=== PATIENT | female | born 1940 | race Caucasian/White ===

== ENCOUNTER 2017-07-25 11:37 | Observation (INO) | payer OTHER ==
[~2017-07-25] VITALS: Ht 162.6 cm; Wt 140.0 kg
[~2017-07-25 11:37] MED LIST: CARTIA; CLTP; DTR5; MULT-506; SYN200
[2017-07-25] MEDS ORDERED: ONDANSETRON INJ 2 MG/ML 2 ML VIAL IV STA (11:43)
[2017-07-25] MEDS ORDERED: MoRPHine SULFATE 4 MG/ML 1 ML CARP\\VIAL IV PRN (11:45)
--- NOTE | 2017-07-25 11:49 | EMERGENCY ROOM VISIT NOTE ---
History Report prepared by Kathy: Angelina Rosas Under the Supervision of: Dr. Erwin Escobar D.O. First contact with patient: 11:39 Stated Complaint: HIP PAIN History of Present Illness The patient is a 77 year old female who presents to the Emergency Room with complaints of left hip pain. The patient presented to the emergency department by amulet's because of severe left-sided hip pain. The patient states that she noticed approximately a week or 2 ago that when she was walking up a step she felt a pulling sensation in her left hip. She denies having any definite trauma or fall. The patient states that the pain has slowly progressed and gotten much worse. She tried to get an appointment with her primary care physician but was unable to. Last evening the pain became very severe and became a 10 out of 10. It is worsened with any movement or sitting forward. She states it trying to sit on the toilet made the pain very severe. She did not take any specific pain medication for this. The patient states the pain starts at the left groin and goes down into her left thigh. She also noted that she had muscle cramps in the left leg last evening. The patient has not had similar symptoms in the past. She denies having any chest pain or short of breath. She denies having any headache or weakness in the legs. Source of History: patient Onset: 1-2 weeks ago Position: other (left hip) Symptom Intensity: severe Modifying Factors (Worsening): movement Associated Symptoms: No headache, No chest pain, No SOB, No weakness Review of Systems See HPI for pertinent positives & negatives. A total of 10 systems reviewed and were otherwise negative. Past Medical & Surgical Medical Problems: (1) Arthritis (2) Atrial fibrillation (3) DM type 2 (diabetes mellitus, type 2) (4) GERD (gastroesophageal reflux disease) (5) HTN (hypertension) (6) Hypothyroidism Surgical Problems: (1) History of hysterectomy (2) History of total left knee replacement (3) History of total right knee replacement (4) Hx of tonsillectomy Family History Patient reports no known family medical history. Social History Marital Status: Housing Status: lives with significant other Current/Historical Medications Scheduled Apixaban (Eliquis), 5 MG PO BID Calcium Carbonate-Cholecalcife (Caltrate 600+D), 1 TAB PO QAM Clonidine Hcl (Catapres), 0.1 MG PO TID Coenzyme Q10 (Ubidecarenone) (Co Q-10), 1 TAB PO QAM Cyanocobalamin (Vitamin B-12), 1,000 MCG PO QAM Diltiazem Hcl Coated Beads (Cartia Xt), 180 MG PO BID Empagliflozin (Jardiance), 10 MG PO QAM Garlic (Garlic), 1 CAP PO QAM Glimepiride (Glimepiride), 1 TAB PO BID Eougerububt-Lcqfocoumhz-Dgsspd (Move Free Joint Health Ad), 2 TAB PO QAM Krill Oil (Krill Oil), 1 CAP PO DAILY Levothyroxine Sodium (Levothyroxine Sodium), 1 TAB PO QAM Magnesium Oxide (Mag-Ox), 200 MG PO DAILY Multiple Vitamins W/ Minerals (Centrum Silver), 1 TAB PO 1200 Potassium Ext Rel (Klor-Con), 20 MEQ PO QAM Ranitidine Hcl (Zantac), 150 MG PO HS Scheduled PRN Hydrochlorothiazide (Hctz), 25 MG PO DAILY PRN for SWELLING Allergies Coded Allergies: No Known Allergies (Verified , 07/25/17) Physical Exam Vital Signs Date Time Temp Pulse Resp B/P (MAP) Pulse Ox O2 Delivery O2 Flow Rate FiO2 07/25/17 15:00 78 118/72 94 Room Air 07/25/17 14:00 71 121/71 95 Room Air 07/25/17 12:23 82 07/25/17 11:52 36.7 85 21 119/69 97 Room Air 07/25/17 11:46 88 119/69 94 Room Air Physical Exam GENERAL: Patient is awake alert. She appears very anxious and uncomfortable. She appears to be in moderate to severe pain. EYES: The conjunctivae are clear. The pupils are round and reactive. EARS, NOSE, MOUTH AND THROAT: The nose is without any evidence of any deformity. Mucous membranes are moist tongue is midline NECK: The neck is nontender and supple. RESPIRATORY: Normal respiratory effort is noted there is no evidence of wheezing rhonchi or rales CARDIOVASCULAR: Regular rate and rhythm noted there no murmurs rubs or gallops normal S1 normal S2 GASTROINTESTINAL: The abdomen is soft. Bowel sounds are present in all quadrants. Abdomen is nontender BACK: No midline tenderness or or step-off noted range of motion in flexion extension as well as rotation no signs of muscle spasm noted MUSCULOSKELETAL/EXTREMITIES: There is no gross deformity or shortening. There is tenderness with palpation in the left groin as well as pain with external and internal rotation of the left hip. There is also tenderness over the left knee. There is no tenderness below the knee. No calf tenderness was elicited. SKIN: There is no obvious evidence of any rash. Trace pedal edema was noted bilaterally. NEUROLOGIC: Patient is awake alert and oriented x3. Medical Decision & Procedures ER Provider Diagnostic Interpretation: Radiology results as stated below per my review and radiologist interpretation: L FEMUR 2 VIEWS ROUTINE FINDINGS: Alignment of the total left knee arthroplasty is anatomic. There is no acute fracture of the left femur. Left hip joint space is preserved. There is mild osteophytosis. Irregularity of the greater trochanter is due to muscular insertion. IMPRESSION: No acute fracture of the left femur. Electronically signed by: Nirmala Francis KNEE 1 OR 2 VIEWS ROUTINE, PELVIS 1 OR 2 VIEW ROUTINE FINDINGS: PELVIS: Degenerative changes of the lower lumbar spine. Bones appear mildly demineralized. Mild to moderate degenerative changes of the bilateral hips. Sacrum and pelvic ring appear intact. Moderate degenerative changes of the pubic symphysis. KNEE: Left knee arthroplasty and prior patellar resurfacing. No evidence of hardware complication or malalignment. No acute fracture or subluxation. Probable small joint effusion. IMPRESSION: 1. No acute fracture or subluxation. 2. Osteoporotic appearance of the bones. 3. Left knee arthroplasty and prior patellar resurfacing without complication. 4. Small knee joint effusion. The above report was generated using voice recognition software. It may contain grammatical, syntax or spelling errors. Electronically signed by: Roverto Yanes M.D. LEFT LOWER EXTREMITY VENOUS DOPPLER FINDINGS: The left common femoral vein is patent. There is incomplete compressibility of the mid aspect of the left superficial femoral vein which suggests minimal nonocclusive thrombus which is likely old. No additional sites of deep venous thrombus were identified within the left lower extremity. IMPRESSION: 1. No evidence for acute deep venous thrombus within the left lower extremity. 2. Findings suggestive of minimal chronic deep venous thrombus within the left superficial femoral vein. Electronically signed by: Vivek Diaz M.D. L KNEE 1 OR 2 VIEWS ROUTINE, PELVIS 1 OR 2 VIEW ROUTINE FINDINGS: PELVIS: Degenerative changes of the lower lumbar spine. Bones appear mildly demineralized. Mild to moderate degenerative changes of the bilateral hips. Sacrum and pelvic ring appear intact. Moderate degenerative changes of the pubic symphysis. KNEE: Left knee arthroplasty and prior patellar resurfacing. No evidence of hardware complication or malalignment. No acute fracture or subluxation. Probable small joint effusion. IMPRESSION: 1. No acute fracture or subluxation. 2. Osteoporotic appearance of the bones. 3. Left knee arthroplasty and prior patellar resurfacing without complication. 4. Small knee joint effusion. The above report was generated using voice recognition software. It may contain grammatical, syntax or spelling errors. Electronically signed by: Roverto Yanes M.D. Laboratory Results 07/25/17 12:20 Red Blood Count 4.92, Mean Corpuscular Volume 90.9, Mean Corpuscular Hemoglobin 30.3, Mean Corpuscular Hemoglobin Concent 33.3, Mean Platelet Volume 10.6, Neutrophils (%) (Auto) 78.6, Lymphocytes (%) (Auto) 12.9, Monocytes (%) (Auto) 8.0, Eosinophils (%) (Auto) 0.2, Basophils (%) (Auto) 0.1, Neutrophils # (Auto) 6.56, Lymphocytes # (Auto) 1.08, Monocytes # (Auto) 0.67, Eosinophils # (Auto) 0.02, Basophils # (Auto) 0.01 07/25/17 12:20 Test 07/25/17 12:20 07/25/17 16:00 White Blood Count 8.36 K/uL (4.8-10.8) Red Blood Count 4.92 M/uL (4.2-5.4) Hemoglobin 14.9 g/dL (12.0-16.0) Hematocrit 44.7 % (37-47) Mean Corpuscular Volume 90.9 fL (80-100) Mean Corpuscular Hemoglobin 30.3 pg (25-34) Mean Corpuscular Hemoglobin Concent 33.3 g/dl (32-36) Platelet Count 207 K/uL (130-400) Mean Platelet Volume 10.6 fL (7.4-10.4) Neutrophils (%) (Auto) 78.6 % Lymphocytes (%) (Auto) 12.9 % Monocytes (%) (Auto) 8.0 % Eosinophils (%) (Auto) 0.2 % Basophils (%) (Auto) 0.1 % Neutrophils # (Auto) 6.56 K/uL (1.4-6.5) Lymphocytes # (Auto) 1.08 K/uL (1.2-3.4) Monocytes # (Auto) 0.67 K/uL (0.11-0.59) Eosinophils # (Auto) 0.02 K/uL (0-0.5) Basophils # (Auto) 0.01 K/uL (0-0.2) RDW Standard Deviation 48.1 fL (36.4-46.3) RDW Coefficient of Variation 14.5 % (11.5-14.5) Immature Granulocyte % (Auto) 0.2 % Immature Granulocyte # (Auto) 0.02 K/uL (0.00-0.02) Prothrombin Time 10.3 SECONDS (9.0-12.0) Prothromb Time International Ratio 1.0 (0.9-1.1) Activated Partial Thromboplast Time 28.7 SECONDS (21.0-31.0) Partial Thromboplastin Ratio 1.1 Anion Gap 6.0 mmol/L (3-11) Est Creatinine Clear Calc Drug Dose 98.5 ml/min Estimated GFR () 98.1 Estimated GFR (Non- 84.6 BUN/Creatinine Ratio 27.8 (10-20) Calcium Level 9.1 mg/dl (8.5-10.1) Magnesium Level 2.3 mg/dl (1.8-2.4) Total Bilirubin 0.9 mg/dl (0.2-1) Direct Bilirubin 0.2 mg/dl (0-0.2) Aspartate Amino Transf (AST/SGOT) 12 U/L (15-37) Alanine Aminotransferase (ALT/SGPT) 17 U/L (12-78) Alkaline Phosphatase 53 U/L (45-117) Total Protein 7.2 gm/dl (6.4-8.2) Albumin 3.5 gm/dl (3.4-5.0) Lipase 123 U/L (73-393) Urine Color YELLOW Urine Appearance CLEAR (CLEAR) Urine pH 5.0 (4.5-7.5) Urine Specific [place] > 1.045 (1.000-1.030) Urine Protein NEG (NEG) Urine Glucose (UA) 3+ (NEG) Urine Ketones TRACE (NEG) Urine Occult Blood NEG (NEG) Urine Nitrite NEG (NEG) Urine Bilirubin NEG (NEG) Urine Urobilinogen NEG (NEG) Urine Leukocyte Esterase NEG (NEG) Laboratory results per my review. Medications Administered Medications (Trade) Dose Ordered Sig/Chandrakant Route Start Time Stop Time Status Last Admin Dose Admin Morphine Sulfate (MoRPHine SULFATE INJ) 4 mg Q15M PRN IV 07/25/17 11:45 07/25/17 19:13 DC 07/25/17 12:29 4 MG Ondansetron HCl (Zofran Inj) 4 mg NOW STAT IV 07/25/17 11:43 07/25/17 11:46 DC 07/25/17 12:29 4 MG ED Course 1140: The patient was evaluated in room B10. A complete history and physical examination were performed. 1143: Ordered Zofran Inj 4 mg IV. 1145: Ordered Morphine Sulfate 4 mg IV. 1421: The patient reports more pain to her groin area. 1546: I discussed the patient's case with Angeline Maurer. The patient will be evaluated for further management. Medical Decision Prior records reviewed and summarized above. Triage Nursing notes reviewed. The patient's history was concerning for pain in the leg. Differential diagnosis: Etiologies such as DVT, musculoskeletal, infection, joint effusion, trauma, lymphedema, idiopathic, CHF, as well as others were entertained.. The patient is a 77-year-old female who presented to the emergency department for an evaluation of left leg pain. The patient states it she had a misstep on her left leg a few weeks ago and ever since that time he's had very severe left lower extremity pain. She's had very significant pain with ambulation. The patient denies any recent injury or swelling. She denies having any numbness but states that any movement of the leg gets or severe pain. The patient's x- rays did not reveal any acute fracture. Ultrasound revealed an age- indeterminate DVT but not an acute DVT that I feel would be causing her symptoms. The patient was treated with IV pain medication in the emergency department. She had some significant improvement in symptoms however upon attempting to ambulate she had very severe pain. For this reason I discussed her case with the on-call [facility] hospitalist group. They've agreed to evaluate the patient in the emergency department for further management and disposition. Medication Reconcilliation Current Medication List: was personally reviewed by me Blood Pressure Screening Patient's blood pressure: Normal blood pressure Blood pressure disposition: Referred to PCP (evaluated by hospitalist) Consults Time Called: 154 Consulting Physician: Angeline Maurer Returned Call: [phone] I discussed the patient's case with Angeline Maurer. The patient will be evaluated for further management. Impression Primary Impression: Leg pain, left Additional Impression: Ambulatory dysfunction Scribe Attestation The scribe's documentation has been prepared under my direction and personally reviewed by me in its entirety. I confirm that the note above accurately reflects all work, treatment, procedures, and medical decision making performed by me. Departure Information Dispostion Being Evaluated By Hospitalist Problem Qualifiers
[2017-07-25 12:37] LABS: BASO % 0.1 %; BASO ABS # 0.01 K/uL (0-0.2); EOS % 0.2 %; EOS ABS # 0.02 K/uL (0-0.5); HEMATOCRIT 44.7 % (37-47); HEMOGLOBIN 14.9 g/dL (12.0-16.0); IG# 0.02 K/uL (0.00-0.02); LYMPH % 12.9 %; LYMPH ABS # 1.08 K/uL (1.2-3.4); MEAN CELL VOLUME 90.9 fL (80-100); MEAN CORPUSCULAR HEMOGLOBIN 30.3 pg (25-34); MEAN CORPUSCULAR HGB CONC 33.3 g/dl (32-36); MEAN PLATELET VOLUME 10.6 fL (7.4-10.4); MONO ABS # 0.67 K/uL (0.11-0.59); NEUT % 78.6 %; NEUT ABS # 6.56 K/uL (1.4-6.5); PLATELET COUNT 207 K/uL (130-400); RED CELL DISTRIBUTION WIDTH CV 14.5 % (11.5-14.5); RED CELL DISTRIBUTION WIDTH SD 48.1 fL (36.4-46.3); WHITE BLOOD COUNT 8.36 K/uL (4.8-10.8)
--- NOTE | 2017-07-25 12:46 | DIAGNOSTIC IMAGING REPORT ---
L FEMUR 2 VIEWS ROUTINE CLINICAL HISTORY: Worsening left hip and thigh pain. COMPARISON: Pelvis radiograph May 27, 2016. FINDINGS: Alignment of the total left knee arthroplasty is anatomic. There is no acute fracture of the left femur. Left hip joint space is preserved. There is mild osteophytosis. Irregularity of the greater trochanter is due to muscular insertion. IMPRESSION: No acute fracture of the left femur. Electronically signed by: Vivek Diaz M.D. 07/25/2017 12:45 PM Dictated Date/Time: 07/25/2017 12:44 PM
[2017-07-25 12:47] LABS: PTT PATIENT 28.7 SECONDS (21.0-31.0)
--- NOTE | 2017-07-25 12:52 | DIAGNOSTIC IMAGING REPORT ---
L KNEE 1 OR 2 VIEWS ROUTINE, PELVIS 1 OR 2 VIEW ROUTINE HISTORY: 77 years-old Female pain acute left hip and thigh pain COMPARISON: Pelvis radiograph 05/27/2006 TECHNIQUE: AP view the pelvis with 2 views of the left femur and 2 views of the left knee FINDINGS: PELVIS: Degenerative changes of the lower lumbar spine. Bones appear mildly demineralized. Mild to moderate degenerative changes of the bilateral hips. Sacrum and pelvic ring appear intact. Moderate degenerative changes of the pubic symphysis. KNEE: Left knee arthroplasty and prior patellar resurfacing. No evidence of hardware complication or malalignment. No acute fracture or subluxation. Probable small joint effusion. IMPRESSION: 1. No acute fracture or subluxation. 2. Osteoporotic appearance of the bones. 3. Left knee arthroplasty and prior patellar resurfacing without complication. 4. Small knee joint effusion. The above report was generated using voice recognition software. It may contain grammatical, syntax or spelling errors. Electronically signed by: Roverto Yanes M.D. 07/25/2017 12:50 PM Dictated Date/Time: 07/25/2017 12:45 PM
[2017-07-25 12:54] LABS: ALBUMIN 3.5 gm/dl (3.4-5.0); CALCIUM 9.1 mg/dl (8.5-10.1); CREATININE 0.66 mg/dl (0.60-1.20); POTASSIUM 3.9 mmol/L (3.5-5.1)
[2017-07-25 12:57] LABS: TOTAL PROTEIN 7.2 gm/dl (6.4-8.2)
--- NOTE | 2017-07-25 13:14 | DIAGNOSTIC IMAGING REPORT ---
LEFT LOWER EXTREMITY VENOUS DOPPLER CLINICAL HISTORY: Left lower extremity pain. COMPARISON STUDY: No previous studies for comparison. TECHNIQUE: Sonography of the deep venous system of the left lower extremity was performed. Compression and augmentation were evaluated. FINDINGS: The left common femoral vein is patent. There is incomplete compressibility of the mid aspect of the left superficial femoral vein which suggests minimal nonocclusive thrombus which is likely old. No additional sites of deep venous thrombus were identified within the left lower extremity. IMPRESSION: 1. No evidence for acute deep venous thrombus within the left lower extremity. 2. Findings suggestive of minimal chronic deep venous thrombus within the left superficial femoral vein. Electronically signed by: Vivek Diaz M.D. 07/25/2017 1:13 PM Dictated Date/Time: 07/25/2017 1:10 PM
[2017-07-25] MEDS ORDERED: MAGNESIUM 200 MG PO (14:24)
[2017-07-25] MEDS ORDERED: CYAN10005 PO (14:24)
[2017-07-25] MEDS ORDERED: LEVO200T6 PO (14:24)
[2017-07-25] MEDS ORDERED: EMPA1TAB PO (14:24)
[2017-07-25] MEDS ORDERED: COEN1CAP37 PO (14:24)
[2017-07-25] MEDS ORDERED: CTP/1 PO (14:24)
[2017-07-25] MEDS ORDERED: CO Q (14:24)
[2017-07-25] MEDS ORDERED: CALC-354 PO (14:24)
[2017-07-25] MEDS ORDERED: GLUC1TAB94 PO (14:24)
[2017-07-25] MEDS ORDERED: APIX1TAB3 PO (14:24)
[2017-07-25] MEDS ORDERED: HYDR25TA4 PO (14:24)
[2017-07-25] MEDS ORDERED: POTA-639 PO (14:24)
[2017-07-25] MEDS ORDERED: MULTCHW PO (14:24)
[2017-07-25] MEDS ORDERED: RED KRILL OIL PO (14:24)
[2017-07-25] MEDS ORDERED: GLIM2TAB2 PO (14:24)
[2017-07-25] MEDS ORDERED: CARTIA XT PO (14:24)
[2017-07-25] MEDS ORDERED: RANI150T3 PO (14:24)
[2017-07-25] MEDS ORDERED: GARL10007 PO (14:24)
[2017-07-25] MEDS ORDERED: IV FLUIDS COMPLETED PRN (16:15)
[2017-07-25] MEDS ORDERED: DILT240C48 PO (16:59)
[2017-07-25] MEDS ORDERED: MAGN400T6 PO (16:59)
[2017-07-25] MEDS ORDERED: KRIL1000 PO (16:59)
[2017-07-25] MEDS ORDERED: ONDANSETRON INJ 2 MG/ML 2 ML VIAL IV PRN (17:00)
[2017-07-25] MEDS ORDERED: ACETAMINOPHEN 325 MG TAB PO PRN (17:00)
[2017-07-25] MEDS ORDERED: GLUCAGON FOR INJ 1 MG VIAL SQ PRN (17:15)
[2017-07-25] MEDS ORDERED: GLUCOSE 40% GEL 15 GM TUBE PO PRN (17:15)
[2017-07-25] MEDS ORDERED: DEXTROSE 50% 50 ML SYR IV PRN (17:15)
[2017-07-25] MEDS ORDERED: GLUCOSE 10 TABS/TUBE PO PRN (17:15)
[2017-07-25 18:46] VITALS: BP 107/75; PULSE 96; TEMP 36.8; O2SAT 96; Ht 162.6 cm; Wt 140.0 kg
--- NOTE | 2017-07-25 20:00 | NUR ---
OBS: Pt alert X4. Denies numbness or tingling. Trace edema to bilateral lower extremities. Radial and pedal pulses strong and equal. Brisk cap refill. Lungs are clear. 84% on room air, 2L O2 NC applied. 96% on 2L. Bowel sounds present in all quadrants, patient is passing gas, states LBM was 12/20. Pt states she has stress incontinence and wears a pad. Left medial thigh has and ecchymotic area, right abdominal fold has some moisture associated skin damage, all other skin is intact. Allevyn dressings applied to sacrum and bilateral heels for a tg of 18. Saline lock to right AC. Patient transfers with assist of 1 and a walker. Complains of a pain of 4/10 that was relieved with repositioning. Patient will be NPO after midnight incase she will need surgical intervention. 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
--- NOTE | 2017-07-25 20:08 | DIAGNOSTIC IMAGING REPORT ---
LEFT HIP CT CT DOSE: 1038.53 mGy.cm HISTORY: left hip pain TECHNIQUE: Multiaxial CT images of the left hip were performed and reformatted in the sagittal and coronal plane without the use of contrast. A dose lowering technique was utilized adhering to the principles of ALARA. COMPARISON: Pelvis 07/25/2017. FINDINGS: Mild osteoarthritis within the left hip. No fracture or dislocation. The visualized pelvic bones are intact. There is a large intramuscular hematoma within the left thigh adductor muscles. This measures approximately 11 x 9 cm. The inferior border of the hematoma is not included on this study. As also increased thickening within the piriformis muscle which may represent an additional small intramuscular hematoma. No significant hip effusion. IMPRESSION: 1. No fracture or dislocation within the left hip. 2. Large intramuscular hematoma measuring 11 x 9 cm within the left thigh adductor muscles. 3. There may be a second smaller intramuscular hematoma within the left piriformis muscle. Electronically signed by: Janes Schwab M.D. 07/25/2017 8:07 PM Dictated Date/Time: 07/25/2017 7:58 PM
--- NOTE | 2017-07-25 20:22 | History and Physical ---
History & Physical Date & Time of Service: Jul 25, 2017 ~ 16:30 Chief Complaint: Left Hip Pain Primary Care Physician: Peter May D.O. History of Present Illness 77 year old female who presents to the ED with left hip pain. Patient reports that about two weeks ago she was stepping up into her house when she felt something pull in her left hip. She reports it was initially painful however was progressively getting better over the following two weeks. Last night, again while stepping up into her house, patient developed an acute worsening of the pain. She describes the pain as being located in the left groin. She denies any back pain, lateral hip pain, or radiation of the pain into the leg. The pain was initially constant however is now only exacerbated by sitting or standing. She reports pain is bearable when she is ambulating. Patient reports she otherwise has been feeling well. She denies chest pain, shortness of breath , or palpitations. No lightheadedness, dizziness, diaphoresis, or syncopal events. She has occasional diarrhea. She denies abdominal pain, nausea, or vomiting. No fevers or chills. She denies urinary symptoms. In the ED, xrays are negative for acute findings. Labs are unremarkable. Vitals are stable. Patient however is currently unable to ambulate safely so is therefore being admitted for PT/OT and pain control. Past Medical/Surgical History Medical Problems: (1) Arthritis Status: Chronic (2) Atrial fibrillation Status: Chronic (3) DM type 2 (diabetes mellitus, type 2) Status: Chronic (4) GERD (gastroesophageal reflux disease) Status: Chronic (5) HTN (hypertension) Status: Chronic (6) Hypothyroidism Status: Chronic Surgical Problems: (1) History of hysterectomy Status: Chronic (2) History of total left knee replacement Status: Chronic (3) History of total right knee replacement Status: Chronic (4) Hx of tonsillectomy Status: Chronic Family History non contributory due to patient's advanced age Social History Smoking Status: Never Smoker Alcohol Use: none Multi-Drug Resistant Organisms History of MDRO: No Allergies Coded Allergies: No Known Allergies (Verified , 07/25/17) Home Medications Scheduled Apixaban (Eliquis), 5 MG PO BID Calcium Carbonate-Cholecalcife (Caltrate 600+D), 1 TAB PO QAM Clonidine Hcl (Catapres), 0.1 MG PO TID Coenzyme Q10 (Ubidecarenone) (Co Q-10), 1 TAB PO QAM Cyanocobalamin (Vitamin B-12), 1,000 MCG PO QAM Diltiazem Hcl Coated Beads (Cartia Xt), 180 MG PO BID Empagliflozin (Jardiance), 10 MG PO QAM Garlic (Garlic), 1 CAP PO QAM Glimepiride (Glimepiride), 1 TAB PO BID Ynqmqbvhner-Wvfsttyhdnj-[place] (Move Free Joint Health Ad), 2 TAB PO QAM Krill Oil (Krill Oil), 1 CAP PO DAILY Levothyroxine Sodium (Levothyroxine Sodium), 1 TAB PO QAM Magnesium Oxide (Mag-Ox), 200 MG PO DAILY Multiple Vitamins W/ Minerals (Centrum Silver), 1 TAB PO 1200 Potassium Ext Rel (Klor-Con), 20 MEQ PO QAM Ranitidine Hcl (Zantac), 150 MG PO HS Scheduled PRN Hydrochlorothiazide (Hctz), 25 MG PO DAILY PRN for SWELLING Review of Systems ROS per HPI, all other systems reviewed and negative Physical Exam Vital Signs Date Time Temp Pulse Resp B/P (MAP) Pulse Ox O2 Delivery O2 Flow Rate FiO2 07/25/17 18:46 Nasal Cannula 2.0 07/25/17 18:46 36.8 96 16 107/75 96 2.0 07/25/17 17:24 36.7 75 21 122/89 95 07/25/17 17:21 75 122/89 95 Room Air 07/25/17 15:00 78 118/72 94 Room Air 07/25/17 14:00 71 121/71 95 Room Air 07/25/17 12:23 82 07/25/17 11:52 36.7 85 21 119/69 97 Room Air 07/25/17 11:46 88 119/69 94 Room Air General Appearance: WD/WN, no apparent distress, + obese Head: normocephalic, atraumatic Eyes: normal inspection, EOMI, sclerae normal ENT: hearing grossly normal, + pertinent finding (mucous membranes moist) Neck: supple, no JVD, trachea midline Respiratory/Chest: lungs clear, normal breath sounds, no respiratory distress Cardiovascular: normal peripheral pulses, + irregularly irregular (rate controlled), + pertinent finding (trace edema BLLE) Abdomen/GI: normal bowel sounds, non tender, soft, no organomegaly Extremities/Musculoskelatal: no calf tenderness, normal capillary refill, + pertinent finding (left groin pain stimulated by lifting the left leg) Neurologic/Psych: no motor/sensory deficits, alert, normal mood/affect, oriented x 3 Skin: normal color, warm/dry Diagnostics Laboratory Results Results Past 24 Hours Test 07/25/17 12:20 07/25/17 16:00 07/25/17 18:43 Range/Units White Blood Count 8.36 4.8-10.8 K/uL Red Blood Count 4.92 4.2-5.4 M/uL Hemoglobin 14.9 12.0-16.0 g/dL Hematocrit 44.7 37-47 % Mean Corpuscular Volume 90.9 80-100 fL Mean Corpuscular Hemoglobin 30.3 25-34 pg Mean Corpuscular Hemoglobin Concent 33.3 32-36 g/dl Platelet Count 207 130-400 K/uL Mean Platelet Volume 10.6 7.4-10.4 fL Neutrophils (%) (Auto) 78.6 % Lymphocytes (%) (Auto) 12.9 % Monocytes (%) (Auto) 8.0 % Eosinophils (%) (Auto) 0.2 % Basophils (%) (Auto) 0.1 % Neutrophils # (Auto) 6.56 1.4-6.5 K/uL Lymphocytes # (Auto) 1.08 1.2-3.4 K/uL Monocytes # (Auto) 0.67 0.11-0.59 K/uL Eosinophils # (Auto) 0.02 0-0.5 K/uL Basophils # (Auto) 0.01 0-0.2 K/uL RDW Standard Deviation 48.1 36.4-46.3 fL RDW Coefficient of Variation 14.5 11.5-14.5 % Immature Granulocyte % (Auto) 0.2 % Immature Granulocyte # (Auto) 0.02 0.00-0.02 K/uL Prothrombin Time 10.3 9.0-12.0 SECONDS Prothromb Time International Ratio 1.0 0.9-1.1 Activated Partial Thromboplast Time 28.7 21.0-31.0 SECONDS Partial Thromboplastin Ratio 1.1 Sodium Level 138 136-145 mmol/L Potassium Level 3.9 3.5-5.1 mmol/L Chloride Level 104 98-107 mmol/L Carbon Dioxide Level 28 21-32 mmol/L Anion Gap 6.0 3-11 mmol/L Blood Urea Nitrogen 18 7-18 mg/dl Creatinine 0.66 0.60-1.20 mg/dl Est Creatinine Clear Calc Drug Dose 98.5 ml/min Estimated GFR () 98.1 Estimated GFR (Non- 84.6 BUN/Creatinine Ratio 27.8 10-20 Random Glucose 139 70-99 mg/dl Calcium Level 9.1 8.5-10.1 mg/dl Magnesium Level 2.3 1.8-2.4 mg/dl Total Bilirubin 0.9 0.2-1 mg/dl Direct Bilirubin 0.2 0-0.2 mg/dl Aspartate Amino Transf (AST/SGOT) 12 15-37 U/L Alanine Aminotransferase (ALT/SGPT) 17 12-78 U/L Alkaline Phosphatase 53 45-117 U/L Total Protein 7.2 6.4-8.2 gm/dl Albumin 3.5 3.4-5.0 gm/dl Lipase 123 73-393 U/L Urine Color YELLOW Urine Appearance CLEAR CLEAR Urine pH 5.0 4.5-7.5 Urine Specific [place] > 1.045 1.000-1.030 Urine Protein NEG NEG Urine Glucose (UA) 3+ NEG Urine Ketones TRACE NEG Urine Occult Blood NEG NEG Urine Nitrite NEG NEG Urine Bilirubin NEG NEG Urine Urobilinogen NEG NEG Urine Leukocyte Esterase NEG NEG Bedside Glucose 125 70-90 mg/dl Diagnostic Radiology PELVIS XR IMPRESSION: 1. No acute fracture or subluxation. 2. Osteoporotic appearance of the bones. 3. Left knee arthroplasty and prior patellar resurfacing without complication. 4. Small knee joint effusion. LLE DOPPLER IMPRESSION: 1. No evidence for acute deep venous thrombus within the left lower extremity. 2. Findings suggestive of minimal chronic deep venous thrombus within the left superficial femoral vein. LEFT FEMUR XR IMPRESSION: No acute fracture of the left femur. Impression Assessment and Plan AMBULATORY DYSFUNCTION LEFT HIP PAIN - admit to med/surg - patient presenting with left hip pain x 2 weeks that acutely worsened last night - xrays negative for acute fracture; will obtain CT left hip - ortho consult, case discussed with Rolando Guzman PA-C - PT/OT SUPERFICIAL THROMBUS - LLE doppler - minimal chronic deep venous thrombus within the left superficial femoral vein - on Eliquis for afib - no further treatment needed ATRIAL FIBRILLATION - rate controlled on Cartia - anticoagulated on Eliquis DM - hgb a1c unavailable, will check in AM - hold oral agents and utilize SSI while hospitalized HTN - BP controlled, continue clonidine and Cartia HYPOTHYROIDISM - continue levothyroxine DVT PROPHYLAXIS - on Eliquis CODE STATUS - Patient is a full code as per my discussion with her. DISPO - The patient will be placed as observation status for now until further work up is complete. - PT/OT, case management consults; may need short term placement vs. home with home health Attending Addendum: The patient was seen and examined Complains of Left Hip Pain -for the last 2 weeks No H/O trauma Pain has been gradually increasing and is worse today More pain in groin and worse with sitting O/E Obese Hemodynamically stable In Moderate distress at rest Chest-clear to ausucltate bilaterally Heart-Irregular,no murmur Abdomen-benign Extremities-Trace edema bilaterally Left hip movement is painful in all direction Labs and Imaging Studies were reviewed Has Intramuscular Hemorrhage secondary to Eliqiuis Hold Eliquis,Monitor Hb Evaluate the need for Anticoagulation Dr Jaleesa Hargrove Advanced Directives Existing Living Will: No Existing Power of Scaler Packer: Yes VTE Prophylaxis VTE Risk Assessment Done? Y/N: Yes Risk Level: Moderate Given or contraindicated: Other Anticoagulation
[2017-07-25 20:41] VITALS: BP 120/70; PULSE 102; O2SAT 96
[2017-07-25] MEDS: RANITIDINE HCL 150 MG TAB PO SCH (20:44)
[2017-07-25] MEDS: CLONIDINE HCL 0.1 MG TAB PO SCH (20:44)
[2017-07-25] MEDS: DILTIAZEM HCL 180 MG CAPCR PO SCH (20:44)
[2017-07-25 20:59] LABS: HEMATOCRIT 37.7 % (37-47); HEMOGLOBIN 12.5 g/dL (12.0-16.0)
[2017-07-25] MEDS ORDERED: APIXABAN 2.5 MG TAB PO SCH (21:00)
[2017-07-25] MEDS ORDERED: INSULIN ASPART 100 UNITS/ML 3 ML PEN SC SCH (21:00)
[2017-07-25] MEDS ORDERED: PNEUMOCOCCAL ADMINISTRATION CHARGE ONE (21:15)
[2017-07-25] MEDS ORDERED: PNEUMOCOCCAL POLYSACCHARIDES 25 MCG/0.5 ML VIAL/SYR IM. ONE (21:15)
--- NOTE | 2017-07-25 21:52 | NUR ---
The patient has demonstrated progress toward goals and readiness for discharge as demonstrated by: OBS: Pt alert X4. Denies numbness or tingling. Trace edema to bilateral lower extremities. Radial and pedal pulses strong and equal. Brisk cap refill. Lungs are clear. 96% on 2L. Bowel sounds present in all quadrants, patient is passing gas, states LBM was 12/20. Pt states she has stress incontinence and wears a pad. Left medial thigh has and ecchymotic area, right abdominal fold has some moisture associated skin damage, all other skin is intact. Allevyn dressings applied to sacrum and bilateral heels for a tg of 18. Saline lock to right AC. Patient transfers with assist of 1 and a walker. Complains of a pain of 4/10 that was relieved with repositioning. Patient will be NPO after midnight incase she will need surgical intervention. 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
[2017-07-25 23:27] VITALS: BP 122/82; PULSE 108; TEMP 36.7; O2SAT 96
--- NOTE | 2017-07-26 | NUR ---
OBS Note: A/Ox4. Pain controlled with medication. Saline locked. OOB with one assist and a walker. Pt currently resting in bed. Call martin within reach.
[2017-07-26] MEDS ORDERED: HYDROCODONE/ACETAMINOPHEN 7.5/325MG TAB PO ONE (00:35)
[2017-07-26] MEDS ORDERED: NURSING VERBAL MED ORDER ONE ×2 (03:15→21:30)
--- NOTE | 2017-07-26 04:00 | NUR ---
OBS Note: No change in assessment. Saline locked. Pt resting in bed. Call martin within reach.
[2017-07-26] MEDS: LEVOTHYROXINE 200 MCG TAB PO SCH ×2 (05:57→09:34)
[2017-07-26] MEDS: INSULIN ASPART 100 UNITS/ML 3 ML PEN SC SCH ×4 (05:57→21:30)
[2017-07-26 07:04] LABS: HEMOGLOBIN A1C 7.2 % (4.5-5.6)
[2017-07-26 07:59] VITALS: BP 126/75; PULSE 122; TEMP 36.5; O2SAT 94
[2017-07-26 08:00] VITALS: O2SAT 90
--- NOTE | 2017-07-26 08:00 | NUR ---
OBS: Pt resting in the chair. C/O left leg pain - awaiting call from MD since pt is NPO. OOB to bathroom with assistance x 1. Awaiting to be seen by ortho.
[2017-07-26] MEDS ORDERED: NON-FORMULARY MEDICATION (Coenzyme Q10 (Ubidecarenone) (Co Q-10) 1 TAB) PO SCH (09:00)
[2017-07-26] MEDS ORDERED: NON-FORMULARY MEDICATION (Krill Oil 1 CAP) PO SCH (09:00)
[2017-07-26] MEDS: HYDROCODONE/ACETAMINOPHEN 7.5/325MG TAB PO PRN (09:32)
[2017-07-26] MEDS: CALCIUM 600MG + VIT D 400 IU TAB PO SCH (09:33)
[2017-07-26] MEDS: MAGNESIUM OXIDE 400 MG TAB PO SCH (09:33)
[2017-07-26] MEDS: POTASSIUM CHLORIDE 20 MEQ TABCR PO SCH (09:33)
[2017-07-26] MEDS: CYANOCOBALAMIN 500 MCG TAB (VIT B-12) PO SCH (09:34)
[2017-07-26] MEDS: DILTIAZEM HCL 180 MG CAPCR PO SCH ×2 (09:34→21:37)
[2017-07-26] MEDS: CLONIDINE HCL 0.1 MG TAB PO SCH ×3 (09:34→21:37)
[2017-07-26] MEDS: CEROVITE ADV FORMULA TAB PO SCH (12:00)
--- NOTE | 2017-07-26 12:00 | NUR ---
OBS: Still awaiting ortho input. Continues NPO. Otherwise no complaints.
--- NOTE | 2017-07-26 13:38 | NUR ---
Case Management- Consult for discharge planning, met with pt to determine needs. Pt was admitted with ambulatory dysfunction, she has reported increased pain and difficulty with ambulation over the past 2 weeks. Pt lives with her in a 2 story home, they have first floor living and home is handicapped accessible, ramp to enter. Pts spouse is on dialysis but he is independent, she assists him with cooking and cleaning and he assists her with tasks prn. Pt reports she is independent with ADLs including ambulating without a device at baseline. She does have a walker and cane, as well as raised/handicapped toilet. Pt is aware there may be a possibility she will require rehab, reviewed options pt is only agreeable to [facility]. Referral information provided to [facility]. Reviewed possibility of denial of acute rehab but approval for SNF, at this time pt refusing snf and reports she would return home if rehab was denied. Pt feels family is supportive and would be able to provide assistance. Sons live about 15 minutes away and are supportive she reports they assist as needed. Ortho consulted. Will appreciate PT/OT evaluations. Will continue to follow.
[2017-07-26 15:28] VITALS: BP 118/62; PULSE 97; TEMP 36.7; O2SAT 92
--- NOTE | 2017-07-26 16:00 | NUR ---
Obd/ID: Pt A&Ox4. No c/o pain. Saline lock intact, site clear. Lungs clear on RA. OOB ambulating with one assist and walker, gait steady, tolerated. Voiding in toilet. Bruising to upper left extremity. Tolerating a DM type II AHA diet. D/C uncertain at this time. Call martin in reach.
--- NOTE | 2017-07-26 18:23 | Progress Note ---
Subjective Date of Service: Jul 26, 2017. Subjective Pt evaluation today including: conversation w/ patient, physical exam, lab review, review of studies, review of inpatient medication list Saw/examined the patient in room 387 Doing well, pain controlled +bruising, +tenderness No other issues to note Review of Systems Respiratory: No cough, No sputum, No shortness of breath Cardiac: No chest pain, No palpitations Abdomen: No pain, No nausea, No vomiting, No diarrhea Medications Current Inpatient Medications Medications (Trade) Dose Ordered Sig/Chandrakant Route Start Time Stop Time Status Last Admin Dose Admin Miscellaneous (Iv Fluids Completed) 1 ea PRN PRN N/A 07/25/17 16:15 07/25/18 16:14 Acetaminophen (Tylenol Tab) 650 mg Q4H PRN PO 07/25/17 17:00 08/24/17 16:59 Ondansetron HCl (Zofran Inj) 4 mg Q6H PRN IV 07/25/17 17:00 08/24/17 16:59 Acetaminophen/ Hydrocodone Bitart ([place] 7.5/325 Tab) 1 tab Q6H PRN PO 07/25/17 17:00 08/08/17 16:59 07/26/17 09:32 1 TAB Clonidine HCl (Catapres Tab) 0.1 mg TID PO 07/25/17 21:00 08/24/17 20:59 07/26/17 14:40 0.1 MG Cyanocobalamin (Vitamin B-12 Tab) 1,000 mcg QAM PO 07/26/17 09:00 08/25/17 08:59 07/26/17 09:34 1,000 MCG Diltiazem HCl (Cardizem Cd Cap) 180 mg BID PO 07/25/17 21:00 08/24/17 20:59 07/26/17 09:34 180 MG Levothyroxine Sodium (Synthroid Tab) 200 mcg DAILYBB PO 07/26/17 06:00 08/25/17 06:59 07/26/17 09:34 200 MCG Magnesium Oxide (Mag-Ox Tab) 200 mg DAILY PO 07/26/17 09:00 08/25/17 08:59 07/26/17 09:33 200 MG Potassium Chloride (Klor-Con Tab) 20 meq QAM PO 07/26/17 09:00 08/25/17 08:59 12/22/17 09:33 20 MEQ Ranitidine HCl (zANTac TAB) 150 mg HS PO 07/25/17 21:00 08/24/17 20:59 07/25/17 20:44 150 MG Calcium/Vitamin D (Caltrate Plus Tab) 1 tab QAM PO 07/26/17 09:00 08/25/17 08:59 07/26/17 09:33 1 TAB Multivitamins/ Minerals (Multivitamin W/ Minerals Tab) 1 tab DAILY@1200 PO 07/26/17 12:00 08/25/17 11:59 Glucose (Glucose 40% Gel) 15-30 GRAMS 15 GRAMS... UD PRN PO 07/25/17 17:15 08/24/17 17:14 Glucose (Glucose Chew Tab) 4-8 Tablets 4 Tabl... UD PRN PO 07/25/17 17:15 08/24/17 17:14 Dextrose (Dextrose 50% 50ML Syringe) 25-50ML OF 50% DW IV FOR... UD PRN IV 07/25/17 17:15 08/24/17 17:14 Glucagon (Glucagon Inj) 1 mg UD PRN SQ 07/25/17 17:15 08/24/17 17:14 Insulin Aspart (novoLOG ASPART) SLIDING SCALE If C... Q6 SC 07/26/17 06:00 08/25/17 05:59 Objective Vital Signs Date Time Temp Pulse Resp B/P (MAP) Pulse Ox O2 Delivery O2 Flow Rate FiO2 07/26/17 15:28 36.7 97 18 118/62 (80) 92 Room Air 07/26/17 08:00 90 Room Air 07/26/17 07:59 36.5 122 18 126/75 (92) 94 Room Air 07/25/17 23:52 Nasal Cannula 2.0 07/25/17 23:27 36.7 108 18 122/82 (95) 96 Nasal Cannula 2.0 07/25/17 20:41 102 18 120/70 (87) 96 Nasal Cannula 2.0 07/25/17 18:46 Nasal Cannula 2.0 07/25/17 18:46 36.8 96 16 107/75 96 2.0 Physical Exam General Appearance: no apparent distress, + obese Respiratory/Chest: lungs clear, normal breath sounds, no respiratory distress, no accessory muscle use Cardiovascular: no edema, no murmur, + irregularly irregular Extremities: + pertinent finding (+bruising, ecchymosis, swelling of the medial thigh on the L) Neurologic/Psychiatric: no motor/sensory deficits, alert, normal mood/affect Laboratory Results Last 24 Hours Test 07/25/17 18:43 07/25/17 20:44 07/25/17 20:54 07/26/17 02:58 Bedside Glucose 125 mg/dl 166 mg/dl 126 mg/dl Hemoglobin 12.5 g/dL Hematocrit 37.7 % Test 07/26/17 05:55 07/26/17 06:19 Bedside Glucose 129 mg/dl Estimated Average Glucose 160 mg/dl Hemoglobin A1c 7.2 % Assessment and Plan This is a 77 year old female with a PMH of obesity, DM2, A. Fib on Eliquis, HTN , HLD, hypothyroidism presents with L hip pain L Medial Thigh Hematoma CT suggest a L hematoma on the adductor muscles stopped Eliquis H/H stable - but we will monitor this PT/OT [place] PRN for pain ortho input would be appreciated A. Fib HRs are fluctuating monitor HRs control pain; continue Cardizem stopped Eliquis due to hematoma restart as outpatient if bleeding improves DM2 insulin sliding scale monitor BSGs HTN continue clonidine continue Cardizem Hypothyroidism continue Synthroid DVT ppx SCDs FULL CODE
--- NOTE | 2017-07-26 19:14 | CONSULTATION REPORT ---
DATE OF CONSULTATION: 07/26/2017 PERTINENT HISTORY: This is a 77-year-old female seen at the request of Dr. Stone for left thigh pain and hip pain. Apparently, 2 weeks ago, the patient was stepping up into her house on the step, she had her left leg slightly stuck. She went to leave against it and felt something pull a chair on her leg. She noted that was painful; however, ignored it and had no other immediate complaints. She then had progressive left hip and groin pain which worsened to the point of difficulty with ambulation yesterday. The patient then presented to [facility] ER, at which point she continued to be evaluated by the Emergency Department physician with radiographs and CT scan. She had no other associated injuries. No loss of consciousness. No dizziness, lightheadedness, fevers, chills, nausea or vomiting or diarrhea. No urinary symptoms. PAST MEDICAL HISTORY: Degenerative joint disease, AFib, chronic type 2 diabetes mellitus, gastroesophageal reflux, hypertension, and hypothyroidism. PAST SURGICAL HISTORY: Hysterectomy, history of total left knee replacement, history of total right knee replacement by Dr. Velásquez, and history of tonsillectomy. ALLERGIES: No known drug allergies. MEDICATIONS: Eliquis, Caltrate 600+D, Catapres, Coenzyme Q10, vitamin B12, Cartia XT, Jardiance, garlic, glimepiride, glucosamine chondroitin sulfate, Krill oil, levothyroxine sodium, magnesium oxide, Centrum Silver, Klor-Con, Zantac and hydrochlorothiazide. SOCIAL HISTORY: The patient denies tobacco, alcohol or drug use. She is . She lives at home with her . She is retired. PHYSICAL EXAMINATION: GENERAL: This is a 77-year-old female, sitting supine in her hospital room, on bedside chair. She is alert and oriented x3. Speech clear and fluent. Affect is appropriate. Cranial nerves II-XII are grossly intact. HEENT: Trachea is midline. No JVD. Oral mucosa is slightly dry. LOWER EXTREMITIES: Demonstrates significant for obesity. She has intact skin, bilateral lower extremities with significant ecchymosis and bruising along the proximal left thigh and the medial aspect of the thigh and groin. No skin breakdown. Sensation is intact. Some local discomfort tenderness to palpation and also the deep tenderness along the left thigh with palpable hematoma and fullness to the proximal left thigh. Dorsalis pedis and posterior pulses are 2/4. 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 She has normal range of motion, symmetric with age-appropriate strength to bilateral lower extremities. IMAGING DATA: Radiographs and CT scans of the left hip and pelvis demonstrate a large hematoma within the adductor muscles at the medial proximal thigh. A small hematoma in the piriformis on the left. IMPRESSION: 1. Left proximal thigh hematoma. 2. Adductor strain. 3. Ambulatory dysfunction secondary to above. RECOMMENDATIONS: This is a nonoperative candidate for this particular issue. Recommend conservative management, weightbearing as tolerated with a walker and assist. Continue with physical therapy, occupational therapy and follow up with orthopedics as needed. This will likely resolve over the next 2-3 weeks; however, if she continues to have significant symptoms after 4 weeks, would recommend followup with orthopedics. Thank you for the opportunity to consult in the care of this patient.
--- NOTE | 2017-07-26 20:00 | NUR ---
obs: ALERT AND ORIENTED. VSS. LUNGS CLEAR AND DIMINISHED ON ROOM AIR, MILD DYSPNEA NOTED AFTER AMBULATION, 2L REQUIRED TO BRING PATIENT SATS INTO 90S. TOLERATING PO. SALINE LOCKED. OOB WITH ONE ASSIST AND WALKER TO BATHROOM. VOIDING IN TOILET. D/C UNCERTAIN.
[2017-07-26 21:00] VITALS: O2SAT 94
[2017-07-26 21:34] VITALS: BP 112/65; PULSE 92; TEMP 36.7; O2SAT 94
[2017-07-26] MEDS: RANITIDINE HCL 150 MG TAB PO SCH (21:37)
[2017-07-26 23:08] VITALS: BP 102/68; PULSE 95; TEMP 36.9; O2SAT 95
--- NOTE | 2017-07-27 | NUR ---
obs: ALERT AND ORIENTED. 2L NC, SATS IN 90S. DENIES NAUSEA. OOB WITH ONE ASSIST AND WALKER VOIDING IN TOILET. SALINE LOCKED. DENIES PAIN MEDICATION NEEDS AT THIS TIME. RINGS FOR ASSIST. D/C UNCERTAIN.
--- NOTE | 2017-07-27 04:00 | NUR ---
ID/OBS: alert and oriented. vss. lungs diminished on 2L nc. oob with one assist and walker, voiding adequately in toilet, stress incontinence reported. denies need for pain medication at this time. saline lock intact R ac. tolerating po. d/c uncertain
[2017-07-27] MEDS: LEVOTHYROXINE 200 MCG TAB PO SCH (06:23)
[2017-07-27 06:41] LABS: HEMOGLOBIN 11.3 g/dL (12.0-16.0); MEAN CELL VOLUME 92.3 fL (80-100); MEAN CORPUSCULAR HGB CONC 31.4 g/dl (32-36); MEAN PLATELET VOLUME 10.5 fL (7.4-10.4); PLATELET COUNT 189 K/uL (130-400); RED CELL DISTRIBUTION WIDTH CV 14.1 % (11.5-14.5); WHITE BLOOD COUNT 5.83 K/uL (4.8-10.8)
[2017-07-27 07:06] LABS: CALCIUM 8.3 mg/dl (8.5-10.1); CREATININE 0.47 mg/dl (0.60-1.20); POTASSIUM 4.2 mmol/L (3.5-5.1)
[2017-07-27 07:16] VITALS: BP 101/63; PULSE 79; TEMP 36.7; O2SAT 97
--- NOTE | 2017-07-27 08:06 | NUR ---
Patient stable with no voiced complaints. OOB with assist of 1-2 - able to ambulate with walker when OOB. VIT/small BM x1 today. Tolerating diet well. BSG coverage as ordered. Stress incontinence on occasion. Large ecchymotic area to LLE is tender. Continue to monitor. - DLS
[2017-07-27] MEDS: DILTIAZEM HCL 180 MG CAPCR PO SCH (09:15)
[2017-07-27] MEDS: CEROVITE ADV FORMULA TAB PO SCH (09:15)
[2017-07-27] MEDS: POTASSIUM CHLORIDE 20 MEQ TABCR PO SCH (09:17)
[2017-07-27] MEDS: MAGNESIUM OXIDE 400 MG TAB PO SCH (09:17)
[2017-07-27] MEDS: CALCIUM 600MG + VIT D 400 IU TAB PO SCH (09:17)
[2017-07-27] MEDS: CLONIDINE HCL 0.1 MG TAB PO SCH (09:17)
[2017-07-27] MEDS: HYDROCODONE/ACETAMINOPHEN 7.5/325MG TAB PO PRN (09:18)
[2017-07-27] MEDS: CYANOCOBALAMIN 500 MCG TAB (VIT B-12) PO SCH (09:18)
[2017-07-27] MEDS: INSULIN ASPART 100 UNITS/ML 3 ML PEN SC SCH (09:22)
--- NOTE | 2017-07-27 09:33 | Progress Note ---
Subjective Date of Service: Jul 27, 2017. Subjective Pt evaluation today including: conversation w/ patient, physical exam, lab review, review of studies, review of inpatient medication list Saw/examined the patient in room 387 doing well, no problems/issues to note She is ambulating with a walker Eager to go home Review of Systems Constitutional: + weakness, No fever, No chills Respiratory: No cough, No sputum, No shortness of breath Cardiac: No chest pain, No palpitations Musculoskeletal: + joint pain (L hip) Medications Current Inpatient Medications Medications (Trade) Dose Ordered Sig/Chandrakant Route Start Time Stop Time Status Last Admin Dose Admin Miscellaneous (Iv Fluids Completed) 1 ea PRN PRN N/A 07/25/17 16:15 07/25/18 16:14 Acetaminophen (Tylenol Tab) 650 mg Q4H PRN PO 07/25/17 17:00 08/24/17 16:59 Ondansetron HCl (Zofran Inj) 4 mg Q6H PRN IV 07/25/17 17:00 08/24/17 16:59 Acetaminophen/ Hydrocodone Bitart ([place] 7.5/325 Tab) 1 tab Q6H PRN PO 07/25/17 17:00 08/08/17 16:59 07/27/17 09:18 1 TAB Clonidine HCl (Catapres Tab) 0.1 mg TID PO 07/25/17 21:00 08/24/17 20:59 07/27/17 09:17 0.1 MG Cyanocobalamin (Vitamin B-12 Tab) 1,000 mcg QAM PO 07/26/17 09:00 08/25/17 08:59 07/27/17 09:18 1,000 MCG Diltiazem HCl (Cardizem Cd Cap) 180 mg BID PO 07/25/17 21:00 08/24/17 20:59 07/27/17 09:15 180 MG Levothyroxine Sodium (Synthroid Tab) 200 mcg DAILYBB PO 07/26/17 06:00 08/25/17 06:59 07/27/17 06:23 200 MCG Magnesium Oxide (Mag-Ox Tab) 200 mg DAILY PO 07/26/17 09:00 08/25/17 08:59 07/27/17 09:17 200 MG Potassium Chloride (Klor-Con Tab) 20 meq QAM PO 07/26/17 09:00 08/25/17 08:59 07/27/17 09:17 20 MEQ Ranitidine HCl (zANTac TAB) 150 mg HS PO 07/25/17 21:00 08/24/17 20:59 07/26/17 21:37 150 MG Calcium/Vitamin D (Caltrate Plus Tab) 1 tab QAM PO 07/26/17 09:00 08/25/17 08:59 07/27/17 09:17 1 TAB Multivitamins/ Minerals (Multivitamin W/ Minerals Tab) 1 tab DAILY@1200 PO 07/26/17 12:00 08/25/17 11:59 07/27/17 09:15 1 TAB Glucose (Glucose 40% Gel) 15-30 GRAMS 15 GRAMS... UD PRN PO 07/25/17 17:15 08/24/17 17:14 Glucose (Glucose Chew Tab) 4-8 Tablets 4 Tabl... UD PRN PO 07/25/17 17:15 08/24/17 17:14 Dextrose (Dextrose 50% 50ML Syringe) 25-50ML OF 50% DW IV FOR... UD PRN IV 07/25/17 17:15 08/24/17 17:14 Glucagon (Glucagon Inj) 1 mg UD PRN SQ 07/25/17 17:15 08/24/17 17:14 Insulin Aspart (novoLOG ASPART) SLIDING SCALE If C... ACHS SC 07/26/17 21:30 08/25/17 21:29 07/27/17 09:22 12 UNITS Objective Vital Signs Date Time Temp Pulse Resp B/P (MAP) Pulse Ox O2 Delivery O2 Flow Rate FiO2 07/27/17 08:03 Nasal Cannula 2.0 07/27/17 07:16 36.7 79 16 101/63 (76) 97 2.0 07/26/17 23:08 36.9 95 18 102/68 (79) 95 Nasal Cannula 2.0 07/26/17 21:34 36.7 92 20 112/65 (81) 94 Nasal Cannula 2.0 07/26/17 21:00 94 Room Air 2.0 07/26/17 16:35 Room Air 07/26/17 15:28 36.7 97 18 118/62 (80) 92 Room Air Physical Exam General Appearance: no apparent distress Respiratory/Chest: chest non-tender, lungs clear, normal breath sounds, no respiratory distress, no accessory muscle use Cardiovascular: no murmur, + irregularly irregular, + pertinent finding (+1 pitting edema) Extremities: + pertinent finding (L inner thigh is firm and ecchymotic) Neurologic/Psychiatric: no motor/sensory deficits, alert, normal mood/affect Laboratory Results Last 24 Hours Test 07/26/17 12:35 07/26/17 17:02 07/26/17 20:39 07/27/17 06:02 Bedside Glucose 116 mg/dl 105 mg/dl 127 mg/dl White Blood Count 5.83 K/uL Red Blood Count 3.90 M/uL Hemoglobin 11.3 g/dL Hematocrit 36.0 % Mean Corpuscular Volume 92.3 fL Mean Corpuscular Hemoglobin 29.0 pg Mean Corpuscular Hemoglobin Concent 31.4 g/dl RDW Standard Deviation 47.0 fL RDW Coefficient of Variation 14.1 % Platelet Count 189 K/uL Mean Platelet Volume 10.5 fL Sodium Level 137 mmol/L Potassium Level 4.2 mmol/L Chloride Level 103 mmol/L Carbon Dioxide Level 29 mmol/L Anion Gap 5.0 mmol/L Blood Urea Nitrogen 22 mg/dl Creatinine 0.47 mg/dl Est Creatinine Clear Calc Drug Dose 138.4 ml/min Estimated GFR () 109.7 Estimated GFR (Non- 94.6 BUN/Creatinine Ratio 46.6 Random Glucose 104 mg/dl Calcium Level 8.3 mg/dl Assessment and Plan This is a 77 year old female with a PMH of obesity, DM2, A. Fib on Eliquis, HTN , HLD, hypothyroidism presents with L hip pain L Medial Thigh Hematoma 07/27 appreciate ortho input plan to monitor this hematoma she has a wheelchair ramp and accessible bathroom on one floor CBC on Saturday, 07/30 f/u with PCP in one week if no improvement in hematoma, f/u with ortho (Dr. Fontaine) in 4 weeks no Eliquis at this time due to hematoma 07/28 CT suggest a L hematoma on the adductor muscles stopped Eliquis H/H stable - but we will monitor this PT/OT Picacho PRN for pain ortho input would be appreciated A. Fib HRs are fluctuating monitor HRs control pain; continue Cardizem stopped Eliquis due to hematoma restart as outpatient if bleeding improves DM2 insulin sliding scale monitor BSGs HTN continue clonidine continue Cardizem Hypothyroidism continue Synthroid DVT ppx SCDs FULL CODE
[2017-07-27] MEDS ORDERED: HYDR-3983 PO (09:34)
--- NOTE | 2017-07-27 09:36 | Discharge Instructions ---
Discharge Instructions Date of Service Jul 27, 2017. Admission Reason for Admission: Ambulatory Dysfunction Discharge Discharge Diagnosis / Problem: Left Hip/Groin Hematoma Discharge Goals Goal(s): Decrease discomfort, Improve function, Diagnostic testing, Therapeutic intervention Activity Recommendations Activity Limitations: resume your previous activity . Instructions / Follow-Up Instructions / Follow-Up Please follow-up with your primary care physician in one week Please get your blood drawn on Saturday, July 30 - primary care should follow -up on your hemoglobin level Stop taking Eliquis for now - your primary care should monitor your hematoma on your left inner thigh - if improved, possibly may restart Eliquis If no improvement in the hematoma on your thigh in 4 weeks, you may need a follow-up with orthopedic surgery (Dr. Yuval Fontaine) Current Hospital Diet Patient's current hospital diet: AHA Diet (Heart Healthy), Diabetes Type 2 Diet Discharge Diet Recommended Diet: AHA Diet (Heart Healthy), Diabetes Type 2 Diet Pending Studies Studies pending at discharge: no Laboratory Results Hemoglobin A1c Test 07/26/17 06:19 Range/Units Estimated Average Glucose 160 mg/dl Hemoglobin A1c 7.2 H 4.5-5.6 % Medical Emergencies . Who to Call and When: Medical Emergencies: If at any time you feel your situation is an emergency, please call 911 immediately. . Non-Emergent Contact Non-Emergency issues call your: Primary Care Provider . . "Provider Documentation" section prepared by Minor Stone. . VTE Core Measure Inpt VTE Proph given/why not?: Other Anticoagulation
--- NOTE | 2017-07-27 09:38 | Discharge Summary ---
Discharge Summary Date of Service Jul 27, 2017. Discharge Summary Admission Date: Jul 25, 2017 at 16:01 Discharge Date: Jul 27, 2017 Discharge Disposition: Home Principal Diagnosis: L Adductor Muscle Hematoma Atrial Fibrillation DM2 Obesity Medication Reconciliation New Medications: Hydrocodone/Acetaminophen 7.5MG/325MG ([place]iddie 7.5MG/325MG) Tab 1 TAB PO Q6H PRN for Pain for 5 Days, #20 TAB PRN PAIN Continued Medications: Calcium Carbonate-Cholecalcife (Caltrate 600+D) 1 Tab Tab 1 TAB PO QAM Clonidine Hcl (Catapres) 0.1 Mg Tab 0.1 MG PO TID Coenzyme Q10 (Ubidecarenone) (Co Q-10) 200 Mg Cap 1 TAB PO QAM Cyanocobalamin (Vitamin B-12) 1,000 Mcg Tab 1000 MCG PO QAM Diltiazem Hcl Coated Beads (Cartia Xt) 240 Mg Cap 180 MG PO BID for 30 Days, #42 CAP 5 Refills Empagliflozin (Jardiance) 10 Mg Tab 10 MG PO QAM Garlic (Garlic) 1,000 Mg Cap 1 CAP PO QAM Glimepiride (Glimepiride) 2 Mg Tab 1 TAB PO BID Ucpvllhpaiu-Ddegrqounqr-Qlvlze (Move Free Joint Health Ad) 1 Tab Tab 2 TAB PO QAM Hydrochlorothiazide (Hctz) 25 Mg Tab 25 MG PO DAILY PRN for SWELLING Krill Oil (Krill Oil) 1 Cap Cap 1 CAP PO DAILY Levothyroxine Sodium (Levothyroxine Sodium) 200 Mcg Tab 1 TAB PO QAM Magnesium Oxide (Mag-Ox) 400 Mg Tab 200 MG PO DAILY, TAB Multiple Vitamins W/ Minerals (Centrum Silver) 1 Chw Chw 1 TAB PO 1200 Potassium Ext Rel (Klor-Con) 20 Meq Tabcr 20 MEQ PO QAM Ranitidine Hcl (Zantac) 150 Mg Tab 150 MG PO HS Discontinued Medications: Apixaban (Eliquis) 5 Mg Tab 5 MG PO BID Admission Information HPI (per Admitting provider): 77 year old female who presents to the ED with left hip pain. Patient reports that about two weeks ago she was stepping up into her house when she felt something pull in her left hip. She reports it was initially painful however was progressively getting better over the following two weeks. Last night, again while stepping up into her house, patient developed an acute worsening of the pain. She describes the pain as being located in the left groin. She denies any back pain, lateral hip pain, or radiation of the pain into the leg. The pain was initially constant however is now only exacerbated by sitting or standing. She reports pain is bearable when she is ambulating. Patient reports she otherwise has been feeling well. She denies chest pain, shortness of breath , or palpitations. No lightheadedness, dizziness, diaphoresis, or syncopal events. She has occasional diarrhea. She denies abdominal pain, nausea, or vomiting. No fevers or chills. She denies urinary symptoms. In the ED, xrays are negative for acute findings. Labs are unremarkable. Vitals are stable. Patient however is currently unable to ambulate safely so is therefore being admitted for PT/OT and pain control. Physical Exam (per Admitting): General Appearance: WD/WN, no apparent distress, + obese Head: normocephalic, atraumatic Eyes: normal inspection, EOMI, sclerae normal ENT: hearing grossly normal, + pertinent finding (mucous membranes moist) Neck: supple, no JVD, trachea midline Respiratory/Chest: lungs clear, normal breath sounds, no respiratory distress Cardiovascular: normal peripheral pulses, + irregularly irregular (rate controlled), + pertinent finding (trace edema BLLE) Abdomen/GI: normal bowel sounds, non tender, soft, no organomegaly Extremities/Musculoskelatal: no calf tenderness, normal capillary refill, + pertinent finding (left groin pain stimulated by lifting the left leg) Neurologic/Psych: no motor/sensory deficits, alert, normal mood/affect, oriented x 3 Skin: normal color, warm/dry Hospital Course This is a 77 year old female with a PMH of obesity, DM2, A. Fib on Eliquis, HTN , HLD, hypothyroidism presents with L hip pain L Medial Thigh Hematoma 07/27 appreciate ortho input plan to monitor this hematoma she has a wheelchair ramp and accessible bathroom on one floor CBC on Saturday, 07/30 f/u with PCP in one week if no improvement in hematoma, f/u with ortho (Dr. Fontaine) in 4 weeks no Eliquis at this time due to hematoma 07/28 CT suggest a L hematoma on the adductor muscles stopped Eliquis H/H stable - but we will monitor this PT/OT [place] PRN for pain ortho input would be appreciated A. Fib HRs are fluctuating monitor HRs control pain; continue Cardizem stopped Eliquis due to hematoma restart as outpatient if bleeding improves DM2 insulin sliding scale monitor BSGs HTN continue clonidine continue Cardizem Hypothyroidism continue Synthroid DVT ppx SCDs FULL CODE Total time spent on discharge = 45 minutes This includes examination of the patient, discharge planning, medication reconciliation, and communication with other providers. Discharge Instructions Please follow-up with your primary care physician in one week Please get your blood drawn on July 30 - primary care should follow -up on your hemoglobin level Stop taking Eliquis for now - your primary care should monitor your hematoma on your left inner thigh - if improved, possibly may restart Eliquis If no improvement in the hematoma on your thigh in 4 weeks, you may need a follow-up with orthopedic surgery (Dr. Yuval Fontaine)
[2017-07-27 10:02] VITALS: BP 101/63; PULSE 79; TEMP 36.7; O2SAT 97
--- NOTE | 2017-07-27 10:34 | NUR ---
case management note. received a call from nursing stating pt had some questions for CM. Met with pt at bedside. She states she does not feel she needs rehab and is for D/C home today. She would like to have services. list of options provided. pt would like a referral to [facility]. with permission referral completed and cook's assistant to fax information. nursing updated. case management to follow. Addendum: 07/27/17 at 1405 by Augusta Mena SERV received a call from stating they do no thave PT available in pts area. spoke with pt via telephone and she would like a referral to [facility]. with permission referral completed and cook's assistant to fax info and D/C instructions
[2017-09-12] MEDS ORDERED: APIX1TAB3 PO (13:41)
[2017-09-12] MEDS ORDERED: EMPA1TAB3 PO (13:41)
[2017-09-12] MEDS ORDERED: FURO-85 PO ×2 (13:41)
[2017-09-12] MEDS ORDERED: DILT0.05 PO (13:41)
== END 2017-07-27 10:58 | disposition home or self-care (01) ==
LOC: EDBD 11:37 → C.EDB 11:38 → C.MSN 16:01 → ENRESERV 16:44
PROVIDERS: ADMIT Internal Medicine; ATTEND Family Medicine
DX: S76.212A Strain of adductor muscle, fascia and tendon of left thigh, initial encounter (principal); M79.81 Nontraumatic hematoma of soft tissue; I48.91 Unspecified atrial fibrillation; R26.2 Difficulty in walking, not elsewhere classified; E11.9 Type 2 diabetes mellitus without complications; E66.9 Obesity, unspecified; M19.90 Unspecified osteoarthritis, unspecified site; K21.9 Gastro-esophageal reflux disease without esophagitis; I10 Essential (primary) hypertension; E03.9 Hypothyroidism, unspecified; Z96.653 Presence of artificial knee joint, bilateral; M06.9 Rheumatoid arthritis, unspecified; Z79.01 Long term (current) use of anticoagulants; Z79.84 Long term (current) use of oral hypoglycemic drugs; Z90.89 Acquired absence of other organs; Z90.710 Acquired absence of both cervix and uterus; Z87.442 Personal history of urinary calculi; X58.XXXA Exposure to other specified factors, initial encounter

== ENCOUNTER → 2017-09-19 | Day surgery (SDC) | payer OTHER ==
[2017-09-12 13:43] VITALS: Ht 162.6 cm; Wt 125.0 kg
--- NOTE | 2017-09-18 10:39 | History and Physical: Surg Cnt ---
History & Physical Date Sep 18, 2017. Chief Complaint hoarse History of Present Illness The patient is a 77 year old female with complaints of hoarse voice x 1 year, left vocal cord paralysis, evaluated by Dr. 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 (3) History of total right knee replacement (4) Hx of tonsillectomy Additional History Hepatic Disease: No Endocrine Disorder: No Kidney Disease: No Hypertension: Yes Heart Disease: Yes Bleeding Tendencies: Yes Infectious Diseases: No Allergies Coded Allergies: Latex1 -Allergic Contact Dermititis (Verified Allergy, Intermediate, ., 09/12/17) NO KNOWN DRUG ALLERGIES (Verified Allergy, Unknown, ., 09/12/17) Home Medications Scheduled Apixaban (Eliquis), 5 MG PO BID Calcium Carbonate-Cholecalcife (Caltrate 600+D), 1 TAB PO QAM Clonidine Hcl (Catapres), 0.1 MG PO TID Coenzyme Q10 (Ubidecarenone) (Co Q-10), 1 TAB PO QAM Cyanocobalamin (Vitamin B-12), 1,000 MCG PO QAM Diltiazem HCl Coated Beads (Diltiazem HCl ER), 180 MG PO BID Empagliflozin (Jardiance), 25 MG PO QAM Furosemide (Lasix), 20 MG PO QAM Glimepiride (Glimepiride), 2 MG PO BID Mgypkmovtal-Jfweexvcxlb-Znzgqx (Move Free Joint Health Ad), 2 TAB PO QAM Krill Oil (Krill Oil), 1 CAP PO DAILY Levothyroxine Sodium (Levothyroxine Sodium), 200 MCG PO QAM Magnesium Oxide (Mag-Ox), 400 MG PO DAILY Multiple Vitamins W/ Minerals (Centrum Silver), 1 TAB PO 1200 Potassium Ext Rel (Klor-Con), 20 MEQ PO QAM Scheduled PRN Furosemide (Lasix), 20 MG PO DAILY PRN for SWELLING Ranitidine Hcl (Zantac), 150 MG PO HS PRN for HEARTBURN Physical Examination Skin: warm/dry, no rash Eyes: normal inspection, EOMI, sclerae normal ENT: normal ENT inspection, pharynx normal, + pertinent finding (left vocal cord paralzed) Head: normocephalic, atraumatic Neck: supple, no adenopathy, trachea midline Respiratory/Chest: lungs clear, normal breath sounds, no respiratory distress Cardiovascular: regular rate, rhythm, no edema, no murmur Abdomen / GI: normal bowel sounds, non tender Back: normal inspection Extremities: normal inspection, normal range of motion Neurologic/Psych: no motor/sensory deficits, alert, normal reflexes, oriented x 3 Diagnosis left vocal cord paralysis Plan of Treatment direct laryngoscopy, vocal cord injection with Radiesse
[~2017-09-19] VITALS: Ht 162.6 cm; Wt 125.0 kg
[~2017-09-19] MED LIST changes: +APIX1TAB3 PO; +ATROPINE SULFATE 0.1 MG/ML 5ML SYR IV PRN; +BENZOCAIN/TETRACA/BUTAM SPRAY 200 APPLN/20 GM SPRY ONE; +CALC-354 PO; -CARTIA; -CLTP; +COEN1CAP37 PO; +CTP/1 PO; +CYAN10005 PO; +DILT0.05 PO; -DTR5; +EMPA1TAB3 PO; +EpHEDrine SULFATE INJ 50 MG/ML AMP IV PRN; +EpINEphrine HCL INJ 1 MG/ML 1ML SYRINGE ONE; +FENTANYL CITRATE INJ 50 MCG/1 ML 2 ML VIAL IV PRN; +FENTANYL CITRATE INJ 50 MCG/1 ML 2 ML VIAL ONE; +FURO-85 PO; +GLIM2TAB2 PO; +GLUC1TAB94 PO; +HYDROmorphone INJ 1 MG/ML SYR IV PRN; +KETAMINE HCL INJ 50 MG/ML 10 ML VIAL ONE; +KRIL1000 PO; +LABETALOL HCL IV 5 MG/ML 20ML IV PRN; +LACTATED RINGER'S 1000ML 1,000 ML IV SCH; +LEVO200T6 PO; +LIDOCAINE HCL 2% 2 ML VIAL (20MG/ML) ONE; +MAGN400T6 PO; +MIDAZOLAM HCL 1 MG/ML 2ML VIAL ONE; -MULT-506; +MULTCHW PO; +ONDANSETRON INJ 2 MG/ML 2 ML VIAL IV PRN; +PHENYLEPHRINE 100MCG/ML 5ML SYR IV PRN; +POTA20TA16 PO; +PROPOFOL IV EMULSION 10 MG/ML 20 ML VIAL IV ONE; +RANI150T3 PO; -SYN200; +TETRACAINE 4% SOLN TOP ONE; +TETRACAINE 4% TOPICAL SOLUTION TOP ONE
--- NOTE | 2017-09-19 11:11 | History & Physical Bridge Note ---
H&P Re-Evaluation Bridge Note: I have examined the patient, reviewed the History & Physical and in the interval since the performance of the History & Physical I have noted the following changes of clinical significance: No changes noted
--- NOTE | 2017-09-19 11:52 | [facility] Post Operative Brief Note ---
Immediate Operative Summary Operative Date Sep 19, 2017. Pre-Operative Diagnosis Left Vocal Cord Paralysis Post-Operative Diagnosis Same Procedure(s) Performed Direct Laryngoscopy, Left Vocal Cord Injection Surgeon Dr. Escobar Pawn Shop Keeper Surgeon(s) None Estimated Blood Loss 1 ML Findings Consistent with Post-Op Diagnosis Specimens None Drains None Anesthesia Type General Complication(s) none Disposition Accompanied Pt To Recovery: yes Disposition:
--- NOTE | 2017-09-19 11:57 | [facility] Operative Report ---
Operative Report Operative Date Sep 19, 2017. Pre-Operative Diagnosis Left Vocal Cord Paralysis Post-Operative Diagnosis Same Procedure(s) Performed Direct Laryngoscopy, Left Vocal Cord Injection Surgeon Dr. Escobar Community Service Coordinator Surgeon(s) None Estimated Blood Loss 1 ML Specimens None Drains None Anesthesia Type General Complication(s) none Disposition yes Indications 77-year-old lady with 1 year history of left vocal cord paralysis who was evaluated by the speech therapist Dr. Marcus confirming persistent left vocal cord paralysis Description of Procedure The patient was brought to the operating room and placed in the semisitting position, draped in the usual manner, sedated, and then prepped for topical anesthesia. I used Cetacaine spray and topical tetracaine solution, 4%, on cottonoid pledgets which were placed in the piriform sinus and then on top of the left true vocal cord by direct laryngoscopy using the microcup forceps to anesthetize the left true vocal cord. Then using the Dedo laryngoscope the left vocal cord was visualized and then injected with a total of 0.7 cc of hydroxy appetite pro larynx gel at the mid and posterior positions lateral to the left true vocal cord. Her voice was evaluated and noted to be very good and the procedure was terminated and the patient was taken to the recovery area in satisfactory condition. I attest to the content of the Intraoperative Record and any orders documented therein. Any exceptions are noted below.
--- NOTE | 2017-09-19 11:58 | Discharge Instructions-SurgCtr ---
Discharge Instructions Date of Service Sep 19, 2017. Visit Reason for Visit: Left Vocal Cord Paralysis Discharge Discharge Diagnosis / Problem: Same Discharge Goals Goal(s): Improve function Medications Stopped Medications Name(s): Pt. was told to stop blood thinner 09/15/17. Activity Recommendations Activity Limitations: resume your previous activity Anesthesia . Post Anesthesia Instructions: If you have had General Anesthesia or IV Sedation: * Do not drive today. * Resume driving when surgeon permits. * Do not make important decisions or sign legal documents today. * Call surgeon for: 1. Temperature elevations greater than 101 degrees F. 2. Uncontrollable pain. 3. Excessive bleeding. 4. Persistent nausea and vomiting. 5. Medication intolerance (nausea, vomiting or rash). * For nausea and vomiting use only clear liquids such as: tea, soda, bouillon until nausea subsides, then gradually increase diet as tolerated. * If you have any concerns or questions, call your surgeon's office. If physician is unavailable and it is an emergency, call 911 or go to the nearest emergency room. . Instructions / Follow-Up Instructions / Follow-Up No restrictions Diet Recommendations Home Diet: no limitations Procedures Procedures Performed: Direct Laryngoscopy, Left Vocal Cord Injection Pending Studies Studies pending at discharge: no Medical Emergencies . Who to Call and When: Medical Emergencies: If at any time you feel your situation is an emergency, please call 911 immediately. . Non-Emergent Contact Non-Emergency issues call your: Primary Care Provider . . "Provider Documentation" section prepared by Rae Ecsobar. . [place] Drug Monitoring Program Search Results: no issues identified
--- NOTE | 2017-09-19 12:31 | Anesthesia Progress Nt - [facility] ---
Anesthesia Post Op Note Date & Time Sep 19, 2017 at 12:31 Vital Signs Pain Intensity: 0 Vital Signs Past 12 Hours Date Time Temp Pulse Resp B/P (MAP) Pulse Ox O2 Delivery O2 Flow Rate FiO2 09/19/17 12:19 37.1 100 18 113/77 (89) 94 Room Air 09/19/17 09:21 37 82 20 127/77 (94) 93 Room Air Notes Mental Status: alert / awake / arousable, participated in evaluation Pt Amnestic to Procedure: Yes Nausea / Vomiting: adequately controlled Pain: adequately controlled Airway Patency, RR, SpO2: stable & adequate BP & HR: stable & adequate Hydration State: stable & adequate Anesthetic Complications: no major complications apparent
[2017-09-19 12:59] VITALS: BP 116/65; PULSE 85; TEMP 37; O2SAT 94
== END | disposition home or self-care (01) ==
LOC: X.SURG 09:00
PROVIDERS: ATTEND Otolaryngology
DX: J38.01 Paralysis of vocal cords and larynx, unilateral (principal); I10 Essential (primary) hypertension; E11.9 Type 2 diabetes mellitus without complications; E66.9 Obesity, unspecified; E03.9 Hypothyroidism, unspecified; I48.91 Unspecified atrial fibrillation; Z68.42 Body mass index [BMI] 45.0-49.9, adult; Z90.710 Acquired absence of both cervix and uterus; Z96.653 Presence of artificial knee joint, bilateral; Z91.040 Latex allergy status

== ENCOUNTER 2025-03-29 14:20 | Inpatient (IN) ==
--- NOTE | 2025-03-29 14:54 | Emergency Department Note ---
Impression & Plan Acute hypoxemic respiratory failure, Atrial fibrillation, Acute exacerbation of CHF (congestive heart failure) ED Provider Note NAME: VINNIE YAÑEZ AGE: 85 SEX: F : 1940 ARRIVES VIA: Walk-In INFORMANT: Patient, ED PROVIDER(S): Jace Soriano MD CHIEF COMPLAINT: Shortness of breath MEDICAL DECISION MAKING: Patient presents with the above. IV was established and blood work was obtained. Patient was placed on BiPAP. Labs were obtained along with a chest x-ray. Patient did not tolerate the BiPAP and the patient was satting well on 2 L nasal cannula. Patient's blood work shows a normal white count hemoglobin and platelet count. The patient's kidney function with a creatinine 1.65. BNP 357. Troponin is not elevated. Chest x-ray consistent with CHF. Patient was ordered IV Lasix 80 mg. I did speak the on-call hospitalist service and the patient was admitted by Dr. Ji. Critical Care: I have personally spent 35 minutes of critical care time in direct management of this patient. This includes bedside care, interpretation of diagnostic studies, and testing, discussion with consultants, patient, and family members, and other require inpatient management activities. This 35 minutes is in excess of all separately billable procedures. Discussion w/ other healthcare providers: Dr. Ji Prior /Outside records reviewed: None Differential diagnosis: Reactive airway disease, pneumonia, pneumothorax, COPD, CHF, ACS, pulmonary embolism, musculoskeletal, GERD as well as other pathologies were considered. Diagnostics, as interpreted by me: ECG: [A-fib, rate of 69, normal QRS duration, right axis, no obvious STEMI motion artifact noted in V6 Cardiac monitoring: An order was placed for continuous cardiac monitoring. The monitor shows a rate of 69 with irregular irregular rhythm. Patient was placed on pulse oximetry Medical decision rules: None Imaging studies: I informally interpreted the patient's chest x-ray shows pulmonary edema and bilateral pleural effusions with formal report to follow. HPI: Patient presents due to concern for worsening dyspnea and shortness of breath with exertion. Patient was reportedly hypoxemic on room air for nursing at 85%. Patient placed on 2 L nasal cannula. Patient does not wear oxygen at home. She denies any chest pains but does have shortness of breath. Known history of A-fib and does follow with Dr. Marie. She is on chronic anticoagulation. She reports that she did not take her home diuretics today as she was coming in here today. The patient states that she does have chronic kidney disease as well. Patient states that she has not been able to lie flat in some time. Patient states that she does suffer from chronic shortness of breath but it has been acutely worse in the last several days. She has noticed about a 5 pound weight gain just since last night. She denies any increase in salt or processed foods in the diet. Patient denies any cough or fever. She reports compliance with her medications with the exception of the Lasix today as she was going to come to the hospital. Patient reports that she did have an additive medication to her and diuretics including the Lasix that she believes starts with an M. Asked if this was metolazone she believes yes. Patient also reports that she has valvular problems. PAST MEDICAL HISTORY: See Below PAST SURGICAL HISTORY: See Below SOCIAL HISTORY: See Below HOME MEDICATIONS: See Below ALLERGIES: See Below VITALS: See Below PHYSICAL EXAMINATION: GENERAL: Conversational dyspnea. EYE EXAM: Normal conjunctiva. PERRL, no anisocoria and EOM's grossly intact w/o pain. OROPHARYNX: Moist mucus membranes, grossly normal dentition. NECK: Trachea midline, no stridor. LUNGS: Dyspnea noted. Diminished breath sounds throughout with bibasilar crackles. HEART: Regular irregular, systolic ejection murmur noted. ABDOMEN: Abdomen soft, non-tender, no masses, no rebound or guarding. BACK: No CVA TTP. SKIN: No rashes and no bruising. UPPER EXTREMITIES: Upper extremities are grossly normal. LOWER EXTREMITIES: Grossly normal, bilateral lower extremity edema, bandage noted to the left distal leg with small amount of surrounding erythema. NEURO EXAM: Awake and alert, follows commands, no obvious facial asymmetry, normal speech, moves all 4 extremities. Past Med/Surg History Problem List Acute diastolic CHF (congestive heart failure) Callus of heel (Acute) Shortness of breath (Acute) Wound infection Acute kidney injury Lower extremity edema (Chronic) Venous ulcer of left leg (Acute) Abnormal ankle brachial index (NOAM) (Acute) Atrial fibrillation (Chronic) DM type 2 (diabetes mellitus, type 2) (Chronic) HTN (hypertension) (Chronic) Arthritis (Chronic) Hypothyroidism (Chronic) GERD (gastroesophageal reflux disease) (Chronic) History of total right knee replacement (Chronic) History of total left knee replacement (Chronic) History of hysterectomy (Chronic) Hx of tonsillectomy (Chronic) Medical History Kidney stone 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 Cellulitis of left lower extremity Atherosclerosis of aorta Hilar lymphadenopathy DDD (degenerative disc disease), cervical Pulmonary hypertension Mild tricuspid regurgitation Moderate aortic regurgitation 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 Irritable bowel syndrome with diarrhea Hyperuricemia Rheumatic mitral stenosis Orthostatic hypotension Morbid obesity due to excess calories Positive CARRIE (antinuclear antibody) Ischemic bowel disease Hypothyroidism (acquired) Nocturnal enuresis Insomnia Hoarse voice quality Left atrial enlargement Mitral valve stenosis, moderate Surgical History H/O lithotripsy History of resection of small bowel History of total abdominal hysterectomy H/O exploratory laparotomy Social History Smoking Status: Never smoker Hx Alcohol Use: No Hx Substance Use: No Preferred Language: Nicaraguan Visual Impairment: Limited Hearing Ability: Normal Beliefs That Will Affect Care: None marital status: / Current Living Situation: Alone How many Children do You have: 2 Feels Safe at Home: Yes Diet: diabetic Diet Comment: Meals on wheels caffeine: No Assistive Devices: Denture - Upper, Denture - Lower and Walker Allergies Allergies Allergy/AdvReac Type Severity Reaction Status Date / Time empagliflozin Allergy Intermediate Pain in Verified 03/29/25 14:15 [From Jardiance] Vaginal/Rectal area latex Allergy Intermediate . Verified 03/29/25 14:15 Metformin AdvReac Intermediate Diarrhea Uncoded 03/29/25 14:15 Home Meds Home Medications Medication Instructions Recorded Confirmed acetaminophen 325 mg capsule 650 mg PO QID PRN 03/11/25 03/29/25 allopurinol 100 mg tablet 200 mg PO DAILY 03/11/25 03/29/25 (Zyloprim) apixaban 2.5 mg tablet (Eliquis) 2.5 mg PO BID 03/11/25 03/29/25 calcium 600 mg (as 1 tab PO DAILY 03/11/25 03/29/25 carbonate)-vitamin D3 10 mcg (400 unit) tablet coenzyme Q10 400 mg capsule 400 mg PO DAILY 03/11/25 03/29/25 cyanocobalamin (vitamin B-12) 1,000 mcg PO DAILY 03/11/25 03/29/25 1,000 mcg capsule furosemide 80 mg tablet (Lasix) 80 mg PO BID 03/11/25 03/29/25 glucosam 750 mg-chondroi 100 3 tab PO 03/11/25 03/29/25 mg-hyalur 1.65 mg-CF borate 108 mg tablet ([facility]) levothyroxine 175 mcg tablet 175 mcg PO DAILY 03/11/25 03/29/25 (Synthroid) linagliptin 5 mg tablet (Tradjenta) 5 mg PO DAILY 03/11/25 03/29/25 loperamide 2 mg capsule 2 mg PO BID PRN 03/11/25 03/29/25 (Anti-Diarrheal (loperamide)) magnesium 200 mg tablet 200 mg PO DAILY 03/11/25 03/29/25 metoprolol tartrate 25 mg tablet 25 mg PO BID 03/11/25 03/29/25 potassium chloride 20 mEq 20 meq PO DAILY 03/11/25 03/29/25 tablet,extended release(part/cryst) sulfamethoxazole 800 1 tab PO BID 03/22/25 03/29/25 mg-trimethoprim 160 mg tablet (Bactrim DS) Results & Data (ED) Vital Signs Vital Signs - 24 hr 03/29/25 14:21 03/29/25 14:55 03/29/25 15:16 Temperature 36 C L Temperature Source Temporal Artery Scan Pulse Rate 124 H 84 Respiratory Rate 23 24 Respiratory Effort / Characteristics Non-Labored Labored Short of Breath SOB on Exertion Respiratory Depth Normal Respiratory Pattern Tachypnea Blood Pressure 159/81 H Blood Pressure Mean 107 Pulse Oximetry 96 97 Oxygen Delivery Method Room Air Nasal Cannula Nasal Cannula Oxygen Flow Rate 2 2 Sepsis Recent Fever Within 48 Hours No Sepsis New/Unexplained Change in Mental Status Yes Sepsis Action Taken by Nursing No Action Required 03/29/25 15:35 Temperature Temperature Source Pulse Rate 76 Respiratory Rate Respiratory Effort / Characteristics Respiratory Depth Respiratory Pattern Blood Pressure Blood Pressure Mean Pulse Oximetry Oxygen Delivery Method Oxygen Flow Rate Sepsis Recent Fever Within 48 Hours Sepsis New/Unexplained Change in Mental Status Sepsis Action Taken by Retirement Medications Current Medication List: was personally reviewed by me Laboratory Data Attestation: I reviewed the patient's lab results. 03/29/25 14:49 03/29/25 14:49 Lab Results 03/29/25 Range/Units 14:49 WBC 6.82 (4.8-10.8) K/ul RBC 4.13 L (4.20-5.40) M/uL Hgb 12.3 (12.0-16.0) g/dl Hct 39.1 (37.0-47.0) % MCV 94.7 (80.0-100.0) fL MCH 29.8 (25.0-34.0) pg MCHC 31.5 L (32.0-36.0) g/dL RDW Std Deviation 56.8 H (36.4-46.3) fL RDW Coeff of Issa 16.3 H (11.5-14.5) % Plt Count 255 (130-400) K/uL MPV 10.1 (9.4-12.4) fL Immature Gran % (Auto) 0.3 % Neut % (Auto) 70.1 % Lymph % (Auto) 17.3 % [place] % (Auto) 7.0 % Eos % (Auto) 4.4 % Baso % (Auto) 0.9 % Neut # (Auto) 4.78 (1.40-6.50) K/uL Lymph # (Auto) 1.18 L (1.20-3.40) K/uL [place] # (Auto) 0.48 (0.11-0.59) K/uL Eos # (Auto) 0.30 (0.00-0.50) K/uL Baso # (Auto) 0.06 (0.00-0.20) K/uL Immature Gran # (Auto) 0.02 (0.01-0.20) K/uL PT 10.8 (9.0-12.0) Seconds INR 1.0 (0.9-1.1) APTT 28 (21-31) Seconds PTT Ratio 1.0 Sodium 140 (136-145) mmol/L Potassium 4.4 (3.5-5.1) mmol/L Chloride 100 (98-107) mmol/L Carbon Dioxide 35 H (21-32) mmol/L Anion Gap 5 (3-11) BUN 38 H (6-23) mg/dl Creatinine 1.65 H (0.6-1.2) mg/dl Est Cr Clr Drug Dosing 30.5 ml/min eGFR 30.08 BUN/Creatinine Ratio 23.0 H (10-20) Glucose 127 H (70-99(Fasting)) mg/dl Calcium 8.9 (8.6-10.3) mg/dl Magnesium 2.1 (1.7-2.4) mg/dl Total Bilirubin 0.4 (0.2-1.0) mg/dl AST 11 L (13-39) U/L ALT 8 (7-52) U/L Alkaline Phosphatase 52 (34-104) U/L Troponin I High Sens 13.7 (0-14) pg/ml B-Natriuretic Peptide 357 H (0-100) pg/ml Total Protein 6.8 (6.0-8.3) gm/dl Albumin 3.5 (3.4-5.0) gm/dl Globulin 3.3 (2.5-4.0) gm/dl Albumin/Globulin Ratio 1.1 (0.9-2) Administered Medications Discontinued Medications Furosemide (Furosemide 40 Mg/4 Ml Vial) 80 mg IV ONE ONE Stop: 03/29/25 16:00 Last Admin: 03/29/25 16:15 Dose: 80 mg Documented By: MARIANNE Imaging Data Radiologist's Impression: Chest X-Ray 03/29/25 14:52 XR chest 1V portable CLINICAL HISTORY: Dyspnea. COMPARISON STUDY: Chest CT June 13, 2007. Chest radiograph May 24, 2022. FINDINGS: Elevation of the right hemidiaphragm is unchanged. There is no pneumothorax. There are suspected small bilateral pleural effusions. Interstitial thickening is present. Hazy right upper lung opacity is noted. Cardiomegaly is unchanged. Mediastinal contours are stable. IMPRESSION: Cardiomegaly with pulmonary edema and suspected small bilateral pleural effusions. Radiographic follow-up to ensure resolution is recommended. ACT 112: Negative or not required by law. Electronically signed by: Vivek Diaz M.D. 03/29/2025 3:40 PM Discharge Plan Visit Data Chief Complaint: Shortness of Breath/Dyspnea Stated Complaint: SHORT OF BREATH ED Provider: Jace Soriano Discharge Problem: Acute hypoxemic respiratory failure, Atrial fibrillation, Acute exacerbation of CHF (congestive heart failure) Patient Disposition: Admitted As Inpatient Condition: Good Forms Stand Alone Forms: My [employer] Prescriptions Prescriptions: No Action calcium carbonate-vitamin D3 600 mg-10 mcg (400 unit) tablet 1 tab PO DAILY cyanocobalamin (vitamin B-12) 1,000 mcg capsule 1,000 mcg PO DAILY acetaminophen 325 mg capsule 650 mg PO QID PRN coenzyme Q10 400 mg capsule 400 mg PO DAILY [facility] 750 mg-100 mg- 1.65 mg-108 mg tablet 3 tab PO magnesium 200 mg tablet 200 mg PO DAILY loperamide [Anti-Diarrheal (loperamide)] 2 mg capsule 2 mg PO BID PRN levothyroxine [Synthroid] 175 mcg tablet 175 mcg PO DAILY metoprolol tartrate 25 mg tablet 25 mg PO BID Tradjenta 5 mg tablet 5 mg PO DAILY furosemide [Lasix] 80 mg tablet 80 mg PO BID Eliquis 2.5 mg tablet 2.5 mg PO BID allopurinol [Zyloprim] 100 mg tablet 200 mg PO DAILY potassium chloride 20 mEq tablet,ER particles/crystals 20 meq PO DAILY sulfamethoxazole-trimethoprim [Bactrim DS] 800-160 mg tablet 1 tab PO BID Referrals Referrals: Christiane Brock MD [Primary Care Provider] - Discharge Problem: Atrial fibrillation Qualifiers: Atrial fibrillation type: longstanding persistent Qualified Code(s): I48.11 - Longstanding persistent atrial fibrillation Acute exacerbation of CHF (congestive heart failure) Qualifiers: Heart failure type: unspecified Qualified Code(s): I50.9 - Heart failure, unspecified
[2025-03-29 15:02] LABS: Hematocrit (blood only) 39.1 % (37.0-47.0); Hemoglobin 12.3 g/dl (12.0-16.0); Immature Granulocytes # (auto) 0.02 K/uL (0.01-0.20); Immature Granulocytes % (auto) 0.3 %; Mean Corpuscular Hemoglobin 29.8 pg (25.0-34.0); Mean Corpuscular Volume 94.7 fL (80.0-100.0); Platelet Count 255 K/uL (130-400); RDW Standard Deviation 56.8 fL (36.4-46.3); Red Blood Count 4.13 M/uL (4.20-5.40); White Blood Count 6.82 K/ul (4.8-10.8)
[2025-03-29 15:22] LABS: Alanine Aminotransferase 8.0 U/L (7-52); Albumin Globulin Ratio 1.1 (0.9-2); Alkaline Phosphatase 52.0 U/L (34-104); Anion Gap 5.0 (3-11); Bilirubin,Total 0.4 mg/dl (0.2-1.0); Blood Urea Nitrogen 38.0 mg/dl (6-23); Calcium 8.9 mg/dl (8.6-10.3); Carbon Dioxide 35.0 mmol/L (21-32); Chloride 100.0 mmol/L (98-107); Creatinine Clr Calc Pharmacy 30.5 ml/min; Globulin 3.3 gm/dl (2.5-4.0); Glucose 127.0 mg/dl (70-99(Fasting)); Magnesium 2.1 mg/dl (1.7-2.4); Potassium 4.4 mmol/L (3.5-5.1); Sodium 140.0 mmol/L (136-145); Total Protein 6.8 gm/dl (6.0-8.3)
[2025-03-29 15:34] LABS: INR 1.0 (0.9-1.1); Partial Thromboplastin Time 28 Seconds (21-31); Prothrombin Time 10.8 Seconds (9.0-12.0)
--- NOTE | 2025-03-29 15:41 | XRay Report ---
XR chest 1V portable CLINICAL HISTORY: Dyspnea. COMPARISON STUDY: Chest CT June 13, 2007. Chest radiograph May 24, 2022. FINDINGS: Elevation of the right hemidiaphragm is unchanged. There is no pneumothorax. There are susp ected small bilateral pleural effusions. Interstitial thickening is present. Hazy right upper lung op acity is noted. Cardiomegaly is unchanged. Mediastinal contours are stable. IMPRESSION: Cardiomegaly with pulmonary edema and suspected small bilateral pleural effusions. Radiog raphic follow-up to ensure resolution is recommended. ACT 112: Negative or not required by law. Electronically signed by: Vivek Diaz M.D. 03/29/2025 3:40 PM
[2025-03-29] MEDS: FUROSEMIDE 40 MG/4 ML VIAL IV ONE ×2 (16:15→20:15)
--- NOTE | 2025-03-29 16:30 | History & Physical Report ---
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: (5) DM type 2 (diabetes mellitus, type 2): (6) Atrial fibrillation: (7) Hypothyroidism: (8) GERD (gastroesophageal reflux disease): (9) Morbid obesity due to excess calories: (10) Hoarse voice quality: (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 James): The left ventricular cavity size is normal. The LV wall thickness is moderately increased (concentric). The left ventricular wall motion is normal. The qualitative LV ejection fraction is 55-59% (normal). The left atrium is severely enlarged (>48 ml/m^2,). The aortic valve is moderately calcified. Moderate aortic valve stenosis is present. Moderate aortic valve regurgitation is present. There is severe mitral annular calcification. The mitral valve leaflets thickness is severely increased. Severe mitral stenosis is present. Severe mitral regurgitation is present. Severe tricuspid regurgitation is pre sent. Moderate pulmonary hypertension is present. The estimated pulmonary artery systolic pressure is 45-50mm Hg. - CXR chest reviewed showing bilateral small pleural effusions - Troponin negative - EKG reviewed personally - Consider cardiology consultation for discussion of valvular replacement vs repair? Pt reports being told she would be a poor candidate years ago, but with worsening quality of life she would not want to live like this and would prefer surgical repair if it could help. CKD stage IIIb - Consult nephro for assistance with diuresis in the setting of kidney disease - Cr. 1.65/BUN 38, was worse on 03/23 with Cr 2.29, her baseline in February 2025 was around 1.4 - Renally reduce medications Atrial Fibrillation - Anticoagulated on Eliquis, 2.5 mg BID for dose reduction with CKD - rate controlled on metoprolol tartrate 25 mg BID - ramipril 5 mg daily DM II - last a1c 7.4 on 12/29/24 - Home meds - ISS with accuchecks achs Hypothyroidism - Cont home levothyroxine 175 mcg daily DVT ppx: teds, scds, Eliquis twice daily Lines: PIV x 1 FEN/GI: heart healthy/DM, fluid restriction 1500ml CODE: Dispo: From home, likely to remain in the hospital x 1-2 days I spent a total of {} minutes with greater than 50% of that time face to face with the patient, personally reviewing all current laboratories, imaging studies, past medication reconciliation, outpatient chart review, and discussion with specialists to collaborate care for the patient excluding time spent in the performance of separately billed services or time spent by another provider/QHP. Please see attending documentation for corrections and/or additions. History of Present Illness Chief Complaint: Shortness of breath, hypoxia Primary Care Provider: Christiane Brock MD coronary this is a 85-year-old female with PMHx of chronic diastolic CHF, pulmonary hypertension, moderate aortic regurg, moderate mitral valve stenosis, mild tricuspid regurg, chronic A-fib on Eliquis,orthostatic hypotension, CKD stage IIIb, DM type II, hypothyroidism, history of ischemic bowel disease, degenerative disc disease, hoarse voice secondary to vocal cord paralysis, and morbid obesity with a BMI of 38.5 who presents to the hospital with acute worsening shortness of breath. She notes that she has gained 5 pounds within the last 24 hours. At home her medications include Lasix 80 mg p.o. 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 Pt reports being on spironolactone previously for about 2 weeks, and was transitioned off this after development of skin blistering on her lower extremities several weeks ago. At baseline dry weight was around 223 about 1 month ago, and today weight is 240lbs. Patient reports cardiology told her years ago, that she would be a poor surgical candidate to have valve repair/replacement. She lives at home, does all her routine ADLs independently. She notes that her oxygen seems to significantly drop whenever she sits down to take a break after doing some form of exertional activity such as walking. She is asking if she can go home with a portable oxygen tank so that she may be able to better participate in ADLs. When discussing this she becomes tearful and reports that if she has to live like she has been in the past few months, she wants to proceed with some form of surgical procedure to improve her quality of life. Patient denies any increase in sodium consumption, changes in fluid intake to affect diet. She is compliant with her home medications per her report. She also admits to having some dysuria today, no hematuria. Is requesting her urine be checked for UTI. Here in the ER pt has CXR showing Cardiomegaly with pulmonary edema and suspected small bilateral pleural effusions. She is maintained on 2 L via NC currently with sats in the mid 90s. Allergies Allergy/AdvReac Type Severity Reaction Status Date / Time empagliflozin Allergy Intermediate Pain in Verified 03/29/25 14:15 [From Jardiance] Vaginal/Rectal area latex Allergy Intermediate . Verified 03/29/25 14:15 Metformin AdvReac Intermediate Diarrhea Uncoded 03/29/25 14:15 Home Medications Medication Instructions Recorded Confirmed Type acetaminophen 325 mg capsule 650 mg PO QID PRN 03/11/25 03/29/25 History allopurinol 100 mg tablet 200 mg PO DAILY 03/11/25 03/29/25 History (Zyloprim) apixaban 2.5 mg tablet (Eliquis) 2.5 mg PO BID 03/11/25 03/29/25 History calcium 600 mg (as 1 tab PO DAILY 03/11/25 03/29/25 History carbonate)-vitamin D3 10 mcg (400 unit) tablet coenzyme Q10 400 mg capsule 400 mg PO DAILY 03/11/25 03/29/25 History cyanocobalamin (vitamin B-12) 1,000 mcg PO DAILY 03/11/25 03/29/25 History 1,000 mcg capsule furosemide 80 mg tablet (Lasix) 80 mg PO BID 03/11/25 03/29/25 History glucosam 750 mg-chondroi 100 3 tab PO 03/11/25 03/29/25 History mg-hyalur 1.65 mg-CF borate 108 mg tablet ([employer]) levothyroxine 175 mcg tablet 175 mcg PO DAILY 03/11/25 03/29/25 History (Synthroid) linagliptin 5 mg tablet (Tradjenta) 5 mg PO DAILY 03/11/25 03/29/25 History loperamide 2 mg capsule 2 mg PO BID PRN 03/11/25 03/29/25 History (Anti-Diarrheal (loperamide)) magnesium 200 mg tablet 200 mg PO DAILY 03/11/25 03/29/25 History metoprolol tartrate 25 mg tablet 25 mg PO BID 03/11/25 03/29/25 History potassium chloride 20 mEq 20 meq PO DAILY 03/11/25 03/29/25 History tablet,extended release(part/cryst) sulfamethoxazole 800 1 tab PO BID 03/22/25 03/29/25 History mg-trimethoprim 160 mg tablet (Bactrim DS) Past Med/Surg History Problem List Acute diastolic CHF (congestive heart failure) Callus of heel (Acute) Shortness of breath (Acute) Wound infection Acute kidney injury Lower extremity edema (Chronic) Venous ulcer of left leg (Acute) Abnormal ankle brachial index (NOAM) (Acute) Atrial fibrillation (Chronic) DM type 2 (diabetes mellitus, type 2) (Chronic) HTN (hypertension) (Chronic) Arthritis (Chronic) Hypothyroidism (Chronic) GERD (gastroesophageal reflux disease) (Chronic) History of total right knee replacement (Chronic) History of total left knee replacement (Chronic) History of hysterectomy (Chronic) Hx of tonsillectomy (Chronic) Medical History Kidney stone 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 Cellulitis of left lower extremity Atherosclerosis of aorta Hilar lymphadenopathy DDD (degenerative disc disease), cervical Pulmonary hypertension Mild tricuspid regurgitation Moderate aortic regurgitation 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 Irritable bowel syndrome with diarrhea Hyperuricemia Rheumatic mitral stenosis Orthostatic hypotension Morbid obesity due to excess calories Positive CARRIE (antinuclear antibody) Ischemic bowel disease Hypothyroidism (acquired) Nocturnal enuresis Insomnia Hoarse voice quality Left atrial enlargement Mitral valve stenosis, moderate Surgical History H/O lithotripsy History of resection of small bowel History of total abdominal hysterectomy H/O exploratory laparotomy Social History Smoking Status: Never smoker Hx Alcohol Use: No Hx Substance Use: No Preferred Language: Azeri Visual Impairment: Limited Hearing Ability: Normal Beliefs That Will Affect Care: None marital status: / Current Living Situation: Alone How many Children do You have: 2 Feels Safe at Home: Yes Diet: diabetic Diet Comment: Meals on wheels caffeine: No Assistive Devices: Denture - Upper, Denture - Lower and Walker Review of Systems Review of Systems: Constitutional: No fever, sweats or chills Eyes: No diplopia, no worsening or blurred vision ENT: normal hearing, no trouble swallowing Respiratory: No cough, sputum, + dyspnea at rest and on exertion Cardiovascular: No chest pain, tightness or palpitations Abdomen: No pain, nausea, vomiting, diarrhea or constipation Musculoskeletal: No joint pain, calf pain, + BLE swelling Neurologic: No weakness, numbness/tingling, or balance problems Psychiatric: No anxiety or depression Skin: No rash or itch, + small healing skin blister on the LLE medial calf Physical Exam Physical Exam: General: awake, alert, no apparent distress, morbidly obese, BMI of 38.5, white female Head: Normocephalic, atraumatic ENT: PERRL, EOMI, no pharyngeal exudate, mucous membranes moist, + Speaks with hoarse voice/ delayed due to vocal cord paralysis Chest: On 2 L via NC, o2 sats 97%, tight breath sounds, + faint bibasilar crackles Cardiac: Regular rate and rhythm, + systolic murmur, no JVD, normal peripheral pulses, good capillary refill Abdominal: NABS x 4 quadrants, soft, nondistended, nontender to palpation, no rebound or guarding Extremities: + lymphedema like, +1 peripheral edema nonpitting, no erythema, + LLE medial calf skin blister healing well, calfs nontender to palpation Psych: Normal mood and affect, tearful at times Neuro: AAO x 3, strength intact bilaterally and rated 5/5, no motor deficits, speech is clear, no peripheral sensory deficits Results & Data Results & Data Vital Signs (Past 12 Hours) Vital Signs Temp Pulse Resp BP Pulse Ox O2 Del Method O2 Flow Rate 03/29/25 15:35 76 03/29/25 15:16 Nasal Cannula 2 03/29/25 14:55 84 24 97 Nasal Cannula 2 03/29/25 14:21 36 C L 124 H 23 159/81 H 96 Room Air Laboratory Results 03/29/25 14:49 WBC 6.82 RBC 4.13 L Hgb 12.3 Hct 39.1 MCV 94.7 MCH 29.8 MCHC 31.5 L RDW Std Deviation 56.8 H RDW Coeff of Issa 16.3 H Plt Count 255 MPV 10.1 Immature Gran % (Auto) 0.3 Neut % (Auto) 70.1 Lymph % (Auto) 17.3 Bath % (Auto) 7.0 Eos % (Auto) 4.4 Baso % (Auto) 0.9 Neut # (Auto) 4.78 Lymph # (Auto) 1.18 L Bath # (Auto) 0.48 Eos # (Auto) 0.30 Baso # (Auto) 0.06 Immature Gran # (Auto) 0.02 PT 10.8 INR 1.0 APTT 28 PTT Ratio 1.0 Sodium 140 Potassium 4.4 Chloride 100 Carbon Dioxide 35 H Anion Gap 5 BUN 38 H Creatinine 1.65 H Est Cr Clr Drug Dosing 30.5 eGFR 30.08 BUN/Creatinine Ratio 23.0 H Glucose 127 H Calcium 8.9 Magnesium 2.1 Total Bilirubin 0.4 AST 11 L ALT 8 Alkaline Phosphatase 52 Troponin I High Sens 13.7 B-Natriuretic Peptide 357 H Total Protein 6.8 Albumin 3.5 Globulin 3.3 Albumin/Globulin Ratio 1.1 Diagnostic Findings Chest X-Ray 03/29/25 14:52 XR chest 1V portable CLINICAL HISTORY: Dyspnea. COMPARISON STUDY: Chest CT June 13, 2007. Chest radiograph May 24, 2022. FINDINGS: Elevation of the right hemidiaphragm is unchanged. There is no pneumothorax. There are suspected small bilateral pleural effusions. Interstitial thickening is present. Hazy right upper lung opacity is noted. Cardiomegaly is unchanged. Mediastinal contours are stable. IMPRESSION: Cardiomegaly with pulmonary edema and suspected small bilateral pleural effusions. Radiographic follow-up to ensure resolution is recommended. ACT 112: Negative or not required by law. Electronically signed by: Vivek Diaz M.D. 03/29/2025 3:40 PM Code Status & VTE Plan Code Status DNR/DNI - discussed at bedside (6) Atrial fibrillation Atrial fibrillation type: longstanding persistent Qualified Code(s): I48.11 - Longstanding persistent atrial fibrillation
[2025-03-29 17:21] LABS: Appearance Urine Clear (Clear); Bacteria Urine Automated None Seen (None Seen); Cast Urine Automated 0-2 /lpf (0-2); Epithelial Cell Urine Auto 0-2 /hpf (0-2); Glucose Urine UA Negative (Negative); WBC Urine Automated >50 /hpf (0-5)
[2025-03-29] MEDS ORDERED: LOPERAMIDE HCL 2 MG CAP PO PRN (21:09)
[2025-03-29] MEDS ORDERED: GLUCOSE 10 TAB/TUBE PO PRN (21:09)
[2025-03-29] MEDS ORDERED: ONDANSETRON INJ 2 MG/ML 2 ML VIAL IV PRN (21:09)
[2025-03-29] MEDS ORDERED: GLUCAGON FOR INJ 1 MG VIAL SQ PRN (21:09)
[2025-03-29] MEDS ORDERED: GLUCOSE 40% GEL 15 GM TUBE PO PRN (21:09)
[2025-03-29] MEDS ORDERED: DEXTROSE 50% 50 ML SYRINGE IV PRN (21:09)
[2025-03-29] MEDS ORDERED: CARBOHYDRATES FOR HYPOGLYCEMIA PO PRN (21:09)
[2025-03-29] MEDS ORDERED: ACETAMINOPHEN 325 MG TAB PO PRN (21:24)
[2025-03-29] MEDS: INSULIN ASPART PER UNIT CHARGE SC SCH (22:22)
[2025-03-29] MEDS: APIXABAN 2.5 MG TAB PO SCH (22:22)
[2025-03-29] MEDS: METOPROLOL TARTRATE 25 MG TAB PO SCH (22:22)
[2025-03-30] MEDS: LEVOTHYROXINE SODIUM 175 MCG TABLET PO SCH (05:49)
[2025-03-30 06:09] LABS: Hematocrit (blood only) 37.8 % (37.0-47.0); Hemoglobin 11.8 g/dl (12.0-16.0); Mean Corpuscular Hemoglobin 29.9 pg (25.0-34.0); Mean Corpuscular Volume 95.7 fL (80.0-100.0); Platelet Count 232 K/uL (130-400); RDW Standard Deviation 57.0 fL (36.4-46.3); Red Blood Count 3.95 M/uL (4.20-5.40); White Blood Count 5.79 K/ul (4.8-10.8)
[2025-03-30 06:32] LABS: Anion Gap 5.0 (3-11); Blood Urea Nitrogen 36.0 mg/dl (6-23); Calcium 8.5 mg/dl (8.6-10.3); Carbon Dioxide 35.0 mmol/L (21-32); Chloride 102.0 mmol/L (98-107); Creatinine Clr Calc Pharmacy 35.7 ml/min; Glucose 124.0 mg/dl (70-99(Fasting)); Potassium 3.8 mmol/L (3.5-5.1); Sodium 142.0 mmol/L (136-145)
[2025-03-30 07:54] LABS: Hemoglobin A1C 7.4 % (4.5-5.6)
[2025-03-30] MEDS ORDERED: NON-FORMULARY MEDICATION (Glucosam-Chond-Hyalu-Cf Borate [Move Free Joint Health] 750 mg-1 PO SCH (09:00)
[2025-03-30] MEDS: CALCIUM 600MG + VIT D 400 IU TAB PO SCH (09:01)
[2025-03-30] MEDS: CYANOCOBALAMIN (B-12) 500 MCG TABLET PO SCH (09:01)
[2025-03-30] MEDS: ENALAPRIL MALEATE 10 MG TAB PO SCH (09:01)
[2025-03-30] MEDS: FUROSEMIDE 40 MG/4 ML VIAL IV SCH (09:14)
[2025-03-30] MEDS: POTASSIUM CHLORIDE CRTAB 20 MEQ TABCR PO SCH (10:12)
--- NOTE | 2025-03-30 10:59 | Nephrology Consultation ---
Date of Consultation March 30, 2025 Assessment & Plan (1) Acute diastolic CHF (congestive heart failure): chronicity of this HF unclear but she is certainly volume overloaded, primarily in lungs. -continue lasix current dose >metolazone as below >daily STANDING weights recommended <2 gm Na diet and 1.5 L FR Care coordinated w/ Dr Livingston re lasix dosing, other meds, labs, weights; we are in agreement. (2) CKD (chronic kidney disease) stage 3, GFR 30-59 ml/min: baseline creatinien 1.4-1.5 past several months; at baseline currently but w/ complex vol OL/ needs diuresis -favor holding ramipril while we work on diuresis which she surely needs - so ordered >> had it today >continue lasix 80 mg IV bid17 >> 1.1 L negative so far >if labs stable tomorrow add metolazone and/or consider TID dose History of Present Illness Reason for Consultation: CKD, acute diuresis w/ HFpEF exacerbation Requesting Physician: Dr Ji Attending Physician: Luca Livingston MD History of Present Illness 85 y/o F whom I'm asked to see for diuresis needs in the setting of CKD and acute on chronic HFpEF was admitted yesterday afternoon for acute HF exacerbation after she was sent from wound clinic d/t chest pressure and exertional hypoxia (02 sat to 87% w/ ambulating to chair) and weight gain. Per report she had presenting w/ acute 5 lb wt gain in a day based on her daily home weights; weighs herself bid. She tells me that her breathing has been stable/ no worse or better x several months.. Reported target weight one month back was 223 lb adn came in at 240 lb. I will note that some of clinic records of her weight show wt generally around high 230s in clinic since December at [facility] [place]. Last last year [facility] [place] clinic weights were about 230 lb. PMH includes chronic HFpEF, pulmonary hypertension, valvular dz with moderate aortic regg/moderate mitral valve stenosis/mild tricuspid rgg, paroxysmal A-fib on Eliquis, orthostatic hypotension, CKD stage IIIb, DM type II, hypothyroidism, IBS/frequent diarrhea w/ h/o partial colectomy for bowel necrosis, degenerative disc disease, hoarse voice secondary to vocal cord paralysis, asymptomatic L nephrolithiasis, and morbid obesity with a BMI of 41. Lives independently at baseline w/ chronic ambulatory dysfunction/walker dependent. Follows w/ wound clinic for LLE venous ulcer since late February. 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 Stopped spironolactone earlier this month / late February d/t concern that it made blisters worse or/and edema worse. contacted cardiology mid month w/ concern for worse dyspnea and asked to resuem metolazone > was advised to resuem once weekly. Admission CXR w/ plm edema and small pleural effusions. Presenting creatinien 1.7 (note that on 03/23 was 2.3 on bactrim therapy for leg wounds at the time). This AM creat 1.4 and K 3.8. She had 2 doses lasix 80 mg IV lasix yesterday and today started on lasix 80 mg IV bid adn K 40 mg daily; vasotec 10 mg daily continued. Allergies Allergy/AdvReac Type Severity Reaction Status Date / Time empagliflozin Allergy Intermediate Pain in Verified 03/29/25 14:15 [From Jardiance] Vaginal/Rectal area latex Allergy Intermediate . Verified 03/29/25 14:15 Metformin AdvReac Intermediate Diarrhea Uncoded 03/29/25 14:15 Home Medications Medication Instructions Recorded Confirmed Type acetaminophen 325 mg capsule 650 mg PO QID PRN Pain (Scale 03/11/25 03/29/25 History Score 4-6) allopurinol 100 mg tablet 200 mg PO DAILY 03/11/25 03/29/25 History (Zyloprim) apixaban 2.5 mg tablet (Eliquis) 2.5 mg PO BID 03/11/25 03/29/25 History calcium 600 mg (as 1 tab PO DAILY 03/11/25 03/29/25 History carbonate)-vitamin D3 10 mcg (400 unit) tablet coenzyme Q10 400 mg capsule 400 mg PO DAILY 03/11/25 03/29/25 History cyanocobalamin (vitamin B-12) 1,000 mcg PO DAILY 03/11/25 03/29/25 History 1,000 mcg capsule furosemide 80 mg tablet (Lasix) 80 mg PO BID 03/11/25 03/29/25 History glucosam 750 mg-chondroi 100 3 tab PO DAILY 03/11/25 03/29/25 History mg-hyalur 1.65 mg-CF borate 108 mg tablet ([employer]) levothyroxine 175 mcg tablet 175 mcg PO DAILY 03/11/25 03/29/25 History (Synthroid) linagliptin 5 mg tablet (Tradjenta) 5 mg PO DAILY 03/11/25 03/29/25 History loperamide 2 mg capsule 2 mg PO BID PRN Diarrhea 03/11/25 03/29/25 History (Anti-Diarrheal (loperamide)) magnesium 200 mg tablet 200 mg PO WK 03/11/25 03/29/25 History metoprolol tartrate 25 mg tablet 25 mg PO BID 03/11/25 03/29/25 History potassium chloride 20 mEq 40 meq PO DAILY 03/11/25 03/29/25 History tablet,extended release(part/cryst) metolazone 2.5 mg tablet 2.5 mg PO WK 03/29/25 03/29/25 History ramipril 5 mg capsule 5 mg PO QAM 03/29/25 03/29/25 History Patient History Medical History Kidney stone 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 Cellulitis of left lower extremity Atherosclerosis of aorta Hilar lymphadenopathy DDD (degenerative disc disease), cervical Pulmonary hypertension Mild tricuspid regurgitation Moderate aortic regurgitation 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 Irritable bowel syndrome with diarrhea Hyperuricemia Rheumatic mitral stenosis Orthostatic hypotension Morbid obesity due to excess calories Positive CARRIE (antinuclear antibody) Ischemic bowel disease Hypothyroidism (acquired) Nocturnal enuresis Insomnia Hoarse voice quality Left atrial enlargement Mitral valve stenosis, moderate Surgical History H/O lithotripsy History of resection of small bowel History of total abdominal hysterectomy H/O exploratory laparotomy Social History Smoking Status: Never smoker Hx Alcohol Use: No Hx Substance Use: No Preferred Language: Luxembourgish Communication Ability: Effective Visual Impairment: Limited Hearing Ability: Normal Central Communications Specialist Required: No Beliefs That Will Affect Care: None marital status: / Current Living Situation: Alone How many Children do You have: 2 Feels Safe at Home: Yes Diet: diabetic Diet Comment: Meals on wheels caffeine: No Assistive Devices: Cane, Lift Chair and Walker Review of Systems 2 Review of Systems: All systems reviewed & are unremarkable except as noted in HPI & below Physical Exam 2 Constitutional: well developed, well nourished, + morbidly obese, + frail appearing and cooperative; no acute distress Eyes: EOM intact bilaterally ENMT: Mouth: + dry oral mucous membranes hoarse voice, near stridor; can't finish sentence w/o gasping for air Respiratory: normal respiratory effort Auscultation: + diminished lung sounds Gastrointestinal (Abdomen): Inspection/Auscultation: normal bowel sounds P ercussion/Palpation: abdomen soft; abdomen nontender Musculoskeletal: Extremities: strength 5/5 throughout Skin: no rashes, warm and dry Neurologic: benitez, fluent speech, no tremor Results & Data Vital Signs (Past 12 Hours) Vital Signs Temp Pulse Pulse Resp BP Pulse Ox O2 Del Method 03/30/25 07:29 88 03/30/25 07:19 36.4 C L 85 18 116/66 96 Nasal Cannula 03/30/25 03:33 36.4 C L 88 18 116/71 94 Nasal Cannula O2 Flow Rate 03/30/25 07:29 03/30/25 07:19 2.5 03/30/25 03:33 2 Laboratory Results 03/30/25 05:34 03/30/25 05:34 UA 1010, trace protein, 2+ blood, 3+ LE, > 50 WBC no bacteria Diagnostic Findings cxr as above
[2025-03-30] MEDS: DAPTOmycin 500 MG in SYRINGE 0 ML IV SCH (11:29)
--- NOTE | 2025-03-30 14:00 | Hospitalist Progress Note ---
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 --BNP 357 --Last echo reviewed: February 09, 2025 TTE:The left ventricular cavity size is normal. The LV wall thickness is moderately increased (concentric). The left ventricular wall motion is normal. The qualitative LV ejection fraction is 55- 59% (normal). The left atrium is severely enlarged (>48 ml/m^2,). The aortic valve is moderately calcified. Moderate aortic valve stenosis is present. Moderate aortic valve regurgitation is present. There is severe mitral annular calcification. The mitral valve leaflets thickness is severely increased. Severe mitral stenosis is present. Severe mitral regurgitation is present. Severe tricuspid regurgitation is present. Moderate pulmonary hypertension is present. The estimated pulmonary artery systolic pressure is 45-50mm Hg. --Likely poor candidate for any surgical intervention of valvular disease --Continue IV Lasix 80 mg twice a day --Continue fluid restriction --Monitor I's and O's, daily weight, volume status, electrolytes, renal function -- Appreciate nephrology input to help with diuresis --Will consider cardiology evaluation -- Continue enalapril, metoprolol Urinary tract infection--POA -- Urine culture growing Enterococcus faecalis Empirically started on daptomycin CKD stage IIIb Creatinine 1.4 today Monitor urine output Nephrology on board Avoid nephrotoxic agents as able Atrial Fibrillation Continue metoprolol tartrate 25 mg twice a day On Eliquis for anticoagulation DM II - last a1c 7.4 on 12/29/24 - Hold p.o. medications --Continue insulin per protocol Monitor blood glucose levels Hypothyroidism - Continue levothyroxine 175 mcg daily Morbid obesity BMI 40 DVT Px: Eliquis CODE STATUS DNI DNR Disposition PT OT prior to discharge Admission and Anticipated Discharge Date Admission Date: March 29, 2025 Subjective Patient is seen and examined at bedside Admits to have dyspnea on exertion Also reports having dysuria but denies any hematuria Denies any chest pain, nausea, vomiting, abdominal pain Requiring 2 L supplemental oxygen to maintain saturation Review of Systems Review of Systems: All systems reviewed & are unremarkable except as noted in Subjective Physical Exam Physical Exam: Physical Exam: Vitals signs as noted above General Appearance:Obese, no apparent distress Head: normocephalic, Atraumatic Eyes: normal inspection, EOMI Neck: supple, Trachea midline Respiratory/Chest: Normal breath sounds, + basal crackles, No accessory muscle use Cardiovascular: Irregularly irregular, +murmur Abdomen/GI:Soft, Non tender, Bowel sounds present Extremities/Musculoskeletal:normal inspection, B/L LE edema, +erythema Neurologic/Psych:AAOX3, grossly no focal neurological deficits,+hoarse voice Skin: normal color, warm Results & Data Results & Data Vital Signs (Past 12 Hours) Vital Signs Temp Pulse Pulse Resp BP Pulse Ox O2 Del Method 03/30/25 11:09 36.5 C 81 20 118/78 97 Nasal Cannula 03/30/25 08:00 Nasal Cannula 03/30/25 07:29 88 03/30/25 07:19 36.4 C L 85 18 116/66 96 Nasal Cannula 03/30/25 03:33 36.4 C L 88 18 116/71 94 Nasal Cannula O2 Flow Rate 03/30/25 11:09 2.5 03/30/25 08:00 2 03/30/25 07:29 03/30/25 07:19 2.5 03/30/25 03:33 2 Laboratory Results Short CBC 03/29/25 03/30/25 Range/Units 14:49 05:34 WBC 6.82 5.79 (4.8-10.8) K/ul Hgb 12.3 11.8 L (12.0-16.0) g/dl Hct 39.1 37.8 (37.0-47.0) % Plt Count 255 232 (130-400) K/uL BMP 03/29/25 03/30/25 14:49 05:34 Sodium 140 142 Potassium 4.4 3.8 Chloride 100 102 Carbon Dioxide 35 H 35 H BUN 38 H 36 H Creatinine 1.65 H 1.44 H Glucose 127 H 124 H Calcium 8.9 8.5 L Liver Function 03/29/25 Range/Units 14:49 Total Bilirubin 0.4 (0.2-1.0) mg/dl AST 11 L (13-39) U/L ALT 8 (7-52) U/L Alkaline Phosphatase 52 (34-104) U/L Albumin 3.5 (3.4-5.0) gm/dl Urine 03/29/25 Range/Units 17:05 Urine Color Yellow Urine Appearance Clear (Clear) Urine pH 6.0 (4.5-7.5) Ur Specific [place] 1.010 (1.000-1.030) Urine Protein Trace H (Negative) Urine Glucose (UA) Negative (Negative) (6) Atrial fibrillation Atrial fibrillation type: longstanding persistent Qualified Code(s): I48.11 - Longstanding persistent atrial fibrillation
[2025-03-30] MEDS: MENTHOL-ZINC OXIDE 360 APPLN/120 GM TUBE EXT SCH (20:23)
--- NOTE | 2025-03-31 06:11 | Communication Note ---
Date of Service: March 31, 2025 Patient noted to have bloody Dey catheter drainage as per RN. No abdominal or flank pain complaints. AP Hematuria Eliquis Rx CBC now Hold Eliquis until CBC resulted
[2025-03-31 06:47] LABS: Hematocrit (blood only) 38.2 % (37.0-47.0); Hemoglobin 11.5 g/dl (12.0-16.0); Immature Granulocytes # (auto) 0.03 K/uL (0.01-0.20); Immature Granulocytes % (auto) 0.4 %; Mean Corpuscular Hemoglobin 29.0 pg (25.0-34.0); Mean Corpuscular Volume 96.5 fL (80.0-100.0); Platelet Count 213 K/uL (130-400); RDW Standard Deviation 58.7 fL (36.4-46.3); Red Blood Count 3.96 M/uL (4.20-5.40); White Blood Count 6.79 K/ul (4.8-10.8)
[2025-03-31 07:17] LABS: Partial Thromboplastin Time 29 Seconds (21-31)
[2025-03-31 07:24] LABS: Anion Gap 6.0 (3-11); Blood Urea Nitrogen 47.0 mg/dl (6-23); Calcium 8.5 mg/dl (8.6-10.3); Carbon Dioxide 33.0 mmol/L (21-32); Chloride 99.0 mmol/L (98-107); Creatinine Clr Calc Pharmacy 23.0 ml/min; Glucose 111.0 mg/dl (70-99(Fasting)); Magnesium 1.9 mg/dl (1.7-2.4); Potassium 4.3 mmol/L (3.5-5.1); Sodium 138.0 mmol/L (136-145)
--- NOTE | 2025-03-31 09:41 | Hospitalist Progress Note ---
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: Plan 85-year-old female with PMHx of chronic diastolic CHF, pulmonary hypertension, moderate aortic regurg, moderate mitral valve stenosis, mild tricuspid regurg, chronic A-fib on Eliquis,orthostatic hypotension, CKD stage IIIb, DM type II, hypothyroidism, history of ischemic bowel disease, degenerative disc disease, hoarse voice secondary to vocal cord paralysis, and morbid obesity with a BMI of 38.5 who presents to the hospital with acute worsening shortness of breath and increased weight gain Acute on chronic diastolic CHF exacerbation Valvular heart disease CXR:Cardiomegaly with pulmonary edema and suspected small bilateral pleural effusions. BNP 357 Echo from February 09, 2025 TTE:The left ventricular cavity size is normal. The LV wall thickness is moderately increased (concentric). The left ventricular wall motion is normal. The qualitative LV ejection fraction is 55-59% (normal). The left atrium is severely enlarged (>48 ml/m^2,). The aortic valve is moderately calcified. Moderate aortic valve stenosis is present. Moderate aortic valve regurgitation is present. There is severe mitral annular calcification. The mitral valve leaflets thickness is severely increased. Severe mitral stenosis is present. Severe mitral regurgitation is present. Severe tricuspid regurgitation is present. Moderate pulmonary hypertension is present. The estimated pulmonary artery systolic pressure is 45-50mm Hg. Currently on IV lasix being managed by Nephrology Considering patient's HF, valvular heart disease, Afib; I consulted Cardiology for management and med optimization Urinary tract infection--POA Urine culture growing Enterococcus faecalis Currently on daptomycin, renally dosed CKD stage IIIb Nephrology on board Monitor renal function and Urine output while on diuretics Atrial Fibrillation Continue metoprolol tartrate 25 mg twice a day Eliquis on hold for now due to Hematuria. Monitor Hb and resume as soon as possible DM II Last a1c 7.4 on 12/29/24 Continue to hold p.o. medications Continue insulin per protocol Monitor blood glucose levels Hypothyroidism Continue levothyroxine 175 mcg daily Morbid obesity BMI 40 DVT Px: Eliquis on hold as above CODE STATUS: DNI DNR I spent a total of 50 minutes coordinating, documenting and providing care for this patient excluding time spent in performance of separately billed services Admission and Anticipated Discharge Date Admission Date: March 29, 2025 Subjective Patient seen and examined Reports chronic dyspnea on exertion Has pedal edema. She is frustrated with fluid restriction Started having hematuria last night and Eliquis was placed on hold Denied chest pain, palpitation No other new complaints Physical Exam Constitutional: + obese; no acute distress Eyes: PERRL, conjunctivae normal, anicteric sclerae ENMT: external ear and nose normal, oropharynx normal Respiratory: On nasal cannula, Diminished breath sounds Cardiovascular: Rate/Rhythm: + irregularly irregular Gastrointestinal (Abdomen): normal bowel sounds, soft, nontender, no hepatosplenomegaly Musculoskeletal: +pedal edema Neurologic: PERRL, EOMI, accommodation nl, no face palsy, no dysarthria Psychiatric: A+Ox3, euthymic affect Results & Data Results & Data Vital Signs (Past 12 Hours) Vital Signs Temp Pulse Pulse Resp BP BP Pulse Ox 03/31/25 09:19 78/51 L 03/31/25 08:17 90 14 94/45 L 98 03/31/25 08:10 36.5 C 85 20 83/45 L 76/45 L 85 L 03/31/25 04:00 36.5 C 81 18 105/64 95 03/31/25 00:00 36.5 C 72 18 96/51 L 92 03/30/25 22:02 58 L O2 Del Method O2 Flow Rate 03/31/25 09:19 03/31/25 08:17 Nasal Cannula 2 03/31/25 08:10 Nasal Cannula 3 03/31/25 04:00 Nasal Cannula 2 03/31/25 00:00 Nasal Cannula 2 03/30/25 22:02 Laboratory Results Abnormal lab results 03/30/25 03/31/25 03/31/25 Range/Units 20:20 05:36 06:21 RBC 3.96 L (4.20-5.40) M/uL Hgb 11.5 L (12.0-16.0) g/dl MCHC 30.1 L (32.0-36.0) g/dL RDW Std Deviation 58.7 H (36.4-46.3) fL RDW Coeff of [place] 16.5 H (11.5-14.5) % Lymph # (Auto) 1.06 L (1.20-3.40) K/uL Carbon Dioxide 33 H (21-32) mmol/L BUN 47 H (6-23) mg/dl Creatinine 2.23 H D (0.6-1.2) mg/dl BUN/Creatinine Ratio 21.1 H (10-20) Glucose 111 H (70-99(Fasting)) mg/dl POC Glucose 152 H (70-99) mg/dl Calcium 8.5 L (8.6-10.3) mg/dl 03/31/25 Range/Units 08:04 RBC (4.20-5.40) M/uL Hgb (12.0-16.0) g/dl MCHC (32.0-36.0) g/dL RDW Std Deviation (36.4-46.3) fL RDW Coeff of [place] (11.5-14.5) % Lymph # (Auto) (1.20-3.40) K/uL Carbon Dioxide (21-32) mmol/L BUN (6-23) mg/dl Creatinine (0.6-1.2) mg/dl BUN/Creatinine Ratio (10-20) Glucose (70-99(Fasting)) mg/dl POC Glucose 117 H (70-99) mg/dl Calcium (8.6-10.3) mg/dl (6) Atrial fibrillation Atrial fibrillation type: longstanding persistent Qualified Code(s): I48.11 - Longstanding persistent atrial fibrillation
--- NOTE | 2025-03-31 10:19 | Cardiology Consultation ---
Date of Consultation March 31, 2025 Assessment & Plan (1) Acute diastolic congestive heart failure due to valvular disease: (2) Acute kidney injury: (3) Rheumatic valvular disease: (4) Aortic stenosis: (5) Mitral stenosis: Plan Complex 85-year-old female admitted with acute decompensated diastolic congestive heart failure secondary to rheumatic valvular heart disease. Resting echocardiography in February 2025 revealed severe mitral valve stenosis, severe mitral regurgitation, moderate aortic stenosis, moderate aortic regurgitation, severe tricuspid regurgitation. LVEF 55 to 59%. Moderate pulmonary hypertension observed with estimated pulmonary artery systolic pressu re 45 to 50 mmHg. Patient with permanent atrial fibrillation chronically prescribed anticoagulation (reduced dose apixaban). Telemetry with permanent atrial fibrillation with a controlled ventricular response. Laboratory work notable for acute kidney injury following addition of LANG inhibitor (ramipril), marked hypotension with readings as low as 76/45 likely contributing factor. Examination with ongoing considerable hypervolemia. Recommendations: * Patient requires continued IV diuresis; discuss continuous IV Lasix infusion with Nephrology * Discontinue enalapril (last dose received on 03/30/2025 at 09:01) * Hold metolazone, and spironolactone reconsideration * Reduce beta-fanny dosing, switching metoprolol tartrate 25 mg BID to metoprolol succinate 25 mg once per day before considering low dose digoxin for rate control of the chronic atrial fibrillation * If ongoing hypotension observed despite the above would add midodrine next * Discontinue reduced dose apixaban, switching to Coumadin anticoagulation noting the severe mitral valve stenosis * Referral to cardiothoracic surgery discussed; she is considering her options, patient reports family is against surgical intervention Supervising Physician Co-Signing Physician Notes Patient seen and examined. Past medical history, surgical history, social history and family history have been reviewed. The medical record and all the above studies have been reviewed. Case DW KD including management. CARROL on CKD Hypotension with H/O HTN Acute HFpEF Severe Mitral Stenosis Severe Mitral regurgitation Severe Tricuspid regurgitation Moderate PHTN Moderate AI Moderate Atrial Fib with CVR correct and f/u electrolytes f/u renal function DC diuretics for now Avoid nephrotoxic agents would avoid using Spironolactone with significant renal insufficiency Patient is at risk for recurrent CHF and some level of azotemia may have to be accepted to avoid volume overload in the absence of definitive surgical treatment for severe valvulopathy continue anticoagulation with renal dose adjustment GDMT for HFpEF limited due to renal insufficiency and low BP adjust rate control meds keeping HR between 60 to 100 BPM and systolic BP between 100-140 mmHg adjust anti-HTN meds keeping systolic BP between 100-140 mmHg avoid hypovolemia keep patient euvolemic keep LE elevated when sitting daily weights strict I&Os salt restriction counseling History of Present Illness Reason for Consultation: HF exacerbation, valvular heart dxs. Med optimization Requesting Physician: [facility] Hospital[facility] Service, Dr. Manjula Reynaga MD Attending Physician: [facility] Hospitalist Service, Dr. Manjula Reynaga MD History of Present Illness Yessy Peña is a very pleasant 85-year-old female who describes an injury, cut, to the left lower extremity on her rollator on Mother's Day. She notes doctoring at the wound clinic since that time, presenting last to the wound clinic on March 29, 2025 with reported worsening dyspnea, chest discomfort/pressure, weight gain, and observed hypoxemia. Supplemental oxygen was placed at 2 L/min. Patient referred to the [facility] ER for further evaluation and treatment. Recent medication changes included trial of low-dose spironolactone without reported benefit, reported weight gain and lower extremity peripheral edema. Spironolactone was subsequently discontinued and metolazone was resumed. Metolazone is taken weekly on Mondays. Patient did not take metolazone this past Saturday due to traveling to the wound clinic. Chart review also reveals that the patient was prescribed ramipril 5 mg/day on March 11, 2025. Subsequent follow-up metabolic panel notable for acute on chronic renal dysfunction. Chest x-ray on admission revealed cardiomegaly with pulmonary edema and suspected small bilateral pleural effusions. Patient prescribed IV furosemide 80 mg twice per day. Nephrology on board. Input and output fluid balance recorded is -878 mL overall. Weight on admission was documented as 108.2 kg. Subsequent weights documented at 112 kg. Last outpatient weight documented in our office was 106.2 kg on February 11, 2025 Patient notes some improvement in dyspnea, ongoing. No chest pain or discomfort. No palpitations. + Orthopnea without PND. Ongoing peripheral edema. No dizziness when up to the bathroom. No fevers or chills. Occasional hemorrhoidal bleeding. Problem list: Diastolic congestive heart failure, HFpEF secondary to valvular heart disease Severe valvular heart disease, rheumatic Permanent atrial fibrillation Hypertension Dyslipidemia Type 2 diabetes mellitus Stage III chronic kidney disease Obesity Chronic hypokalemia Chronic hyponatremia Dysphagia Paralyzed vocal cord Hypothyroidism Degenerative disc disease Kidney stones Allergies Allergy/AdvReac Type Severity Reaction Status Date / Time empagliflozin Allergy Intermediate Pain in Verified 03/29/25 14:15 [From Jardiance] Vaginal/Rectal area latex Allergy Intermediate . Verified 03/29/25 14:15 Metformin AdvReac Intermediate Diarrhea Uncoded 03/29/25 14:15 Home Medications Medication Instructions Recorded Confirmed Type acetaminophen 325 mg capsule 650 mg PO QID PRN Pain (Scale 03/11/25 03/29/25 History Score 4-6) allopurinol 100 mg tablet 200 mg PO DAILY 03/11/25 03/29/25 History (Zyloprim) apixaban 2.5 mg tablet (Eliquis) 2.5 mg PO BID 03/11/25 03/29/25 History calcium 600 mg (as 1 tab PO DAILY 03/11/25 03/29/25 History carbonate)-vitamin D3 10 mcg (400 unit) tablet coenzyme Q10 400 mg capsule 400 mg PO DAILY 03/11/25 03/29/25 History cyanocobalamin (vitamin B-12) 1,000 mcg PO DAILY 03/11/25 03/29/25 History 1,000 mcg capsule furosemide 80 mg tablet (Lasix) 80 mg PO BID 03/11/25 03/29/25 History glucosam 750 mg-chondroi 100 3 tab PO DAILY 03/11/25 03/29/25 History mg-hyalur 1.65 mg-CF borate 108 mg tablet ([facility] [employer]) levothyroxine 175 mcg tablet 175 mcg PO DAILY 03/11/25 03/29/25 History (Synthroid) linagliptin 5 mg tablet (Tradjenta) 5 mg PO DAILY 03/11/25 03/29/25 History loperamide 2 mg capsule 2 mg PO BID PRN Diarrhea 03/11/25 03/29/25 History (Anti-Diarrheal (loperamide)) magnesium 200 mg tablet 200 mg PO WK 03/11/25 03/29/25 History metoprolol tartrate 25 mg tablet 25 mg PO BID 03/11/25 03/29/25 History potassium chloride 20 mEq 40 meq PO DAILY 03/11/25 03/29/25 History tablet,extended release(part/cryst) metolazone 2.5 mg tablet 2.5 mg PO WK 03/29/25 03/29/25 History ramipril 5 mg capsule 5 mg PO QAM 03/29/25 03/29/25 History Patient History Medical History Kidney stone 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 Cellulitis of left lower extremity Atherosclerosis of aorta Hilar lymphadenopathy DDD (degenerative disc disease), cervical Pulmonary hypertension Mild tricuspid regurgitation Moderate aortic regurgitation 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 Irritable bowel syndrome with diarrhea Hyperuricemia Rheumatic mitral stenosis Orthostatic hypotension Morbid obesity due to excess calories Positive CARRIE (antinuclear antibody) Ischemic bowel disease Hypothyroidism (acquired) Nocturnal enuresis Insomnia Hoarse voice quality Left atrial enlargement Mitral valve stenosis, moderate Surgical History H/O lithotripsy History of resection of small bowel History of total abdominal hysterectomy H/O exploratory laparotomy Social History Smoking Status: Never smoker Hx Alcohol Use: No Hx Substance Use: No Preferred Language: Syrian Communication Ability: Effective Visual Impairment: Limited Hearing Ability: Normal Loan Interviewer Required: No Beliefs That Will Affect Care: None marital status: / Current Living Situation: Alone How many Children do You have: 2 Feels Safe at Home: Yes Diet: diabetic Diet Comment: Meals on wheels caffeine: No Assistive Devices: Cane, Lift Chair and Walker Review of Systems Review of Systems: Complete Review of Systems is as stated above, negative, or noncontributory. Physical Exam Physical Exam: Examined in a chair General: Conversational dyspnea. Pleasant. Cooperative. Eyes: PER. Conjunctiva pink, sclera clear. HENT: Normocephalic. Atraumatic. Neck: JVD. HJR. Heart: Irregularly irregular at 90 bpm. + Systolic murmur. + Diastolic murmur. Lungs: Bibasilar rales. No wheeze. Abdomen: +BS. Soft. Nontender. No masses. No organomegaly. Extremities: 2-3+ edema. Stasis changes. Left lower extremity erythema, question mild cellulitis. No cyanosis. Pulses: posterior tibial=1/4. Limited neurological examination: No focal deficit. Results & Data Vital Signs (Past 12 Hours) Vital Signs Temp Pulse Resp BP BP Pulse Ox O2 Del Method 03/31/25 09:19 78/51 L 03/31/25 08:17 90 14 94/45 L 98 Nasal Cannula 03/31/25 08:10 36.5 C 85 20 83/45 L 76/45 L 85 L Nasal Cannula 03/31/25 04:00 36.5 C 81 18 105/64 95 Nasal Cannula 03/31/25 00:00 36.5 C 72 18 96/51 L 92 Nasal Cannula O2 Flow Rate 03/31/25 09:19 03/31/25 08:17 2 03/31/25 08:10 3 03/31/25 04:00 2 03/31/25 00:00 2 Laboratory Results Coagulation 03/31/25 Range/Units 06:21 APTT 29 (21-31) Seconds CBC 03/31/25 Range/Units 06:21 WBC 6.79 (4.8-10.8) K/ul RBC 3.96 L (4.20-5.40) M/uL Hgb 11.5 L (12.0-16.0) g/dl Hct 38.2 (37.0-47.0) % Plt Count 213 (130-400) K/uL Neut # (Auto) 4.79 (1.40-6.50) K/uL Lymph # (Auto) 1.06 L (1.20-3.40) K/uL [place] # (Auto) 0.52 (0.11-0.59) K/uL Eos # (Auto) 0.33 (0.00-0.50) K/uL Baso # (Auto) 0.06 (0.00-0.20) K/uL Comprehensive Metabolic Panel 03/31/25 Range/Units 05:36 Sodium 138 (136-145) mmol/L Potassium 4.3 (3.5-5.1) mmol/L Chloride 99 (98-107) mmol/L Carbon Dioxide 33 H (21-32) mmol/L BUN 47 H (6-23) mg/dl Creatinine 2.23 H D (0.6-1.2) mg/dl Glucose 111 H (70-99(Fasting)) mg/dl Calcium 8.5 L (8.6-10.3) mg/dl Intake and Output 03/30/25 03/31/25 03/31/25 22:59 06:59 14:59 Intake Total 375 / 375 Output Total 100 / 602 Balance 375 / -227 -100 / -227 -1 -1 Intake: Oral 375 / 375 Output: Urine Amount (Catheter) 100 / 600 External 100 / 600 # Bowel Movements Other: # Unmeasured Voids 1 Weight 112.5 kg Weight Measurement Method Built in [facility] Diagnostic Findings February 09, 2025 TTE Interpretation Summary (as per Dr. James): The left ventricular cavity size is normal. The LV wall thickness is moderately increased (concentric). The left ventricular wall motion is normal. The qualitative LV ejection fraction is 55-59% (normal). The left atrium is severely enlarged (>48 ml/m^2,). The aortic valve is moderately calcified. Moderate aortic valve stenosis is present. Moderate aortic valve regurgitation is present. There is severe mitral annular calcification. The mitral valve leaflets thickness is severely increased. Severe mitral stenosis is present. Severe mitral regurgitation is present. Severe tricuspid regurgitation is present. Moderate pulmonary hypertension is present. The estimated pulmonary artery systolic pressure is 45-50mm Hg. Telemetry: Atrial fibrillation throughout, with a controlled ventricular response. PG Care Time/CCT Total # of Minutes Spent Total Time Spent with Patient: Total time spent is greater than 50% in coordination of care (as documented) at patient's floor/unit and/or counseling patient. I spent a total of 95 mintues on the date of service in preparation, delivery, and documentation of the care provided to this patient excluding any time spent in the performance of separately billed services. This visit was a split-shared visit with the substantive portion of the medical decision making performed by the supervising service desk specialist/billing provider, Dr. Moore. Coding Level of Care Code 16340 IN/OBS CONSULT LVL 5,80M Diagnoses Acute diastolic congestive heart failure due to valvular disease I50.31; I38 Acute kidney injury N17.9 Rheumatic valvular disease I09.1 Aortic stenosis I35.0 Mitral stenosis I05.0
--- NOTE | 2025-03-31 10:26 | Nephrology Progress Note ---
Date of Service March 31, 2025 Assessment & Plan (1) Acute kidney injury: Plan: stage 1 nonoliguric CARROL on CKD 3 in the setting of complex heart failure in pt challenging to diurese expect creatinine to worsen before it improves given hours of hypotension today CARROL likely ischemic in setting of valvular HF (very volume sensitive despite TB overload), having had ACEI yesterday and now hypotension. also w/ 3 BM past 24 hr > monitor for diarrhea on abtx >hold lasix >liberalized/removed FR for now -continue to monitor BP >> check BP L arm only since consistently higher in L; so ordered >would nto give IV fluids unless symptomatic or cardiology recommends Care coordinated w/ Dr Reynaga re lasix dosing, other meds, labs, weights; we are in agreement. (2) Acute diastolic CHF (congestive heart failure): Plan: chronicity of this HF unclear (may be more chronic) but she is certainly volume overloaded, primarily in lungs, and complicated by valvular heart disease and medication intolerances which make for challenges w/ diuresis -held lasix; for now no metolazone; had 80 mg IV lasix x 2 on day of admission and another dose yesterday AM, else none; I&O incomplete -f/u cardiology recs >daily STANDING weights recommended when feasible/ BP better <2 gm Na diet for now no FR (3) CKD (chronic kidney disease) stage 3, GFR 30-59 ml/min: Plan: baseline creatinine 1.4-1.5 past several months; at baseline currently but w/ complex vol OL/ needs diuresis but tolerates little -rampiril held as of yesterday PM >lasix 80 mg IV bid17 on hold as well Admission and Anticipated Discharge Date Admission Date: March 29, 2025 Subjective BP 70-80s this AM. 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 diuretic this am d/t BP and for unclear reasons last evening as well. pt asx w/ lower BP. wants more water; wants portable 02. feels speaking a bit more smoothly w/ 02 on Review of Systems 2 Review of Systems: All systems reviewed & are unremarkable except as noted in Subjective Physical Exam 2 Constitutional: well developed, well nourished, + morbidly obese, + frail appearing and cooperative; no acute distress Eyes: EOM intact bilaterally ENMT: Mouth: + dry oral mucous membranes Respiratory: normal respiratory effort and + tachypneic; no respiratory distress, no cough and + not able to speak in complete sentence (still stops to breathe but less than yesterday) Auscultation: + diminished lung sounds and + crackles (BL bases) Cardiovascular: Rate/Rhythm: regular rate and regular rhythm Heart Sounds: + murmur Extremities: + edema (trace-1+) Gastrointestinal (Abdomen): Inspection/Auscultation: normal bowel sounds P ercussion/Palpation: abdomen soft; abdomen nontender Musculoskeletal: Extremities: strength 5/5 throughout Skin: no rashes, warm and dry Results & Data Vital Signs (Past 12 Hours) Vital Signs Temp Pulse Resp BP BP Pulse Ox O2 Del Method 03/31/25 09:19 78/51 L 03/31/25 08:17 90 14 94/45 L 98 Nasal Cannula 03/31/25 08:10 36.5 C 85 20 83/45 L 76/45 L 85 L Nasal Cannula 03/31/25 04:00 36.5 C 81 18 105/64 95 Nasal Cannula 03/31/25 00:00 36.5 C 72 18 96/51 L 92 Nasal Cannula O2 Flow Rate 03/31/25 09:19 03/31/25 08:17 2 03/31/25 08:10 3 03/31/25 04:00 2 03/31/25 00:00 2 Laboratory Results 03/31/25 06:21 03/31/25 05:36
[2025-04-01] MEDS: ACETAMINOPHEN 325 MG TAB PO PRN (00:22)
--- NOTE | 2025-04-01 05:33 | Electrocardiogram Report ---
Test Reason : Blood Pressure : */* mmHG Vent. Rate : 69 BPM Atrial Rate : * BPM P-R Int : * ms QRS Dur : 82 ms QT Int : 414 ms P-R-T Axes : * 85 75 degrees QTcB Int : 443 ms Atrial fibrillation Nonspecific ST abnormality Abnormal ECG When compared with ECG of 24-May-2022 12:59, No significant change was found Confirmed by Joe Brewster ([id number]) on 04/01/2025 5:32:51 AM Referred By: REFERRED SELF Confirmed By: Joe Brewster
[2025-04-01] MEDS: METOPROLOL SUCC 25MG EXT REL TAB PO SCH (08:19)
[2025-04-01] MEDS: DAPTOmycin 500 MG in SYRINGE 0 ML IV SCH (08:20)
--- NOTE | 2025-04-01 09:12 | Nephrology Progress Note ---
Date of Service April 01, 2025 Assessment & Plan (1) Acute kidney injury: Plan: stage 1 nonoliguric CARROL on CKD 3 in the setting of complex heart failure in pt challenging to diurese. baseline creatinine 1.4-1.5. expect creatinine to worsen given HF, diuretic obligations, hypotension CARROL likely ischemic in setting of valvular HF (very volume sensitive despite TB overload) cardiology consult reviewed, risks benefits and indications for diuresis reviewed with patient and her son. I explained that her valvular heart disease is approaching end-stage and that attempting diuresis may or may not help for the time, while with no diuresis, her volume overload will progress >ordered lasix gtt 160 mg bolus and 15 mg /hr to start w/ midodrine 5 mg po tid >resume FR 1.5L >> she will need reeducation on this -continue to monitor BP >> check BP L arm only since consistently higher in L; so ordered >>if drip has to be held d/t hypotension, could increase midodrine dose or call cardiology for recommendations Care coordinated w/ Dr Reynaga and DANIEL Thorne re lasix gtt/midodrine, labs, weights; we are in agreement. (2) Acute diastolic CHF (congestive heart failure): Plan: chronicity of this HF unclear (may be more chronic) but she is certainly volume overloaded, primarily in lungs, and complicated by valvular heart disease and medication intolerances which make for challenges w/ diuresis had 80 mg IV lasix x 2 on day of admission and another dose 8/27 AM, else none; I&O incomplete -f/u cardiology recs >daily STANDING weights recommended when feasible/ BP better <2 gm Na diet for now no FR (3) CKD (chronic kidney disease) stage 3, GFR 30-59 ml/min: Plan: baseline creatinine 1.4-1.5 past several months; at baseline currently but w/ complex vol OL/ needs diuresis but tolerates little -rampiril held since day after admission >lasix diuresis as above Admission and Anticipated Discharge Date Admission Date: March 29, 2025 Subjective No interval events clinically. No worsening edema. Dyspnea stable. Remains on oxygen. Very thirsty. Excited to be off of fluid restriction. I had an extended discussion with the patient and her son Med about ongoing recommendations for diuresis Review of Systems 2 Review of Systems: All systems reviewed & are unremarkable except as noted in Subjective Physical Exam 2 Constitutional: well developed, well nourished, + morbidly obese, + frail appearing and cooperative; no acute distress Eyes: EOM intact bilaterally ENMT: Mouth: + muffled voice (hoarse) and + dry oral mucous membranes Respiratory: normal respiratory effort; no respiratory distress, no cough and + not able to speak in complete sentence Auscultation: + diminished lung sounds and + crackles (BL bases) Cardiovascular: Rate/Rhythm: + irregularly irregular Heart Sounds: + murmur Extremities: + edema (trace-1+) Gastrointestinal (Abdomen): Inspection/Auscultation: normal bowel sounds P ercussion/Palpation: abdomen soft; abdomen nontender Musculoskeletal: Extremities: strength 5/5 throughout Skin: no rashes, warm and dry (wound L posterior leg) Results & Data Vital Signs (Past 12 Hours) Vital Signs Temp Pulse Pulse Resp BP Pulse Ox O2 Del Method 04/01/25 07:59 36.7 C 98 H 16 101/46 L 96 Room Air 04/01/25 07:00 104 H 04/01/25 04:16 36.2 C L 79 20 106/67 95 Nasal Cannula 03/31/25 23:31 36.1 C L 96 H 16 96/48 L 95 Nasal Cannula 03/31/25 22:03 80 O2 Flow Rate 04/01/25 07:59 04/01/25 07:00 04/01/25 04:16 2 03/31/25 23:31 2 03/31/25 22:03 Laboratory Results 04/01/25 08:44 04/01/25 08:44
[2025-04-01 09:14] LABS: Hematocrit (blood only) 36.8 % (37.0-47.0); Hemoglobin 11.8 g/dl (12.0-16.0); Mean Corpuscular Hemoglobin 29.9 pg (25.0-34.0); Mean Corpuscular Volume 93.2 fL (80.0-100.0); Platelet Count 223 K/uL (130-400); RDW Standard Deviation 55.2 fL (36.4-46.3); Red Blood Count 3.95 M/uL (4.20-5.40); White Blood Count 5.61 K/ul (4.8-10.8)
[2025-04-01 09:31] LABS: Anion Gap 6.0 (3-11); Blood Urea Nitrogen 60.0 mg/dl (6-23); Calcium 9.0 mg/dl (8.6-10.3); Carbon Dioxide 31.0 mmol/L (21-32); Chloride 96.0 mmol/L (98-107); Creatinine Clr Calc Pharmacy 19.5 ml/min; Glucose 129.0 mg/dl (70-99(Fasting)); Magnesium 2.0 mg/dl (1.7-2.4); Potassium 4.8 mmol/L (3.5-5.1); Sodium 133.0 mmol/L (136-145)
--- NOTE | 2025-04-01 12:22 | CT Scan Report ---
CT OF THE ABDOMEN AND PELVIS WITHOUT CONTRAST CLINICAL HISTORY: Persistent hematuria. Assess urinary system. COMPARISON STUDY: No previous studies for comparison. TECHNIQUE: Axial images of the abdomen and pelvis were obtained without IV contrast. Images were revi ewed in the axial, sagittal, and coronal planes. Automated exposure control was utilized for the samia dy. A dose lowering technique was utilized adhering to the principles of ALARA. FINDINGS: Mild groundglass opacities with mosaic attenuation within the lungs are noted. Moderate car diomegaly and extensive mitral annular calcification are noted. There is mild dilatation of the centr al pulmonary arteries. Prominent subcarinal lymph nodes are likely benign. There is a trace right ple ural effusion. No pneumatosis, free air or portal venous gas is present. Multiple left renal calculi measure up to 9 mm. There is no hydronephrosis. There is mild asymmetric dilatation of the left urete r. Bladder wall thickening is noted. This is eccentric to the left. There may be minimal calcificatio n within the left posterolateral bladder wall. There is mild stranding adjacent to the bladder. No ur eteral calculi are present. Evaluation the remainder of the abdomen and pelvis is suboptimal on this unenhanced exam. Liver, spleen, adrenal glands and pancreas are unremarkable. Peripheral calcificatio n within the gallbladder wall is noted. This suggests a porcelain gallbladder. The gallbladder is not distended. There is extensive colonic diverticulosis without evidence for acute diverticulitis. Ther e is no evidence for a bowel obstruction. The appendix is normal. IMPRESSION: 1. Left nephrolithiasis. No ureteral calculi. 2. Mild left hydroureter without hydronephrosis. Asymmetric left-sided bladder wall thickening with a djacent stranding. This may represent cystitis. However, an underlying urothelial lesion cannot be ex cluded by CT and correlation with cystoscopy is recommended. 3. Extensive colonic diverticulosis. No evidence for acute diverticulitis. 4. Cardiomegaly. Trace right pleural effusion. 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 ACT 112: Negative or not required by law. Electronically signed by: Vivek Diaz M.D. 04/01/2025 12:20 PM
[2025-04-01] MEDS: MIDODRINE HCL 2.5 MG TAB PO SCH (12:26)
[2025-04-01] MEDS: FUROSEMIDE 160 MG in SODIUM CHLORIDE 0.9% 50 ML IV ONE (12:27)
--- NOTE | 2025-04-01 13:15 | Hospitalist Progress Note ---
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: Plan 85-year-old female with PMHx of chronic diastolic CHF, pulmonary hypertension, moderate aortic regurg, moderate mitral valve stenosis, mild tricuspid regurg, chronic A-fib on Eliquis,orthostatic hypotension, CKD stage IIIb, DM type II, hypothyroidism, history of ischemic bowel disease, degenerative disc disease, hoarse voice secondary to vocal cord paralysis, and morbid obesity with a BMI of 38.5 who presents to the hospital with acute worsening shortness of breath and increased weight gain Acute on chronic diastolic CHF exacerbation Valvular heart disease CXR:Cardiomegaly with pulmonary edema and suspected small bilateral pleural effusions. BNP 357 Echo from February 09, 2025 TTE:The left ventricular cavity size is normal. The LV wall thickness is moderately increased (concentric). The left ventricular wall motion is normal. The qualitative LV ejection fraction is 55-59% (normal). The left atrium is severely enlarged (>48 ml/m^2,). The aortic valve is moderately calcified. Moderate aortic valve stenosis is present. Moderate aortic valve regurgitation is present. There is severe mitral annular calcification. The mitral valve leaflets thickness is severely increased. Severe mitral stenosis is present. Severe mitral regurgitation is present. Severe tricuspid regurgitation is present. Moderate pulmonary hypertension is present. The estimated pulmonary artery systolic pressure is 45-50mm Hg. Has been on IV lasix Nephro switched to IV lasix drip today Monitor electrolytes, renal function and urine output Cardiology on board CARROL on CKD stage IIIb Patient is still volume overloaded Nephro managing diuretics/volume status Continue to monitor renal function Urinary tract infection--POA Urine culture growing Enterococcus faecalis Currently on daptomycin, renally dosed Hematuria May be related to UTI in patient on eliquis However, CT abd today noted left nephrolithiasis, mild left hydroureter without hydronephrosis, asymmetric left sided bladder wall thickening which may be cystitis but cannot rule out urothelial lesion and correlation with cystoscopy recommended Will get Urology's input on that Atrial Fibrillation Continue metoprolol tartrate 25 mg twice a day Eliquis on hold for now due to Hematuria. Monitor Hb and resume anticoagulation as soon as possible Once hematuria is evaluated/treated and ready to resume anticoagulation, will discuss with patient about possibly doing warfarin instead of eliquis for her valvular Afib DM II Last a1c 7.4 on 12/29/24 Continue to hold p.o. medications Continue insulin per protocol Monitor blood glucose levels Hypothyroidism Continue levothyroxine 175 mcg daily Morbid obesity BMI 40 DVT Px: Eliquis on hold as above CODE STATUS: DNI DNR I spent a total of 55 minutes coordinating, documenting and providing care for this patient excluding time spent in performance of separately billed services Admission and Anticipated Discharge Date Admission Date: March 29, 2025 Subjective Patient seen and examined Still having hematuria Denied dysuria, fever, chills Physical Exam Constitutional: + obese; no acute distress Eyes: PERRL, conjunctivae normal, anicteric sclerae ENMT: external ear and nose normal, oropharynx normal Respiratory: On nasal cannula, diminished breath sounds Cardiovascular: Rate/Rhythm: + irregularly irregular Gastrointestinal (Abdomen): normal bowel sounds, soft, nontender, no hepatosplenomegaly Musculoskeletal: +pedal edema bilaterally Neurologic: PERRL, EOMI, accommodation nl, no face palsy, no dysarthria Psychiatric: A+Ox3, euthymic affect Results & Data Results & Data Vital Signs (Past 12 Hours) Vital Signs Temp Pulse Pulse Resp BP BP Pulse Ox 04/01/25 11:28 36.2 C L 77 16 97/46 L 90 04/01/25 09:00 04/01/25 07:59 36.7 C 98 H 16 101/46 L 96 04/01/25 07:00 104 H 04/01/25 04:16 36.2 C L 79 20 106/67 95 O2 Del Method O2 Flow Rate 04/01/25 11:28 Nasal Cannula 2 04/01/25 09:00 Nasal Cannula 2 04/01/25 07:59 Room Air 04/01/25 07:00 04/01/25 04:16 Nasal Cannula 2 Laboratory Results Abnormal lab results 03/31/25 03/31/25 04/01/25 Range/Units 17:05 20:15 08:12 RBC (4.20-5.40) M/uL Hgb (12.0-16.0) g/dl Hct (37.0-47.0) % RDW Std Deviation (36.4-46.3) fL RDW Coeff of Issa (11.5-14.5) % Sodium (136-145) mmol/L Chloride (98-107) mmol/L BUN (6-23) mg/dl Creatinine (0.6-1.2) mg/dl BUN/Creatinine Ratio (10-20) Glucose (70-99(Fasting)) mg/dl POC Glucose 112 H 123 H 115 H (70-99) mg/dl 04/01/25 04/01/25 Range/Units 08:44 12:15 RBC 3.95 L (4.20-5.40) M/uL Hgb 11.8 L (12.0-16.0) g/dl Hct 36.8 L (37.0-47.0) % RDW Std Deviation 55.2 H (36.4-46.3) fL RDW Coeff of Issa 16.2 H (11.5-14.5) % Sodium 133 L (136-145) mmol/L Chloride 96 L (98-107) mmol/L BUN 60 H (6-23) mg/dl Creatinine 2.66 H D (0.6-1.2) mg/dl BUN/Creatinine Ratio 22.6 H (10-20) Glucose 129 H (70-99(Fasting)) mg/dl POC Glucose 117 H (70-99) mg/dl (6) Atrial fibrillation Atrial fibrillation type: longstanding persistent Qualified Code(s): I48.11 - Longstanding persistent atrial fibrillation
--- NOTE | 2025-04-01 13:20 | Cardiology Progress Note ---
Date of Service April 01, 2025 Assessment & Plan (1) Acute diastolic congestive heart failure due to valvular disease: (2) Acute kidney injury: (3) Rheumatic valvular disease: (4) Aortic stenosis: (5) Mitral stenosis: Plan 85 Y W admitted with acute decompensated diastolic congestive heart failure secondary to rheumatic valvular heart disease. Resting echocardiography in February 2025 revealed severe mitral valve stenosis, severe mitral regurgitation, moderate aortic stenosis, moderate aortic regurgitation, severe tricuspid regurgitation. LVEF 55 to 59%. Moderate pulmonary hypertension observed with estimated pulmonary artery systolic pressure 45 to 50 mmHg. Patient with permanent atrial fibrillation chronically prescribed anticoagulation (reduced dose apixaban). Telemetry with permanent atrial fibrillation with a controlled ventricular response. Laboratory work notable for acute kidney injury following addition of LANG inhibitor (ramipril), marked hypotension with readings as low as 76/45 likely contributing factor. CARROL on CKD Hypotension with H/O HTN Acute HFpEF Severe Mitral Stenosis Severe Mitral regurgitation Severe Tricuspid regurgitation Moderate PHTN Moderate AI Moderate Atrial Fib with CVR Hematuria correct and f/u electrolytes f/u renal function Restart IV diuretics as per Renal Avoid nephrotoxic agents would avoid using Spironolactone with significant renal insufficiency Patient is at risk for recurrent CHF and some level of azotemia may have to be accepted to avoid volume overload in the absence of definitive surgical treatment for severe valvular heart disease. Patient is thinking about going for valve surgery -> if so, then would need to be transferred for CTS evaluation once medically optimized continue anticoagulation once cleared from urology standpoint - preference would be Coumadin unless patient refuses or is noncompliant with INR checks, diet - would then start Eliquis GDMT for HFpEF limited due to renal insufficiency and low BP adjust rate control meds keeping HR between 60 to 100 BPM and systolic BP betw een 100-140 mmHg adjust anti-HTN meds keeping systolic BP between 100-140 mmHg avoid hypovolemia keep patient euvolemic keep LE elevated when sitting repeat CXR daily weights strict I&Os salt restriction counseling Admission and Anticipated Discharge Date Admission Date: March 29, 2025 Subjective Patient on exam is sitting in recliner in NAD; no c/o cp, SOB at rest palpitations, dizziness, LOC; has dyspnea on minimal exertion Review of Systems Review of Systems: Complete Review of Systems is as stated above, negative, or noncontributory. Physical Exam Physical Exam: Examined in a chair General: Conversational dyspnea. Pleasant. Cooperative. Eyes: PER. Conjunctiva pink, sclera clear. HENT: Normocephalic. Atraumatic. Heart: Irregularly irregular at 90 bpm. + Systolic murmur. + Diastolic murmur. Lungs: decreased BS at bases. No wheezing Abdomen: +BS. Soft. Nontender. No masses. No organomegaly. Extremities: 2+ edema. Stasis changes. Left lower extremity erythema, question mild cellulitis. No cyanosis. Pulses: posterior tibial=1/4. Limited neurological examination: No focal deficit. Results & Data Vital Signs (Past 12 Hours) Vital Signs Temp Pulse Pulse Resp BP BP Pulse Ox 04/01/25 11:28 36.2 C L 77 16 97/46 L 90 04/01/25 09:00 04/01/25 07:59 36.7 C 98 H 16 101/46 L 96 04/01/25 07:00 104 H 04/01/25 04:16 36.2 C L 79 20 106/67 95 O2 Del Method O2 Flow Rate 04/01/25 11:28 Nasal Cannula 2 04/01/25 09:00 Nasal Cannula 2 04/01/25 07:59 Room Air 04/01/25 07:00 04/01/25 04:16 Nasal Cannula 2 Laboratory Results CBC 04/01/25 Range/Units 08:44 WBC 5.61 (4.8-10.8) K/ul RBC 3.95 L (4.20-5.40) M/uL Hgb 11.8 L (12.0-16.0) g/dl Hct 36.8 L (37.0-47.0) % Plt Count 223 (130-400) K/uL Comprehensive Metabolic Panel 04/01/25 Range/Units 08:44 Sodium 133 L (136-145) mmol/L Potassium 4.8 (3.5-5.1) mmol/L Chloride 96 L (98-107) mmol/L Carbon Dioxide 31 (21-32) mmol/L BUN 60 H (6-23) mg/dl Creatinine 2.66 H D (0.6-1.2) mg/dl Glucose 129 H (70-99(Fasting)) mg/dl Calcium 9.0 (8.6-10.3) mg/dl Intake and Output 03/31/25 04/01/25 04/01/25 22:59 06:59 14:59 Intake Total 1070 / 1270 200 / 1270 3.3 / 3.3 Output Total 200 / 201 Balance 1070 / 1069 0 / 1069 3.3 / 3.3 Intake: IV 3.3 / 3.3 Furosemide 160 mg In Sodium 3.3 / 3.3 Chloride 0.9% 50 ml @ 99 mls/hr IV ONE ONE Rx#:[id number] Oral 1070 / 1270 200 / 1270 Output: Urine Amount (Catheter) 200 / 200 External 200 / 200 Other: # Unmeasured Voids 1 Weight 114.804 kg Weight Measurement Method Built in [facility] Diagnostic Findings Echocardiography in February 2025 revealed severe mitral valve stenosis, severe mitral regurgitation, moderate aortic stenosis, moderate aortic regurgitation, severe tricuspid regurgitation. LVEF 55 to 59%. Moderate pulmonary hypertension observed with estimated pulmonary artery systolic pressure 45 to 50 mmHg. Medications Administered Home Medications Medication Instructions Recorded Confirmed Last Taken acetaminophen 325 mg capsule 650 mg PO QID PRN Pain (Scale 03/11/25 03/29/25 Unknown Score 4-6) allopurinol 100 mg tablet 200 mg PO DAILY 03/11/25 03/29/25 03/29/25 (Zyloprim) apixaban 2.5 mg tablet (Eliquis) 2.5 mg PO BID 03/11/25 03/29/25 03/29/25 calcium 600 mg (as 1 tab PO DAILY 03/11/25 03/29/25 03/29/25 carbonate)-vitamin D3 10 mcg (400 unit) tablet coenzyme Q10 400 mg capsule 400 mg PO DAILY 03/11/25 03/29/25 03/29/25 cyanocobalamin (vitamin B-12) 1,000 mcg PO DAILY 03/11/25 03/29/25 03/29/25 1,000 mcg capsule furosemide 80 mg tablet (Lasix) 80 mg PO BID 03/11/25 03/29/25 03/29/25 glucosam 750 mg-chondroi 100 3 tab PO DAILY 03/11/25 03/29/25 03/29/25 mg-hyalur 1.65 mg-CF borate 108 mg tablet ([facility]) levothyroxine 175 mcg tablet 175 mcg PO DAILY 03/11/25 03/29/25 03/29/25 (Synthroid) linagliptin 5 mg tablet (Tradjenta) 5 mg PO DAILY 03/11/25 03/29/25 03/29/25 loperamide 2 mg capsule 2 mg PO BID PRN Diarrhea 03/11/25 03/29/25 Unknown (Anti-Diarrheal (loperamide)) magnesium 200 mg tablet 200 mg PO WK 03/11/25 03/29/25 Unknown metoprolol tartrate 25 mg tablet 25 mg PO BID 03/11/25 03/29/25 03/29/25 potassium chloride 20 mEq 40 meq PO DAILY 03/11/25 03/29/25 03/29/25 tablet,extended release(part/cryst) metolazone 2.5 mg tablet 2.5 mg PO WK 03/29/25 03/29/25 03/22/25 ramipril 5 mg capsule 5 mg PO QAM 03/29/25 03/29/25 03/29/25 Active Medications Generic Name Dose Route Start Last Admin Trade Name Freq PRN Reason Stop Dose Admin Acetaminophen 650 mg 03/29/25 21:09 04/01/25 00:22 Acetaminophen 325 Mg Tab PO 04/28/25 21:08 650 mg Q4H PRN Administration Moderate Pain (Scale 4, 5, 6) Allopurinol 200 mg 03/30/25 09:00 04/01/25 08:18 Allopurinol 100 Mg Tab PO 04/29/25 08:59 200 mg DAILY KENJI Administration Apixaban 2.5 mg 03/29/25 21:09 03/30/25 20:23 Apixaban 2.5 Mg Tab PO 04/28/25 21:08 2.5 mg BID KENJI Administration Calamine/Phenol 1 appln 03/30/25 21:00 04/01/25 08:19 Menthol-Zinc Oxide 360 Appln/120 Gm Tube EXT 04/29/25 20:59 1 appln BID KENJI Administration Calcium/Vitamin D 1 tab 03/30/25 09:00 04/01/25 08:18 Calcium 600mg + Vit D 400 Iu Tab PO 04/29/25 08:59 1 tab DAILY KENJI Administration Cyanocobalamin 1,000 mcg 03/30/25 09:00 04/01/25 08:17 Cyanocobalamin (B-12) 500 Mcg Tablet PO 04/29/25 08:59 1,000 mcg DAILY KENJI Administration Daptomycin 500 mg/ Syringe 10 mls @ 5 mls/min 04/01/25 09:00 04/01/25 08:20 IV 04/04/25 09:00 5 mls/min Q48H KENJI Administration Protocol Insulin Aspart 0 units 03/29/25 21:09 04/01/25 13:04 Insulin Aspart Per Unit Charge SC 04/28/25 21:08 1 units ACHS KENJI Administration Levothyroxine Sodium 175 mcg 03/30/25 06:30 04/01/25 05:40 Levothyroxine Sodium 175 Mcg Tablet PO 04/29/25 06:29 175 mcg DAILYBB KENJI Administration Metoprolol Succinate 25 mg 04/01/25 09:00 04/01/25 08:19 Metoprolol Succ 25mg Ext Rel Tab PO 05/01/25 08:59 25 mg QAM KENJI Administration Midodrine 5 mg 04/01/25 12:00 04/01/25 12:26 Midodrine Hcl 2.5 Mg Tab PO 05/01/25 11:59 5 mg TID@0800,1200,1700 KENJI Administration PG Care Time/CCT Total # of Minutes Spent Total Time Spent with Patient: Total time spent is greater than 50% in coordination of care (as documented) at patient's floor/unit and/or counseling patient: Coding Level of Care Code 64091 SUB INP/OBS CARE 3/50MIN Diagnoses Acute diastolic congestive heart failure due to valvular disease I50.31; I38 Acute kidney injury N17.9 Rheumatic valvular disease I09.1 Aortic stenosis I35.0 Mitral stenosis I05.0
[2025-04-01] MEDS: FUROSEMIDE 100 MG in SODIUM CHLORIDE 0.9% 90 ML IV SCH (14:01)
--- NOTE | 2025-04-01 14:09 | Urology Consultation ---
<Statement entered by Macho Naranjo MD - 04/02/25 11:35> 85-year-old female with hydronephrosis and hematuria, possible bladder wall thickening. She will require cystoscopy as an outpatient to evaluate her bladder. Urine concerning for possible infection. Agree with broad-spectrum antibiotics, narrowing coverage as culture data becomes available. There are also left-sided renal stones which can be discussed as an outpatient. Would manage supportively for now, however if infection does not seem to be clearing or if she has worsening renal function, could consider cystoscopy and attempt of stent placement. Date of Consultation April 01, 2025 Assessment & Plan (1) Gross hematuria: (2) Acute UTI: (3) Acute kidney injury: (4) Hydroureter on left: Plan 85-year-old female with complicated medical history admitted for acute chronic diastolic CHF exacerbation, CARROL on CKD, UTI, gross hematuria, A-fib. - CT imaging and plan of care reviewed with Dr. Naranjo - CTAP imaging reviewed - notable for left-sided hydroureter with asymmetric left-sided bladder wall thickening - Gross hematuria in the setting of UTI, chronic anticoagulation, and possible bladder abnormality - Currently afebrile, hemodynamically stable, on 2 L nasal cannula - Labs reviewed -WBC 5.6 from, hgb 11.8, cr 2.66. - Urine culture 03/29/2025 Enterococcus faecalis, currently on daptomycin - Gamble draining dark yellow - Maintain gamble catheter for bladder rest and max drainage. - Monitor urine output, bladder scan if needed. OK to gently irrigate as needed for clots, retention, and suprapubic discomfort. - No acute intervention indicated at this time. - Continue supportive care and antibiotic therapy, and other medical management per primary team and additional consults. - Anticoagulants on hold per primary team- okay with restarting anticoagulation from a urological standpoint - Can likely remove Gamble catheter prior to discharge when clinically stable - Due to findings on CT, patient will need outpatient cystoscopy, this was discussed with patient in detail, our office will call to schedule - Urology will sign off, please recontact our service for any questions or concerns. History of Present Illness Attending Physician: Manjula Reynaga MD History of Present Illness 85-year-old female with PMHx of chronic diastolic CHF, pulmonary hypertension, moderate aortic regurg, moderate mitral valve stenosis, mild tricuspid regurg, chronic A-fib on Eliquis,orthostatic hypotension, CKD stage IIIb, DM type II, hypothyroidism, history of ischemic bowel disease, degenerative disc disease, hoarse voice secondary to vocal cord paralysis, and morbid obesity with a BMI of 38.5 who presents to the hospital with acute worsening shortness of breath and increased weight gain. She is currently admitted for acute on chronic diastolic CHF exacerbation, CARROL imposed on CKD, acute UTI, gross hematuria, Afib. Due to gross hematuria her anticoagulation is currently being held. Gamble catheter was placed today, looks like previously she was voiding independently and incontinent. Labs reviewed 04/01/2025 Creatinine 2.66 WBC 7.61 Hemoglobin 11.8 Glucose 129 Urine culture 03/29/2025 Enterococcus faecalis, currently on daptomycin CT 04/01/25 shows no bilateral hydronephrosis, multiple left renal calculi up to 9 mm. Mild left hydroureter without hydronephrosis asymmetric left-sided bladder wall thickening with adjacent stranding which could represent cystitis however an underlying urothelial lesion cannot be excluded. Patient was seen and assessed at bedside. Resting comfortably in chair. Patient has known history of nephrolithiasis, history of ESWL approximately 10 years ago. She mentions about a month ago she had left-sided flank pain that occurred 3 times for approximately 20 minutes at a time. Previous to hospitalization she was having no urinary issues-denied urgency, frequency, incomplete bladder emptying, gross hematuria. Since hospitalization she has noted dysuria along with gross hematuria. She denied fevers, chills, nausea, vomiting. She does have a history of a bowel resection approximately 8 years ago. She denies any smoking history, does have a history of secondhand smoke. She denies any family history of CA. Her did have bladder cancer. Allergies Allergy/AdvReac Type Severity Reaction Status Date / Time empagliflozin Allergy Intermediate Pain in Verified 03/29/25 14:15 [From Jardiance] Vaginal/Rectal area latex Allergy Intermediate . Verified 03/29/25 14:15 Metformin AdvReac Intermediate Diarrhea Uncoded 03/29/25 14:15 Home Medications Medication Instructions Recorded Confirmed Type acetaminophen 325 mg capsule 650 mg PO QID PRN Pain (Scale 03/11/25 03/29/25 History Score 4-6) allopurinol 100 mg tablet 200 mg PO DAILY 03/11/25 03/29/25 History (Zyloprim) apixaban 2.5 mg tablet (Eliquis) 2.5 mg PO BID 03/11/25 03/29/25 History calcium 600 mg (as 1 tab PO DAILY 03/11/25 03/29/25 History carbonate)-vitamin D3 10 mcg (400 unit) tablet coenzyme Q10 400 mg capsule 400 mg PO DAILY 03/11/25 03/29/25 History cyanocobalamin (vitamin B-12) 1,000 mcg PO DAILY 03/11/25 03/29/25 History 1,000 mcg capsule furosemide 80 mg tablet (Lasix) 80 mg PO BID 03/11/25 03/29/25 History glucosam 750 mg-chondroi 100 3 tab PO DAILY 03/11/25 03/29/25 History mg-hyalur 1.65 mg-CF borate 108 mg tablet (Kuldat) levothyroxine 175 mcg tablet 175 mcg PO DAILY 03/11/25 03/29/25 History (Synthroid) linagliptin 5 mg tablet (Tradjenta) 5 mg PO DAILY 03/11/25 03/29/25 History loperamide 2 mg capsule 2 mg PO BID PRN Diarrhea 03/11/25 03/29/25 History (Anti-Diarrheal (loperamide)) magnesium 200 mg tablet 200 mg PO WK 03/11/25 03/29/25 History metoprolol tartrate 25 mg tablet 25 mg PO BID 03/11/25 03/29/25 History potassium chloride 20 mEq 40 meq PO DAILY 03/11/25 03/29/25 History tablet,extended release(part/cryst) metolazone 2.5 mg tablet 2.5 mg PO WK 03/29/25 03/29/25 History ramipril 5 mg capsule 5 mg PO QAM 03/29/25 03/29/25 History Patient History Medical History Kidney stone 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 Cellulitis of left lower extremity Atherosclerosis of aorta Hilar lymphadenopathy DDD (degenerative disc disease), cervical Pulmonary hypertension Mild tricuspid regurgitation Moderate aortic regurgitation 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 Irritable bowel syndrome with diarrhea Hyperuricemia Rheumatic mitral stenosis Orthostatic hypotension Morbid obesity due to excess calories Positive CARRIE (antinuclear antibody) Ischemic bowel disease Hypothyroidism (acquired) Nocturnal enuresis Insomnia Hoarse voice quality Left atrial enlargement Mitral valve stenosis, moderate Surgical History H/O lithotripsy History of resection of small bowel History of total abdominal hysterectomy H/O exploratory laparotomy Social History Smoking Status: Never smoker Hx Alcohol Use: No Hx Substance Use: No Preferred Language: Azeri Communication Ability: Effective Visual Impairment: Limited Hearing Ability: Normal [employer]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 Beliefs That Will Affect Care: None marital status: / Current Living Situation: Alone How many Children do You have: 2 Feels Safe at Home: Yes Diet: diabetic Diet Comment: Meals on wheels caffeine: No Assistive Devices: Cane, Lift Chair and Walker Review of Systems Constitutional: as per Subjective / HPI Genitourinary: as per Subjective / HPI Physical Exam Constitutional: + obese Chronically ill-appearing Respiratory: + labored breathing; + not able to speak in complete sentence On supplemental oxygen Musculoskeletal: Extremities: + limited ROM of extremities Psychiatric: Orientation: alert and oriented x 3 Genitourinary: Catheter draining dark yellow Results & Data Vital Signs (Past 12 Hours) Vital Signs Temp Pulse Pulse Resp BP BP Pulse Ox 04/01/25 11:28 36.2 C L 77 16 97/46 L 90 04/01/25 09:00 04/01/25 07:59 36.7 C 98 H 16 101/46 L 96 04/01/25 07:00 104 H 04/01/25 04:16 36.2 C L 79 20 106/67 95 O2 Del Method O2 Flow Rate 04/01/25 11:28 Nasal Cannula 2 04/01/25 09:00 Nasal Cannula 2 04/01/25 07:59 Room Air 04/01/25 07:00 04/01/25 04:16 Nasal Cannula 2 PG Care Time/CCT Total # of Minutes Spent Total Time Spent with Patient: Total time spent is greater than 50% in coordination of care (as documented) at patient's floor/unit and/or counseling patient: Coding Level of Care Code 56945 INT INP/OBS CARE 2/55MIN Diagnoses Gross hematuria R31.0 Acute UTI N39.0 Acute kidney injury N17.9 Hydroureter on left N13.4
[2025-04-02 09:20] LABS: Hematocrit (blood only) 37.3 % (37.0-47.0); Hemoglobin 11.8 g/dl (12.0-16.0); Mean Corpuscular Hemoglobin 29.6 pg (25.0-34.0); Mean Corpuscular Volume 93.7 fL (80.0-100.0); Platelet Count 223 K/uL (130-400); RDW Standard Deviation 54.7 fL (36.4-46.3); Red Blood Count 3.98 M/uL (4.20-5.40); White Blood Count 5.60 K/ul (4.8-10.8)
[2025-04-02 09:38] LABS: Anion Gap 7.0 (3-11); Blood Urea Nitrogen 68.0 mg/dl (6-23); Calcium 9.0 mg/dl (8.6-10.3); Carbon Dioxide 33.0 mmol/L (21-32); Chloride 96.0 mmol/L (98-107); Creatinine Clr Calc Pharmacy 22.4 ml/min; Glucose 114.0 mg/dl (70-99(Fasting)); Potassium 4.2 mmol/L (3.5-5.1); Sodium 136.0 mmol/L (136-145)
--- NOTE | 2025-04-02 10:48 | Hospitalist Progress Note ---
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: (5) DM type 2 (diabetes mellitus, type 2): (6) Atrial fibrillation: (7) Hypothyroidism: (8) GERD (gastroesophageal reflux disease): (9) Morbid obesity due to excess calories: (10) Hoarse voice quality: (11) Vocal cord paresis: Plan 85-year-old female with PMHx of chronic diastolic CHF, pulmonary hypertension, moderate aortic regurg, moderate mitral valve stenosis, mild tricuspid regurg, chronic A-fib on Eliquis,orthostatic hypotension, CKD stage IIIb, DM type II, hypothyroidism, history of ischemic bowel disease, degenerative disc disease, hoarse voice secondary to vocal cord paralysis, and morbid obesity with a BMI of 38.5 who presents to the hospital with acute worsening shortness of breath and increased weight gain Acute on chronic diastolic CHF exacerbation Valvular heart disease CXR:Cardiomegaly with pulmonary edema and suspected small bilateral pleural effusions. BNP 357 Echo from February 09, 2025 TTE:The left ventricular cavity size is normal. The LV wall thickness is moderately increased (concentric). The left ventricular wall motion is normal. The qualitative LV ejection fraction is 55-59% (normal). The left atrium is severely enlarged (>48 ml/m^2,). The aortic valve is moderately calcified. Moderate aortic valve stenosis is present. Moderate aortic valve regurgitation is present. There is severe mitral annular calcification. The mitral valve leaflets thickness is severely increased. Severe mitral stenosis is present. Severe mitral regurgitation is present. Severe tricuspid regurgitation is present. Moderate pulmonary hypertension is present. The estimated pulmonary artery systolic pressure is 45-50mm Hg. Currently on IV lasix drip Monitor electrolytes, renal function and urine output Daily weight. RN notified to get standing weight only Cardiology and Nephrology on board CARROL on CKD stage IIIb Nephro managing diuretics/volume status Cr is 2.33 today Continue to monitor renal function Urinary tract infection--POA Urine culture growing Enterococcus faecalis Currently on daptomycin, renally dosed Hematuria May be related to UTI in patient on eliquis However, CT abd today noted left nephrolithiasis, mild left hydroureter without hydronephrosis, asymmetric left sided bladder wall thickening which may be cystitis but cannot rule out urothelial lesion and correlation with cystoscopy recommended Urology eval noted Hematuria resolved Atrial Fibrillation Continue metoprolol, now metoprolol succinate 25mg daily I discussed with patient that warfarin is the ideal anticoagulant for Valvular AFib. Patient reported she had tried warfarin in the past but difficult to achieve goal INR despite increased dose and she does not want regular INR checks. She prefers to stay on her current eliquis Eliquis 2.5mg BID resumed DM II Last a1c 7.4 on 12/29/24 Continue to hold p.o. medications Continue insulin per protocol Monitor blood glucose levels Hypothyroidism Continue levothyroxine 175 mcg daily Morbid obesity BMI 40 DVT Px: Eliquis CODE STATUS: DNI DNR I spent a total of 50 minutes coordinating, documenting and providing care for this patient excluding time spent in performance of separately billed services Admission and Anticipated Discharge Date Admission Date: March 29, 2025 Subjective Patient seen and examined Reports cough and SOB improving No new complaints Physical Exam Constitutional: + obese; no acute distress Eyes: PERRL, conjunctivae normal, anicteric sclerae ENMT: external ear and nose normal, oropharynx normal Respiratory: On nasal cannula, diminished breath sounds Cardiovascular: Rate/Rhythm: + irregularly irregular Gastrointestinal (Abdomen): normal bowel sounds, soft, nontender, no hepatosplenomegaly Musculoskeletal: +pedal edema Neurologic: PERRL, EOMI, accommodation nl, no face palsy, no dysarthria Psychiatric: A+Ox3, euthymic affect Genitourinary: Foely Results & Data Results & Data Vital Signs (Past 12 Hours) Vital Signs Temp Pulse Pulse Resp BP BP Pulse Ox 04/02/25 10:29 106/70 04/02/25 09:33 04/02/25 07:38 36.4 C L 90 18 94/59 L 94 04/02/25 07:16 91 H 04/02/25 03:46 36.4 C L 83 20 99/51 L 94 O2 Del Method O2 Flow Rate 04/02/25 10:29 04/02/25 09:33 Nasal Cannula 2 04/02/25 07:38 Nasal Cannula 2 04/02/25 07:16 04/02/25 03:46 Nasal Cannula 2 Laboratory Results Abnormal lab results 04/01/25 04/01/25 04/02/25 Range/Units 16:44 20:24 07:59 RBC (4.20-5.40) M/uL Hgb (12.0-16.0) g/dl MCHC (32.0-36.0) g/dL RDW Std Deviation (36.4-46.3) fL RDW Coeff of Issa (11.5-14.5) % Chloride (98-107) mmol/L Carbon Dioxide (21-32) mmol/L BUN (6-23) mg/dl Creatinine (0.6-1.2) mg/dl BUN/Creatinine Ratio (10-20) Glucose (70-99(Fasting)) mg/dl POC Glucose 121 H 156 H 114 H (70-99) mg/dl 04/02/25 04/02/25 Range/Units 08:21 11:43 RBC 3.98 L (4.20-5.40) M/uL Hgb 11.8 L (12.0-16.0) g/dl MCHC 31.6 L (32.0-36.0) g/dL RDW Std Deviation 54.7 H (36.4-46.3) fL RDW Coeff of Issa 15.9 H (11.5-14.5) % Chloride 96 L (98-107) mmol/L Carbon Dioxide 33 H (21-32) mmol/L BUN 68 H (6-23) mg/dl Creatinine 2.33 H D (0.6-1.2) mg/dl BUN/Creatinine Ratio 29.2 H (10-20) Glucose 114 H (70-99(Fasting)) mg/dl POC Glucose 124 H (70-99) mg/dl (6) Atrial fibrillation Atrial fibrillation type: longstanding persistent Qualified Code(s): I48.11 - Longstanding persistent atrial fibrillation
--- NOTE | 2025-04-02 14:38 | Cardiology Progress Note ---
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 Resting echocardiography in February 2025 revealed severe mitral valve stenosis, severe mitral regurgitation, moderate aortic stenosis, moderate aortic regurgitation, severe tricuspid regurgitation. LVEF 55 to 59%. Moderate pulmonary hypertension observed with estimated pulmonary artery systolic pressure 45 to 50 mmHg. Patient with permanent atrial fibrillation chronically prescribed anticoagulation (reduced dose apixaban). Telemetry with permanent atrial fibrillation with a controlled ventricular response. Laboratory work notable for acute kidney injury following addition of LANG inhibitor (ramipril), marked hypotension with readings as low as 76/45 likely contributing factor. CARROL on CKD HTN Acute HFpEF Severe Mitral Stenosis Severe Mitral regurgitation Severe Tricuspid regurgitation Moderate PHTN Moderate AI Moderate Atrial Fib with CVR Hematuria Renal stones L hydroureter correct and f/u electrolytes f/u renal function IV diuretics (IV Lasix drip) as per Renal Avoid nephrotoxic agents would avoid using Spironolactone with significant renal insufficiency Patient is at risk for recurrent CHF and some level of azotemia may have to be accepted to avoid volume overload in the absence of definitive surgical treatment for severe valvular heart disease. Patient is thinking about going for valve surgery -> if so, then would need to be transferred for CTS evaluation once medically optimized start anticoagulation once cleared from urology standpoint - preference would be Coumadin unless patient refuses or is noncompliant with INR checks, diet - would then start Eliquis GDMT for HFpEF limited due to renal insufficiency and low BP adjust rate control meds keeping HR between 60 to 100 BPM and systolic BP between 100-140 mmHg adjust anti-HTN meds keeping systolic BP between 100-140 mmHg avoid hypovolemia keep patient euvolemic keep LE elevated when sitting repeat CXR daily weights strict I&Os salt restriction Admission and Anticipated Discharge Date Admission Date: March 29, 2025 Subjective Patient on exam is sitting in recliner in NAD; no c/o cp, sob, palpitations, dizziness, LOC, cough, fever, nausea, vomiting, abdominal pain; states breathing is better; decreased LE swelling; Patient is negative 2L in the past 24 hrs Review of Systems Review of Systems: Complete Review of Systems is as stated above, negative, or noncontributory. Physical Exam Physical Exam: Examined in a chair General: Conversational dyspnea. Pleasant. Cooperative. Eyes: PER. Conjunctiva pink, sclera clear. HENT: Normocephalic. Atraumatic. Heart: Irregularly irregular at 90 bpm. + Systolic murmur. + Diastolic murmur. Lungs: decreased BS at bases. No wheezing Abdomen: +BS. Soft. Nontender. No masses. No organomegaly. Extremities: 2+ B/L LE edema. Stasis changes. Left lower extremity erythema. No cyanosis. Limited neurological examination: No focal deficit. Results & Data Vital Signs (Past 12 Hours) Vital Signs Temp Pulse Pulse Resp BP BP Pulse Ox 04/02/25 14:00 79 04/02/25 12:42 94 04/02/25 11:30 36.5 C 90 18 105/57 L 92 04/02/25 10:29 106/70 04/02/25 09:33 04/02/25 07:38 36.4 C L 90 18 94/59 L 94 04/02/25 07:16 91 H 04/02/25 03:46 36.4 C L 83 20 99/51 L 94 O2 Del Method O2 Flow Rate 04/02/25 14:00 04/02/25 12:42 2 04/02/25 11:30 Nasal Cannula 2 04/02/25 10:29 04/02/25 09:33 Nasal Cannula 2 04/02/25 07:38 Nasal Cannula 2 04/02/25 07:16 04/02/25 03:46 Nasal Cannula 2 Laboratory Results CBC 04/02/25 Range/Units 08:21 WBC 5.60 (4.8-10.8) K/ul RBC 3.98 L (4.20-5.40) M/uL Hgb 11.8 L (12.0-16.0) g/dl Hct 37.3 (37.0-47.0) % Plt Count 223 (130-400) K/uL Comprehensive Metabolic Panel 04/02/25 Range/Units 08:21 Sodium 136 (136-145) mmol/L Potassium 4.2 (3.5-5.1) mmol/L Chloride 96 L (98-107) mmol/L Carbon Dioxide 33 H (21-32) mmol/L BUN 68 H (6-23) mg/dl Creatinine 2.33 H D (0.6-1.2) mg/dl Glucose 114 H (70-99(Fasting)) mg/dl Calcium 9.0 (8.6-10.3) mg/dl Intake and Output 04/01/25 04/02/25 04/02/25 22:59 06:59 14:59 Intake Total 100 / 746.0 100 / 746.0 840 / 840 Output Total 1149 Balance -1050 / -1204.0 -700 / -1204.0 -260 / -260 Intake: IV 100 / 266.0 100 / 266.0 100 / 100 Furosemide 100 mg In Sodium 100 / 200 100 / 200 100 / 100 Chloride 0.9% 90 ml @ 15 MG/HR 15 mls/hr IV .Q6H40M [facility] Rx#: [id number] Oral 740 / 740 Output: Urine Amount (Catheter) 1149 Dey/Indwelling 1149 Other: Weight 115.349 kg Weight Measurement Method Built in [facility] Diagnostic Findings Laboratory Results WBC 5.60 K/ul (4.8-10.8) 04/02/25 08: RBC 3.98 M/uL (4.20-5.40) L 04/02/25 08:21 Hgb 11.8 g/dl (12.0-16.0) L 04/02/25 08:21 Hct 37.3 % (37.0-47.0) 04/02/25 08:21 MCV 93.7 fL (80.0-100.0) 04/02/25 08:21 MCH 29.6 pg (25.0-34.0) 04/02/25 08:21 MCHC 31.6 g/dL (32.0-36.0) L 04/02/25 08:21 RDW Std Deviation 54.7 fL (36.4-46.3) H 04/02/25 08:21 RDW Coeff of Issa 15.9 % (11.5-14.5) H 04/02/25 08:21 Plt Count 223 K/uL (130-400) 04/02/25 08:21 MPV 10.3 fL (9.4-12.4) 04/02/25 08:21 Immature Gran % (Auto) 0.4 % 03/31/25 06:21 Neut % (Auto) 70.5 % 03/31/25 06:21 Lymph % (Auto) 15.6 % 03/31/25 06:21 Blount % (Auto) 7.7 % 03/31/25 06:21 Eos % (Auto) 4.9 % 03/31/25 06:21 Baso % (Auto) 0.9 % 03/31/25 06:21 Neut # (Auto) 4.79 K/uL (1.40-6.50) 03/31/25 06:21 Lymph # (Auto) 1.06 K/uL (1.20-3.40) L 03/31/25 06:21 Blount # (Auto) 0.52 K/uL (0.11-0.59) 03/31/25 06:21 Eos # (Auto) 0.33 K/uL (0.00-0.50) 03/31/25 06:21 Baso # (Auto) 0.06 K/uL (0.00-0.20) 03/31/25 06:21 Immature Gran # (Auto) 0.03 K/uL (0.01-0.20) 03/31/25 06:21 PT 10.8 Seconds (9.0-12.0) 03/29/25 14:49 INR 1.0 (0.9-1.1) 03/29/25 14:49 APTT 29 Seconds (21-31) 03/31/25 06:21 PTT Ratio 1.1 03/31/25 06:21 Sodium 136 mmol/L (136-145) 04/02/25 08:21 Potassium 4.2 mmol/L (3.5-5.1) 04/02/25 08:21 Chloride 96 mmol/L (98-107) L 04/02/25 08:21 Carbon Dioxide 33 mmol/L (21-32) H 04/02/25 08:21 Anion Gap 7 (3-11) 04/02/25 08:21 BUN 68 mg/dl (6-23) H 04/02/25 08:21 Creatinine 2.33 mg/dl (0.6-1.2) H D 04/02/25 08:21 Est Cr Clr Drug Dosing 22.4 ml/min 04/02/25 08:21 eGFR 19.88 04/02/25 08:21 BUN/Creatinine Ratio 29.2 (10-20) H 04/02/25 08:21 Glucose 114 mg/dl (70-99(Fasting)) H 04/02/25 08:21 POC Glucose 124 mg/dl (70-99) H 04/02/25 11:43 Estimat Average Glucose 166 mg/dl 03/30/25 05:34 Hemoglobin A1c 7.4 % (4.5-5.6) H 03/30/25 05:34 Calcium 9.0 mg/dl (8.6-10.3) 04/02/25 08:21 Magnesium 2.0 mg/dl (1.7-2.4) 04/01/25 08:44 Total Bilirubin 0.4 mg/dl (0.2-1.0) 03/29/25 14:49 AST 11 U/L (13-39) L 03/29/25 14:49 ALT 8 U/L (7-52) 03/29/25 14:49 Alkaline Phosphatase 52 U/L (34-104) 03/29/25 14:49 Troponin I High Sens 13.7 pg/ml (0-14) 03/29/25 14:49 B-Natriuretic Peptide 357 pg/ml (0-100) H 03/29/25 14:49 Total Protein 6.8 gm/dl (6.0-8.3) 03/29/25 14:49 Albumin 3.5 gm/dl (3.4-5.0) 03/29/25 14:49 Globulin 3.3 gm/dl (2.5-4.0) 03/29/25 14:49 Albumin/Globulin Ratio 1.1 (0.9-2) 03/29/25 14:49 Urine Color Yellow 03/29/25 17:05 Urine Appearance Clear (Clear) 03/29/25 17:05 Urine pH 6.0 (4.5-7.5) 03/29/25 17:05 Ur Specific [place] 1.010 (1.000-1.030) 03/29/25 17:05 Urine Protein Trace (Negative) H 03/29/25 17:05 Urine Glucose (UA) Negative (Negative) 03/29/25 17:05 Urine Ketones Negative (Negative) 03/29/25 17:05 Urine Blood 2+ (Negative) H 03/29/25 17:05 Urine Nitrite Negative (Negative) 03/29/25 17:05 Urine Bilirubin Negative (Negative) 03/29/25 17:05 Urine Urobilinogen Negative (Negative) 03/29/25 17:05 Ur Leukocyte Esterase 3+ (Negative) H 03/29/25 17:05 Urine WBC (Auto) >50 /hpf (0-5) H 03/29/25 17:05 Urine RBC (Auto) 11-20 /hpf (0-2) H 03/29/25 17:05 U Hyaline Cast (Auto) 0-2 /lpf (0-2) 03/29/25 17:05 U Epithel Cells (Auto) 0-2 /hpf (0-2) 03/29/25 17:05 Urine Bacteria (Auto) None Seen (None Seen) 03/29/25 17:05 Urine Comment 03/29/25 17:05 Blood Type A Positive 03/31/25 06:21 Antibody Screen NEGATIVE 03/31/25 06:21 Impressions Chest X-Ray 03/29/25 14:52 XR chest 1V portable CLINICAL HISTORY: Dyspnea. COMPARISON STUDY: Chest CT June 13, 2007. Chest radiograph May 24, 2022. FINDINGS: Elevation of the right hemidiaphragm is unchanged. There is no pneumothorax. There are suspected small bilateral pleural effusions. Interstitial thickening is present. Hazy right upper lung opacity is noted. Cardiomegaly is unchanged. Mediastinal contours are stable. IMPRESSION: Cardiomegaly with pulmonary edema and suspected small bilateral pleural effusions. Radiographic follow-up to ensure resolution is recommended. ACT 112: Negative or not required by law. Electronically signed by: Vivek Diaz M.D. 03/29/2025 3:40 PM Abdomen/Pelvis CT 04/01/25 09:36 CT OF THE ABDOMEN AND PELVIS WITHOUT CONTRAST CLINICAL HISTORY: Persistent hematuria. Assess urinary system. COMPARISON STUDY: No previous studies for comparison. TECHNIQUE: Axial images of the abdomen and pelvis were obtained without IV contrast. Images were reviewed in the axial, sagittal, and coronal planes. Automated exposure control was utilized for the study. A dose lowering technique was utilized adhering to the principles of ALARA. FINDINGS: Mild groundglass opacities with mosaic attenuation within the lungs are noted. Moderate cardiomegaly and extensive mitral annular calcification are noted. There is mild dilatation of the central pulmonary arteries. Prominent subcarinal lymph nodes are likely benign. There is a trace right pleural effusion. No pneumatosis, free air or portal venous gas is present. Multiple left renal calculi measure up to 9 mm. There is no hydronephrosis. There is mild asymmetric dilatation of the left ureter. Bladder wall thickening is noted. This is eccentric to the left. There may be minimal calcification within the left posterolateral bladder wall. There is mild stranding adjacent to the bladder. No ureteral calculi are present. Evaluation the remainder of the abdomen and pelvis is suboptimal on this unenhanced exam. Liver, spleen, adrenal glands and pancreas are unremarkable. Peripheral calcification within the gallbladder wall is noted. This suggests a porcelain gallbladder. The gallbladder is not distended. There is extensive colonic diverticulosis without evidence for acute diverticulitis. There is no evidence for a bowel obstruction. The appendix is normal. IMPRESSION: 1. Left nephrolithiasis. No ureteral calculi. 2. Mild left hydroureter without hydronephrosis. Asymmetric left-sided bladder wall thickening with adjacent stranding. This may represent cystitis. However, an underlying urothelial lesion cannot be excluded by CT and correlation with cystoscopy is recommended. 3. Extensive colonic diverticulosis. No evidence for acute diverticulitis. 4. Cardiomegaly. Trace right pleural effusion. 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 ACT 112: Negative or not required by law. Electronically signed by: Vivek Diaz M.D. 04/01/2025 12:20 PM Medications Administered Home Medications Medication Instructions Recorded Confirmed Last Taken acetaminophen 325 mg capsule 650 mg PO QID PRN Pain (Scale 03/11/25 03/29/25 Unknown Score 4-6) allopurinol 100 mg tablet 200 mg PO DAILY 03/11/25 03/29/25 03/29/25 (Zyloprim) apixaban 2.5 mg tablet (Eliquis) 2.5 mg PO BID 03/11/25 03/29/25 03/29/25 calcium 600 mg (as 1 tab PO DAILY 03/11/25 03/29/25 03/29/25 carbonate)-vitamin D3 10 mcg (400 unit) tablet coenzyme Q10 400 mg capsule 400 mg PO DAILY 03/11/25 03/29/25 03/29/25 cyanocobalamin (vitamin B-12) 1,000 mcg PO DAILY 03/11/25 03/29/25 03/29/25 1,000 mcg capsule furosemide 80 mg tablet (Lasix) 80 mg PO BID 03/11/25 03/29/25 03/29/25 glucosam 750 mg-chondroi 100 3 tab PO DAILY 03/11/25 03/29/25 03/29/25 mg-hyalur 1.65 mg-CF borate 108 mg tablet ([facility] [employer] [facility]) levothyroxine 175 mcg tablet 175 mcg PO DAILY 03/11/25 03/29/25 03/29/25 (Synthroid) linagliptin 5 mg tablet (Tradjenta) 5 mg PO DAILY 03/11/25 03/29/25 03/29/25 loperamide 2 mg capsule 2 mg PO BID PRN Diarrhea 03/11/25 03/29/25 Unknown (Anti-Diarrheal (loperamide)) magnesium 200 mg tablet 200 mg PO WK 03/11/25 03/29/25 Unknown metoprolol tartrate 25 mg tablet 25 mg PO BID 03/11/25 03/29/25 03/29/25 potassium chloride 20 mEq 40 meq PO DAILY 03/11/25 03/29/25 03/29/25 tablet,extended release(part/cryst) metolazone 2.5 mg tablet 2.5 mg PO WK 03/29/25 03/29/25 03/22/25 ramipril 5 mg capsule 5 mg PO QAM 03/29/25 03/29/25 03/29/25 Active Medications Generic Name Dose Route Start Last Admin Trade Name Freq PRN Reason Stop Dose Admin Acetaminophen 650 mg 03/29/25 21:09 04/02/25 02:14 Acetaminophen 325 Mg Tab PO 04/28/25 21:08 650 mg Q4H PRN Administration Moderate Pain (Scale 4, 5, 6) Allopurinol 200 mg 03/30/25 09:00 04/02/25 09:14 Allopurinol 100 Mg Tab PO 04/29/25 08:59 200 mg DAILY KENJI Administration Apixaban 2.5 mg 03/29/25 21:09 03/30/25 20:23 Apixaban 2.5 Mg Tab PO 04/28/25 21:08 2.5 mg BID KENJI Administration Calamine/Phenol 1 appln 03/30/25 21:00 04/02/25 09:16 Menthol-Zinc Oxide 360 Appln/120 Gm Tube EXT 04/29/25 20:59 1 appln BID KENJI Administration Calcium/Vitamin D 1 tab 03/30/25 09:00 04/02/25 09:14 Calcium 600mg + Vit D 400 Iu Tab PO 04/29/25 08:59 1 tab DAILY KENJI Administration Cyanocobalamin 1,000 mcg 03/30/25 09:00 04/02/25 09:14 Cyanocobalamin (B-12) 500 Mcg Tablet PO 04/29/25 08:59 1,000 mcg DAILY KENJI Administration Daptomycin 500 mg/ Syringe 10 mls @ 5 mls/min 04/01/25 09:00 04/01/25 08:20 IV 04/04/25 09:00 5 mls/min Q48H KENJI Administration Protocol Furosemide 100 mg/ Sodium 100 mls @ 15 mls/hr 04/01/25 12:25 04/02/25 09:13 Chloride IV 05/01/25 12:24 15 mg/hr .Q6H40M KENJI 15 mls/hr Administration 15 MG/HR Insulin Aspart 0 units 03/29/25 21:09 04/02/25 13:26 Insulin Aspart Per Unit Charge SC 04/28/25 21:08 2 units ACHS KENJI Administration Levothyroxine Sodium 175 mcg 03/30/25 06:30 04/02/25 04:44 Levothyroxine Sodium 175 Mcg Tablet PO 04/29/25 06:29 175 mcg DAILYBB KENJI Administration Metoprolol Succinate 25 mg 04/01/25 09:00 04/02/25 10:40 Metoprolol Succ 25mg Ext Rel Tab PO 05/01/25 08:59 25 mg QAM KENJI Administration Midodrine 5 mg 04/01/25 12:00 04/02/25 13:27 Midodrine Hcl 2.5 Mg Tab PO 05/01/25 11:59 5 mg TID@0800,1200,1700 KENJI Administration PG Care Time/CCT Total # of Minutes Spent Total Time Spent with Patient: Total time spent is greater than 50% in coordination of care (as documented) at patient's floor/unit and/or counseling patient: Coding Level of Care Code 36295 SUB INP/OBS CARE 50MIN Diagnoses Acute diastolic congestive heart failure due to valvular disease I50.31; I38 Acute kidney injury N17.9 Rheumatic valvular disease I09.1 Aortic stenosis I35.0 Mitral stenosis I05.0
--- NOTE | 2025-04-02 15:26 | XRay Report ---
XR chest 1V portable CLINICAL HISTORY: CHF - UPRIGHT COMPARISON STUDY: Chest radiograph March 29, 2025. FINDINGS: There is no pneumothorax. A small right pleural effusion has increased in size. Cardiomegal y is again noted. Pulmonary edema has slightly improved. IMPRESSION: 1. Cardiomegaly. Pulmonary edema, mildly improved since prior exam. 2. Increased size of a small right pleural effusion. Associated right basilar opacity likely represen ts atelectasis. ACT 112: Negative or not required by law. Electronically signed by: Vivek Diaz M.D. 04/02/2025 3:25 PM
--- NOTE | 2025-04-02 16:23 | Nephrology Progress Note ---
Date of Service April 02, 2025 Assessment & Plan (1) Acute kidney injury: Plan: slightly improved stage 1 nonoliguric CARROL on CKD 3 in the setting of valvular rheumatic heart failure in pt challenging to diurese. baseline creatinine 1.4- 1.5. expect creatinine to worsen given HF, diuretic obligations, hypotension CARROL likely ischemic in setting of valvular HF (very volume sensitive despite TB overload) cardiology following; patient is 1.9 L negative past 24 hours > Continue lasix gtt 15 mg /hr and midodrine 5 mg po tid > Continue FR 1.5L >> she will need reeducation/reinforcement on this -continue to monitor BP >> check BP L arm only since consistently higher in L; so ordered >>if drip has to be held d/t hypotension, could increase midodrine dose or call cardiology for recommendations Care coordinated w/ Dr Reynaga re continuing lasix gtt/midodrine, labs, weights; we are in agreement. (2) Acute diastolic CHF (congestive heart failure): Plan: chronicity of this HF unclear (may be more chronic) but she is certainly volume overloaded, primarily in lungs, and complicated by valvular heart disease and medication intolerances which make for challenges w/ diuresis had 80 mg IV lasix x 2 on day of admission and another dose 8/ AM, else none; I&O incomplete; started Lasix drip April 01 -f/u cardiology recs >daily STANDING weights recommended when feasible/ BP better <2 gm Na diet for now no FR (3) CKD (chronic kidney disease) stage 3, GFR 30-59 ml/min: Plan: baseline creatinine 1.4-1.5 past several months; at baseline currently but w/ complex vol OL/ needs diuresis but tolerates little -rampiril held since day after admission >lasix diuresis as above Admission and Anticipated Discharge Date Admission Date: March 29, 2025 Subjective breathing unchanged right now. Keeping her legs down for meals. Not noticing any difference with breathing or edema. Certainly breathing no worse. Review of Systems 2 Review of Systems: All systems reviewed & are unremarkable except as noted in Subjective Physical Exam 2 Constitutional: well developed, well nourished, + morbidly obese, + frail appearing and cooperative; no acute distress Eyes: EOM intact bilaterally ENMT: Mouth: + muffled voice (hoarse) and + dry oral mucous membranes Respiratory: normal respiratory effort and + tachypneic; no respiratory distress, no cough and + not able to speak in complete sentence Auscultation: + diminished lung sounds and + crackles (BL bases) Cardiovascular: Rate/Rhythm: regular rate, regular rhythm and + irregularly irregular Heart Sounds: + murmur Extremities: + edema (trace-1+) Gastrointestinal (Abdomen): Inspection/Auscultation: normal bowel sounds P ercussion/Palpation: abdomen soft; abdomen nontender Musculoskeletal: Extremities: strength 5/5 throughout Skin: no rashes, warm and dry (wound L posterior leg) Results & Data Vital Signs (Past 12 Hours) Vital Signs Temp Pulse Pulse Resp BP BP Pulse Ox 04/02/25 15:03 36.8 C 62 18 108/65 93 04/02/25 14:00 79 04/02/25 12:42 94 04/02/25 11:30 36.5 C 90 18 105/57 L 92 04/02/25 10:29 106/70 04/02/25 09:33 04/02/25 07:38 36.4 C L 90 18 94/59 L 94 04/02/25 07:16 91 H O2 Del Method O2 Flow Rate 04/02/25 15:03 Nasal Cannula 2 04/02/25 14:00 04/02/25 12:42 2 04/02/25 11:30 Nasal Cannula 2 04/02/25 10:29 04/02/25 09:33 Nasal Cannula 2 04/02/25 07:38 Nasal Cannula 2 04/02/25 07:16 Laboratory Results 04/02/25 08:21 04/02/25 08:21
[2025-04-03 06:24] LABS: Hematocrit (blood only) 36.8 % (37.0-47.0); Hemoglobin 11.7 g/dl (12.0-16.0); Mean Corpuscular Hemoglobin 29.8 pg (25.0-34.0); Mean Corpuscular Volume 93.6 fL (80.0-100.0); Platelet Count 178 K/uL (130-400); RDW Standard Deviation 55.2 fL (36.4-46.3); Red Blood Count 3.93 M/uL (4.20-5.40); White Blood Count 5.23 K/ul (4.8-10.8)
[2025-04-03 06:39] LABS: Anion Gap 8.0 (3-11); Calcium 9.1 mg/dl (8.6-10.3); Carbon Dioxide 31.0 mmol/L (21-32); Chloride 96.0 mmol/L (98-107); Potassium 3.8 mmol/L (3.5-5.1); Sodium 135.0 mmol/L (136-145)
[2025-04-03 06:45] LABS: Blood Urea Nitrogen 66.0 mg/dl (6-23); Creatinine Clr Calc Pharmacy 26.3 ml/min; Glucose 106.0 mg/dl (70-99(Fasting))
--- NOTE | 2025-04-03 11:54 | Hospitalist Progress Note ---
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: (5) DM type 2 (diabetes mellitus, type 2): (6) Atrial fibrillation: (7) Hypothyroidism: (8) GERD (gastroesophageal reflux disease): (9) Morbid obesity due to excess calories: (10) Hoarse voice quality: (11) Vocal cord paresis: Plan 85-year-old female with PMHx of chronic diastolic CHF, pulmonary hypertension, moderate aortic regurg, moderate mitral valve stenosis, mild tricuspid regurg, chronic A-fib on Eliquis,orthostatic hypotension, CKD stage IIIb, DM type II, hypothyroidism, history of ischemic bowel disease, degenerative disc disease, hoarse voice secondary to vocal cord paralysis, and morbid obesity with a BMI of 38.5 who presents to the hospital with acute worsening shortness of breath and increased weight gain Acute on chronic diastolic CHF exacerbation Valvular heart disease CXR:Cardiomegaly with pulmonary edema and suspected small bilateral pleural effusions. BNP 357 Echo from February 09, 2025 TTE:The left ventricular cavity size is normal. The LV wall thickness is moderately increased (concentric). The left ventricular wall motion is normal. The qualitative LV ejection fraction is 55-59% (normal). The left atrium is severely enlarged (>48 ml/m^2,). The aortic valve is moderately calcified. Moderate aortic valve stenosis is present. Moderate aortic valve regurgitation is present. There is severe mitral annular calcification. The mitral valve leaflets thickness is severely increased. Severe mitral stenosis is present. Severe mitral regurgitation is present. Severe tricuspid regurgitation is present. Moderate pulmonary hypertension is present. The estimated pulmonary artery systolic pressure is 45-50mm Hg. Currently on IV lasix drip Monitor electrolytes, renal function and urine output Daily weight. Cardiology and Nephrology on board Wean oxygen as tolerated CARROL on CKD stage IIIb Nephro managing diuretics/volume status Cr is 1.94 today Continue to monitor renal function Urinary tract infection--POA Urine culture growing Enterococcus faecalis Currently on daptomycin, renally dosed Hematuria May be related to UTI in patient on eliquis However, CT abd today noted left nephrolithiasis, mild left hydroureter without hydronephrosis, asymmetric left sided bladder wall thickening which may be cystitis but cannot rule out urothelial lesion and correlation with cystoscopy recommended Urology eval noted Hematuria resolved Atrial Fibrillation Continue metoprolol, now metoprolol succinate 25mg daily On 04/02/25, I discussed with patient that warfarin is the ideal anticoagulant for Valvular AFib. Patient reported she had tried warfarin in the past but difficult to achieve goal INR despite increased dose and she does not want regular INR checks. She prefers to stay on her current eliquis Continue eliquis DM II Last a1c 7.4 on 12/29/24 Continue to hold p.o. medications Continue insulin per protocol Monitor blood glucose levels Hypothyroidism Continue levothyroxine 175 mcg daily Morbid obesity BMI 40 DVT Px: Eliquis CODE STATUS: DNI DNR I spent a total of 45 minutes coordinating, documenting and providing care for this patient excluding time spent in performance of separately billed services Admission and Anticipated Discharge Date Admission Date: March 29, 2025 Subjective Patient seen and examined Reports feeling better Physical Exam Constitutional: + obese; no acute distress Eyes: PERRL, conjunctivae normal, anicteric sclerae ENMT: external ear and nose normal, oropharynx normal Respiratory: On nasal cannula, diminished breath sounds Cardiovascular: Rate/Rhythm: + irregularly irregular Gastrointestinal (Abdomen): normal bowel sounds, soft, nontender, no hepatosplenomegaly Musculoskeletal: +pedal edema Neurologic: PERRL, EOMI, accommodation nl, no face palsy, no dysarthria Psychiatric: A+Ox3, euthymic affect Results & Data Results & Data Vital Signs (Past 12 Hours) Vital Signs Temp Pulse Pulse Resp BP BP Pulse Ox 04/03/25 11:08 04/03/25 08:18 36.7 C 111 H 20 121/78 91 04/03/25 05:34 103 H 04/03/25 04:30 36.5 C 89 18 122/75 94 O2 Del Method O2 Flow Rate 04/03/25 11:08 Nasal Cannula 2 04/03/25 08:18 Nasal Cannula 04/03/25 05:34 04/03/25 04:30 Nasal Cannula 2 Laboratory Results Abnormal lab results 04/02/25 04/02/25 04/03/25 Range/Units 17:03 19:57 05:34 RBC 3.93 L (4.20-5.40) M/uL Hgb 11.7 L (12.0-16.0) g/dl Hct 36.8 L (37.0-47.0) % MCHC 31.8 L (32.0-36.0) g/dL RDW Std Deviation 55.2 H (36.4-46.3) fL RDW Coeff of Issa 15.9 H (11.5-14.5) % Sodium 135 L (136-145) mmol/L Chloride 96 L (98-107) mmol/L BUN 66 H (6-23) mg/dl Creatinine 1.94 H D (0.6-1.2) mg/dl BUN/Creatinine Ratio 34.0 H (10-20) Glucose 106 H (70-99(Fasting)) mg/dl POC Glucose 134 H 138 H (70-99) mg/dl 04/03/25 04/03/25 Range/Units 08:05 12:15 RBC (4.20-5.40) M/uL Hgb (12.0-16.0) g/dl Hct (37.0-47.0) % MCHC (32.0-36.0) g/dL RDW Std Deviation (36.4-46.3) fL RDW Coeff of Issa (11.5-14.5) % Sodium (136-145) mmol/L Chloride (98-107) mmol/L BUN (6-23) mg/dl Creatinine (0.6-1.2) mg/dl BUN/Creatinine Ratio (10-20) Glucose (70-99(Fasting)) mg/dl POC Glucose 113 H 129 H (70-99) mg/dl (6) Atrial fibrillation Atrial fibrillation type: longstanding persistent Qualified Code(s): I48.11 - Longstanding persistent atrial fibrillation
--- NOTE | 2025-04-03 17:47 | Cardiology Progress Note ---
Date of Service April 03, 2025 Assessment & Plan (1) Acute diastolic congestive heart failure due to valvular disease: (2) Acute kidney injury: (3) Rheumatic valvular disease: (4) Aortic stenosis: (5) Mitral stenosis: Plan 85 Y W admitted with acute decompensated diastolic congestive heart failure secondary to rheumatic valvular heart disease. Resting echocardiography in February 2025 revealed severe mitral valve stenosis, severe mitral regurgitation, moderate aortic stenosis, moderate aortic regurgitation, severe tricuspid regurgitation. LVEF 55 to 59%. Moderate pulmonary hypertension observed with estimated pulmonary artery systolic pressure 45 to 50 mmHg. Patient with permanent atrial fibrillation chronically prescribed anticoagulation (reduced dose apixaban). Telemetry with permanent atrial fibrillation with a controlled ventricular response. Laboratory work notable for acute kidney injury following addition of LANG inhibitor (ramipril), marked hypotension with readings as low as 76/45 likely contributing factor. CARROL on CKD HTN Acute HFpEF Severe Mitral Stenosis Severe Mitral regurgitation Severe Tricuspid regurgitation Moderate PHTN Moderate AI Moderate Atrial Fib with CVR Hematuria Renal stones L hydroureter correct and f/u electrolytes f/u renal function IV diuretics (IV Lasix drip) as per Renal Avoid nephrotoxic agents F/U with renal would avoid using Spironolactone with significant renal insufficiency Patient is at risk for recurrent CHF and some level of azotemia may have to be accepted to avoid volume overload in the absence of definitive surgical treatment for severe valvular heart disease. Patient is thinking about going for valve surgery -> if so, then would need to be transferred for CTS evaluation once medically optimized start anticoagulation once cleared from urology standpoint - preference would be Coumadin unless patient refuses or is noncompliant with INR checks, diet - would then start Eliquis GDMT for HFpEF is limited due to renal insufficiency and low BP adjust rate control meds keeping HR between 60 to 100 BPM and systolic BP between 100-140 mmHg adjust anti-HTN meds keeping systolic BP between 100-140 mmHg avoid hypovolemia keep patient euvolemic keep LE elevated when sitting repeat CXR daily weights strict I&Os salt restriction PT/OT Admission and Anticipated Discharge Date Admission Date: March 29, 2025 Subjective Patient on exam is sitting in recliner in NAD; no c/o cp, sob, palpitations, dizziness, LOC; states she is feeling better; continues on IV Lasix infusion as per Renal; Negative about 3 L fluid balance Review of Systems Review of Systems: Complete Review of Systems is as stated above, negative, or noncontributory. Physical Exam Physical Exam: Examined in a chair General: Conversational dyspnea. Pleasant. Cooperative. Eyes: PER. Conjunctiva pink, sclera clear. HENT: Normocephalic. Atraumatic. Heart: Irregularly irregular at 90 bpm. + Systolic murmur. + Diastolic murmur. Lungs: decreased BS at bases. No wheezing Abdomen: +BS. Soft. Nontender. No masses. No organomegaly. Extremities: 2+ B/L LE edema. Stasis changes. Left lower extremity erythema. No cyanosis. Limited neurological examination: No focal deficit. Results & Data Vital Signs (Past 12 Hours) Vital Signs Temp Pulse Pulse Resp BP BP Pulse Ox 04/03/25 15:58 36.4 C L 80 18 101/62 90 04/03/25 14:02 76 04/03/25 11:53 36.6 C 82 20 109/65 91 04/03/25 11:08 04/03/25 08:18 36.7 C 111 H 20 121/78 91 O2 Del Method O2 Flow Rate 04/03/25 15:58 Nasal Cannula 2 04/03/25 14:02 04/03/25 11:53 Nasal Cannula 1 04/03/25 11:08 Nasal Cannula 2 04/03/25 08:18 Nasal Cannula Laboratory Results CBC 04/03/25 Range/Units 05:34 WBC 5.23 (4.8-10.8) K/ul RBC 3.93 L (4.20-5.40) M/uL Hgb 11.7 L (12.0-16.0) g/dl Hct 36.8 L (37.0-47.0) % Plt Count 178 (130-400) K/uL Comprehensive Metabolic Panel 04/03/25 Range/Units 05:34 Sodium 135 L (136-145) mmol/L Potassium 3.8 (3.5-5.1) mmol/L Chloride 96 L (98-107) mmol/L Carbon Dioxide 31 (21-32) mmol/L BUN 66 H (6-23) mg/dl Creatinine 1.94 H D (0.6-1.2) mg/dl Glucose 106 H (70-99(Fasting)) mg/dl Calcium 9.1 (8.6-10.3) mg/dl Intake and Output 04/03/25 04/03/25 04/03/25 06:59 14:59 22:59 Intake Total 200 / 1233 640 / 640 Output Total 1400 / 4000 1051 / 1051 Balance -1200 / -2767 -411 / -411 Intake: IV 100 / 393 100 / 100 Furosemide 100 mg In Sodium 100 / 393 100 / 100 Chloride 0.9% 90 ml @ 15 MG/HR 15 mls/hr IV .Q6H40M [facility] Rx#: [id number] Oral 100 / 840 540 / 540 Output: Urine Amount (Catheter) 1399 1050 / 1050 Dey/Indwelling 1400 / 3999 1050 / 1050 # Bowel Movements Other: Weight 111.2 kg Weight Measurement Method Built in [facility] Diagnostic Findings Laboratory Results WBC 5.23 K/ul (4.8-10.8) 04/03/25 05:34 RBC 3.93 M/uL (4.20-5.40) L 04/03/25 05:34 Hgb 11.7 g/dl (12.0-16.0) L 04/03/25 05:34 Hct 36.8 % (37.0-47.0) L 04/03/25 05:34 MCV 93.6 fL (80.0-100.0) 04/03/25 05:34 MCH 29.8 pg (25.0-34.0) 04/03/25 05:34 MCHC 31.8 g/dL (32.0-36.0) L 04/03/25 05:34 RDW Std Deviation 55.2 fL (36.4-46.3) H 04/03/25 05:34 RDW Coeff of Issa 15.9 % (11.5-14.5) H 04/03/25 05:34 Plt Count 178 K/uL (130-400) 04/03/25 05:34 MPV 10.5 fL (9.4-12.4) 04/03/25 05:34 Immature Gran % (Auto) 0.4 % 03/31/25 06:21 Neut % (Auto) 70.5 % 03/31/25 06:21 Lymph % (Auto) 15.6 % 03/31/25 06:21 [place] % (Auto) 7.7 % 03/31/25 06:21 Eos % (Auto) 4.9 % 03/31/25 06:21 Baso % (Auto) 0.9 % 03/31/25 06:21 Neut # (Auto) 4.79 K/uL (1.40-6.50) 03/31/25 06:21 Lymph # (Auto) 1.06 K/uL (1.20-3.40) L 03/31/25 06:21 [place] # (Auto) 0.52 K/uL (0.11-0.59) 03/31/25 06:21 Eos # (Auto) 0.33 K/uL (0.00-0.50) 03/31/25 06:21 Baso # (Auto) 0.06 K/uL (0.00-0.20) 03/31/25 06:21 Immature Gran # (Auto) 0.03 K/uL (0.01-0.20) 03/31/25 06:21 PT 10.8 Seconds (9.0-12.0) 03/29/25 14:49 INR 1.0 (0.9-1.1) 03/29/25 14:49 APTT 29 Seconds (21-31) 03/31/25 06:21 PTT Ratio 1.1 03/31/25 06:21 Sodium 135 mmol/L (136-145) L 04/03/25 05:34 Potassium 3.8 mmol/L (3.5-5.1) 04/03/25 05:34 Chloride 96 mmol/L (98-107) L 04/03/25 05:34 Carbon Dioxide 31 mmol/L (21-32) 04/03/25 05:34 Anion Gap 8 (3-11) 04/03/25 05:34 BUN 66 mg/dl (6-23) H 04/03/25 05:34 Creatinine 1.94 mg/dl (0.6-1.2) H D 04/03/25 05:34 Est Cr Clr Drug Dosing 26.3 ml/min 04/03/25 05:34 eGFR 24.77 04/03/25 05:34 BUN/Creatinine Ratio 34.0 (10-20) H 04/03/25 05:34 Glucose 106 mg/dl (70-99(Fasting)) H 04/03/25 05:34 POC Glucose 118 mg/dl (70-99) H 04/03/25 16:30 Estimat Average Glucose 166 mg/dl 03/30/25 05:34 Hemoglobin A1c 7.4 % (4.5-5.6) H 03/30/25 05:34 Calcium 9.1 mg/dl (8.6-10.3) 04/03/25 05:34 Magnesium 2.0 mg/dl (1.7-2.4) 04/01/25 08:44 Total Bilirubin 0.4 mg/dl (0.2-1.0) 03/29/25 14:49 AST 11 U/L (13-39) L 03/29/25 14:49 ALT 8 U/L (7-52) 03/29/25 14:49 Alkaline Phosphatase 52 U/L (34-104) 03/29/25 14:49 Troponin I High Sens 13.7 pg/ml (0-14) 03/29/25 14:49 B-Natriuretic Peptide 357 pg/ml (0-100) H 03/29/25 14:49 Total Protein 6.8 gm/dl (6.0-8.3) 03/29/25 14:49 Albumin 3.5 gm/dl (3.4-5.0) 03/29/25 14:49 Globulin 3.3 gm/dl (2.5-4.0) 03/29/25 14:49 Albumin/Globulin Ratio 1.1 (0.9-2) 03/29/25 14:49 Urine Color Yellow 03/29/25 17:05 Urine Appearance Clear (Clear) 03/29/25 17:05 Urine pH 6.0 (4.5-7.5) 03/29/25 17:05 Ur Specific Otho 1.010 (1.000-1.030) 03/29/25 17:05 Urine Protein Trace (Negative) H 03/29/25 17:05 Urine Glucose (UA) Negative (Negative) 03/29/25 17:05 Urine Ketones Negative (Negative) 03/29/25 17:05 Urine Blood 2+ (Negative) H 03/29/25 17:05 Urine Nitrite Negative (Negative) 03/29/25 17:05 Urine Bilirubin Negative (Negative) 03/29/25 17:05 Urine Urobilinogen Negative (Negative) 03/29/25 17:05 Ur Leukocyte Esterase 3+ (Negative) H 03/29/25 17:05 Urine WBC (Auto) >50 /hpf (0-5) H 03/29/25 17:05 Urine RBC (Auto) 11-20 /hpf (0-2) H 03/29/25 17:05 U Hyaline Cast (Auto) 0-2 /lpf (0-2) 03/29/25 17:05 U Epithel Cells (Auto) 0-2 /hpf (0-2) 03/29/25 17:05 Urine Bacteria (Auto) None Seen (None Seen) 03/29/25 17:05 Urine Comment 03/29/25 17:05 Blood Type A Positive 03/31/25 06:21 Antibody Screen NEGATIVE 03/31/25 06:21 Impressions Abdomen/Pelvis CT 04/01/25 09:36 CT OF THE ABDOMEN AND PELVIS WITHOUT CONTRAST CLINICAL HISTORY: Persistent hematuria. Assess urinary system. COMPARISON STUDY: No previous studies for comparison. TECHNIQUE: Axial images of the abdomen and pelvis were obtained without IV contrast. Images were reviewed in the axial, sagittal, and coronal planes. Automated exposure control was utilized for the study. A dose lowering te [place] was utilized adhering to the principles of ALARA. FINDINGS: Mild groundglass opacities with mosaic attenuation within the lungs are noted. Moderate cardiomegaly and extensive mitral annular calcification are noted. There is mild dilatation of the central pulmonary arteries. Prominent subcarinal lymph nodes are likely benign. There is a trace right pleural effusion. No pneumatosis, free air or portal venous gas is present. Multiple left renal calculi measure up to 9 mm. There is no hydronephrosis. There is mild asymmetric dilatation of the left ureter. Bladder wall thickening is noted. This is eccentric to the left. There may be minimal calcification within the left posterolateral bladder wall. There is mild stranding adjacent to the bladder. No ureteral calculi are present. Evaluation the remainder of the abdomen and pelvis is suboptimal on this unenhanced exam. Liver, spleen, adrenal glands and pancreas are unremarkable. Peripheral calcification within the gallbladder wall is noted. This suggests a porcelain gallbladder. The gallbladder is not distended. There is extensive colonic diverticulosis without evidence for acute diverticulitis. There is no evidence for a bowel obstruction. The appendix is normal. IMPRESSION: 1. Left nephrolithiasis. No ureteral calculi. 2. Mild left hydroureter without hydronephrosis. Asymmetric left-sided bladder wall thickening with adjacent stranding. This may represent cystitis. However, an underlying urothelial lesion cannot be excluded by CT and correlation with cystoscopy is recommended. 3. Extensive colonic diverticulosis. No evidence for acute diverticulitis. 4. Cardiomegaly. Trace right pleural effusion. 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 ACT 112: Negative or not required by law. Electronically signed by: Vivek Diaz M.D. 04/01/2025 12:20 PM Chest X-Ray 04/02/25 14:52 XR chest 1V portable CLINICAL HISTORY: CHF - UPRIGHT COMPARISON STUDY: Chest radiograph March 29, 2025. FINDINGS: There is no pneumothorax. A small right pleural effusion has increased in size. Cardiomegaly is again noted. Pulmonary edema has slightly improved. IMPRESSION: 1. Cardiomegaly. Pulmonary edema, mildly improved since prior exam. 2. Increased size of a small right pleural effusion. Associated right basilar opacity likely represents atelectasis. ACT 112: Negative or not required by law. Electronically signed by: Vivek Diaz M.D. 04/02/2025 3:25 PM Medications Administered Home Medications Medication Instructions Recorded Confirmed Last Taken acetaminophen 325 mg capsule 650 mg PO QID PRN Pain (Scale 03/11/25 03/29/25 Unknown Score 4-6) allopurinol 100 mg tablet 200 mg PO DAILY 03/11/25 03/29/25 03/29/25 (Zyloprim) apixaban 2.5 mg tablet (Eliquis) 2.5 mg PO BID 03/11/25 03/29/25 03/29/25 calcium 600 mg (as 1 tab PO DAILY 03/11/25 03/29/25 03/29/25 carbonate)-vitamin D3 10 mcg (400 unit) tablet coenzyme Q10 400 mg capsule 400 mg PO DAILY 03/11/25 03/29/25 03/29/25 cyanocobalamin (vitamin B-12) 1,000 mcg PO DAILY 03/11/25 03/29/25 03/29/25 1,000 mcg capsule furosemide 80 mg tablet (Lasix) 80 mg PO BID 03/11/25 03/29/25 03/29/25 glucosam 750 mg-chondroi 100 3 tab PO DAILY 03/11/25 03/29/25 03/29/25 mg-hyalur 1.65 mg-CF borate 108 mg tablet ([facility] rumr: turn off the lights) levothyroxine 175 mcg tablet 175 mcg PO DAILY 03/11/25 03/29/25 03/29/25 (Synthroid) linagliptin 5 mg tablet (Tradjenta) 5 mg PO DAILY 03/11/25 03/29/25 03/29/25 loperamide 2 mg capsule 2 mg PO BID PRN Diarrhea 03/11/25 03/29/25 Unknown (Anti-Diarrheal (loperamide)) magnesium 200 mg tablet 200 mg PO WK 03/11/25 03/29/25 Unknown metoprolol tartrate 25 mg tablet 25 mg PO BID 03/11/25 03/29/25 03/29/25 potassium chloride 20 mEq 40 meq PO DAILY 03/11/25 03/29/25 03/29/25 tablet,extended release(part/cryst) metolazone 2.5 mg tablet 2.5 mg PO WK 03/29/25 03/29/25 03/22/25 ramipril 5 mg capsule 5 mg PO QAM 03/29/25 03/29/25 03/29/25 Active Medications Generic Name Dose Route Start Last Admin Trade Name Freq PRN Reason Stop Dose Admin Acetaminophen 650 mg 03/29/25 21:09 04/02/25 02:14 Acetaminophen 325 Mg Tab PO 04/28/25 21:08 650 mg Q4H PRN Administration Moderate Pain (Scale 4, 5, 6) Allopurinol 200 mg 03/30/25 09:00 04/03/25 09:24 Allopurinol 100 Mg Tab PO 04/29/25 08:59 200 mg DAILY KENJI Administration Apixaban 2.5 mg 03/29/25 21:09 04/03/25 09:25 Apixaban 2.5 Mg Tab PO 04/28/25 21:08 2.5 mg BID KENJI Administration Calamine/Phenol 1 appln 03/30/25 21:00 04/03/25 09:24 Menthol-Zinc Oxide 360 Appln/120 Gm Tube EXT 04/29/25 20:59 1 appln BID KENJI Administration Calcium/Vitamin D 1 tab 03/30/25 09:00 04/03/25 09:24 Calcium 600mg + Vit D 400 Iu Tab PO 04/29/25 08:59 1 tab DAILY KENJI Administration Cyanocobalamin 1,000 mcg 03/30/25 09:00 04/03/25 09:24 Cyanocobalamin (B-12) 500 Mcg Tablet PO 04/29/25 08:59 1,000 mcg DAILY KENJI Administration Daptomycin 500 mg/ Syringe 10 mls @ 5 mls/min 04/01/25 09:00 04/03/25 09:30 IV 04/04/25 09:00 5 mls/min Q48H KENJI Administration Protocol Furosemide 100 mg/ Sodium 100 mls @ 15 mls/hr 04/01/25 12:25 04/03/25 12:21 Chloride IV 05/01/25 12:24 15 mg/hr .Q6H40M KENJI 15 mls/hr Administration 15 MG/HR Insulin Aspart 0 units 03/29/25 21:09 04/03/25 13:14 Insulin Aspart Per Unit Charge SC 04/28/25 21:08 2 units ACHS KENJI Administration Levothyroxine Sodium 175 mcg 03/30/25 06:30 04/03/25 06:43 Levothyroxine Sodium 175 Mcg Tablet PO 04/29/25 06:29 175 mcg DAILYBB KENJI Administration Metoprolol Succinate 25 mg 04/01/25 09:00 04/03/25 09:24 Metoprolol Succ 25mg Ext Rel Tab PO 05/01/25 08:59 25 mg QAM KENJI Administration Midodrine 5 mg 04/01/25 12:00 04/03/25 13:13 Midodrine Hcl 2.5 Mg Tab PO 05/01/25 11:59 5 mg TID@0800,1200,1700 KENJI Administration PG Care Time/CCT Total # of Minutes Spent Total Time Spent with Patient: Total time spent is greater than 50% in coordination of care (as documented) at patient's floor/unit and/or counseling patient: Coding Level of Care Code 68173 SUB INP/OBS CARE 3/50MIN Diagnoses Acute diastolic congestive heart failure due to valvular disease I50.31; I38 Acute kidney injury N17.9 Rheumatic valvular disease I09.1 Aortic stenosis I35.0 Mitral stenosis I05.0
[2025-04-04 06:22] LABS: Hematocrit (blood only) 35.5 % (37.0-47.0); Hemoglobin 10.9 g/dl (12.0-16.0); Mean Corpuscular Hemoglobin 28.9 pg (25.0-34.0); Mean Corpuscular Volume 94.2 fL (80.0-100.0); Platelet Count 197 K/uL (130-400); RDW Standard Deviation 54.3 fL (36.4-46.3); Red Blood Count 3.77 M/uL (4.20-5.40); White Blood Count 5.61 K/ul (4.8-10.8)
[2025-04-04 06:37] LABS: Anion Gap 7.0 (3-11); Blood Urea Nitrogen 58.0 mg/dl (6-23); Calcium 9.0 mg/dl (8.6-10.3); Carbon Dioxide 39.0 mmol/L (21-32); Chloride 95.0 mmol/L (98-107); Creatinine Clr Calc Pharmacy 33.9 ml/min; Glucose 125.0 mg/dl (70-99(Fasting)); Potassium 3.0 mmol/L (3.5-5.1); Sodium 141.0 mmol/L (136-145)
[2025-04-04] MEDS: POTASSIUM CHLORIDE CRTAB 20 MEQ TABCR PO STA (08:42)
[2025-04-04] MEDS: POTASSIUM CHLORIDE / WTR 10 MEQ/100 ML PLCT IV SCH (08:46)
--- NOTE | 2025-04-04 09:16 | Hospitalist Progress Note ---
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: (5) DM type 2 (diabetes mellitus, type 2): (6) Atrial fibrillation: (7) Hypothyroidism: (8) GERD (gastroesophageal reflux disease): (9) Morbid obesity due to excess calories: (10) Hoarse voice quality: (11) Vocal cord paresis: Plan 85-year-old female with PMHx of chronic diastolic CHF, pulmonary hypertension, moderate aortic regurg, moderate mitral valve stenosis, mild tricuspid regurg, chronic A-fib on Eliquis,orthostatic hypotension, CKD stage IIIb, DM type II, hypothyroidism, history of ischemic bowel disease, degenerative disc disease, hoarse voice secondary to vocal cord paralysis, and morbid obesity with a BMI of 38.5 who presents to the hospital with acute worsening shortness of breath and increased weight gain Acute on chronic diastolic CHF exacerbation Valvular heart disease CXR:Cardiomegaly with pulmonary edema and suspected small bilateral pleural effusions. BNP 357 Echo from February 09, 2025 TTE:The left ventricular cavity size is normal. The LV wall thickness is moderately increased (concentric). The left ventricular wall motion is normal. The qualitative LV ejection fraction is 55-59% (normal). The left atrium is severely enlarged (>48 ml/m^2,). The aortic valve is moderately calcified. Moderate aortic valve stenosis is present. Moderate aortic valve regurgitation is present. There is severe mitral annular calcification. The mitral valve leaflets thickness is severely increased. Severe mitral stenosis is present. Severe mitral regurgitation is present. Severe tricuspid regurgitation is present. Moderate pulmonary hypertension is present. The estimated pulmonary artery systolic pressure is 45-50mm Hg. Currently on IV lasix drip Monitor electrolytes, renal function and urine output Daily weight. Cardiology and Nephrology on board Wean oxygen as tolerated CARROL on CKD stage IIIb Nephro managing diuretics/volume status Cr is 1.51 today Replete hypokalemia Continue to monitor renal function Urinary tract infection--POA Urine culture growing Enterococcus faecalis Completed daptomycin Hematuria May be related to UTI in patient on eliquis However, CT abd today noted left nephrolithiasis, mild left hydroureter without hydronephrosis, asymmetric left sided bladder wall thickening which may be cystitis but cannot rule out urothelial lesion and correlation with cystoscopy recommended Urology eval noted Hematuria resolved Atrial Fibrillation Continue metoprolol, now metoprolol succinate 25mg daily On 04/02/25, I discussed with patient that warfarin is the ideal anticoagulant f or Valvular AFib. Patient reported she had tried warfarin in the past but difficult to achieve goal INR despite increased dose and she does not want regular INR checks. She prefers to stay on her current eliquis Continue eliquis DM II Last a1c 7.4 on 12/29/24 Continue to hold p.o. medications Continue insulin per protocol Monitor blood glucose levels Hypothyroidism Continue levothyroxine 175 mcg daily Morbid obesity BMI 40 DVT Px: Eliquis CODE STATUS: DNI DNR I spent a total of 40 minutes coordinating, documenting and providing care for this patient excluding time spent in performance of separately billed services Admission and Anticipated Discharge Date Admission Date: March 29, 2025 Subjective Patient seen and examined Reports constipation today No new complaints Physical Exam Constitutional: + obese; no acute distress Eyes: PERRL, conjunctivae normal, anicteric sclerae ENMT: external ear and nose normal, oropharynx normal Respiratory: On nasal cannula, diminished breath sounds Cardiovascular: Rate/Rhythm: + irregularly irregular Gastrointestinal (Abdomen): normal bowel sounds, soft, nontender, no hepatosplenomegaly Musculoskeletal: +pedal edema Neurologic: PERRL, EOMI, accommodation nl, no face palsy, no dysarthria Psychiatric: A+Ox3, euthymic affect Results & Data Results & Data Vital Signs (Past 12 Hours) Vital Signs Temp Pulse Pulse Resp BP Pulse Ox O2 Del Method 04/04/25 08:28 36.7 C 100 H 16 155/68 H 95 Nasal Cannula 04/04/25 07:25 96 H 04/04/25 03:47 36.5 C 89 18 118/68 93 Nasal Cannula 04/03/25 23:49 36.4 C L 90 18 95 Nasal Cannula 04/03/25 22:57 36.6 C 70 18 109/66 92 Nasal Cannula 04/03/25 22:18 73 O2 Flow Rate 04/04/25 08:28 2.5 04/04/25 07:25 04/04/25 03:47 2 04/03/25 23:49 2 04/03/25 22:57 2 04/03/25 22:18 Laboratory Results Abnormal lab results 04/03/25 04/03/25 04/04/25 Range/Units 16:30 20:09 05:49 RBC (4.20-5.40) M/uL Hgb (12.0-16.0) g/dl Hct (37.0-47.0) % MCHC (32.0-36.0) g/dL RDW Std Deviation (36.4-46.3) fL RDW Coeff of Issa (11.5-14.5) % Potassium 3.0 L D (3.5-5.1) mmol/L Chloride 95 L (98-107) mmol/L Carbon Dioxide 39 H (21-32) mmol/L BUN 58 H (6-23) mg/dl Creatinine 1.51 H D (0.6-1.2) mg/dl BUN/Creatinine Ratio 38.4 H (10-20) Glucose 125 H (70-99(Fasting)) mg/dl POC Glucose 118 H 137 H (70-99) mg/dl 04/04/25 04/04/25 04/04/25 Range/Units 05:50 08:07 11:58 RBC 3.77 L (4.20-5.40) M/uL Hgb 10.9 L (12.0-16.0) g/dl Hct 35.5 L (37.0-47.0) % MCHC 30.7 L (32.0-36.0) g/dL RDW Std Deviation 54.3 H (36.4-46.3) fL RDW Coeff of Issa 15.9 H (11.5-14.5) % Potassium (3.5-5.1) mmol/L Chloride (98-107) mmol/L Carbon Dioxide (21-32) mmol/L BUN (6-23) mg/dl Creatinine (0.6-1.2) mg/dl BUN/Creatinine Ratio (10-20) Glucose (70-99(Fasting)) mg/dl POC Glucose 125 H 148 H (70-99) mg/dl (6) Atrial fibrillation Atrial fibrillation type: longstanding persistent Qualified Code(s): I48.11 - Longstanding persistent atrial fibrillation
[2025-04-04] MEDS ORDERED: POLYETHYLENE (MIRALAX) 17 GM PACK PO SCH (12:00)
[2025-04-04] MEDS: SENNA 8.6 MG TAB PO SCH (13:44)
[2025-04-04] MEDS: PHENYLEPHRINE 0.25% SUPP 1 EA PR ONE (13:55)
--- NOTE | 2025-04-04 16:12 | Cardiology Progress Note ---
Date of Service April 04, 2025 Assessment & Plan (1) Acute diastolic congestive heart failure due to valvular disease: (2) Acute kidney injury: (3) Rheumatic valvular disease: (4) Aortic stenosis: (5) Mitral stenosis: Plan 85 Y W admitted with acute decompensated diastolic congestive heart failure secondary to rheumatic valvular heart disease. Resting echocardiography in February 2025 revealed severe mitral valve stenosis, severe mitral regurgitation, moderate aortic stenosis, moderate aortic regurgitation, severe tricuspid regurgitation. LVEF 55 to 59%. Moderate pulmonary hypertension observed with estimated pulmonary artery systolic pressure 45 to 50 mmHg. Patient with permanent atrial fibrillation chronically prescribed anticoagulation (reduced dose apixaban). Telemetry with permanent atrial fibrillation with a controlled ventricular response. Laboratory work notable for acute kidney injury following addition of LANG inhibitor (ramipril), marked hypotension with readings as low as 76/45 likely contributing factor. CARROL on CKD HTN Acute HFpEF Severe Mitral Stenosis Severe Mitral regurgitation Severe Tricuspid regurgitation Moderate PHTN Moderate AI Moderate Atrial Fib with CVR Hematuria Renal stones L hydroureter correct and f/u electrolytes f/u renal function IV diuretics (IV Lasix drip) as per Renal -> change to PO when euvolemic status has been achieved repeat CXR Avoid nephrotoxic agents F/U with renal would avoid using Spironolactone with significant renal insufficiency Patient is at risk for recurrent CHF and some level of azotemia may have to be accepted to avoid volume overload in the absence of definitive surgical treatment for severe valvular heart disease. Patient is thinking about going for valve surgery -> if so, then would need to be transferred for CTS evaluation once medically optimized anticoagulation restarted -> cleared from urology standpoint - preference would be Coumadin unless patient refuses or is noncompliant with INR checks, diet - would then continue Eliquis GDMT for HFpEF as tolerated avoid hypovolemia keep patient euvolemic keep LE elevated when sitting daily weights strict I&Os salt restriction PT/OT Admission and Anticipated Discharge Date Admission Date: March 29, 2025 Subjective Patient on exam is sitting in recliner in NAD; no c/o cp, sob, palpitations, dizziness, LOC; no gross hematuria; as per urology patient was cleared to restart Eliquis Review of Systems Review of Systems: Complete Review of Systems is as stated above, negative, or noncontributory. Physical Exam Physical Exam: Examined in a chair General: Conversational dyspnea. Pleasant. Cooperative. Eyes: PER. Conjunctiva pink, sclera clear. HENT: Normocephalic. Atraumatic. Heart: Irregularly irregular at 90 bpm. + Systolic murmur. + Diastolic murmur. Lungs: decreased BS at bases. No wheezing Abdomen: +BS. Soft. Nontender. No masses. No organomegaly. Extremities: 2+ B/L LE edema. Stasis changes. Left lower extremity erythema. No cyanosis. Limited neurological examination: No focal deficit. Results & Data Vital Signs (Past 12 Hours) Vital Signs Temp Pulse Pulse Resp BP Pulse Ox O2 Del Method 04/04/25 15:33 36.4 C L 88 18 138/63 94 Nasal Cannula 04/04/25 14:52 Nasal Cannula 04/04/25 11:22 36.4 C L 82 16 110/70 95 Nasal Cannula 04/04/25 08:28 36.7 C 100 H 16 155/68 H 95 Nasal Cannula 04/04/25 07:25 96 H O2 Flow Rate 04/04/25 15:33 2 04/04/25 14:52 2 04/04/25 11:22 2.5 04/04/25 08:28 2.5 04/04/25 07:25 Laboratory Results CBC 04/04/25 Range/Units 05:50 WBC 5.61 (4.8-10.8) K/ul RBC 3.77 L (4.20-5.40) M/uL Hgb 10.9 L (12.0-16.0) g/dl Hct 35.5 L (37.0-47.0) % Plt Count 197 (130-400) K/uL Comprehensive Metabolic Panel 04/04/25 Range/Units 05:49 Sodium 141 (136-145) mmol/L Potassium 3.0 L D (3.5-5.1) mmol/L Chloride 95 L (98-107) mmol/L Carbon Dioxide 39 H (21-32) mmol/L BUN 58 H (6-23) mg/dl Creatinine 1.51 H D (0.6-1.2) mg/dl Glucose 125 H (70-99(Fasting)) mg/dl Calcium 9.0 (8.6-10.3) mg/dl Intake and Output 04/04/25 04/04/25 04/04/25 06:59 14:59 22:59 Intake Total 200 / 940 654.5 / 654.5 Output Total 1300 / 3251 Balance -1100 / -2311 654.5 / 654.5 Intake: IV 100 / 300 414.5 / 414.5 Furosemide 100 mg In Sodium 100 / 300 124.5 / 124.5 Chloride 0.9% 90 ml @ 15 MG/HR 15 mls/hr IV .Q6H40M KENJI Rx#: [id number] Potassium Chloride / Wtr 10 meq 290 / 290 In 100 ml @ 100 mls/hr IV Q1H KENJI Rx#:[id number] Oral 100 / 640 240 / 240 Output: Urine Amount (Catheter) 1300 / 3250 Dey/Indwelling 1300 / 3250 Other: Weight 112 kg Weight Measurement Method Built in [facility] Diagnostic Findings Laboratory Results WBC 5.61 K/ul (4.8-10.8) 04/04/25 05:50 RBC 3.77 M/uL (4.20-5.40) L 04/04/25 05:50 Hgb 10.9 g/dl (12.0-16.0) L 04/04/25 05:50 Hct 35.5 % (37.0-47.0) L 04/04/25 05:50 MCV 94.2 fL (80.0-100.0) 04/04/25 05:50 MCH 28.9 pg (25.0-34.0) 04/04/25 05:50 MCHC 30.7 g/dL (32.0-36.0) L 04/04/25 05:50 RDW Std Deviation 54.3 fL (36.4-46.3) H 04/04/25 05:50 RDW Coeff of Issa 15.9 % (11.5-14.5) H 04/04/25 05:50 Plt Count 197 K/uL (130-400) 04/04/25 05:50 MPV 10.2 fL (9.4-12.4) 04/04/25 05:50 Immature Gran % (Auto) 0.4 % 03/31/25 06:21 Neut % (Auto) 70.5 % 03/31/25 06:21 Lymph % (Auto) 15.6 % 03/31/25 06:21 [place] % (Auto) 7.7 % 03/31/25 06:21 Eos % (Auto) 4.9 % 03/31/25 06:21 Baso % (Auto) 0.9 % 03/31/25 06:21 Neut # (Auto) 4.79 K/uL (1.40-6.50) 03/31/25 06:21 Lymph # (Auto) 1.06 K/uL (1.20-3.40) L 03/31/25 06:21 [place] # (Auto) 0.52 K/uL (0.11-0.59) 03/31/25 06:21 Eos # (Auto) 0.33 K/uL (0.00-0.50) 03/31/25 06:21 Baso # (Auto) 0.06 K/uL (0.00-0.20) 03/31/25 06:21 Immature Gran # (Auto) 0.03 K/uL (0.01-0.20) 03/31/25 06:21 PT 10.8 Seconds (9.0-12.0) 03/29/25 14:49 INR 1.0 (0.9-1.1) 03/29/25 14:49 APTT 29 Seconds (21-31) 03/31/25 06:21 PTT Ratio 1.1 03/31/25 06:21 Sodium 141 mmol/L (136-145) 04/04/25 05:49 Potassium 3.0 mmol/L (3.5-5.1) L D 04/04/25 05:49 Chloride 95 mmol/L (98-107) L 04/04/25 05:49 Carbon Dioxide 39 mmol/L (21-32) H 04/04/25 05:49 Anion Gap 7 (3-11) 04/04/25 05:49 BUN 58 mg/dl (6-23) H 04/04/25 05:49 Creatinine 1.51 mg/dl (0.6-1.2) H D 04/04/25 05:49 Est Cr Clr Drug Dosing 33.9 ml/min 04/04/25 05:49 eGFR 33.46 04/04/25 05:49 BUN/Creatinine Ratio 38.4 (10-20) H 04/04/25 05:49 Glucose 125 mg/dl (70-99(Fasting)) H 04/04/25 05:49 POC Glucose 148 mg/dl (70-99) H 04/04/25 11:58 Estimat Average Glucose 166 mg/dl 03/30/25 05:34 Hemoglobin A1c 7.4 % (4.5-5.6) H 03/30/25 05:34 Calcium 9.0 mg/dl (8.6-10.3) 04/04/25 05:49 Magnesium 2.0 mg/dl (1.7-2.4) 04/01/25 08:44 Total Bilirubin 0.4 mg/dl (0.2-1.0) 03/29/25 14:49 AST 11 U/L (13-39) L 03/29/25 14:49 ALT 8 U/L (7-52) 03/29/25 14:49 Alkaline Phosphatase 52 U/L (34-104) 03/29/25 14:49 Troponin I High Sens 13.7 pg/ml (0-14) 03/29/25 14:49 B-Natriuretic Peptide 357 pg/ml (0-100) H 03/29/25 14:49 Total Protein 6.8 gm/dl (6.0-8.3) 03/29/25 14:49 Albumin 3.5 gm/dl (3.4-5.0) 03/29/25 14:49 Globulin 3.3 gm/dl (2.5-4.0) 03/29/25 14:49 Albumin/Globulin Ratio 1.1 (0.9-2) 03/29/25 14:49 Urine Color Yellow 03/29/25 17:05 Urine Appearance Clear (Clear) 03/29/25 17:05 Urine pH 6.0 (4.5-7.5) 03/29/25 17:05 Ur Specific [place] 1.010 (1.000-1.030) 03/29/25 17:05 Urine Protein Trace (Negative) H 03/29/25 17:05 Urine Glucose (UA) Negative (Negative) 03/29/25 17:05 Urine Ketones Negative (Negative) 03/29/25 17:05 Urine Blood 2+ (Negative) H 03/29/25 17:05 Urine Nitrite Negative (Negative) 03/29/25 17:05 Urine Bilirubin Negative (Negative) 03/29/25 17:05 Urine Urobilinogen Negative (Negative) 03/29/25 17:05 Ur Leukocyte Esterase 3+ (Negative) H 03/29/25 17:05 Urine WBC (Auto) >50 /hpf (0-5) H 03/29/25 17:05 Urine RBC (Auto) 11-20 /hpf (0-2) H 03/29/25 17:05 U Hyaline Cast (Auto) 0-2 /lpf (0-2) 03/29/25 17:05 U Epithel Cells (Auto) 0-2 /hpf (0-2) 03/29/25 17:05 Urine Bacteria (Auto) None Seen (None Seen) 03/29/25 17:05 Urine Comment 03/29/25 17:05 Blood Type A Positive 03/31/25 06:21 Antibody Screen NEGATIVE 03/31/25 06:21 Impressions Abdomen/Pelvis CT 04/01/25 09:36 CT OF THE ABDOMEN AND PELVIS WITHOUT CONTRAST CLINICAL HISTORY: Persistent hematuria. Assess urinary system. COMPARISON STUDY: No previous studies for comparison. TECHNIQUE: Axial images of the abdomen and pelvis were obtained without IV contrast. Images were reviewed in the axial, sagittal, and coronal planes. Automated exposure control was utilized for the study. A dose lowering technique was utilized adhering to the principles of ALARA. FINDINGS: Mild groundglass opacities with mosaic attenuation within the lungs are noted. Moderate cardiomegaly and extensive mitral annular calcification are noted. There is mild dilatation of the central pulmonary arteries. Prominent subcarinal lymph nodes are likely benign. There is a trace right pleural effusion. No pneumatosis, free air or portal venous gas is present. Multiple left renal calculi measure up to 9 mm. There is no hydronephrosis. There is mild asymmetric dilatation of the left ureter. Bladder wall thickening is noted. This is eccentric to the left. There may be minimal calcification within the left posterolateral bladder wall. There is mild stranding adjacent to the bladder. No ureteral calculi are present. Evaluation the remainder of the abdomen and pelvis is suboptimal on this unenhanced exam. Liver, spleen, adrenal glands and pancreas are unremarkable. Peripheral calcification within the gallbladder wall is noted. This suggests a porcelain gallbladder. The gallbladder is not distended. There is extensive colonic diverticulosis without evidence for acute diverticulitis. There is no evidence for a bowel obstruction. The appendix is normal. IMPRESSION: 1. Left nephrolithiasis. No ureteral calculi. 2. Mild left hydroureter without hydronephrosis. Asymmetric left-sided bladder wall thickening with adjacent stranding. This may represent cystitis. However, an underlying urothelial lesion cannot be excluded by CT and correlation with cystoscopy is recommended. 3. Extensive colonic diverticulosis. No evidence for acute diverticulitis. 4. Cardiomegaly. Trace right pleural effusion. 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 ACT 112: Negative or not required by law. Electronically signed by: Vivek Diaz M.D. 04/01/2025 12:20 PM Chest X-Ray 04/02/25 14:52 XR chest 1V portable CLINICAL HISTORY: CHF - UPRIGHT COMPARISON STUDY: Chest radiograph March 29, 2025. FINDINGS: There is no pneumothorax. A small right pleural effusion has increased in size. Cardiomegaly is again noted. Pulmonary edema has slightly improved. IMPRESSION: 1. Cardiomegaly. Pulmonary edema, mildly improved since prior exam. 2. Increased size of a small right pleural effusion. Associated right basilar opacity likely represents atelectasis. ACT 112: Negative or not required by law. Electronically signed by: Vivek Diaz M.D. 04/02/2025 3:25 PM Medications Administered Home Medications Medication Instructions Recorded Confirmed Last Taken acetaminophen 325 mg capsule 650 mg PO QID PRN Pain (Scale 03/11/25 03/29/25 Unknown Score 4-6) allopurinol 100 mg tablet 200 mg PO DAILY 03/11/25 03/29/25 03/29/25 (Zyloprim) apixaban 2.5 mg tablet (Eliquis) 2.5 mg PO BID 03/11/25 03/29/25 03/29/25 calcium 600 mg (as 1 tab PO DAILY 03/11/25 03/29/25 03/29/25 carbonate)-vitamin D3 10 mcg (400 unit) tablet coenzyme Q10 400 mg capsule 400 mg PO DAILY 03/11/25 03/29/25 03/29/25 cyanocobalamin (vitamin B-12) 1,000 mcg PO DAILY 03/11/25 03/29/25 03/29/25 1,000 mcg capsule furosemide 80 mg tablet (Lasix) 80 mg PO BID 03/11/25 03/29/25 03/29/25 glucosam 750 mg-chondroi 100 3 tab PO DAILY 03/11/25 03/29/25 03/29/25 mg-hyalur 1.65 mg-CF borate 108 mg tablet (Move Free AngelPrime) levothyroxine 175 mcg tablet 175 mcg PO DAILY 03/11/25 03/29/25 03/29/25 (Synthroid) linagliptin 5 mg tablet (Tradjenta) 5 mg PO DAILY 03/11/25 03/29/25 03/29/25 loperamide 2 mg capsule 2 mg PO BID PRN Diarrhea 03/11/25 03/29/25 Unknown (Anti-Diarrheal (loperamide)) magnesium 200 mg tablet 200 mg PO WK 03/11/25 03/29/25 Unknown metoprolol tartrate 25 mg tablet 25 mg PO BID 03/11/25 03/29/25 03/29/25 potassium chloride 20 mEq 40 meq PO DAILY 03/11/25 03/29/25 03/29/25 tablet,extended release(part/cryst) metolazone 2.5 mg tablet 2.5 mg PO WK 03/29/25 03/29/25 03/22/25 ramipril 5 mg capsule 5 mg PO QAM 03/29/25 03/29/25 03/29/25 Active Medications Generic Name Dose Route Start Last Admin Trade Name [place] PRN Reason Stop Dose Admin Acetaminophen 650 mg 03/29/25 21:09 04/02/25 02:14 Acetaminophen 325 Mg Tab PO 04/28/25 21:08 650 mg Q4H PRN Administration Moderate Pain (Scale 4, 5, 6) Allopurinol 200 mg 03/30/25 09:00 04/04/25 08:40 Allopurinol 100 Mg Tab PO 04/29/25 08:59 200 mg DAILY KENJI Administration Apixaban 2.5 mg 03/29/25 21:09 04/04/25 08:40 Apixaban 2.5 Mg Tab PO 04/28/25 21:08 2.5 mg BID KENJI Administration Calamine/Phenol 1 appln 03/30/25 21:00 04/04/25 08:41 Menthol-Zinc Oxide 360 Appln/120 Gm Tube EXT 04/29/25 20:59 1 appln BID KENJI Administration Calcium/Vitamin D 1 tab 03/30/25 09:00 04/04/25 08:41 Calcium 600mg + Vit D 400 Iu Tab PO 04/29/25 08:59 1 tab DAILY KENJI Administration Cyanocobalamin 1,000 mcg 03/30/25 09:00 04/04/25 08:41 Cyanocobalamin (B-12) 500 Mcg Tablet PO 04/29/25 08:59 1,000 mcg DAILY KENJI Administration Furosemide 100 mg/ Sodium 100 mls @ 15 mls/hr 04/01/25 12:25 04/04/25 12:28 Chloride IV 05/01/25 12:24 15 mg/hr .Q6H40M KENJI 15 mls/hr Infusion 15 MG/HR Insulin Aspart 0 units 03/29/25 21:09 04/04/25 13:44 Insulin Aspart Per Unit Charge SC 04/28/25 21:08 2 units ACHS KENJI Administration Levothyroxine Sodium 175 mcg 03/30/25 06:30 04/04/25 06:16 Levothyroxine Sodium 175 Mcg Tablet PO 04/29/25 06:29 175 mcg DAILYBB KENJI Administration Metoprolol Succinate 25 mg 04/01/25 09:00 04/04/25 08:41 Metoprolol Succ 25mg Ext Rel Tab PO 05/01/25 08:59 25 mg QAM KENJI Administration Midodrine 5 mg 04/01/25 12:00 04/04/25 13:45 Midodrine Hcl 2.5 Mg Tab PO 05/01/25 11:59 5 mg TID@0800,1200,1700 KENJI Administration Sennosides 17.2 mg 04/04/25 12:00 04/04/25 13:44 Senna 8.6 Mg Tab PO 05/04/25 11:59 17.2 mg QAM KENJI Administration PG Care Time/CCT Total # of Minutes Spent Total Time Spent with Patient: Total time spent is greater than 50% in coordination of care (as documented) at patient's floor/unit and/or counseling patient: Coding Level of Care Code 68693 SUB INP/OBS CARE 3/50MIN Diagnoses Acute diastolic congestive heart failure due to valvular disease I50.31; I38 Acute kidney injury N17.9 Rheumatic valvular disease I09.1 Aortic stenosis I35.0 Mitral stenosis I05.0
--- NOTE | 2025-04-04 18:19 | XRay Report ---
Chest radiograph, one view History: Pleural effusions. Comparison: April 02, 2025. Findings: Calcified atherosclerotic changes of the thoracic aorta. Cardiac silhouette remains enlarged. There is much improved visualization of the right hemidiaphragm. Diminished pulmonary vascular clarity again noted. Prominent bilateral perihilar interstitial markings. Likely mitral valve annular calcifications. Likely left lung calcified granuloma. Poorly defined bilateral costophrenic angles. Impression: Improved aeration right pulmonary base with persistent nonspecific mild diffuse increased interstitial markings worrisome for vascular congestion. Pneumonia not excluded. Suspect small effusions. Please see above for details. Electronically signed by Brandon Mendez 04-04-2025 6:18 PM
[2025-04-04] MEDS: SODIUM CHLORIDE 0.65% NA SOLN 45 ML (OCEAN) PRN (18:41)
[2025-04-04] MEDS ORDERED: Nursing to Pharmacy Communication SCH (18:45)
[2025-04-05 07:18] LABS: Hematocrit (blood only) 36.3 % (37.0-47.0); Hemoglobin 11.0 g/dl (12.0-16.0); Mean Corpuscular Hemoglobin 28.8 pg (25.0-34.0); Mean Corpuscular Volume 95.0 fL (80.0-100.0); Platelet Count 186 K/uL (130-400); RDW Standard Deviation 55.8 fL (36.4-46.3); Red Blood Count 3.82 M/uL (4.20-5.40); White Blood Count 6.19 K/ul (4.8-10.8)
[2025-04-05 07:42] LABS: Anion Gap 5.0 (3-11); Blood Urea Nitrogen 48.0 mg/dl (6-23); Calcium 9.3 mg/dl (8.6-10.3); Carbon Dioxide 41.0 mmol/L (21-32); Chloride 95.0 mmol/L (98-107); Creatinine Clr Calc Pharmacy 36.8 ml/min; Glucose 126.0 mg/dl (70-99(Fasting)); Magnesium 1.8 mg/dl (1.7-2.4); Potassium 3.4 mmol/L (3.5-5.1); Sodium 141.0 mmol/L (136-145)
[2025-04-05] MEDS: POTASSIUM CHLORIDE CRTAB 20 MEQ TABCR PO STA (08:49)
--- NOTE | 2025-04-05 08:53 | Hospitalist Progress Note ---
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: (5) DM type 2 (diabetes mellitus, type 2): (6) Atrial fibrillation: (7) Hypothyroidism: (8) GERD (gastroesophageal reflux disease): (9) Morbid obesity due to excess calories: (10) Hoarse voice quality: (11) Vocal cord paresis: Plan 85-year-old female with PMHx of chronic diastolic CHF, pulmonary hypertension, moderate aortic regurg, moderate mitral valve stenosis, mild tricuspid regurg, chronic A-fib on Eliquis,orthostatic hypotension, CKD stage IIIb, DM type II, hypothyroidism, history of ischemic bowel disease, degenerative disc disease, h oarse voice secondary to vocal cord paralysis, and morbid obesity with a BMI of 38.5 who presents to the hospital with acute worsening shortness of breath and increased weight gain Acute on chronic diastolic CHF exacerbation Valvular heart disease CXR:Cardiomegaly with pulmonary edema and suspected small bilateral pleural effusions. BNP 357 Echo from February 09, 2025 TTE:The left ventricular cavity size is normal. The LV wall thickness is moderately increased (concentric). The left ventricular wall motion is normal. The qualitative LV ejection fraction is 55-59% (normal). The left atrium is severely enlarged (>48 ml/m^2,). The aortic valve is moderately calcified. Moderate aortic valve stenosis is present. Moderate aortic valve regurgitation is present. There is severe mitral annular calcification. The mitral valve leaflets thickness is severely increased. Severe mitral stenosis is present. Severe mitral regurgitation is present. Severe tricuspid regurgitation is present. Moderate pulmonary hypertension is present. The estimated pulmonary artery systolic pressure is 45-50mm Hg. 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 Furosemide 80mg BID resumed Cardiology will reassess tomorrow regarding therapies for her Valvular heart disease Replete hypokalemia and monitor Monitor daily weight, I/O CARROL on CKD stage IIIb Nephro managing diuretics/volume status Cr is 1.39 today Continue to monitor renal function Urinary tract infection--POA Urine culture growing Enterococcus faecalis Completed daptomycin Hematuria May be related to UTI in patient on eliquis However, CT abd today noted left nephrolithiasis, mild left hydroureter without hydronephrosis, asymmetric left sided bladder wall thickening which may be cystitis but cannot rule out urothelial lesion and correlation with cystoscopy recommended Urology eval noted Hematuria resolved Atrial Fibrillation Continue metoprolol, now metoprolol succinate 25mg daily On 04/02/25, I discussed with patient that warfarin is the ideal anticoagulant for Valvular AFib. Patient reported she had tried warfarin in the past but difficult to achieve goal INR despite increased dose and she does not want regular INR checks. She prefers to stay on her current eliquis Continue eliquis DM II Last a1c 7.4 on 12/29/24 Continue to hold p.o. medications Continue insulin per protocol Monitor blood glucose levels Hypothyroidism Continue levothyroxine 175 mcg daily Morbid obesity BMI 40 DVT Px: Eliquis CODE STATUS: DNI DNR I spent a total of 50 minutes coordinating, documenting and providing care for this patient excluding time spent in performance of separately billed services Admission and Anticipated Discharge Date Admission Date: March 29, 2025 Subjective Patient seen and examined No new complaints today Still on nasal cannula at 2L Physical Exam Constitutional: + obese; no acute distress Eyes: PERRL, conjunctivae normal, anicteric sclerae ENMT: external ear and nose normal, oropharynx normal Respiratory: On nasal cannula, not in resp distress, diminished breath sounds Cardiovascular: Rate/Rhythm: + irregularly irregular Gastrointestinal (Abdomen): normal bowel sounds, soft, nontender, no hepatosplenomegaly Musculoskeletal: +pedal edema Neurologic: PERRL, EOMI, accommodation nl, no face palsy, no dysarthria Psychiatric: A+Ox3, euthymic affect Results & Data Results & Data Vital Signs (Past 12 Hours) Vital Signs Temp Pulse Pulse Resp BP Pulse Ox O2 Del Method 04/05/25 08:26 36.6 C 95 H 20 127/73 94 Nasal Cannula 04/05/25 07:12 101 H 04/05/25 04:00 36.5 C 105 H 18 129/79 92 Room Air 04/05/25 00:00 36.5 C 86 20 123/74 94 Nasal Cannula 04/04/25 21:40 70 O2 Flow Rate 04/05/25 08:26 04/05/25 07:12 04/05/25 04:00 04/05/25 00:00 2 04/04/25 21:40 Laboratory Results Abnormal lab results 04/04/25 04/04/25 04/04/25 Range/Units 11:58 17:02 20:43 RBC (4.20-5.40) M/uL Hgb (12.0-16.0) g/dl Hct (37.0-47.0) % MCHC (32.0-36.0) g/dL RDW Std Deviation (36.4-46.3) fL RDW Coeff of Issa (11.5-14.5) % Potassium (3.5-5.1) mmol/L Chloride (98-107) mmol/L Carbon Dioxide (21-32) mmol/L BUN (6-23) mg/dl Creatinine (0.6-1.2) mg/dl BUN/Creatinine Ratio (10-20) Glucose (70-99(Fasting)) mg/dl POC Glucose 148 H 124 H 117 H (70-99) mg/dl 04/05/25 04/05/25 Range/Units 06:32 08:03 RBC 3.82 L (4.20-5.40) M/uL Hgb 11.0 L (12.0-16.0) g/dl Hct 36.3 L (37.0-47.0) % MCHC 30.3 L (32.0-36.0) g/dL RDW Std Deviation 55.8 H (36.4-46.3) fL RDW Coeff of Issa 16.1 H (11.5-14.5) % Potassium 3.4 L (3.5-5.1) mmol/L Chloride 95 L (98-107) mmol/L Carbon Dioxide 41 H* (21-32) mmol/L BUN 48 H (6-23) mg/dl Creatinine 1.39 H (0.6-1.2) mg/dl BUN/Creatinine Ratio 34.5 H (10-20) Glucose 126 H (70-99(Fasting)) mg/dl POC Glucose 135 H (70-99) mg/dl (6) Atrial fibrillation Atrial fibrillation type: longstanding persistent Qualified Code(s): I48.11 - Longstanding persistent atrial fibrillation
--- NOTE | 2025-04-05 09:27 | Cardiology Progress Note ---
Date of Service April 05, 2025 Assessment & Plan (1) Acute diastolic congestive heart failure due to valvular disease: (2) Acute kidney injury: (3) Rheumatic valvular disease: (4) Aortic stenosis: (5) Mitral stenosis: Plan 85 Y W admitted with acute decompensated diastolic congestive heart failure secondary to rheumatic valvular heart disease. Resting echocardiography in February 2025 revealed severe mitral valve stenosis, severe mitral regurgitation, moderate aortic stenosis, moderate aortic regurgitation, severe tricuspid regurgitation. LVEF 55 to 59%. Moderate pulmonary hypertension observed with estimated pulmonary artery systolic pressure 45 to 50 mmHg. Patient with permanent atrial fibrillation chronically prescribed anticoagulation (reduced dose apixaban). Telemetry with permanent atrial fibrillation with a controlled ventricular response. Laboratory work notable for acute kidney injury following addition of LANG inhibitor (ramipril), marked hypotension with readings as low as 76/45 likely contributing factor. CARROL on CKD - improved Pleural effusion - improved HTN Acute HFpEF - improved Severe Mitral Stenosis Severe Mitral regurgitation Severe Tricuspid regurgitation Moderate PHTN Moderate AI Moderate Atrial Fib with CVR Hematuria Renal stones L hydroureter correct and f/u electrolytes f/u renal function DC IV diuretics (IV Lasix drip) Avoid nephrotoxic agents F/U with renal would avoid using Spironolactone with significant renal insufficiency Patient is at risk for recurrent CHF and some level of azotemia may have to be accepted to avoid volume overload in the absence of definitive surgical treatment for severe valvular heart disease. Patient is thinking about going for valve surgery -> if so, then would need to be transferred for CTS evaluation once medically optimized anticoagulation restarted -> cleared from urology standpoint - preference would be Coumadin unless patient refuses or is noncompliant with INR checks, diet - would then continue Eliquis GDMT for HFpEF as tolerated avoid hypovolemia keep patient euvolemic keep LE elevated when sitting daily weights strict I&Os salt restriction PT/OT Admission and Anticipated Discharge Date Admission Date: March 29, 2025 Subjective Patient on exam is sitting in recliner in NAD; no c/o breathing is better, no gross hematuria; as per urology patient was cleared to restart Eliquis; CXR reviewed - significantly improved R pleural effusion; remains in negative fluid balance Review of Systems Review of Systems: Complete Review of Systems is as stated above, negative, or noncontributory. Physical Exam Physical Exam: Examined in a chair General: Conversational dyspnea. Pleasant. Cooperative. Eyes: PER. Conjunctiva pink, sclera clear. HENT: Normocephalic. Atraumatic. Heart: Irregularly irregular at 90 bpm. + Systolic murmur. + Diastolic murmur. Lungs: mild bibasilar rales. No wheezing Abdomen: +BS. Soft. Nontender. No masses. No organomegaly. Extremities: 2+ B/L LE edema. Stasis changes. Left lower extremity erythema. No cyanosis. Limited neurological examination: No focal deficit. Results & Data Vital Signs (Past 12 Hours) Vital Signs Temp Pulse Pulse Resp BP Pulse Ox O2 Del Method 04/05/25 08:26 36.6 C 95 H 20 127/73 94 Nasal Cannula 04/05/25 07:12 101 H 04/05/25 04:00 36.5 C 105 H 18 129/79 92 Room Air 04/05/25 00:00 36.5 C 86 20 123/74 94 Nasal Cannula 04/04/25 21:40 70 O2 Flow Rate 04/05/25 08:26 04/05/25 07:12 04/05/25 04:00 04/05/25 00:00 2 04/04/25 21:40 Laboratory Results CBC 04/05/25 Range/Units 06:32 WBC 6.19 (4.8-10.8) K/ul RBC 3.82 L (4.20-5.40) M/uL Hgb 11.0 L (12.0-16.0) g/dl Hct 36.3 L (37.0-47.0) % Plt Count 186 (130-400) K/uL Comprehensive Metabolic Panel 04/05/25 Range/Units 06:32 Sodium 141 (136-145) mmol/L Potassium 3.4 L (3.5-5.1) mmol/L Chloride 95 L (98-107) mmol/L Carbon Dioxide 41 H* (21-32) mmol/L BUN 48 H (6-23) mg/dl Creatinine 1.39 H (0.6-1.2) mg/dl Glucose 126 H (70-99(Fasting)) mg/dl Calcium 9.3 (8.6-10.3) mg/dl Intake and Output 04/04/25 04/05/25 04/05/25 22:59 06:59 14:59 Intake Total 75.5 / 830.0 100 / 830.0 76.5 / 76.5 Output Total 1299 / 2149 850 / 0 Balance -1224.5 / -1320.0 -750 / -1320.0 76.5 / 76.5 Intake: IV 75.5 / 590.0 100 / 590.0 76.5 / 76.5 Furosemide 100 mg In Sodium 75.5 / 300.0 100 / 300.0 76.5 / 76.5 Chloride 0.9% 90 ml @ 15 MG/HR 15 mls/hr IV .[id number] [facility] Rx#: [id number] Output: Urine Amount (Catheter) 1299 / 0 Dey/Indwelling 1299 Other: Weight 111.5 kg Weight Measurement Method Built in [facility] Diagnostic Findings Laboratory Results WBC 6.19 K/ul (4.8-10.8) 04/05/25 06:32 RBC 3.82 M/uL (4.20-5.40) L 04/05/25 06:32 Hgb 11.0 g/dl (12.0-16.0) L 04/05/25 06:32 Hct 36.3 % (37.0-47.0) L 04/05/25 06:32 MCV 95.0 fL (80.0-100.0) 04/05/25 06:32 MCH 28.8 pg (25.0-34.0) 04/05/25 06:32 MCHC 30.3 g/dL (32.0-36.0) L 04/05/25 06:32 RDW Std Deviation 55.8 fL (36.4-46.3) H 04/05/25 06:32 RDW Coeff of Issa 16.1 % (11.5-14.5) H 04/05/25 06:32 Plt Count 186 K/uL (130-400) 04/05/25 06:32 MPV 10.2 fL (9.4-12.4) 04/05/25 06:32 Immature Gran % (Auto) 0.4 % 03/31/25 06:21 Neut % (Auto) 70.5 % 03/31/25 06:21 Lymph % (Auto) 15.6 % 03/31/25 06:21 [place]onder[place] % (Auto) 7.7 % 03/31/25 06:21 Eos % (Auto) 4.9 % 03/31/25 06:21 Baso % (Auto) 0.9 % 03/31/25 06:21 Neut # (Auto) 4.79 K/uL (1.40-6.50) 03/31/25 06:21 Lymph # (Auto) 1.06 K/uL (1.20-3.40) L 03/31/25 06:21 [place] # (Auto) 0.52 K/uL (0.11-0.59) 03/31/25 06:21 Eos # (Auto) 0.33 K/uL (0.00-0.50) 03/31/25 06:21 Baso # (Auto) 0.06 K/uL (0.00-0.20) 03/31/25 06:21 Immature Gran # (Auto) 0.03 K/uL (0.01-0.20) 03/31/25 06:21 PT 10.8 Seconds (9.0-12.0) 03/29/25 14:49 INR 1.0 (0.9-1.1) 03/29/25 14:49 APTT 29 Seconds (21-31) 03/31/25 06:21 PTT Ratio 1.1 03/31/25 06:21 Sodium 141 mmol/L (136-145) 04/05/25 06:32 Potassium 3.4 mmol/L (3.5-5.1) L 04/05/25 06:32 Chloride 95 mmol/L (98-107) L 04/05/25 06:32 Carbon Dioxide 41 mmol/L (21-32) H* 04/05/25 06:32 Anion Gap 5 (3-11) 04/05/25 06:32 BUN 48 mg/dl (6-23) H 04/05/25 06:32 Creatinine 1.39 mg/dl (0.6-1.2) H 04/05/25 06:32 Est Cr Clr Drug Dosing 36.8 ml/min 04/05/25 06:32 eGFR 36.96 04/05/25 06:32 BUN/Creatinine Ratio 34.5 (10-20) H 04/05/25 06:32 Glucose 126 mg/dl (70-99(Fasting)) H 04/05/25 06:32 POC Glucose 135 mg/dl (70-99) H 04/05/25 08:03 Estimat Average Glucose 166 mg/dl 03/30/25 05:34 Hemoglobin A1c 7.4 % (4.5-5.6) H 03/30/25 05:34 Calcium 9.3 mg/dl (8.6-10.3) 04/05/25 06:32 Phosphorus 3.2 mg/dl (2.5-4.9) 04/05/25 06:32 Magnesium 1.8 mg/dl (1.7-2.4) 04/05/25 06:32 Total Bilirubin 0.4 mg/dl (0.2-1.0) 03/29/25 14:49 AST 11 U/L (13-39) L 03/29/25 14:49 ALT 8 U/L (7-52) 03/29/25 14:49 Alkaline Phosphatase 52 U/L (34-104) 03/29/25 14:49 Troponin I High Sens 13.7 pg/ml (0-14) 03/29/25 14:49 B-Natriuretic Peptide 357 pg/ml (0-100) H 03/29/25 14:49 Total Protein 6.8 gm/dl (6.0-8.3) 03/29/25 14:49 Albumin 3.5 gm/dl (3.4-5.0) 03/29/25 14:49 Globulin 3.3 gm/dl (2.5-4.0) 03/29/25 14:49 Albumin/Globulin Ratio 1.1 (0.9-2) 03/29/25 14:49 Urine Color Yellow 03/29/25 17:05 Urine Appearance Clear (Clear) 03/29/25 17:05 Urine pH 6.0 (4.5-7.5) 03/29/25 17:05 Ur Specific Moffit 1.010 (1.000-1.030) 03/29/25 17:05 Urine Protein Trace (Negative) H 03/29/25 17:05 Urine Glucose (UA) Negative (Negative) 03/29/25 17:05 Urine Ketones Negative (Negative) 03/29/25 17:05 Urine Blood 2+ (Negative) H 03/29/25 17:05 Urine Nitrite Negative (Negative) 03/29/25 17:05 Urine Bilirubin Negative (Negative) 03/29/25 17:05 Urine Urobilinogen Negative (Negative) 03/29/25 17:05 Ur Leukocyte Esterase 3+ (Negative) H 03/29/25 17:05 Urine WBC (Auto) >50 /hpf (0-5) H 03/29/25 17:05 Urine RBC (Auto) 11-20 /hpf (0-2) H 03/29/25 17:05 U Hyaline Cast (Auto) 0-2 /lpf (0-2) 03/29/25 17:05 U Epithel Cells (Auto) 0-2 /hpf (0-2) 03/29/25 17:05 Urine Bacteria (Auto) None Seen (None Seen) 03/29/25 17:05 Urine Comment 03/29/25 17:05 Blood Type A Positive 03/31/25 06:21 Antibody Screen NEGATIVE 03/31/25 06:21 Impressions Abdomen/Pelvis CT 04/01/25 09:36 CT OF THE ABDOMEN AND PELVIS WITHOUT CONTRAST CLINICAL HISTORY: Persistent hematuria. Assess urinary system. COMPARISON STUDY: No previous studies for comparison. TECHNIQUE: Axial images of the abdomen and pelvis were obtained without IV contrast. Images were reviewed in the axial, sagittal, and coronal planes. Automated exposure control was utilized for the study. A dose lowering technique was utilized adhering to the principles of ALARA. FINDINGS: Mild groundglass opacities with mosaic attenuation within the lungs are noted. Moderate cardiomegaly and extensive mitral annular calcification are noted. There is mild dilatation of the central pulmonary arteries. Prominent subcarinal lymph nodes are likely benign. There is a trace right pleural effusion. No pneumatosis, free air or portal venous gas is present. Multiple left renal calculi measure up to 9 mm. There is no hydronephrosis. There is mild asymmetric dilatation of the left ureter. Bladder wall thickening is noted. This is eccentric to the left. There may be minimal calcification within the left posterolateral bladder wall. There is mild stranding adjacent to the bladder. No ureteral calculi are present. Evaluation the remainder of the abdomen and pelvis is suboptimal on this unenhanced exam. Liver, spleen, adrenal glands and pancreas are unremarkable. Peripheral calcification within the gallbladder wall is noted. This suggests a porcelain gallbladder. The gallbladder is not distende d. There is extensive colonic diverticulosis without evidence for acute diverticulitis. There is no evidence for a bowel obstruction. The appendix is normal. IMPRESSION: 1. Left nephrolithiasis. No ureteral calculi. 2. Mild left hydroureter without hydronephrosis. Asymmetric left-sided bladder wall thickening with adjacent stranding. This may represent cystitis. However, an underlying urothelial lesion cannot be excluded by CT and correlation with cystoscopy is recommended. 3. Extensive colonic diverticulosis. No evidence for acute diverticulitis. 4. Cardiomegaly. Trace right pleural effusion. 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 ACT 112: Negative or not required by law. Electronically signed by: Vivek Diaz M.D. 04/01/2025 12:20 PM Chest X-Ray 04/04/25 16:17 Chest radiograph, one view History: Pleural effusions. Comparison: April 02, 2025. Findings: Calcified atherosclerotic changes of the thoracic aorta. Cardiac silhouette remains enlarged. There is much improved visualization of the right hemidiaphragm. Diminished pulmonary vascular clarity again noted. Prominent bilateral perihilar interstitial markings. Likely mitral valve annular calcifications. Likely left lung calcified granuloma. Poorly defined bilateral costophrenic angles. Impression: Improved aeration right pulmonary base with persistent nonspecific mild diffuse increased interstitial markings worrisome for vascular congestion. Pneumonia not excluded. Suspect small effusions. Please see above for details. Electronically signed by Brandon Mendez 04-04-2025 6:18 PM Medications Administered Home Medications Medication Instructions Recorded Confirmed Last Taken acetaminophen 325 mg capsule 650 mg PO QID PRN Pain (Scale 03/11/25 03/29/25 Unknown Score 4-6) allopurinol 100 mg tablet 200 mg PO DAILY 03/11/25 03/29/25 03/29/25 (Zyloprim) apixaban 2.5 mg tablet (Eliquis) 2.5 mg PO BID 03/11/25 03/29/25 03/29/25 calcium 600 mg (as 1 tab PO DAILY 03/11/25 03/29/25 03/29/25 carbonate)-vitamin D3 10 mcg (400 unit) tablet coenzyme Q10 400 mg capsule 400 mg PO DAILY 03/11/25 03/29/25 03/29/25 cyanocobalamin (vitamin B-12) 1,000 mcg PO DAILY 08/02/2603/29/25 03/29/25 1,000 mcg capsule furosemide 80 mg tablet (Lasix) 80 mg PO BID 03/11/25 03/29/25 03/29/25 glucosam 750 mg-chondroi 100 3 tab PO DAILY 03/11/25 03/29/25 03/29/25 mg-hyalur 1.65 mg-CF borate 108 mg tablet ([facility] Alticast) levothyroxine 175 mcg tablet 175 mcg PO DAILY 03/11/25 03/29/25 03/29/25 (Synthroid) linagliptin 5 mg tablet (Tradjenta) 5 mg PO DAILY 03/11/25 03/29/25 03/29/25 loperamide 2 mg capsule 2 mg PO BID PRN Diarrhea 03/11/25 03/29/25 Unknown (Anti-Diarrheal (loperamide)) magnesium 200 mg tablet 200 mg PO WK 03/11/25 03/29/25 Unknown metoprolol tartrate 25 mg tablet 25 mg PO BID 03/11/25 03/29/25 03/29/25 potassium chloride 20 mEq 40 meq PO DAILY 03/11/25 03/29/25 03/29/25 tablet,extended release(part/cryst) metolazone 2.5 mg tablet 2.5 mg PO WK 03/29/25 03/29/25 03/22/25 ramipril 5 mg capsule 5 mg PO QAM 03/29/25 03/29/25 03/29/25 Active Medications Generic Name Dose Route Start Last Admin Trade Name Binq PRN Reason Stop Dose Admin Acetaminophen 650 mg 03/29/25 21:09 04/02/25 02:14 Acetaminophen 325 Mg Tab PO 04/28/25 21:08 650 mg Q4H PRN Administration Moderate Pain (Scale 4, 5, 6) Allopurinol 200 mg 03/30/25 09:00 04/05/25 08:18 Allopurinol 100 Mg Tab PO 04/29/25 08:59 200 mg DAILY KENJI Administration Apixaban 2.5 mg 03/29/25 21:09 04/05/25 08:18 Apixaban 2.5 Mg Tab PO 04/28/25 21:08 2.5 mg BID KENJI Administration Calamine/Phenol 1 appln 03/30/25 21:00 04/05/25 08:19 Menthol-Zinc Oxide 360 Appln/120 Gm Tube EXT 04/29/25 20:59 1 appln BID KENJI Administration Calcium/Vitamin D 1 tab 03/30/25 09:00 04/05/25 08:18 Calcium 600mg + Vit D 400 Iu Tab PO 04/29/25 08:59 1 tab DAILY KENJI Administration Cyanocobalamin 1,000 mcg 03/30/25 09:00 04/05/25 08:18 Cyanocobalamin (B-12) 500 Mcg Tablet PO 04/29/25 08:59 1,000 mcg DAILY KENJI Administration Insulin Aspart 0 units 03/29/25 21:09 04/05/25 08:47 Insulin Aspart Per Unit Charge SC 04/28/25 21:08 2 units ACHS KENJI Administration Levothyroxine Sodium 175 mcg 03/30/25 06:30 04/05/25 06:31 Levothyroxine Sodium 175 Mcg Tablet PO 04/29/25 06:29 175 mcg DAILYBB KENJI Administration Metoprolol Succinate 25 mg 04/01/25 09:00 04/05/25 08:18 Metoprolol Succ 25mg Ext Rel Tab PO 05/01/25 08:59 25 mg QAM KENJI Administration Midodrine 5 mg 04/01/25 12:00 04/05/25 08:19 Midodrine Hcl 2.5 Mg Tab PO 05/01/25 11:59 5 mg TID@0800,1200,1700 KENJI Administration Sennosides 17.2 mg 04/04/25 12:00 04/05/25 08:19 Senna 8.6 Mg Tab PO 05/04/25 11:59 17.2 mg QAM KENJI Administration Sodium Chloride 1 sprays 04/04/25 11:49 04/04/25 18:41 Sodium Chloride 0.65% Na Soln 45 Ml ([place]) NA 04/07/25 11:48 1 sprays NOW PRN Administration dry nose PG Care Time/CCT Total # of Minutes Spent Total Time Spent with Patient: Total time spent is greater than 50% in coordination of care (as documented) at patient's floor/unit and/or counseling patient: Coding Level of Care Code 48553 SUB INP/OBS CARE 3/50MIN Diagnoses Acute diastolic congestive heart failure due to valvular disease I50.31; I38 Acute kidney injury N17.9 Rheumatic valvular disease I09.1 Aortic stenosis I35.0 Mitral stenosis I05.0
--- NOTE | 2025-04-05 13:27 | Nephrology Progress Note ---
Date of Service April 05, 2025 Assessment & Plan (1) Acute kidney injury: Plan: slightly improved stage 1 nonoliguric CARROL on CKD 3 in the setting of valvular rheumatic heart failure in pt challenging to diurese. baseline creatinine 1.4- 1.5. CARROL likely ischemic in setting of valvular HF (very volume sensitive despite TB overload) - serum creatinine at baseline now, > Informed by Dr Fair that Cardiology wantd to stop GTT lasix-- Agree with this >> start on lasix 80 mg BID, Oral.Continue on midodrine 5 mg po tid.Hold Metolazone fro now > Continue FR 1.5L >> she will need reeducation/reinforcement on this -continue to monitor BP >> check BP L arm only since consistently higher in L; so ordered >>if drip has to be held d/t hypotension, could increase midodrine dose or call cardiology for recommendations (2) Acute diastolic CHF (congestive heart failure): Plan: chronicity of this HF unclear (may be more chronic) but she is certainly volume overloaded, primarily in lungs, and complicated by valvular heart disease and medication intolerances which make for challenges w/ diuresis had 80 mg IV lasix x 2 on day of admission and another dose 8/ AM, else none; I&O incomplete; started Lasix drip April 01-- transitioneD to dose lasix today-- 80 mg BID -f/u cardiology recs >daily STANDING weights recommended when feasible/ BP better <2 gm Na diet for now no FR (3) CKD (chronic kidney disease) stage 3, GFR 30-59 ml/min: Plan: baseline creatinine 1.4-1.5 past several months; at baseline currently but w/ complex vol OL/ needs diuresis but tolerates little -rampiril held since day after admission >lasix diuresis as above Admission and Anticipated Discharge Date Admission Date: March 29, 2025 Subjective Patient seen and examined No new complaints today Still on nasal cannula at 2L,no gross hematuria; as per urology patient was cleared to restart Eliquis; CXR R pleural effusion improved Physical Exam 2 Physical Exam: +2 pedal edema,Stasis changes Heart: Irregularly irregular at 90 bpm. + Systolic murmur. + Diastolic murmur. Results & Data Vital Signs (Past 12 Hours) Vital Signs Temp Pulse Pulse Resp BP Pulse Ox O2 Del Method 04/05/25 12:26 36.3 C L 91 H 20 138/70 91 Nasal Cannula 04/05/25 11:22 Nasal Cannula 04/05/25 08:26 36.6 C 95 H 20 127/73 94 Nasal Cannula 04/05/25 07:12 101 H 04/05/25 04:00 36.5 C 105 H 18 129/79 92 Room Air O2 Flow Rate 04/05/25 12:26 04/05/25 11:22 2 04/05/25 08:26 04/05/25 07:12 04/05/25 04:00 Laboratory Results 04/05/25 06:32 04/05/25 06:32
[2025-04-05] MEDS: FUROSEMIDE 80 MG TAB PO SCH (18:25)
[2025-04-06 06:58] LABS: Hematocrit (blood only) 35.6 % (37.0-47.0); Hemoglobin 10.9 g/dl (12.0-16.0); Mean Corpuscular Hemoglobin 29.2 pg (25.0-34.0); Mean Corpuscular Volume 95.4 fL (80.0-100.0); Platelet Count 173 K/uL (130-400); RDW Standard Deviation 56.6 fL (36.4-46.3); Red Blood Count 3.73 M/uL (4.20-5.40); White Blood Count 6.28 K/ul (4.8-10.8)
[2025-04-06 07:15] LABS: Anion Gap 6.0 (3-11); Blood Urea Nitrogen 43.0 mg/dl (6-23); Calcium 9.4 mg/dl (8.6-10.3); Carbon Dioxide 39.0 mmol/L (21-32); Chloride 96.0 mmol/L (98-107); Creatinine Clr Calc Pharmacy 38.5 ml/min; Glucose 119.0 mg/dl (70-99(Fasting)); Magnesium 1.8 mg/dl (1.7-2.4); Potassium 3.6 mmol/L (3.5-5.1); Sodium 141.0 mmol/L (136-145)
--- NOTE | 2025-04-06 11:39 | Nephrology Progress Note ---
Date of Service April 06, 2025 Assessment & Plan (1) Acute kidney injury: Plan: resolved stage 1 nonoliguric CARROL on CKD 3 in the setting of valvular rheumatic heart failure in pt challenging to diurese. baseline creatinine 1.4-1.5. 1.2 creat today; also hgb 10.9, acceptable CARROL likely ischemic in setting of valvular HF (very volume sensitive despite TB overload) - serum creatinine at baseline now, > cont on lasix 80 mg po BID17, Oral. Continue on midodrine 5 mg po tid. > Continue FR 1.5L >> she will need reeducation/reinforcement on this and will be on this at d/c -continue to monitor BP >> check BP L arm only since consistently higher in L; so ordered (2) Acute diastolic CHF (congestive heart failure): Plan: valvular heart disease and c/b medication intolerances which make for challenges w/ diuresis 04/02 st wt 111.5; 04/05 108.3 kg; 04/06 st wt 93.9 >> down 17.6 kg (suspect 04/06 is not correct) >> she's down 3.2 kg through 04/05 had 80 mg IV lasix x 2 on day of admission and another dose 03/31 AM, else none; I&O incomplete; started Lasix drip April 01--through 04/05; transitioned to dose lasix today-- 80 mg BID po >>given that yesterday's wt was not accurate, will d/w primary service if we should coninue IV lasix rather than po >> may need to consider this and will d/w primary service -f/u cardiology recs >daily STANDING weights recommended when feasible/ BP better <2 gm Na diet for now >cont FR >will start 20 mEq po K bid in addition to 40 mEq already given today >>ordered dietary to teach on higher K foods at home to minimize need for K supplements if able tearful today and reiterates does not want to be in facility and wonders if she even wants to go home on 02nc; navigating in room with walker and asst Care coordinated w/ Dr Juhi smyth TText regarding lasix IV versus po, standing wts, goals of care concerns; we are in agreement. (3) CKD (chronic kidney disease) stage 3, GFR 30-59 ml/min: Plan: baseline creatinine 1.4-1.5 past several months; at baseline currently but w/ complex vol OL/ needs diuresis but tolerates little -rampiril held since day after admission >lasix diuresis as above (4) Hydroureter on left: Plan: for OP f/u w/ urology in setting of asymmetric L sided bladder wall thickening Admission and Anticipated Discharge Date Admission Date: March 29, 2025 Subjective Lasix drip stopped yesterday due to alkalemia; back on 80 mg po bid. many questions about need for FR and how to treat dry mouth Review of Systems 2 Review of Systems: All systems reviewed & are unremarkable except as noted in Subjective Physical Exam 2 Constitutional: well developed, well nourished, + morbidly obese, + frail appearing and cooperative; no acute distress Eyes: EOM intact bilaterally ENMT: Mouth: + muffled voice (hoarse) and + dry oral mucous membranes Respiratory: normal respiratory effort and + tachypneic; no respiratory distress, no cough and + not able to speak in complete sentence Auscultation: + diminished lung sounds and + crackles (BL bases) Cardiovascular: Rate/Rhythm: regular rate, regular rhythm and + irregularly irregular Heart Sounds: + murmur Extremities: + edema (trace+) Gastrointestinal (Abdomen): Inspection/Auscultation: normal bowel sounds P ercussion/Palpation: abdomen soft; abdomen nontender Musculoskeletal: Extremities: strength 5/5 throughout Skin: no rashes, warm and dry (wound L posterior leg) Results & Data Vital Signs (Past 12 Hours) Vital Signs Temp Pulse Pulse Resp BP BP Pulse Ox 04/06/25 11:32 36.5 C 82 18 136/77 95 04/06/25 11:17 04/06/25 07:41 36.5 C 88 18 116/68 94 04/06/25 07:18 109 H 04/06/25 04:16 36.6 C 66 18 113/49 L 98 O2 Del Method O2 Flow Rate 04/06/25 11:32 Nasal Cannula 2 04/06/25 11:17 Room Air 04/06/25 07:41 Nasal Cannula 2 04/06/25 07:18 04/06/25 04:16 Nasal Cannula 2 Laboratory Results 04/06/25 05:26 04/06/25 05:26
--- NOTE | 2025-04-06 12:55 | Cardiology Progress Note ---
Date of Service April 06, 2025 Assessment & Plan (1) Acute diastolic congestive heart failure due to valvular disease: (2) Acute kidney injury: (3) Rheumatic valvular disease: (4) Aortic stenosis: (5) Mitral stenosis: Plan 85 Y W admitted with acute decompensated diastolic congestive heart failure secondary to rheumatic valvular heart disease, complicated by CARROL and hypotension. Chronic afib with chronic anticoagulation as well. CARROL on CKD - improved Pleural effusion - improved HTN Acute HFpEF - improved Severe Mitral Stenosis Severe Mitral regurgitation Severe Tricuspid regurgitation Moderate PHTN Moderate AI Moderate Atrial Fib with CVR Hematuria Renal stones L hydroureter PLAN: Hypotension improved - continue midodrine 5 mg TID. Metoprolol 25 mg daily was resumed earlier this admission. Chronic afib with variable rates ranging 80-140's. Increase metoprolol to 25 mg BID. Continue Eliquis 2.5 mg BID (low dose due to age and CKD) Oral furosemide resumed at 80 mg BID Continue potassium supplement Spironolactone discontinued due to CARROL LANG discontinued as well. Appreciate nephrology recommendations She has severe valvular heart disease. Per outpatient notes, this was discussed with patient and she wished for conservative non surgical med management. Can re-evaluate with patient as hospitalization progresses. She also has f/u in 1 month with cardiology. Case discussed with Dr. Hernandez I spent a total of 45 minutes on the date of service in preparation, delivery, and documentation of the care provided to this patient, excluding any time spent in the performance of separately billed services. Cherelle Swanson PA-C Department of Cardiology, [facility] This chart was completed in part utilizing Speech Voice Recognition Software. Grammatical errors, random word insertions, pronoun errors, and incomplete sentences are an occasional consequence of this system due to software limitations, ambient noise, and hardware issues. Any formal questions or concerns about the content, text, or information contained within the body of this dictation should be directly addressed to the provider for clarification. Admission and Anticipated Discharge Date Admission Date: March 29, 2025 Supervising Physician Co-Signing Physician Notes I have personally performed a history and physical examination on the patient. I have reviewed the advance practitioner's documentation, and I agree with, and take responsibility for the plan of care. 85-year-old female admitted with acute on chronic heart failure with preserved ejection fraction secondary to severe mixed valvular heart disease including moderate aortic valve stenosis, moderate aortic regurgitation, severe mitral stenosis, severe mitral regurgitation, and severe tricuspid regurgitation with moderate pulmonary hypertension. Patient declined valve clinic evaluation during most recent cardiology office appointment. Now, however, she is willing to consider a valvular evaluation. Recommend optimization of volume status. Continue IV diuresis. Maintain negative fluid balance. Risk fluid intake to less than 2 L, sodium in 2 g. Monitor GFR and electrolytes daily. Midodrine for blood pressure support. Toprol-XL as ordered. Outpatient valve clinic evaluation. Paolo Hernandez DO [facility] I spent a total of 40 minutes on the date of service in preparation, delivery, and documentation of the care provided to this patient, excluding any time spent in the performance of separately billed services. Subjective Patient resting in chair. Reports "headache" today. Conversational dyspnea noted. Patient reports this is chronic due to "paralyzed vocal cords". She denies worsening SOB currently. No chest pain. Ongoing edema noted. Review of Systems Review of Systems: All systems reviewed & are unremarkable except as noted in HPI & below Physical Exam Physical Exam: Examined in a chair General: Conversational dyspnea. Pleasant. Cooperative. Eyes: PER. Conjunctiva pink, sclera clear. HENT: Normocephalic. Atraumatic. Heart: Irregularly irregular at 90 bpm. + Systolic murmur. + Diastolic murmur. Lungs: mild bibasilar rales. No wheezing Abdomen: +BS. Soft. Nontender. No masses. No organomegaly. Extremities: 2+ B/L LE edema. Stasis changes. Left lower extremity erythema. No cyanosis. Limited neurological examination: No focal deficit. Results & Data Vital Signs (Past 12 Hours) Vital Signs Temp Pulse Pulse Resp BP BP Pulse Ox 04/06/25 11:32 36.5 C 82 18 136/77 95 04/06/25 11:17 04/06/25 07:41 36.5 C 88 18 116/68 94 04/06/25 07:18 109 H 04/06/25 04:16 36.6 C 66 18 113/49 L 98 O2 Del Method O2 Flow Rate 04/06/25 11:32 Nasal Cannula 2 04/06/25 11:17 Room Air 04/06/25 07:41 Nasal Cannula 2 04/06/25 07:18 04/06/25 04:16 Nasal Cannula 2 Laboratory Results CBC 04/06/25 Range/Units 05:26 WBC 6.28 (4.8-10.8) K/ul RBC 3.73 L (4.20-5.40) M/uL Hgb 10.9 L (12.0-16.0) g/dl Hct 35.6 L (37.0-47.0) % Plt Count 173 (130-400) K/uL Comprehensive Metabolic Panel 04/06/25 Range/Units 05:26 Sodium 141 (136-145) mmol/L Potassium 3.6 (3.5-5.1) mmol/L Chloride 96 L (98-107) mmol/L Carbon Dioxide 39 H (21-32) mmol/L BUN 43 H (6-23) mg/dl Creatinine 1.21 H (0.6-1.2) mg/dl Glucose 119 H (70-99(Fasting)) mg/dl Calcium 9.4 (8.6-10.3) mg/dl Intake and Output 04/05/25 04/06/25 04/06/25 22:59 06:59 14:59 Intake Total 820 / 896.5 Output Total 1077 / 1627 550 / 1627 Balance -257 / -730.5 -550 / -730.5 Intake: Oral 820 / 820 Output: Urine Amount (Catheter) 1075 / 1625 550 / 1625 Dey/Indwelling 1075 / 1625 550 / 1625 # Bowel Movements 2 / 2 Other: Weight 93.894 kg Weight Measurement Method Standing Scale Diagnostic Findings Telemetry reviewed: chronic afib with variable rates ranging 80-110's Medications Administered Current Inpatient Medications Acetaminophen (Acetaminophen 325 Mg Tab) 650 mg PO Q4H PRN PRN Reason: Moderate Pain (Scale 4, 5, 6) Stop: 04/28/25 21:08 Last Admin: 04/06/25 10:46 Dose: 650 mg Allopurinol (Allopurinol 100 Mg Tab) 200 mg PO DAILY [facility] Stop: 04/29/25 08:59 Last Admin: 04/06/25 08:33 Dose: 200 mg Apixaban (Apixaban 2.5 Mg Tab) 2.5 mg PO BID [facility] [place] Stop: 04/28/25 21:08 Last Admin: 04/06/25 08:33 Dose: 2.5 mg Calamine/Phenol (Menthol-Zinc Oxide 360 Appln/120 Gm Tube) 1 appln EXT BID KENJI Stop: 04/29/25 20:59 Last Admin: 04/06/25 08:34 Dose: 1 appln Calcium/Vitamin D (Calcium 600mg + Vit D 400 Iu Tab) 1 tab PO DAILY KENJI Stop: 04/29/25 08:59 Last Admin: 04/06/25 08:33 Dose: 1 tab Cyanocobalamin (Cyanocobalamin (B-12) 500 Mcg Tablet) 1,000 mcg PO DAILY KENJI Stop: 04/29/25 08:59 Last Admin: 04/06/25 08:33 Dose: 1,000 mcg Dextrose (Dextrose 50% 50 Ml Syringe) 25 - 50 ml IV UD PRN; Protocol PRN Reason: Hypoglycemia Protocol Stop: 04/28/25 21:08 Furosemide (Furosemide 80 Mg Tab) 80 mg PO BID17 KENJI Stop: 05/05/25 16:59 Last Admin: 04/06/25 08:33 Dose: 80 mg Glucagon (Glucagon For Inj 1 Mg Vial) 1 mg SQ UD PRN; Protocol PRN Reason: Hypoglycemia Protocol Stop: 04/28/25 21:08 Glucose (Glucose 40% Gel 15 Gm Tube) 15 - 30 gm PO UD PRN; Protocol PRN Reason: Hypoglycemia Protocol Stop: 04/28/25 21:08 Glucose (Glucose 10 Tab/Tube) 4 - 8 tab PO UD PRN; Protocol PRN Reason: Hypoglycemia Protocol Stop: 04/28/25 21:08 Insulin Aspart (Insulin Aspart Per Unit Charge) 0 units SC ACHS KENJI Stop: 04/28/25 21:08 Last Admin: 04/06/25 08:52 Dose: 2 units Levothyroxine Sodium (Levothyroxine Sodium 175 Mcg Tablet) 175 mcg PO DAILYBB KENJI Stop: 04/29/25 06:29 Last Admin: 04/06/25 05:46 Dose: 175 mcg Loperamide HCl (Loperamide Hcl 2 Mg Cap) 2 mg PO BID PRN PRN Reason: Diarrhea Stop: 04/28/25 21:08 Metoprolol Succinate (Metoprolol Succ 25mg Ext Rel Tab) 25 mg PO QAM KENJI Stop: 05/01/25 08:59 Last Admin: 04/06/25 08:34 Dose: 25 mg Midodrine (Midodrine Hcl 2.5 Mg Tab) 5 mg PO TID@0800,1200,1700 [facility] Stop: 05/01/25 11:59 Last Admin: 04/06/25 08:33 Dose: 5 mg Miscellaneous (Carbohydrates For Hypoglycemia ) 15 - 30 gm PO UD PRN PRN Reason: Hypoglycemia Protocol Stop: 04/28/25 21:08 Ondansetron HCl (Ondansetron Inj 2 Mg/Ml 2 Ml Vial) 4 mg IV Q4H PRN PRN Reason: Nausea And Vomiting Stop: 04/28/25 21:08 Potassium Chloride (Potassium Chloride Crtab 20 Meq Tabcr) 20 meq PO BID [facility] Stop: 05/06/25 12:29 Sennosides (Senna 8.6 Mg Tab) 17.2 mg PO QAM [facility] Stop: 05/04/25 11:59 Last Admin: 04/06/25 08:52 Dose: 17.2 mg Sodium Chloride (Sodium Chloride 0.65% Na Soln 45 Ml (Dimmit)) 1 sprays NA NOW PRN PRN Reason: dry nose Stop: 04/07/25 11:48 Last Admin: 04/04/25 18:41 Dose: 1 sprays PG Care Time/CCT Total # of Minutes Spent Total Time Spent with Patient: Total time spent is greater than 50% in coordination of care (as documented) at patient's floor/unit and/or counseling patient: Coding Level of Care Code 37182 SUB INP/OBS CARE 3/50MIN Diagnoses Acute diastolic congestive heart failure due to valvular disease I50.31; I38 Acute kidney injury N17.9 Rheumatic valvular disease I09.1 Aortic stenosis I35.0 Mitral stenosis I05.0
--- NOTE | 2025-04-06 13:12 | Hospitalist Progress Note ---
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: Plan 85-year-old female with PMHx of chronic diastolic CHF, pulmonary hypertension, moderate aortic regurg, moderate mitral valve stenosis, mild tricuspid regurg, chronic A-fib on Eliquis,orthostatic hypotension, CKD stage IIIb, DM type II, hypothyroidism, history of ischemic bowel disease, degenerative disc disease, h oarse voice secondary to vocal cord paralysis, and morbid obesity with a BMI of 38.5 who presents to the hospital with acute worsening shortness of breath and increased weight gain Acute on chronic diastolic CHF exacerbation Valvular heart disease Acute respiratory failure with hypoxia CXR:Cardiomegaly with pulmonary edema and suspected small bilateral pleural effusions. BNP 357 Echo from February 09, 2025 TTE:The left ventricular cavity size is normal. The LV wall thickness is moderately increased (concentric). The left ventricular wall motion is normal. The qualitative LV ejection fraction is 55-59% (normal). The left atrium is severely enlarged (>48 ml/m^2,). The aortic valve is moderately calcified. Moderate aortic valve stenosis is present. Moderate aortic valve re gurgitation is present. There is severe mitral annular calcification. The mitral valve leaflets thickness is severely increased. Severe mitral stenosis is present. Severe mitral regurgitation is present. Severe tricuspid regurgitation is present. Moderate pulmonary hypertension is present. The estimated pulmonary artery systolic pressure is 45-50mm Hg. Was initially on IV lasix drip Now on Furosemide 80mg BID resumed Cardiology will reassess today regarding therapies for her Valvular heart disease and if need for transfer to tertiary center for eval/treat Monitor daily weight, I/O CARROL on CKD stage IIIb Nephro managing diuretics/volume status Cr is 1.21 today Continue to monitor renal function Urinary tract infection--POA Urine culture growing Enterococcus faecalis Completed daptomycin Hematuria May be related to UTI in patient on eliquis However, CT abd today noted left nephrolithiasis, mild left hydroureter without hydronephrosis, asymmetric left sided bladder wall thickening which may be cystitis but cannot rule out urothelial lesion and correlation with cystoscopy recommended Urology eval noted Hematuria resolved Atrial Fibrillation Continue metoprolol, now metoprolol succinate 25mg daily On 04/02/25, I discussed with patient that warfarin is the ideal anticoagulant for Valvular AFib. Patient reported she had tried warfarin in the past but difficult to achieve goal INR despite increased dose and she does not want regular INR checks. She prefers to stay on her current eliquis Continue eliquis DM II Last a1c 7.4 on 12/29/24 Continue to hold p.o. medications Continue insulin per protocol Monitor blood glucose levels Hypothyroidism Continue levothyroxine 175 mcg daily Morbid obesity DVT Px: Eliquis CODE STATUS: DNI DNR PT recommended rehab but patient declined. Will need 2 step prior to dc I spent a total of 40 minutes coordinating, documenting and providing care for this patient excluding time spent in performance of separately billed services Admission and Anticipated Discharge Date Admission Date: March 29, 2025 Subjective Patient seen and examined No new complaints today Physical Exam Constitutional: + obese; no acute distress Eyes: PERRL, conjunctivae normal, anicteric sclerae ENMT: external ear and nose normal, oropharynx normal Respiratory: On nasal cannula, diminished breath sounds Cardiovascular: Rate/Rhythm: + irregularly irregular Gastrointestinal (Abdomen): normal bowel sounds, soft, nontender, no hepatosplenomegaly Musculoskeletal: +pedal edema Neurologic: PERRL, EOMI, accommodation nl, no face palsy, no dysarthria Psychiatric: A+Ox3, euthymic affect Results & Data Results & Data Vital Signs (Past 12 Hours) Vital Signs Temp Pulse Pulse Resp BP BP Pulse Ox 04/06/25 11:32 36.5 C 82 18 136/77 95 04/06/25 11:17 04/06/25 07:41 36.5 C 88 18 116/68 94 04/06/25 07:18 109 H 04/06/25 04:16 36.6 C 66 18 113/49 L 98 O2 Del Method O2 Flow Rate 04/06/25 11:32 Nasal Cannula 2 04/06/25 11:17 Room Air 04/06/25 07:41 Nasal Cannula 2 04/06/25 07:18 04/06/25 04:16 Nasal Cannula 2 Laboratory Results Abnormal lab results 04/05/25 04/05/25 04/06/25 Range/Units 17:02 19:59 05:26 RBC 3.73 L (4.20-5.40) M/uL Hgb 10.9 L (12.0-16.0) g/dl Hct 35.6 L (37.0-47.0) % MCHC 30.6 L (32.0-36.0) g/dL RDW Std Deviation 56.6 H (36.4-46.3) fL RDW Coeff of Issa 16.0 H (11.5-14.5) % Chloride 96 L (98-107) mmol/L Carbon Dioxide 39 H (21-32) mmol/L BUN 43 H (6-23) mg/dl Creatinine 1.21 H (0.6-1.2) mg/dl BUN/Creatinine Ratio 35.5 H (10-20) Glucose 119 H (70-99(Fasting)) mg/dl POC Glucose 127 H 191 H (70-99) mg/dl 04/06/25 04/06/25 04/06/25 Range/Units 07:52 11:58 12:00 RBC (4.20-5.40) M/uL Hgb (12.0-16.0) g/dl Hct (37.0-47.0) % MCHC (32.0-36.0) g/dL RDW Std Deviation (36.4-46.3) fL RDW Coeff of Issa (11.5-14.5) % Chloride (98-107) mmol/L Carbon Dioxide (21-32) mmol/L BUN (6-23) mg/dl Creatinine (0.6-1.2) mg/dl BUN/Creatinine Ratio (10-20) Glucose (70-99(Fasting)) mg/dl POC Glucose 145 H 186 H 173 H (70-99) mg/dl (6) Atrial fibrillation Atrial fibrillation type: longstanding persistent Qualified Code(s): I48.11 - Longstanding persistent atrial fibrillation
[2025-04-06] MEDS: POTASSIUM CHLORIDE CRTAB 20 MEQ TABCR PO SCH (13:19)
[2025-04-06] MEDS: METOPROLOL SUCC 25MG EXT REL TAB PO SCH (20:50)
[2025-04-07 06:40] LABS: Hematocrit (blood only) 34.7 % (37.0-47.0); Hemoglobin 10.7 g/dl (12.0-16.0); Mean Corpuscular Hemoglobin 29.3 pg (25.0-34.0); Mean Corpuscular Volume 95.1 fL (80.0-100.0); Platelet Count 169 K/uL (130-400); RDW Standard Deviation 55.7 fL (36.4-46.3); Red Blood Count 3.65 M/uL (4.20-5.40); White Blood Count 5.91 K/ul (4.8-10.8)
[2025-04-07 07:02] LABS: Anion Gap 5.0 (3-11); Blood Urea Nitrogen 46.0 mg/dl (6-23); Calcium 9.4 mg/dl (8.6-10.3); Carbon Dioxide 41.0 mmol/L (21-32); Chloride 94.0 mmol/L (98-107); Creatinine Clr Calc Pharmacy 37.6 ml/min; Glucose 114.0 mg/dl (70-99(Fasting)); Magnesium 1.9 mg/dl (1.7-2.4); Potassium 4.0 mmol/L (3.5-5.1); Sodium 140.0 mmol/L (136-145)
--- NOTE | 2025-04-07 10:25 | Nephrology Progress Note ---
Date of Service April 07, 2025 Assessment & Plan (1) Acute kidney injury: Plan: resolved stage 1 nonoliguric CARROL on CKD 3 in the setting of valvular rheumatic heart failure in pt challenging to diurese. baseline creatinine 1.4-1.5. 1.2 creat today; also hgb 10.9, acceptable CARROL likely ischemic in setting of valvular HF (very volume sensitive despite TB overload) - serum creatinine actually better than baseline now, > >>> lasix held after dose this am d/t alkalosis; held lasix 80 mg po BID17, Oral and instead give a dose of acetazolamide this afternoon. Continue on midodrine 5 mg po tid. > Continue FR 1.5L >> she will need reeducation/reinforcement on this and will be on this at d/c -continue to monitor BP >> check BP L arm only since consistently higher in L; so ordered (2) Acute diastolic CHF (congestive heart failure): Plan: valvular heart disease and c/b medication intolerances which make for challenges w/ diuresis 04/02 st wt 111.5; 04/05 108.3 kg; 04/06 st wt 93.9 >> 04/[address] wt; down 4.2 kg (suspect 04/06 is not correct) >> she is slowly improving in terms of volume status at least for now had 80 mg IV lasix x 2 on day of admission and another dose 03/31 AM, else none; I&O incomplete; started Lasix drip April 01--through 04/05; transitioned to dose lasix today-- 80 mg BID po >>given that yesterday's wt was not accurate, will d/w primary service if we should coninue IV lasix rather than po >> may need to consider this and will d/w primary service -f/u cardiology recs >daily STANDING weights recommended when feasible/ BP better <2 gm Na diet for now >cont FR >cont 20 mEq po K bid >>ordered dietary late 04/06 to teach on higher K foods at home to minimize need for K supplements if able >> f/u their recs navigating in room with walker and asst Care coordinated w/ Dr Ji via TText regarding lasix>acetazolamide, standing wts, goals of care concerns and d/c dispo; we are in agreement. (3) CKD (chronic kidney disease) stage 3, GFR 30-59 ml/min: Plan: baseline creatinine 1.4-1.5 past several months; at baseline currently but w/ complex vol OL/ needs diuresis but tolerates little -rampiril held since day after admission >lasix diuresis as above (4) Hydroureter on left: Plan: for OP f/u w/ urology in setting of asymmetric L sided bladder wall thickening Admission and Anticipated Discharge Date Admission Date: March 29, 2025 Subjective No acute interval events clinically. Tells me that her comments on April 06 about withdrawing from care if she could not go home or just a temporary thought and not her true wishes. Feels shortness of breath improving. Review of Systems 2 Review of Systems: All systems reviewed & are unremarkable except as noted in Subjective Physical Exam 2 Constitutional: well developed, well nourished, + morbidly obese, + frail appearing and cooperative; no acute distress Eyes: EOM intact bilaterally ENMT: Mouth: + muffled voice (hoarse) and + dry oral mucous membranes Respiratory: normal respiratory effort and + tachypneic; no respiratory distress, no cough and + not able to speak in complete sentence Auscultation: + diminished lung sounds and + crackles (BL bases but fewer/finer) Cardiovascular: Rate/Rhythm: regular rate, regular rhythm and + irregularly irregular Heart Sounds: + murmur Extremities: + edema (trace+) Gastrointestinal (Abdomen): Inspection/Auscultation: normal bowel sounds P ercussion/Palpation: abdomen soft; abdomen nontender Musculoskeletal: Extremities: strength 5/5 throughout Skin: no rashes, warm and dry (wound L posterior leg) Results & Data Vital Signs (Past 12 Hours) Vital Signs Temp Pulse Pulse Resp BP BP Pulse Ox 04/07/25 09:54 04/07/25 08:10 36.4 C L 96 H 18 127/78 92 04/07/25 07:50 95 H 04/07/25 02:04 36.4 C L 92 H 16 127/75 93 04/06/25 22:38 36.5 C 75 18 116/51 L 94 O2 Del Method O2 Flow Rate 04/07/25 09:54 Nasal Cannula 2 04/07/25 08:10 Nasal Cannula 2 04/07/25 07:50 04/07/25 02:04 Nasal Cannula 2 04/06/25 22:38 Nasal Cannula 2 Laboratory Results 04/07/25 05:38 04/07/25 05:38
[2025-04-07] MEDS: acetaZOLAMIDE 250 MG TAB PO ONE (13:03)
--- NOTE | 2025-04-07 13:23 | Hospitalist Progress Note ---
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: Plan 85-year-old female with PMHx of chronic diastolic CHF, pulmonary hypertension, moderate aortic regurg, moderate mitral valve stenosis, mild tricuspid regurg, chronic A-fib on Eliquis,orthostatic hypotension, CKD stage IIIb, DM type II, hypothyroidism, history of ischemic bowel disease, degenerative disc disease, h oarse voice secondary to vocal cord paralysis, who presents to the hospital with acute worsening shortness of breath and increased weight gain #Acute on chronic diastolic CHF exacerbation #Valvular heart disease #Acute respiratory failure with hypoxia- resolved -CXR:Cardiomegaly with pulmonary edema and suspected small bilateral pleural effusions. -BNP 357 -TTE showing normal EF, severe MR, moderate -Initially on IV lasix drip -Now developing contraction alkalosis -2 step ordered for home O2 eval Plan -D/w nephrology, holding lasix for today -Diamox given today for alkalosis -Monitor volume status, IOs, renal function -Plan is home with HC when ready. refusing SNF #CARROL on CKD stage IIIb Nephro managing diuretics/volume status Cr stable Continue to monitor renal function Avoid nephrotoxic agents #Urinary tract infection--POA Urine culture growing Enterococcus faecalis Completed daptomycin #Hematuria May be related to UTI in patient on eliquis However, CT abd today noted left nephrolithiasis, mild left hydroureter without hydronephrosis, asymmetric left sided bladder wall thickening which may be cystitis but cannot rule out urothelial lesion and correlation with cystoscopy recommended Urology eval noted Hematuria resolved #Atrial Fibrillation Continue metoprolol, now metoprolol succinate 25mg daily On 04/02/25, I discussed with patient that warfarin is the ideal anticoagulant for Valvular AFib. Patient reported she had tried warfarin in the past but difficult to achieve goal INR despite increased dose and she does not want regular INR checks. She prefers to stay on her current eliquis Continue eliquis #DM II Last a1c 7.4 on 12/29/24 Continue to hold p.o. medications Continue insulin per protocol Monitor blood glucose levels #Hypothyroidism Continue levothyroxine 175 mcg daily #Morbid obesity Diet and exercise counseling DVT Px: Eliquis CODE STATUS: DNI DNR PT recommended rehab but patient declined. Will need 2 step prior to dc I spent a total of 40 minutes coordinating, documenting and providing care for this patient excluding time spent in performance of separately billed services Admission and Anticipated Discharge Date Admission Date: March 29, 2025 Subjective Feeling well today. Patient denies F/C, CP, palpitations, SOB, dyspnea, abd pain, N/V/D Physical Exam Physical Exam: Vitals and labs reviewed General: elderly appearing. obese. NAD HEENT: EOMI, PERRLA Neck: Supple Cardiac: RRR no rubs gallops or murmurs Lungs: CTA no rhonchi wheezing or rales Abd: S NT ND BS positive : Deffered MSK: Full ROM. No obvious deformities Ext: 1 + b/l LE Edema Skin: Warm, Dry Neuro: AOx3 No focal deficits. Psych: Normal Mood Results & Data Results & Data Vital Signs (Past 12 Hours) Vital Signs Temp Pulse Pulse Resp BP BP Pulse Ox 04/07/25 11:32 36.5 C 76 16 122/72 96 04/07/25 09:54 04/07/25 08:10 36.4 C L 96 H 18 127/78 92 04/07/25 07:50 95 H 04/07/25 02:04 36.4 C L 92 H 16 127/75 93 O2 Del Method O2 Flow Rate 04/07/25 11:32 Nasal Cannula 2 04/07/25 09:54 Nasal Cannula 2 04/07/25 08:10 Nasal Cannula 2 04/07/25 07:50 04/07/25 02:04 Nasal Cannula 2 Laboratory Results Abnormal lab results 04/06/25 04/06/25 04/07/25 Range/Units 16:59 19:58 05:38 RBC 3.65 L (4.20-5.40) M/uL Hgb 10.7 L (12.0-16.0) g/dl Hct 34.7 L (37.0-47.0) % MCHC 30.8 L (32.0-36.0) g/dL RDW Std Deviation 55.7 H (36.4-46.3) fL RDW Coeff of Issa 15.9 H (11.5-14.5) % Chloride 94 L (98-107) mmol/L Carbon Dioxide 41 H* (21-32) mmol/L BUN 46 H (6-23) mg/dl Creatinine 1.24 H (0.6-1.2) mg/dl BUN/Creatinine Ratio 37.1 H (10-20) Glucose 114 H (70-99(Fasting)) mg/dl POC Glucose 100 H 189 H (70-99) mg/dl 04/07/25 04/07/25 Range/Units 07:27 11:15 RBC (4.20-5.40) M/uL Hgb (12.0-16.0) g/dl Hct (37.0-47.0) % MCHC (32.0-36.0) g/dL RDW Std Deviation (36.4-46.3) fL RDW Coeff of Issa (11.5-14.5) % Chloride (98-107) mmol/L Carbon Dioxide (21-32) mmol/L BUN (6-23) mg/dl Creatinine (0.6-1.2) mg/dl BUN/Creatinine Ratio (10-20) Glucose (70-99(Fasting)) mg/dl POC Glucose 119 H 167 H (70-99) mg/dl (6) Atrial fibrillation Atrial fibrillation type: longstanding persistent Qualified Code(s): I48.11 - Longstanding persistent atrial fibrillation
--- NOTE | 2025-04-07 16:33 | Cardiology Progress Note ---
Date of Service April 07, 2025 Assessment & Plan (1) Acute diastolic congestive heart failure due to valvular disease: (2) Acute kidney injury: (3) Rheumatic valvular disease: (4) Aortic stenosis: (5) Mitral stenosis: Plan 85 Y W admitted with acute decompensated diastolic congestive heart failure secondary to rheumatic valvular heart disease, complicated by CARROL and hypotension. Chronic afib with chronic anticoagulation as well. CARROL on CKD - improved Pleural effusion - improved HTN Acute HFpEF - improved Severe Mitral Stenosis Severe Mitral regurgitation Severe Tricuspid regurgitation Moderate PHTN Moderate AI Moderate Atrial Fib with CVR Hematuria Renal stones L hydroureter PLAN: Hypotension improved - continue midodrine 5 mg TID. Chronic afib with variable rates ranging 80-140's. Metoprolol increased to 25 mg BID - controlled Continue Eliquis 2.5 mg BID (low dose due to age and CKD) Oral furosemide resumed at 80 mg BID - on hold per nephrology due to alkalosis- treated with Diamox Continue potassium supplement Spironolactone discontinued due to CARROL LANG discontinued as well. Appreciate nephrology recommendations She has severe valvular heart disease. Per outpatient notes, this was discussed with patient and she wished for conservative non surgical med management. Can re-evaluate with patient as hospitalization progresses. She also has f/u in 1 month with cardiology. Case discussed with Dr. Hernandez I spent a total of 35 minutes on the date of service in preparation, delivery, and documentation of the care provided to this patient, excluding any time spent in the performance of separately billed services. Cherelle Swanson PA-C Department of Cardiology, [facility] This chart was completed in part utilizing Speech Voice Recognition Software. Grammatical errors, random word insertions, pronoun errors, and incomplete sentences are an occasional consequence of this system due to software limitations, ambient noise, and hardware issues. Any formal questions or concerns about the content, text, or information contained within the body of this dictation should be directly addressed to the provider for clarification. Admission and Anticipated Discharge Date Admission Date: March 29, 2025 Supervising Physician Co-Signing Physician Notes I have personally performed a history and physical examination on the patient. I have reviewed the advance practitioner's documentation, and I agree with, and take responsibility for the plan of care. 85-year-old female admitted with acute on chronic heart failure with preserved ejection fraction secondary to severe mixed valvular heart disease including moderate aortic valve stenosis, moderate aortic regurgitation, severe mitral stenosis, severe mitral regurgitation, and severe tricuspid regurgitation with moderate pulmonary hypertension. Patient declined valve clinic evaluation during most recent cardiology office appointment, however, now she is reconsidering this decision. Patient appears volume overloaded. Negative fluid balance noted. Alkalosis per a.m. labs. Oral Lasix placed on hold. Diamox added by nephrology. Recommend maintaining negative fluid balance at this time. Restart oral loop diuretic therapy if no objection from nephrology. Fluid restriction less than 2 L, sodium restriction less than 2 g daily. Monitor GFR and electrolytes daily. Midodrine for blood pressure support. Toprol-XL as ordered. Outpatient valve clinic evaluation. Paolo Hernandez DO, [facility] I spent a total of 30 minutes on the date of service in preparation, delivery, and documentation of the care provided to this patient, excluding any time spent in the performance of separately billed services. Subjective Patient seen earlier today. Reported no acute complaints. SOB improving. Edema improving. no chest pain Review of Systems Review of Systems: Complete Review of Systems is as stated above, negative, or noncontributory. Physical Exam Physical Exam: Examined in a chair General: Conversational dyspnea. Pleasant. Cooperative. Eyes: PER. Conjunctiva pink, sclera clear. HENT: Normocephalic. Atraumatic. Heart: Irregularly irregular at 90 bpm. + Systolic murmur. + Diastolic murmur. Lungs: mild bibasilar rales. No wheezing Abdomen: +BS. Soft. Nontender. No masses. No organomegaly. Extremities: 1+ B/L LE edema. Stasis changes. Left lower extremity erythema. No cyanosis. Limited neurological examination: No focal deficit. Results & Data Vital Signs (Past 12 Hours) Vital Signs Temp Pulse Pulse Pulse Pulse Pulse Pulse 04/07/25 15:34 36.4 C L 75 04/07/25 13:34 77 04/07/25 13:30 84 93 H 80 80 04/07/25 11:32 36.5 C 76 04/07/25 09:54 04/07/25 08:10 36.4 C L 96 H 04/07/25 07:50 95 H Resp Resp Resp Resp Resp BP Pulse Ox 04/07/25 15:34 18 120/72 94 04/07/25 13:34 04/07/25 13:30 21 22 21 18 04/07/25 11:32 16 122/72 96 04/07/25 09:54 04/07/25 08:10 18 127/78 92 04/07/25 07:50 Pulse Ox Pulse Ox Pulse Ox Pulse Ox O2 Del Method O2 Flow Rate O2 Flow Rate 04/07/25 15:34 Nasal Cannula 2 04/07/25 13:34 04/07/25 13:30 87 L 90 86 L 91 1 04/07/25 11:32 Nasal Cannula 2 04/07/25 09:54 Nasal Cannula 2 04/07/25 08:10 Nasal Cannula 2 04/07/25 07:50 O2 Flow Rate 04/07/25 15:34 04/07/25 13:34 04/07/25 13:30 2 04/07/25 11:32 04/07/25 09:54 04/07/25 08:10 04/07/25 07:50 Laboratory Results CBC 04/07/25 Range/Units 05:38 WBC 5.91 (4.8-10.8) K/ul RBC 3.65 L (4.20-5.40) M/uL Hgb 10.7 L (12.0-16.0) g/dl Hct 34.7 L (37.0-47.0) % Plt Count 169 (130-400) K/uL Comprehensive Metabolic Panel 04/07/25 Range/Units 05:38 Sodium 140 (136-145) mmol/L Potassium 4.0 (3.5-5.1) mmol/L Chloride 94 L (98-107) mmol/L Carbon Dioxide 41 H* (21-32) mmol/L BUN 46 H (6-23) mg/dl Creatinine 1.24 H (0.6-1.2) mg/dl Glucose 114 H (70-99(Fasting)) mg/dl Calcium 9.4 (8.6-10.3) mg/dl Intake and Output 04/07/25 04/07/25 04/07/25 06:59 14:59 22:59 Output Total 700 / 800 900 / 900 Balance -700 / -440 -900 / -900 Output: Urine Amount (Catheter) 700 / 800 900 / 900 External 700 / 800 900 / 900 Other: Other Intake Source sips Weight 107.3 kg Weight Measurement Method Standing Scale Patient Weight 04/08/25 06:59 Weight 107.3 kg Diagnostic Findings Telemetry reviewed: Afib with HR ranging 70-90 bmp Medications Administered Current Inpatient Medications Acetaminophen (Acetaminophen 325 Mg Tab) 650 mg PO Q4H PRN PRN Reason: Moderate Pain (Scale 4, 5, 6) Stop: 04/28/25 21:08 Last Admin: 04/07/25 10:23 Dose: 650 mg Allopurinol (Allopurinol 100 Mg Tab) 200 mg PO DAILY KENJI Stop: 04/29/25 08:59 Last Admin: 04/07/25 08:23 Dose: 200 mg Apixaban (Apixaban 2.5 Mg Tab) 2.5 mg PO BID KENJI Stop: 04/28/25 21:08 Last Admin: 04/07/25 08:23 Dose: 2.5 mg Calamine/Phenol (Menthol-Zinc Oxide 360 Appln/120 Gm Tube) 1 appln EXT BID KENJI Stop: 04/29/25 20:59 Last Admin: 04/07/25 08:25 Dose: 1 appln Calcium/Vitamin D (Calcium 600mg + Vit D 400 Iu Tab) 1 tab PO DAILY KENJI Stop: 04/29/25 08:59 Last Admin: 04/07/25 08:24 Dose: 1 tab Cyanocobalamin (Cyanocobalamin (B-12) 500 Mcg Tablet) 1,000 mcg PO DAILY KENJI Stop: 04/29/25 08:59 Last Admin: 04/07/25 08:24 Dose: 1,000 mcg Dextrose (Dextrose 50% 50 Ml Syringe) 25 - 50 ml IV UD PRN; Protocol PRN Reason: Hypoglycemia Protocol Stop: 04/28/25 21:08 Furosemide (Furosemide 80 Mg Tab) 80 mg PO BID17 KENJI Stop: 05/05/25 16:59 Last Admin: 04/07/25 08:24 Dose: 80 mg Glucagon (Glucagon For Inj 1 Mg Vial) 1 mg SQ UD PRN; Protocol PRN Reason: Hypoglycemia Protocol Stop: 04/28/25 21:08 Glucose (Glucose 40% Gel 15 Gm Tube) 15 - 30 gm PO UD PRN; Protocol PRN Reason: Hypoglycemia Protocol Stop: 04/28/25 21:08 Glucose (Glucose 10 Tab/Tube) 4 - 8 tab PO UD PRN; Protocol PRN Reason: Hypoglycemia Protocol Stop: 04/28/25 21:08 Insulin Aspart (Insulin Aspart Per Unit Charge) 0 units SC ACHS [facility] Stop: 04/28/25 21:08 Last Admin: 04/07/25 12:34 Dose: 2 units Levothyroxine Sodium (Levothyroxine Sodium 175 Mcg Tablet) 175 mcg PO DAILYBB [facility] Stop: 04/29/25 06:29 Last Admin: 04/07/25 06:39 Dose: 175 mcg Loperamide HCl (Loperamide Hcl 2 Mg Cap) 2 mg PO BID PRN PRN Reason: Diarrhea Stop: 04/28/25 21:08 Metoprolol Succinate (Metoprolol Succ 25mg Ext Rel Tab) 25 mg PO BID [facility] Stop: 05/06/25 20:59 Last Admin: 04/07/25 08:30 Dose: 25 mg Midodrine (Midodrine Hcl 2.5 Mg Tab) 5 mg PO TID@0800,1200,1700 [facility] Stop: 05/01/25 11:59 Last Admin: 04/07/25 11:58 Dose: 5 mg Miscellaneous (Carbohydrates For Hypoglycemia ) 15 - 30 gm PO UD PRN PRN Reason: Hypoglycemia Protocol Stop: 04/28/25 21:08 Ondansetron HCl (Ondansetron Inj 2 Mg/Ml 2 Ml Vial) 4 mg IV Q4H PRN PRN Reason: Nausea And Vomiting Stop: 04/28/25 21:08 Potassium Chloride (Potassium Chloride Crtab 20 Meq Tabcr) 20 meq PO BID [facility] Stop: 05/06/25 12:29 Last Admin: 04/07/25 08:32 Dose: 20 meq Sennosides (Senna 8.6 Mg Tab) 17.2 mg PO QAM [facility] Stop: 05/04/25 11:59 Last Admin: 04/07/25 08:32 Dose: 17.2 mg PG Care Time/CCT Total # of Minutes Spent Total Time Spent with Patient: Total time spent is greater than 50% in coordination of care (as documented) at patient's floor/unit and/or counseling patient: 35 minutes Coding Level of Care Code 50603 SUB INP/OBS CARE 3/50MIN Diagnoses Acute diastolic congestive heart failure due to valvular disease I50.31; I38 Acute kidney injury N17.9 Rheumatic valvular disease I09.1 Aortic stenosis I35.0 Mitral stenosis I05.0
[2025-04-08 07:23] LABS: Anion Gap 5.0 (3-11); Blood Urea Nitrogen 47.0 mg/dl (6-23); Calcium 9.2 mg/dl (8.6-10.3); Carbon Dioxide 39.0 mmol/L (21-32); Chloride 95.0 mmol/L (98-107); Creatinine Clr Calc Pharmacy 36.5 ml/min; Glucose 105.0 mg/dl (70-99(Fasting)); Potassium 3.9 mmol/L (3.5-5.1); Sodium 139.0 mmol/L (136-145)
--- NOTE | 2025-04-08 11:21 | Nephrology Progress Note ---
Date of Service April 08, 2025 Assessment & Plan (1) Acute kidney injury: Plan: resolved stage 1 nonoliguric CARROL on CKD 3 in the setting of valvular rheumatic heart failure in pt challenging to diurese. baseline creatinine 1.4-1.5. 1.4 creat today; also hgb 10.9, acceptable CARROL likely ischemic in setting of valvular HF (very volume sensitive despite TB overload) - serum creatinine back to baseline now at 1.4 today > >>> lasix held after dose 04/07 am d/t alkalosis; instead give a dose of acetazolamide yesterday> still alkalotic and would not give diuretic today. >>resume lasix 60 mg bid14 TOMORROW NOTE lower dose (currently NO diuretics ordered) >>continue on 20 mEq K bid starting tomorrow (current dose on hold as of midday today) >Continue on midodrine 5 mg po tid. > Continue FR 1.5L >> she will need reeducation/reinforcement on this and will be on this at d/c >continue heart healthy diet >>work w/ pt on teaching ot monitor weight at home and have her bring logs to f/u appts -continue to monitor BP >> check BP L arm only since consistently higher in L; so ordered Will sign off Recommend weekly BMP at rehab if she goes there or by PCP Hospital d/c appt w/ me [facility] in 2-4 wks Continue above medication doses of Lasix, potassium, fluid and sodium limits, weight and blood pressure logs (2) Acute diastolic CHF (congestive heart failure): Plan: valvular heart disease and c/b medication intolerances which make for challenges w/ diuresis 04/02 st wt 111.5; 04/05 108.3 kg; 04/06 st wt 93.9 >> 04/[address] wt; down 4.2 kg (suspect 04/06 is not correct) >> she is slowly improving in terms of volume status at least for now had 80 mg IV lasix x 2 on day of admission and another dose 03/31 AM, else none; I&O incomplete; started Lasix drip April 01--through 04/05; transitioned to dose lasix today-- 80 mg BID po >>given that yesterday's wt was not accurate, will d/w primary service if we should coninue IV lasix rather than po >> may need to consider this and will d/w primary service -f/u cardiology recs >daily STANDING weights recommended when feasible/ BP better <2 gm Na diet for now >cont FR >cont 20 mEq po K bid >>ordered dietary late 04/06 to teach on higher K foods at home to minimize need for K supplements if able >> f/u their recs navigating in room with walker and asst (3) CKD (chronic kidney disease) stage 3, GFR 30-59 ml/min: Plan: baseline creatinine 1.4-1.5 past several months; at baseline currently but w/ complex vol OL/ needs diuresis but tolerates little -rampiril held since day after admission >lasix diuresis as above (4) Hydroureter on left: Plan: for OP f/u w/ urology in setting of asymmetric L sided bladder wall thickening Admission and Anticipated Discharge Date Admission Date: March 29, 2025 Subjective No acute interval clinical events. Breathing stable/unchanged. Tolerating diuretics Review of Systems 2 Review of Systems: All systems reviewed & are unremarkable except as noted in Subjective Physical Exam 2 Constitutional: well developed, well nourished, + morbidly obese, + frail appearing and cooperative; no acute distress Eyes: EOM intact bilaterally ENMT: Mouth: + muffled voice (hoarse) and + dry oral mucous membranes Respiratory: normal respiratory effort and + tachypneic; no respiratory distress, no cough and + not able to speak in complete sentence Auscultation: + diminished lung sounds and + crackles (BL bases but fewer/finer) Cardiovascular: Rate/Rhythm: regular rate, regular rhythm and + irregularly irregular Heart Sounds: + murmur Extremities: + edema (trace+) Gastrointestinal (Abdomen): Inspection/Auscultation: normal bowel sounds P ercussion/Palpation: abdomen soft; abdomen nontender Musculoskeletal: Extremities: strength 5/5 throughout Skin: no rashes, warm and dry (wound L posterior leg) Results & Data Vital Signs (Past 12 Hours) Vital Signs Temp Pulse Pulse Resp BP BP Pulse Ox 04/08/25 10:31 04/08/25 08:18 36.5 C 81 18 129/72 93 04/08/25 07:09 89 04/08/25 04:00 36.4 C L 76 18 104/65 93 O2 Del Method O2 Flow Rate 04/08/25 10:31 Nasal Cannula 2 04/08/25 08:18 Nasal Cannula 2 04/08/25 07:09 04/08/25 04:00 Nasal Cannula 2 Laboratory Results 04/07/25 05:38 04/08/25 05:50
--- NOTE | 2025-04-08 14:04 | Hospitalist Progress Note ---
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: Plan 85-year-old female with PMHx of chronic diastolic CHF, pulmonary hypertension, moderate aortic regurg, moderate mitral valve stenosis, mild tricuspid regurg, chronic A-fib on Eliquis,orthostatic hypotension, CKD stage IIIb, DM type II, hypothyroidism, history of ischemic bowel disease, degenerative disc disease, h oarse voice secondary to vocal cord paralysis, who presents to the hospital with acute worsening shortness of breath and increased weight gain #Acute on chronic diastolic CHF exacerbation #Valvular heart disease #Acute respiratory failure with hypoxia- resolved -CXR:Cardiomegaly with pulmonary edema and suspected small bilateral pleural effusions. -BNP 357 -TTE showing normal EF, severe MR, moderate -Initially on IV lasix drip -Now developing contraction alkalosis Plan -Holding lasix again today -Per nephro, resume lasix 60 BID tomorrow -Now agreeable for SNF. Can be dc as early as tomorrow #CARROL on CKD stage IIIb Nephro managing diuretics/volume status Cr stable Continue to monitor renal function Avoid nephrotoxic agents #Urinary tract infection--POA Urine culture growing Enterococcus faecalis Completed daptomycin #Hematuria May be related to UTI in patient on eliquis However, CT abd today noted left nephrolithiasis, mild left hydroureter without hydronephrosis, asymmetric left sided bladder wall thickening which may be cystitis but cannot rule out urothelial lesion and correlation with cystoscopy recommended Urology eval noted Hematuria resolved #Atrial Fibrillation Continue metoprolol, now metoprolol succinate 25mg daily On 04/02/25, I discussed with patient that warfarin is the ideal anticoagulant for Valvular AFib. Patient reported she had tried warfarin in the past but difficult to achieve goal INR despite increased dose and she does not want regular INR checks. She prefers to stay on her current eliquis Continue eliquis #DM II Last a1c 7.4 on 12/29/24 Continue to hold p.o. medications Continue insulin per protocol Monitor blood glucose levels #Hypothyroidism Continue levothyroxine 175 mcg daily #Morbid obesity Diet and exercise counseling DVT Px: Eliquis CODE STATUS: DNI DNR I spent a total of 35 minutes coordinating, documenting and providing care for this patient excluding time spent in performance of separately billed services Admission and Anticipated Discharge Date Admission Date: March 29, 2025 Subjective Feeling well today. voiding on her own. Patient denies F/C, CP, palpitations, SOB, dyspnea, abd pain, N/V/D Physical Exam Physical Exam: Vitals and labs reviewed General: Well appearing, NAD HEENT: EOMI, PERRLA Neck: Supple Cardiac: RRR no rubs gallops or murmurs Lungs: CTA no rhonchi wheezing or rales Abd: S NT ND BS positive : Deffered MSK: Full ROM. No obvious deformities Ext: 1+ b/l LE Edema Skin: Warm, Dry Neuro: AOx3 No focal deficits. Psych: Normal Mood Results & Data Results & Data Vital Signs (Past 12 Hours) Vital Signs Temp Pulse Pulse Resp BP BP Pulse Ox 04/08/25 11:59 36.4 C L 74 18 145/78 H 93 04/08/25 10:31 04/08/25 08:18 36.5 C 81 18 129/72 93 04/08/25 07:09 89 04/08/25 04:00 36.4 C L 76 18 104/65 93 O2 Del Method O2 Flow Rate 04/08/25 11:59 Nasal Cannula 2 04/08/25 10:31 Nasal Cannula 2 04/08/25 08:18 Nasal Cannula 2 04/08/25 07:09 04/08/25 04:00 Nasal Cannula 2 Laboratory Results Abnormal lab results 04/07/25 04/07/25 04/08/25 Range/Units 16:27 20:09 05:50 Chloride 95 L (98-107) mmol/L Carbon Dioxide 39 H (21-32) mmol/L BUN 47 H (6-23) mg/dl Creatinine 1.37 H (0.6-1.2) mg/dl BUN/Creatinine Ratio 34.3 H (10-20) Glucose 105 H (70-99(Fasting)) mg/dl POC Glucose 123 H 145 H (70-99) mg/dl 04/08/25 04/08/25 Range/Units 08:26 12:19 Chloride (98-107) mmol/L Carbon Dioxide (21-32) mmol/L BUN (6-23) mg/dl Creatinine (0.6-1.2) mg/dl BUN/Creatinine Ratio (10-20) Glucose (70-99(Fasting)) mg/dl POC Glucose 109 H 145 H (70-99) mg/dl (6) Atrial fibrillation Atrial fibrillation type: longstanding persistent Qualified Code(s): I48.11 - Longstanding persistent atrial fibrillation
--- NOTE | 2025-04-08 16:48 | Cardiology Progress Note ---
Date of Service April 08, 2025 Assessment & Plan (1) Acute diastolic congestive heart failure due to valvular disease: (2) Acute kidney injury: (3) Rheumatic valvular disease: (4) Aortic stenosis: (5) Mitral stenosis: Plan 85 Y W admitted with acute decompensated diastolic congestive heart failure secondary to rheumatic valvular heart disease, complicated by CARROL and hypotension. Chronic afib with chronic anticoagulation as well. CARROL on CKD - improved Pleural effusion - improved HTN Acute HFpEF - improved Severe Mitral Stenosis Severe Mitral regurgitation Severe Tricuspid regurgitation Moderate PHTN Moderate AI Moderate Atrial Fib with CVR Hematuria Renal stones L hydroureter PLAN: Hypotension improved - continue midodrine 5 mg TID. Chronic afib with variable rates ranging 80-140's. Metoprolol increased to 25 mg BID - controlled Continue Eliquis 2.5 mg BID (low dose due to age and CKD) Diuretics held yesterday and today due to alkalosis. Plan is to resume oral furosemide 60 mg BID tomorrow. Continue potassium supplement Spironolactone discontinued due to CARROL LANG discontinued as well. Appreciate nephrology recommendations She has severe valvular heart disease. Per outpatient notes, this was discussed with patient and she wished for conservative non surgical med management. Can re-evaluate with patient as hospitalization progresses. She also has f/u in 1 month with cardiology. No further cardiac testing warranted. agree with plans for short term rehab. See med recommendations as above. will sign off. Please contact biomass production manager cardiology provider with additional questions or concerns. Case discussed with Dr. Hernandez I spent a total of 25 minutes on the date of service in preparation, delivery, and documentation of the care provided to this patient, excluding any time spent in the performance of separately billed services. Cherelle Swanson PA-C Department of Cardiology, [facility] This chart was completed in part utilizing Speech Voice Recognition Software. Grammatical errors, random word insertions, pronoun errors, and incomplete sentences are an occasional consequence of this system due to software limitations, ambient noise, and hardware issues. Any formal questions or concerns about the content, text, or information contained within the body of this dictation should be directly addressed to the provider for clarification. Admission and Anticipated Discharge Date Admission Date: March 29, 2025 Supervising Physician Co-Signing Physician Notes I have personally performed a history and physical examination on the patient. I have reviewed the advance practitioner's documentation, and I agree with, and take responsibility for the plan of care. 85-year-old female admitted with acute on chronic heart failure with preserved ejection fraction secondary to severe mixed valvular heart disease including moderate aortic valve stenosis, moderate aortic regurgitation, severe mitral stenosis, severe mitral regurgitation, and severe tricuspid regurgitation with moderate pulmonary hypertension. Patient declined valve clinic evaluation during most recent cardiology office appointment, however, now she is reconsidering this decision. Diuretic therapy held yesterday. Transition to oral furosemide 60 mg twice daily tomorrow. Continue potassium supplementation as ordered. Spironolactone and ALNG inhibitor discontinued secondary to acute kidney injury. Appreciate nephrology recommendations. Fluid restriction less than 2 L, sodium restriction less than 2 g daily. Monitor GFR and electrolytes daily. Midodrine for blood pressure support. Toprol-XL as ordered. Outpatient valve clinic evaluation. Cardiology will sign off. Please call with additional concerns/questions. Paolo Hernandez DO, [facility] WITH [facility] I spent a total of 30 minutes on the date of service in preparation, delivery, and documentation of the care provided to this patient, excluding any time spent in the performance of separately billed services. Subjective Patient resting in chair. Family at bedside. She reports feeling "good". SOB improved. Breathing back to baseline. feels "weak" but looking into going to rehab. No chest pain. no dizziness. Review of Systems Review of Systems: All systems reviewed & are unremarkable except as noted in HPI & below Physical Exam Physical Exam: Examined in a chair General: Conversational dyspnea. Pleasant. Cooperative. Eyes: PER. Conjunctiva pink, sclera clear. HENT: Normocephalic. Atraumatic. Heart: Irregularly irregular at 90 bpm. + Systolic murmur. + Diastolic murmur. Lungs: mild bibasilar rales. No wheezing Abdomen: +BS. Soft. Nontender. No masses. No organomegaly. Extremities: 1+ B/L LE edema. Stasis changes. Left lower extremity erythema. No cyanosis. Limited neurological examination: No focal deficit. Results & Data Vital Signs (Past 12 Hours) Vital Signs Temp Pulse Pulse Resp BP BP Pulse Ox 04/08/25 16:37 36.5 C 84 18 118/73 95 04/08/25 14:19 85 04/08/25 11:59 36.4 C L 74 18 145/78 H 93 04/08/25 10:31 04/08/25 08:18 36.5 C 81 18 129/72 93 04/08/25 07:09 89 O2 Del Method O2 Flow Rate 04/08/25 16:37 Nasal Cannula 2 04/08/25 14:19 04/08/25 11:59 Nasal Cannula 2 04/08/25 10:31 Nasal Cannula 2 04/08/25 08:18 Nasal Cannula 2 04/08/25 07:09 Laboratory Results Comprehensive Metabolic Panel 04/08/25 Range/Units 05:50 Sodium 139 (136-145) mmol/L Potassium 3.9 (3.5-5.1) mmol/L Chloride 95 L (98-107) mmol/L Carbon Dioxide 39 H (21-32) mmol/L BUN 47 H (6-23) mg/dl Creatinine 1.37 H (0.6-1.2) mg/dl Glucose 105 H (70-99(Fasting)) mg/dl Calcium 9.2 (8.6-10.3) mg/dl Intake and Output 04/08/25 04/08/25 04/08/25 06:59 14:59 22:59 Intake Total 800 / 800 Output Total 450 / 2150 200 / 200 Balance -450 / -2150 600 / 600 Intake: Oral 800 / 800 Output: Urine Amount (Catheter) 450 / 2150 200 / 200 External 450 / 2150 200 / 200 Other: # Unmeasured Voids 1 Weight 107.1 kg Weight Measurement Method [facility] Medications Administered Current Inpatient Medications Acetaminophen (Acetaminophen 325 Mg Tab) 650 mg PO Q4H PRN PRN Reason: Moderate Pain (Scale 4, 5, 6) Stop: 04/28/25 21:08 Last Admin: 04/07/25 10:23 Dose: 650 mg Allopurinol (Allopurinol 100 Mg Tab) 200 mg PO DAILY [facility] Stop: 04/29/25 08:59 Last Admin: 04/08/25 08:00 Dose: 200 mg Apixaban (Apixaban 2.5 Mg Tab) 2.5 mg PO BID [facility] Stop: 04/28/25 21:08 Last Admin: 04/08/25 08:01 Dose: 2.5 mg Calamine/Phenol (Menthol-Zinc Oxide 360 Appln/120 Gm Tube) 1 appln EXT BID [facility] Stop: 04/29/25 20:59 Last Admin: 04/08/25 08:02 Dose: 1 appln Calcium/Vitamin D (Calcium 600mg + Vit D 400 Iu Tab) 1 tab PO DAILY KENJI Stop: 04/29/25 08:59 Last Admin: 04/08/25 08:00 Dose: 1 tab Cyanocobalamin (Cyanocobalamin (B-12) 500 Mcg Tablet) 1,000 mcg PO DAILY KENJI Stop: 04/29/25 08:59 Last Admin: 04/08/25 08:00 Dose: 1,000 mcg Dextrose (Dextrose 50% 50 Ml Syringe) 25 - 50 ml IV UD PRN; Protocol PRN Reason: Hypoglycemia Protocol Stop: 04/28/25 21:08 Furosemide (Furosemide 20 Mg Tab) 60 mg PO BID17 [facility] Stop: 05/09/25 08:59 Glucagon (Glucagon For Inj 1 Mg Vial) 1 mg SQ UD PRN; Protocol PRN Reason: Hypoglycemia Protocol Stop: 04/28/25 21:08 Glucose (Glucose 40% Gel 15 Gm Tube) 15 - 30 gm PO UD PRN; Protocol PRN Reason: Hypoglycemia Protocol Stop: 04/28/25 21:08 Glucose (Glucose 10 Tab/Tube) 4 - 8 tab PO UD PRN; Protocol PRN Reason: Hypoglycemia Protocol Stop: 04/28/25 21:08 Insulin Aspart (Insulin Aspart Per Unit Charge) 0 units SC ACHS [facility] Stop: 04/28/25 21:08 Last Admin: 04/08/25 12:38 Dose: 2 units Levothyroxine Sodium (Levothyroxine Sodium 175 Mcg Tablet) 175 mcg PO DAILYBB KENJI Stop: 04/29/25 06:29 Last Admin: 04/08/25 05:30 Dose: 175 mcg Loperamide HCl (Loperamide Hcl 2 Mg Cap) 2 mg PO BID PRN PRN Reason: Diarrhea Stop: 04/28/25 21:08 Metoprolol Succinate (Metoprolol Succ 25mg Ext Rel Tab) 25 mg PO BID [facility] Stop: 05/06/25 20:59 Last Admin: 04/08/25 08:02 Dose: 25 mg Midodrine (Midodrine Hcl 2.5 Mg Tab) 5 mg PO TID@0800,1200,1700 KENJI Stop: 05/01/25 11:59 Last Admin: 04/08/25 12:35 Dose: 5 mg Miscellaneous (Carbohydrates For Hypoglycemia ) 15 - 30 gm PO UD PRN PRN Reason: Hypoglycemia Protocol Stop: 04/28/25 21:08 Ondansetron HCl (Ondansetron Inj 2 Mg/Ml 2 Ml Vial) 4 mg IV Q4H PRN PRN Reason: Nausea And Vomiting Stop: 04/28/25 21:08 Potassium Chloride (Potassium Chloride Crtab 20 Meq Tabcr) 20 meq PO BID [facility] Stop: 05/06/25 12:29 Last Admin: 04/08/25 08:00 Dose: 20 meq Sennosides (Senna 8.6 Mg Tab) 17.2 mg PO QAM [facility] Stop: 05/04/25 11:59 Last Admin: 04/08/25 08:00 Dose: 17.2 mg PG Care Time/CCT Total # of Minutes Spent Total Time Spent with Patient: Total time spent is greater than 50% in coordination of care (as documented) at patient's floor/unit and/or counseling patient: 25 minutes Coding Level of Care Code 28087 SUB INP/OBS CARE 3/50MIN Diagnoses Acute diastolic congestive heart failure due to valvular disease I50.31; I38 Acute kidney injury N17.9 Rheumatic valvular disease I09.1 Aortic stenosis I35.0 Mitral stenosis I05.0
[2025-04-09] MEDS ORDERED: FUROSEMIDE 20 MG TAB PO SCH (09:00)
--- NOTE | 2025-04-09 10:22 | Hospitalist Progress Note ---
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: Plan 85-year-old female with PMHx of chronic diastolic CHF, pulmonary hypertension, moderate aortic regurg, moderate mitral valve stenosis, mild tricuspid regurg, chronic A-fib on Eliquis,orthostatic hypotension, CKD stage IIIb, DM type II, hypothyroidism, history of ischemic bowel disease, degenerative disc disease, h oarse voice secondary to vocal cord paralysis, who presents to the hospital with acute worsening shortness of breath and increased weight gain #Acute on chronic diastolic CHF exacerbation #Valvular heart disease #Acute respiratory failure with hypoxia- resolved -CXR:Cardiomegaly with pulmonary edema and suspected small bilateral pleural effusions. -BNP 357 -TTE showing normal EF, severe MR, moderate -Initially on IV lasix drip -Now developing contraction alkalosis Plan -Per nephro, resume lasix 60 BID today -Now agreeable for SNF. Medically ready for DC #Headache -Suspect tension type -No warning s/s -NSAIDS contraindicated with her CKD3 -WIll try heating pad on neck #CARROL on CKD stage IIIb Nephro managing diuretics/volume status Cr stable Continue to monitor renal function Avoid nephrotoxic agents #Urinary tract infection--POA Urine culture growing Enterococcus faecalis Completed daptomycin #Hematuria May be related to UTI in patient on eliquis However, CT abd today noted left nephrolithiasis, mild left hydroureter without hydronephrosis, asymmetric left sided bladder wall thickening which may be cystitis but cannot rule out urothelial lesion and correlation with cystoscopy recommended Urology eval noted Hematuria resolved #Chronic Atrial Fibrillation Continue metoprolol, now metoprolol succinate 25mg daily On 04/02/25, I discussed with patient that warfarin is the ideal anticoagulant for Valvular AFib. Patient reported she had tried warfarin in the past but difficult to achieve goal INR despite increased dose and she does not want regular INR checks. She prefers to stay on her current eliquis Continue eliquis #DM II Last a1c 7.4 on 12/29/24 Continue to hold p.o. medications Continue insulin per protocol Monitor blood glucose levels #Hypothyroidism Continue levothyroxine 175 mcg daily #Morbid obesity Diet and exercise counseling DVT Px: Eliquis CODE STATUS: DNI DNR I spent a total of 37 minutes coordinating, documenting and providing care for this patient excluding time spent in performance of separately billed services Admission and Anticipated Discharge Date Admission Date: March 29, 2025 Subjective c/o mild headache, bilateral frontal aspect. Patient denies F/C, CP, palpitati ons, SOB, dyspnea, abd pain, N/V/D No neck stiffness, vision changes. Physical Exam Physical Exam: Vitals and labs reviewed General: Well appearing, NAD HEENT: EOMI, PERRLA Neck: Supple Cardiac: RRR no rubs gallops or murmurs Lungs: CTA no rhonchi wheezing or rales Abd: S NT ND BS positive : Deffered MSK: Full ROM. No obvious deformities Ext: 1+ b/l LE Edema Skin: Warm, Dry Neuro: AOx3 No focal deficits. Psych: Normal Mood Results & Data Results & Data Vital Signs (Past 12 Hours) Vital Signs Temp Pulse Pulse Resp BP Pulse Ox O2 Del Method 04/09/25 10:00 77 04/09/25 07:44 36.5 C 63 16 104/68 94 Nasal Cannula 04/09/25 04:00 36.7 C 81 18 118/67 94 Nasal Cannula 04/09/25 00:00 36.5 C 82 18 110/71 94 Nasal Cannula O2 Flow Rate 04/09/25 10:00 04/09/25 07:44 2 04/09/25 04:00 2 04/09/25 00:00 2 Laboratory Results Abnormal lab results 04/08/25 04/08/25 04/08/25 Range/Units 12:19 17:07 19:41 POC Glucose 145 H 124 H 147 H (70-99) mg/dl 04/09/25 Range/Units 08:07 POC Glucose 113 H (70-99) mg/dl (6) Atrial fibrillation Atrial fibrillation type: longstanding persistent Qualified Code(s): I48.11 - Longstanding persistent atrial fibrillation
[2025-04-09] MEDS: guaiFENesin 600 MG TABCR PO SCH (23:00)
[2025-04-10 00:33] LABS: Chlamydia pneumoniae PCR Not Detected (NotDetected); Coronavirus 229E PCR Not Detected (NotDetected); Coronavirus CoV-2 (COVID19)PCR Not Detected (NotDetected); Coronavirus HKU1 PCR Not Detected (NotDetected); Coronavirus NL63 PCR Not Detected (NotDetected); Coronavirus OC43PCR Not Detected (NotDetected); Human Metapneumovirus PCR Not Detected (NotDetected); Parainfluenza Virus 1 PCR Not Detected (NotDetected); Parainfluenza Virus 2 PCR Not Detected (NotDetected); Parainfluenza Virus 3 PCR Not Detected (NotDetected); Parainfluenza Virus 4 PCR Not Detected (NotDetected); Respiratory Syncytial VirusPCR Not Detected (NotDetected); Rhinovirus/Enterovirus PCR Not Detected (NotDetected)
--- NOTE | 2025-04-10 02:02 | XRay Report ---
Exam(s): XR CXR 1 VIEW EXAM: XR Chest, 1 View CLINICAL HISTORY: Reason for exam: cough. TECHNIQUE: Frontal view of the chest. COMPARISON: Prior chest x-ray from April 04, 2025. FINDINGS: Lungs: Moderate to heavy peribronchial thickening of the central and lower lobe bronchi with patchy opacities at the lung bases. There is pulmonary vascular congestion with pulmonary edema. No consolidation. Pleural space: Unremarkable. No pneumothorax. Heart: Moderate cardiomegaly. Mediastinum: Unremarkable. Normal mediastinal contour. Bones/joints: Unremarkable. No acute fracture. IMPRESSION: Findings concerning for bronchitis with bilateral lung infiltrates. Moderate cardiomegaly with pulmonary edema. Communications: Verify Receipt Electronically signed by: Suzi Kruger MD 04/10/25 02:02 AM
[2025-04-10 07:20] VITALS: RESP 18
[2025-04-10] MEDS: AZITHROMYCIN 250 MG TAB PO SCH (08:03)
--- NOTE | 2025-04-10 10:26 | Discharge Summary ---
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 Diagnosed with acute on chronic HFpEF and was diuresed with lasix drip. cardio and nephro were consulted. she was transitioned to IV BID lasix and eventually converted to PO lasix by nephrology. SHe clinically improved daily. today she feels well and has no specific complaint but last night she was c/o a cough. CXR suggestive of bronchitis. No fever. lungs are CTA. No new O2 requirements. started on azith x 5 days. vitals and labs are stable for discharge to SNF today. patient agreeable. #Acute on chronic diastolic CHF exacerbation #Valvular heart disease #Acute respiratory failure with hypoxia- resolved -CXR:Cardiomegaly with pulmonary edema and suspected small bilateral pleural effusions. -BNP 357 -TTE showing normal EF, severe MR, moderate -Initially on IV lasix drip -Now developing contraction alkalosis Plan -Per nephro, continue lasix 60 BID today -Now agreeable for SNF. Medically ready for DC #Headache resolved #CARROL on CKD stage IIIb Nephro managing diuretics/volume status Cr stable Continue to monitor renal function Avoid nephrotoxic agents #Urinary tract infection--POA Urine culture growing Enterococcus faecalis Completed daptomycin #Hematuria May be related to UTI in patient on eliquis However, CT abd today noted left nephrolithiasis, mild left hydroureter without hydronephrosis, asymmetric left sided bladder wall thickening which may be cystitis but cannot rule out urothelial lesion and correlation with cystoscopy recommended Urology eval noted Hematuria resolved #Chronic Atrial Fibrillation Continue metoprolol, now metoprolol succinate 25mg daily On 04/02/25, I discussed with patient that warfarin is the ideal anticoagulant for Valvular AFib. Patient reported she had tried warfarin in the past but difficult to achieve goal INR despite increased dose and she does not want regular INR checks. She prefers to stay on her current eliquis Continue eliquis #DM II Last a1c 7.4 on 12/29/24 Continue to hold p.o. medications Continue insulin per protocol Monitor blood glucose levels #Hypothyroidism Continue levothyroxine 175 mcg daily #Morbid obesity Diet and exercise counseling DVT Px: Eliquis CODE STATUS: DNI DNR I spent a total of 45 minutes coordinating, documenting and providing care for this patient excluding time spent in performance of separately billed services Notes For Next Care Provider Medication Changes From Visit Lopressor changed to toprol Lasix changed to 60 BID Azith x 5 days added Mucinex added Admission HPI Per Admitting Provider coronary this is a 85-year-old female with PMHx of chronic diastolic CHF, pulmonary hypertension, moderate aortic regurg, moderate mitral valve stenosis, mild tricuspid regurg, chronic A-fib on Eliquis,orthostatic hypotension, CKD stage IIIb, DM type II, hypothyroidism, history of ischemic bowel disease, degenerative disc disease, hoarse voice secondary to vocal cord paralysis, and morbid obesity with a BMI of 38.5 who presents to the hospital with acute worsening shortness of breath. She notes that she has gained 5 pounds within the last 24 hours. At home her medications include Lasix 80 mg p.o. twice daily, and metolazone 2.5 mg was added once per week per her corrosion technician. Pt reports being on spironolactone previously for about 2 weeks, and was transitioned off this after development of skin blistering on her lower extremit ies several weeks ago. At baseline dry weight was around 223 about 1 month ago, and today weight is 240lbs. Patient reports cardiology told her years ago, that she would be a poor surgical candidate to have valve repair/replacement. She lives at home, does all her routine ADLs independently. She notes that her oxygen seems to significantly drop whenever she sits down to take a break after doing some form of exertional activity such as walking. She is asking if she can go home with a portable oxygen tank so that she may be able to better participate in ADLs. When discussing this she becomes tearful and reports that if she has to live like she has been in the past few months, she wants to proceed with some form of surgical procedure to improve her quality of life. Patient denies any increase in sodium consumption, changes in fluid intake to affect diet. She is compliant with her home medications per her report. She also admits to having some dysuria today, no hematuria. Is requesting her urine be checked for UTI. Here in the ER pt has CXR showing Cardiomegaly with pulmonary edema and suspected small bilateral pleural effusions. She is maintained on 2 L via NC currently with sats in the mid s. Updated Medication List Medication Instructions Recorded Confirmed Type acetaminophen 325 mg capsule 650 mg PO QID PRN Pain (Scale 03/11/25 03/29/25 History Score 4-6) allopurinol 100 mg tablet 200 mg PO DAILY 03/11/25 03/29/25 History (Zyloprim) apixaban 2.5 mg tablet (Eliquis) 2.5 mg PO BID 03/11/25 03/29/25 History calcium 600 mg (as 1 tab PO DAILY 03/11/25 03/29/25 History carbonate)-vitamin D3 10 mcg (400 unit) tablet coenzyme Q10 400 mg capsule 400 mg PO DAILY 03/11/25 03/29/25 History cyanocobalamin (vitamin B-12) 1,000 mcg PO DAILY 03/11/25 03/29/25 History 1,000 mcg capsule glucosam 750 mg-chondroi 100 3 tab PO DAILY 03/11/25 03/29/25 History mg-hyalur 1.65 mg-CF borate 108 mg tablet ([employer]) levothyroxine 175 mcg tablet 175 mcg PO DAILY 03/11/25 03/29/25 History (Synthroid) linagliptin 5 mg tablet (Tradjenta) 5 mg PO DAILY 03/11/25 03/29/25 History loperamide 2 mg capsule 2 mg PO BID PRN Diarrhea 03/11/25 03/29/25 History (Anti-Diarrheal (loperamide)) magnesium 200 mg tablet 200 mg PO WK 03/11/25 03/29/25 History potassium chloride 20 mEq 40 meq PO DAILY 03/11/25 03/29/25 History tablet,extended release(part/cryst) metolazone 2.5 mg tablet 2.5 mg PO WK 03/29/25 03/29/25 History ramipril 5 mg capsule 5 mg PO QAM 03/29/25 03/29/25 History azithromycin 250 mg tablet 500 mg (2 x 250 mg) PO QAM 5 days 04/10/25 Rx #10 tabs furosemide 20 mg tablet 60 mg (3 x 20 mg) PO BID17 30 days 04/10/25 Rx #90 tabs guaifenesin 600 mg tablet, 600 mg PO Q12 #7 tabs 04/10/25 Rx extended release 12 hr (Mucinex) metoprolol succinate 25 mg 25 mg PO BID 30 days #60 tabs 04/10/25 Rx tablet,extended release 24 hr midodrine 2.5 mg tablet 5 mg (2 x 2.5 mg) PO 04/10/25 Rx TID@0800,1200,1700 30 days #5 tabs Hospital Stay Data Consultations 03/29/25 15:59 ED Decision to Admit Stat 03/29/25 16:28 Consult Nephrology Routine 03/31/25 08:09 Consult Cardiology Routine 04/01/25 13:15 Consult Urology Routine Diagnostic Imagining Performed 04/01/25 09:36 CT Abd and Pelvis [CT abd pelvis wo con] Urgent Pending Results Patient Have Any Pending Studies at Discharge: No Discharge Instructions Given to Patient (Per Discharging Provider) You were primarily treated for Congestive heart failure and fluid overload. Your kidney doctor recommended you resume taking oral lasix. you will be going to SNF for rehab. Total Time Total Time Spent Total Time Spent (In Minutes): 45
[2025-04-10 11:55] VITALS: TEMP 97.7; O2SAT 92
[2025-04-10 17:24] VITALS: PULSE 83
[2025-04-10 17:28] VITALS: BP 130/69
== END 2025-04-10 19:54 | DRG 291 ==
LOC: ED 14:20 → SUATTDRO 16:28 → 2W 16:28

== ENCOUNTER 2025-04-21 09:36 | Inpatient (IN) ==
[2025-04-21 09:56] VITALS: TEMP 98.6
--- NOTE | 2025-04-21 10:13 | XRay Report ---
XR chest 1V portable CLINICAL HISTORY: Sepsis COMPARISON STUDY: 04/09/2025 FINDINGS: There is stable cardiomegaly with increased pulmonary vascular congestion. Increased diffus e pulmonary interstitial prominence. Stable elevation of the right hemidiaphragm. No lobar consolidat ion, pleural effusion, or pneumothorax seen. IMPRESSION: 1. Increased CHF. 2. Increased diffuse pulmonary interstitial opacities could represent pneumonia or pulmonary edema. ACT 112: Negative or not required by law. Electronically signed by: Tyrel Lomeli M.D. 04/21/2025 10:12 AM
--- NOTE | 2025-04-21 10:14 | Emergency Department Note ---
Impression & Plan CHF exacerbation, Atrial fibrillation, Pneumonia, Acute hypoxic respiratory failure ED Provider Note NAME: VINNIE YAÑEZ AGE: 85 SEX: F : 1940 ARRIVES VIA: Ambulance INFORMANT: Patient, ED PROVIDER(S): Terri Baum MD CHIEF COMPLAINT: Shortness of breath HPI: This is a 85-year-old female presenting for shortness of breath. Patient states that she has had left lower lobe pneumonia and is being treated for this. She notes increasing symptoms, she has some shortness of breathing. She notes her legs are edematous. She reports no chest pain. She reports chills without fevers. ROS: See above HPI for pertinent positives & negatives. A total of 10 systems reviewed and were otherwise negative. PAST MEDICAL HISTORY: See Below PAST SURGICAL HISTORY: See Below FAMILY HISTORY: See Below SOCIAL HISTORY: See Below HOME MEDICATIONS: See Below ALLERGIES: See Below VITALS: See Below PHYSICAL EXAMINATION: General: Unwell appearing Head: Normocephalic and atraumatic Eyes: Normal inspection, extraocular muscles intact Ear, nose, throat: Normal external exam Neck: Normal range of motion Respiratory: Rhonchi in all lung cali Cardiovascular: Regular rate/rhythm, no murmur GI: soft, nontender, no guarding or rebound Extremities: nontender, moves all extremities, 1+ pitting edema to bilateral lower extremities Neuro: The patient awake and alert, appropriately conversive, no focal deficits, symmetric faces Skin: Warm, dry, and intact MEDICAL DECISION MAKING: This is an 85-year-old female present for shortness of breath. Patient is fairly hypoxic requiring 4.5 L currently. She appears fluid overloaded. Did order Lasix or patient is borderline hypotensive. Will hold for now. - Blood work reveals anemia of 9.7. CO2 is 36, creatinine one 2.11 - Chest x-ray reveals increased CHF as well as diffuse pulm interstitial opacities concerning for pneumonia/pulm edema - Patient now hypotensive, ordered for Levophed. Her blood pressure has improved slightly without Levophed currently. - Care discussed with inpatient team under Dr. Jiang. He will proceed with Lasix at this time. -Patient is positive for rhinovirus/enterovirus Differential diagnosis: CHF, pneumonia, URI, Diagnostics interpreted by me: ECG: ECG independently interpreted by me with A-fib with RVR, rate 114 normal QRS, normal QTc, no ST segment elevations consistent with STEMI criteria Cardiac Monitoring: An order was placed for continuous cardiac monitoring. The monitor shows a rate of 120 with atrial fibrillation rhythm. 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 CKD (chronic kidney disease) stage 3, GFR 30-59 ml/min Acute diastolic CHF (congestive heart failure) Callus of heel (Acute) Shortness of breath (Acute) Wound infection Acute kidney injury Lower extremity edema (Chronic) Venous ulcer of left leg (Acute) Abnormal ankle brachial index (NOAM) (Acute) Atrial fibrillation (Chronic) DM type 2 (diabetes mellitus, type 2) (Chronic) HTN (hypertension) (Chronic) Arthritis (Chronic) Hypothyroidism (Chronic) GERD (gastroesophageal reflux disease) (Chronic) Medical History (Updated 04/21/25 @ 17:36 by Terri Baum MD) Kidney stone 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 Cellulitis of left lower extremity Atherosclerosis of aorta Hilar lymphadenopathy DDD (degenerative disc disease), cervical Pulmonary hypertension Mild tricuspid regurgitation Moderate aortic regurgitation 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 Irritable bowel syndrome with diarrhea Hyperuricemia Rheumatic mitral stenosis Orthostatic hypotension Morbid obesity due to excess calories Positive CARRIE (antinuclear antibody) Ischemic bowel disease Hypothyroidism (acquired) Nocturnal enuresis Insomnia Hoarse voice quality Left atrial enlargement Mitral valve stenosis, moderate Surgical History (Updated 04/21/25 @ 12:31 by TAYLOR Stanley) Hx of tonsillectomy History of hysterectomy History of total left knee replacement History of total right knee replacement H/O lithotripsy History of resection of small bowel History of total abdominal hysterectomy H/O exploratory laparotomy Social History Smoking Status: Never smoker Hx Alcohol Use: No Hx Substance Use: No Preferred Language: Yi Communication Ability: Effective Visual Impairment: Limited Hearing Ability: Normal Security Architect Required: No Beliefs That Will Affect Care: None marital status: / Current Living Situation: Alone How many Children do You have: 2 Feels Safe at Home: Yes Diet: diabetic Diet Comment: Meals on wheels caffeine: No Assistive Devices: Cane, Lift Chair and Walker Allergies Allergies Allergy/AdvReac Type Severity Reaction Status Date / Time empagliflozin Allergy Intermediate Pain in Verified 03/29/25 14:15 [From Jardiance] Vaginal/Rectal area latex Allergy Intermediate . Verified 03/29/25 14:15 metformin AdvReac Intermediate Diarrhea Verified 04/04/25 07:44 Home Meds Home Medications Medication Instructions Recorded Confirmed acetaminophen 325 mg capsule 650 mg PO QID PRN Pain (Scale 03/11/25 04/21/25 Score 4-6) allopurinol 100 mg tablet 200 mg PO DAILY 03/11/25 04/21/25 (Zyloprim) apixaban 2.5 mg tablet (Eliquis) 2.5 mg PO BID 03/11/25 04/21/25 calcium 600 mg (as 1 tab PO DAILY 03/11/25 04/21/25 carbonate)-vitamin D3 10 mcg (400 unit) tablet coenzyme Q10 400 mg capsule 400 mg PO DAILY 03/11/25 04/21/25 cyanocobalamin (vitamin B-12) 1,000 mcg PO DAILY 03/11/25 04/21/25 1,000 mcg capsule glucosam 750 mg-chondroi 100 3 tab PO DAILY 03/11/25 04/21/25 mg-hyalur 1.65 mg-CF borate 108 mg tablet ([facility] Honey) levothyroxine 175 mcg tablet 175 mcg PO DAILY 03/11/25 04/21/25 (Synthroid) linagliptin 5 mg tablet (Tradjenta) 5 mg PO DAILY 03/11/25 04/21/25 loperamide 2 mg capsule 2 mg PO BID PRN Diarrhea 03/11/25 04/21/25 (Anti-Diarrheal (loperamide)) magnesium 200 mg tablet 200 mg PO WK 03/11/25 04/21/25 potassium chloride 20 mEq 40 meq PO DAILY 03/11/25 04/21/25 tablet,extended release(part/cryst) Previous Rx's Medication Instructions Recorded furosemide 20 mg tablet 60 mg (3 x 20 mg) PO BID17 30 days 04/10/25 #90 tabs metoprolol succinate 25 mg 25 mg PO BID 30 days #60 tabs 04/10/25 tablet,extended release 24 hr midodrine 2.5 mg tablet 5 mg (2 x 2.5 mg) PO 04/10/25 TID@0800,1200,1700 30 days #5 tabs Results & Data (ED) Vital Signs Vital Signs - 24 hr 04/21/25 09:42 04/21/25 09:47 04/21/25 09:47 Temperature 37 C Temperature Source Oral Pulse Rate 126 H Pulse Rate from SpO2 Sensor Pulse Rhythm Irregular Respiratory Rate 28 H Respiratory Effort / Characteristics Accessory Muscle Use Labored Short of Breath SOB on Exertion Respiratory Depth Shallow Shallow Respiratory Pattern Rapid/Shallow Blood Pressure 103/66 Blood Pressure Mean 78 Pulse Oximetry 82 L 93 Oxygen Delivery Method Room Air Nasal Cannula Oxygen Flow Rate 3 Sepsis Recent Fever Within 48 Hours No Sepsis New/Unexplained Change in Mental Status No Sepsis Action Taken by Nursing No Action Required Oxygen Flow Rate - Titration 6 Pulse Oximetry Post Tiitration 93 04/21/25 09:56 04/21/25 10:00 04/21/25 10:27 Temperature Temperature Source Pulse Rate 112 H 113 H 102 H Pulse Rate from SpO2 Sensor 128 H 101 H Pulse Rhythm Respiratory Rate 19 28 H Respiratory Effort / Characteristics Respiratory Depth Respiratory Pattern Blood Pressure Blood Pressure Mean Pulse Oximetry 97 98 Oxygen Delivery Method Nasal Cannula Nasal Cannula Oxygen Flow Rate 4.5 4.5 Sepsis Recent Fever Within 48 Hours Sepsis New/Unexplained Change in Mental Status Sepsis Action Taken by Nursing Oxygen Flow Rate - Titration Pulse Oximetry Post Tiitration 04/21/25 10:36 04/21/25 11:03 04/21/25 11:08 Temperature Temperature Source Pulse Rate 90 108 H Pulse Rate from SpO2 Sensor 94 H 109 H Pulse Rhythm Respiratory Rate 17 20 Respiratory Effort / Characteristics Respiratory Depth Respiratory Pattern Blood Pressure 103/54 L 73/50 L Blood Pressure Mean 70 59 Pulse Oximetry 98 99 Oxygen Delivery Method Nasal Cannula Oxygen Flow Rate 4.5 Sepsis Recent Fever Within 48 Hours Sepsis New/Unexplained Change in Mental Status Sepsis Action Taken by Nursing Oxygen Flow Rate - Titration Pulse Oximetry Post Tiitration 04/21/25 11:15 04/21/25 11:21 04/21/25 11:33 Temperature Temperature Source Pulse Rate 90 101 H 109 H Pulse Rate from SpO2 Sensor 95 H Pulse Rhythm Respiratory Rate 24 21 20 Respiratory Effort / Characteristics Respiratory Depth Respiratory Pattern Blood Pressure 99/71 L 95/58 L 106/64 Blood Pressure Mean 84 70 72 Pulse Oximetry 97 96 98 Oxygen Delivery Method Oxygen Flow Rate Sepsis Recent Fever Within 48 Hours Sepsis New/Unexplained Change in Mental Status Sepsis Action Taken by Nursing Oxygen Flow Rate - Titration Pulse Oximetry Post Tiitration 04/21/25 11:42 Temperature Temperature Source Pulse Rate 97 H Pulse Rate from SpO2 Sensor 106 H Pulse Rhythm Respiratory Rate 25 H Respiratory Effort / Characteristics Respiratory Depth Respiratory Pattern Blood Pressure 101/63 Blood Pressure Mean 75 Pulse Oximetry 97 Oxygen Delivery Method Nasal Cannula Oxygen Flow Rate 4 Sepsis Recent Fever Within 48 Hours Sepsis New/Unexplained Change in Mental Status Sepsis Action Taken by Nursing Oxygen Flow Rate - Titration Pulse Oximetry Post Tiitration Laboratory Data 04/21/25 09:56 04/21/25 09:56 Lab Results 04/21/25 04/21/25 Range/Units 09:56 10:30 WBC 6.85 (4.8-10.8) K/ul RBC 3.49 L (4.20-5.40) M/uL Hgb 9.7 L (12.0-16.0) g/dl Hct 33.1 L (37.0-47.0) % MCV 94.8 (80.0-100.0) fL MCH 27.8 (25.0-34.0) pg MCHC 29.3 L (32.0-36.0) g/dL RDW Std Deviation 55.1 H (36.4-46.3) fL RDW Coeff of Issa 15.7 H (11.5-14.5) % Plt Count 223 (130-400) K/uL MPV 10.7 (9.4-12.4) fL Immature Gran % (Auto) 0.7 % Neut % (Auto) 82.6 % Lymph % (Auto) 7.9 % [place] % (Auto) 7.0 % Eos % (Auto) 1.2 % Baso % (Auto) 0.6 % Neut # (Auto) 5.66 (1.40-6.50) K/uL Lymph # (Auto) 0.54 L (1.20-3.40) K/uL [place] # (Auto) 0.48 (0.11-0.59) K/uL Eos # (Auto) 0.08 (0.00-0.50) K/uL Baso # (Auto) 0.04 (0.00-0.20) K/uL Immature Gran # (Auto) 0.05 (0.01-0.20) K/uL Sodium 139 (136-145) mmol/L Potassium 4.0 (3.5-5.1) mmol/L Chloride 97 L (98-107) mmol/L Carbon Dioxide 36 H (21-32) mmol/L Anion Gap 6 (3-11) BUN 56 H (6-23) mg/dl Creatinine 2.11 H (0.6-1.2) mg/dl Est Cr Clr Drug Dosing 24.0 ml/min eGFR 22.40 BUN/Creatinine Ratio 26.5 H (10-20) Glucose 134 H (70-99(Fasting)) mg/dl Lactate 1.3 (0.4-2.0) mmol/L Calcium 8.9 (8.6-10.3) mg/dl Magnesium 1.8 (1.7-2.4) mg/dl Total Bilirubin 0.5 (0.2-1.0) mg/dl Direct Bilirubin 0.1 (0-0.2) mg/dl AST 10 L (13-39) U/L ALT 7 (7-52) U/L Alkaline Phosphatase 46 (34-104) U/L Troponin I High Sens 30.9 H (0-14) pg/ml B-Natriuretic Peptide 598 H (0-100) pg/ml Total Protein 6.6 (6.0-8.3) gm/dl Albumin 3.3 L (3.4-5.0) gm/dl Globulin Cancelled Albumin/Globulin Ratio Cancelled Procalcitonin 0.12 (0-0.5) ng/ml Administered Medications Norepinephrine Bitartrate (Levophed/D5w) 4 mg in 250 mls @ 16.905 mls/hr IV .[id number] [facility]; Protocol Stop: 05/21/25 11:14 Last Titration: 04/21/25 16:02 Dose: 0.04 mcg/kg/min, 16.9 mls/hr Documented By: OC Co-signed By: GUDELIA Admin: 04/21/25 15:05 Dose: 0.05 mcg/kg/min, 21.1 mls/hr Documented By: CATHERINE Co-signed By: CA Discontinued Medications Furosemide (Furosemide Inj 20 Mg/2 Ml Vial) 20 mg IV ONE ONE Stop: 04/21/25 11:05 Last Admin: 04/21/25 11:45 Dose: 20 mg Documented By: diony Doxycycline Hyclate 100 mg/ (Dextrose) 100 mls @ 50 mls/hr IV NOW STA Stop: 04/21/25 13:13 Last Infusion: 04/21/25 15:19 Dose: Infused Documented By: Admin: 04/21/25 12:53 Dose: 50 mls/hr Documented By: MARIANNE Ceftriaxone Sodium (Rocephin) 2,000 mg in 50 mls @ 100 mls/hr IV NOW STA Stop: 04/21/25 12:33 Last Infusion: 04/21/25 12:54 Dose: Infused Documented By: diony Admin: 04/21/25 12:18 Dose: 100 mls/hr Documented By: MARIANNE Cefepime HCl (Maxipime 2000mg) 2,000 mg in 20 mls @ 5 mls/min IV ONE ONE; Protocol Stop: 04/21/25 13:48 Last Admin: 04/21/25 13:55 Dose: 5 mls/min Documented By: diony Imaging Data Radiologist's Impression: Chest X-Ray 04/21/25 10:02 XR chest 1V portable CLINICAL HISTORY: Sepsis COMPARISON STUDY: 04/09/2025 FINDINGS: There is stable cardiomegaly with increased pulmonary vascular congestion. Increased diffuse pulmonary interstitial prominence. Stable elevation of the right hemidiaphragm. No lobar consolidation, pleural effusion, or pneumothorax seen. IMPRESSION: 1. Increased CHF. 2. Increased diffuse pulmonary interstitial opacities could represent pneumonia or pulmonary edema. ACT 112: Negative or not required by law. Electronically signed by: Tyrel Lomeli M.D. 04/21/2025 10:12 AM Discharge Plan Visit Data Chief Complaint: Shortness of Breath/Dyspnea Stated Complaint: SOB ED Provider: Terri Baum Discharge Problem: CHF exacerbation, Atrial fibrillation, Pneumonia, Acute hypoxic respiratory failure Patient Disposition: Admitted As Inpatient Condition: Fair Discharge Instructions Interventions: ED Discharge Assessment Last Done: 04/21/25 14:35
[2025-04-21 10:54] LABS: Hematocrit (blood only) 33.1 % (37.0-47.0); Hemoglobin 9.7 g/dl (12.0-16.0); Immature Granulocytes # (auto) 0.05 K/uL (0.01-0.20); Immature Granulocytes % (auto) 0.7 %; Mean Corpuscular Hemoglobin 27.8 pg (25.0-34.0); Mean Corpuscular Volume 94.8 fL (80.0-100.0); Platelet Count 223 K/uL (130-400); RDW Standard Deviation 55.1 fL (36.4-46.3); Red Blood Count 3.49 M/uL (4.20-5.40); White Blood Count 6.85 K/ul (4.8-10.8)
[2025-04-21 11:12] LABS: Alanine Aminotransferase 7.0 U/L (7-52); Alkaline Phosphatase 46.0 U/L (34-104); Anion Gap 6.0 (3-11); Bilirubin,Total 0.5 mg/dl (0.2-1.0); Blood Urea Nitrogen 56.0 mg/dl (6-23); Calcium 8.9 mg/dl (8.6-10.3); Carbon Dioxide 36.0 mmol/L (21-32); Chloride 97.0 mmol/L (98-107); Creatinine Clr Calc Pharmacy 24.0 ml/min; Glucose 134.0 mg/dl (70-99(Fasting)); Magnesium 1.8 mg/dl (1.7-2.4); Potassium 4.0 mmol/L (3.5-5.1); Sodium 139.0 mmol/L (136-145); Total Protein 6.6 gm/dl (6.0-8.3)
[2025-04-21] MEDS ORDERED: cefTRIAXone SODIUM 500 MG in DEXTROSE 5% 50 ML IV STA (11:14)
--- NOTE | 2025-04-21 11:20 | History & Physical Report ---
Date of Service April 21, 2025 Assessment & Plan (1) Acute respiratory failure with hypoxia and hypercapnia: (2) Acute diastolic congestive heart failure due to valvular disease: (3) Hypotension: (4) Acute kidney injury superimposed on CKD: (5) Atrial fibrillation: (6) DM type 2 (diabetes mellitus, type 2): (7) Hypothyroidism: Plan 85 year old female from [facility] with PMH significant for type 2 diabetes, hypothyroidism, vocal cord paresis, history of ischemic bowel disease, chronic diastolic CHF, CKD III, pulmonary hypertension, chronic atrial fibrillation, orthostatic hypotension, valvular heart disease, IBS, and morbid obesity who presents to ED on 04/21/2025 with SOB. Recently admitted from 03/29-04/10/2025 with acute on chronic HFpEF secondary to valvular heart disease and discharged to [facility] for rehab. During admission, Cardiology and Nephrology were consulted. Cardiology recommended midodrine 5mg tid for hypotension, continue eliquis 2.5mg bid and increased metoprolol succinate to 25mg bid for chronic a fib, furosemide 60mg bid, continue K 40meq daily, discontinue spironolactone and LANG at discharge. Nephrology recommended stop metolazone, 1.5L FR, heart healthy diet, weight and BP logs at discharge. Patient was also prescribed 5 day course of azithromycin at discharge. Based on above recommendations from previous admission, ramipril and metolazone were discontinued during med rec this admission. Acute respiratory failure with hypoxia and hypercapnia Possible PNA Patient presenting with SOB and fluid overload CXR revealed increased CHF and increased diffuse pulmonary interstitial opacities could represent pneumonia or pulmonary edema Biofire positive rhino/enterovirus Hypoxic to 82% on arrival On 4.5L NC in ED to maintain sats >90% ABG revealed pH 7.32, PCO2 67, HCO3 34.5 Bipap attempted but patient got agitated and would not tolerate mask Appreciate rolling machine operator recs for sedation to tolerate bipap Acute on chronic diastolic CHF exacerbation Valvular heart disease Patient presenting with SOB and fluid overload CXR revealed increased CHF and increased diffuse pulmonary interstitial opacities could represent pneumonia or pulmonary edema BNP 598 Received 20mg IV lasix in ED Echo in February 2025 revealed LVEF 55-59%, left atrium severely enlarged, moderate , moderate AR, severe MS, severe MR, moderate pulmonary hypertension Echo ordered Daily weights and monitor I&O Low salt diet and 1.5L FR when stable Consult Cardiology: appreciate recs Hypotension Possible septic shock Patient meets criteria with tachycardia and tachypnea present on admission in setting of possible PNA Hypotensive with BP as low as 73/50 prior to lasix administration No leukocytosis, negative lactate, negative procal Blood and urine cultures pending MRSA pending Cefepime renally dosed and doxycycline Continue midodrine tid (started last admission) Appreciate rolling machine operator recs for vasopressors if needed CARROL on CKD stage IIIb Baseline creat 1.4-1.5 Creat 2.1 on admission Needs IV diuresis for acute CHF Consult Nephrology: appreciate recs Chronic Atrial Fibrillation Continue low dose Eliquis and metoprolol succinate (increased to 25mg bid last admission) DM II A1C 7.4 in December 2024 Home linagliptin on hold BSG ACHS and SSI while inpatient Hypothyroidism Continue levothyroxine Gout Continue allopurinol DVT Prophylaxis: on Eliquis Code Status: DNR/DNI - As per discussion at bedside with the patient. PCP: Christiane Marshall Disposition: admit to ICU Patient seen in collaboration with Dr Jiang. Please see addendum. I spent a total of 75 minutes coordinating, documenting and providing care for this patient excluding time spent in the performance of separately billed services or time spent by another provider/QHP. Admission and Anticipated Discharge Date Admission Date: 04/21/2025 History of Present Illness Chief Complaint: SOB Primary Care Provider: Christiane Brock MD 85 year old female from [facility] with PMH significant for type 2 diabetes, hypothyroidism, vocal cord paresis, history of ischemic bowel disease, chronic diastolic CHF, CKD III, pulmonary hypertension, chronic atrial fibrillation, orthostatic hypotension, valvular heart disease, IBS, and morbid obesity who presents to ED on 04/21/2025 with SOB. Previously admitted from 03/29- 04/10/2025 with acute on chronic HFpEF and discharged to [facility] for rehab. At [facility], patient developed cough and chest congestion and had a CXR concerning for LLL pneumonia. She was started on Augmentin and duonebs. Yesterday, she developed hypoxia to the mid 80s and dyspnea prompting evaluation in the ED today. Patient reports that she has a productive cough with yellow phlegm that is difficult for her to expectorate. She reports SOB. Denies fevers, chills, chest pain, abdominal pain, N/V/D. Allergies Allergy/AdvReac Type Severity Reaction Status Date / Time empagliflozin Allergy Intermediate Pain in Verified 03/29/25 14:15 [From Jardiance] Vaginal/Rectal area latex Allergy Intermediate . Verified 03/29/25 14:15 metformin AdvReac Intermediate Diarrhea Verified 04/04/25 07:44 Home Medications Medication Instructions Recorded Confirmed Type acetaminophen 325 mg capsule 650 mg PO QID PRN Pain (Scale 03/11/25 04/21/25 History Score 4-6) allopurinol 100 mg tablet 200 mg PO DAILY 03/11/25 04/21/25 History (Zyloprim) apixaban 2.5 mg tablet (Eliquis) 2.5 mg PO BID 03/11/25 04/21/25 History calcium 600 mg (as 1 tab PO DAILY 03/11/25 04/21/25 History carbonate)-vitamin D3 10 mcg (400 unit) tablet coenzyme Q10 400 mg capsule 400 mg PO DAILY 03/11/25 04/21/25 History cyanocobalamin (vitamin B-12) 1,000 mcg PO DAILY 03/11/25 04/21/25 History 1,000 mcg capsule glucosam 750 mg-chondroi 100 3 tab PO DAILY 03/11/25 04/21/25 History mg-hyalur 1.65 mg-CF borate 108 mg tablet ([facility]) levothyroxine 175 mcg tablet 175 mcg PO DAILY 03/11/25 04/21/25 History (Synthroid) linagliptin 5 mg tablet (Tradjenta) 5 mg PO DAILY 03/11/25 04/21/25 History loperamide 2 mg capsule 2 mg PO BID PRN Diarrhea 03/11/25 04/21/25 History (Anti-Diarrheal (loperamide)) magnesium 200 mg tablet 200 mg PO WK 03/11/25 04/21/25 History potassium chloride 20 mEq 40 meq PO DAILY 03/11/25 04/21/25 History tablet,extended release(part/cryst) furosemide 20 mg tablet 60 mg (3 x 20 mg) PO BID17 30 days 04/10/25 04/21/25 Rx #90 tabs metoprolol succinate 25 mg 25 mg PO BID 30 days #60 tabs 04/10/25 04/21/25 Rx tablet,extended release 24 hr midodrine 2.5 mg tablet 5 mg (2 x 2.5 mg) PO 04/10/25 04/21/25 Rx TID@0800,1200,1700 30 days #5 tabs 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 CKD (chronic kidney disease) stage 3, GFR 30-59 ml/min Acute diastolic CHF (congestive heart failure) Callus of heel (Acute) Shortness of breath (Acute) Wound infection Acute kidney injury Lower extremity edema (Chronic) Venous ulcer of left leg (Acute) Abnormal ankle brachial index (NOAM) (Acute) Atrial fibrillation (Chronic) DM type 2 (diabetes mellitus, type 2) (Chronic) HTN (hypertension) (Chronic) Arthritis (Chronic) Hypothyroidism (Chronic) GERD (gastroesophageal reflux disease) (Chronic) Medical History (Updated 04/21/25 @ 17:36 by Terri Baum MD) Kidney stone 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 Cellulitis of left lower extremity Atherosclerosis of aorta Hilar lymphadenopathy DDD (degenerative disc disease), cervical Pulmonary hypertension Mild tricuspid regurgitation Moderate aortic regurgitation 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 Irritable bowel syndrome with diarrhea Hyperuricemia Rheumatic mitral stenosis Orthostatic hypotension Morbid obesity due to excess calories Positive CARRIE (antinuclear antibody) Ischemic bowel disease Hypothyroidism (acquired) Nocturnal enuresis Insomnia Hoarse voice quality Left atrial enlargement Mitral valve stenosis, moderate Surgical History (Updated 04/21/25 @ 12:31 by TAYLOR Stanley) Hx of tonsillectomy History of hysterectomy History of total left knee replacement History of total right knee replacement H/O lithotripsy History of resection of small bowel History of total abdominal hysterectomy H/O exploratory laparotomy Social History Smoking Status: Never smoker Hx Alcohol Use: No Hx Substance Use: No Preferred Language: Danish Communication Ability: Effective Visual Impairment: Limited Hearing Ability: Normal 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 Pressure Boiler Operator Required: No Beliefs That Will Affect Care: None marital status: / Current Living Situation: Alone How many Children do You have: 2 Feels Safe at Home: Yes Diet: diabetic Diet Comment: Meals on wheels caffeine: No Assistive Devices: Cane, Lift Chair and Walker Review of Systems Review of Systems: All systems reviewed & are unremarkable except as noted in HPI & below Physical Exam Physical Exam: General/Psych: ill appearing, sitting up in bed, conversational dyspnea Head: normocephalic, atraumatic Eyes: normal inspection, PERRL, conjunctivae pink ENT: external ear and nose normal, oropharynx normal Neck: normal visual inspection, trachea midline Respiratory: increased respiratory effort, lungs with decreased breath sounds and bilateral crackles, +accessory muscle use, +audible crackles Cardiovascular: irregular rate and rhythm, systolic murmur appreciated, no JVD Extremities: no cyanosis or clubbing, normal peripheral pulses, 2+ BLE edema Abdomen/GI: normal bowel sounds, soft, nontender Neurologic/MSK: A+Ox3, motor strength 5/5, moves all extremities Skin: LLE with erythema Results & Data Results & Data Vital Signs (Past 12 Hours) Vital Signs Temp Pulse Resp BP Pulse Ox O2 Del Method O2 Flow Rate 04/21/25 10:36 90 17 98 Nasal Cannula 4.5 04/21/25 10:27 102 H 28 H 98 Nasal Cannula 4.5 04/21/25 10:00 113 H 19 97 Nasal Cannula 4.5 04/21/25 09:56 112 H 04/21/25 09:47 37 C 126 H 28 H 103/66 93 Nasal Cannula 3 04/21/25 09:42 82 L Room Air Laboratory Results Short CBC 04/21/25 Range/Units 09:56 WBC 6.85 (4.8-10.8) K/ul Hgb 9.7 L (12.0-16.0) g/dl Hct 33.1 L (37.0-47.0) % Plt Count 223 (130-400) K/uL BMP 04/21/25 09:56 Sodium 139 Potassium 4.0 Chloride 97 L Carbon Dioxide 36 H BUN 56 H Creatinine 2.11 H Glucose 134 H Calcium 8.9 Liver Function 04/21/25 Range/Units 09:56 Total Bilirubin 0.5 (0.2-1.0) mg/dl Direct Bilirubin 0.1 (0-0.2) mg/dl AST 10 L (13-39) U/L ALT 7 (7-52) U/L Alkaline Phosphatase 46 (34-104) U/L Albumin 3.3 L (3.4-5.0) gm/dl I have independently reviewed and interpreted patient's admitting labs including CBC, CMP, mag, troponin, lactate, procal, BNP Diagnostic Findings Chest X-Ray 04/21/25 10:02 XR chest 1V portable CLINICAL HISTORY: Sepsis COMPARISON STUDY: 04/09/2025 FINDINGS: There is stable cardiomegaly with increased pulmonary vascular congestion. Increased diffuse pulmonary interstitial prominence. Stable elevation of the right hemidiaphragm. No lobar consolidation, pleural effusion, or pneumothorax seen. IMPRESSION: 1. Increased CHF. 2. Increased diffuse pulmonary interstitial opacities could represent pneumonia or pulmonary edema. ACT 112: Negative or not required by law. Electronically signed by: Tyrel Lomeli M.D. 04/21/2025 10:12 AM ECG Additional Comments: I have independently reviewed and interpreted patient's admitting EKG which r evealed: atrial fibrillation with RVR at rate of 114 with qtc 449 Code Status & VTE Plan Code Status DNR/DNI (5) Atrial fibrillation Atrial fibrillation type: longstanding persistent Qualified Code(s): I48.11 - Longstanding persistent atrial fibrillation
[2025-04-21] MEDS: FUROSEMIDE INJ 20 MG/2 ML VIAL IV ONE (11:45)
--- NOTE | 2025-04-21 12:01 | Communication Note ---
Date of Service: April 21, 2025 Attending Addendum: Case reviewed with the advanced practitioner. I have personally performed a history and physical examination on the patient. I have reviewed the advanced practitioner's documentation on the date of service referenced in note, and I agree with, and take responsibility for the plan of care. please refer to her notes for full details patient seen and examined, records reviewed by myself as well on exam, patient seen on 4 L NC, not in distress but speaks in sentences with effort, tachypneic with audible wheezes states she has some shortness of breath, somewhat improved since arrival, but no active chest pain, dizziness, palpitations, nausea reports productive cough, no fever/chills no other symptoms VS noted and reviewed oriented x3, not in distress, speaks in sentences with effort but no accessory muscle use HR 90s, irregularly irregular rhythm, no murmurs (+) diffuse crackles BL non distended, soft, nontender grade 2 BL lower extremity edema, with mild erythema L >R , no warmth no neuro deficits all labs, imaging noted and reviewed ASSESSMENT AND PLAN> ACUTE HYPOXIC RESPIRATORY FAILURE SECONDARY TO: ACUTE ON CHRONIC CHF EXACERBATION, DIASTOLIC, VALVULAR discharged to SNF 10 days ago on Lasix 60mg BID presents today with shortness of breath and cough, hypotension requiring 4 L NC syst 70s at one point while at the ER improved to syst 90s without intervention Lasix 20mg IV ordered, may need Levophed in the interim to achieve adequate diuresis will discuss with Research Interviewer consult Cardiology HYPOTENSION POSSIBLE SEPTIC SHOCK, SECONDARY TO HEALTH CARE ASSOCIATED PNEUMONIA R/O CARDIOGENIC SHOCK R/O ADRENAL INSUFFICIENCY started on Midodrine 5mg TID during last admission earlier this month presents with syst BP 70s-80s respiratory panel MRSA nasal swab ff up blood, urine cultures empiric Cefepime IV echocardiogram check random cortisol CARROL on CKD 3 crea 2.11, from baseline 1.9 will consult Nephro A FIB on Metoprolol and Eliquis other diagnoses and plan of care as per advanced practitioner's notes I spent a total of 60 minutes coordinating, documenting, and providing care for this patient, excluding time spent in the performance of separately billed services or time spent by another provider/QHP. Rashid Jiang MD
[2025-04-21] MEDS: cefTRIAXone SODIUM 2,000 MG/50 ML BAG IV STA (12:18)
[2025-04-21 12:32] LABS: iSTAT Art Bld Gas Base Excess 8.0 meg/L (-9-1.8); iSTAT Art Bld Gas pCO2 Correct 67 mmHg (35-46); iSTAT Art Bld Gas pH Corrected 7.320 (7.35-7.45); iSTAT Arterial Blood Gas pO2 C 86
[2025-04-21] MEDS: DOXYCYCLINE HYCLATE 100 MG in DEXTROSE 5% MINI-B 100 ML IV STA (12:53)
[2025-04-21 12:54] LABS: Chlamydia pneumoniae PCR Not Detected (NotDetected); Coronavirus 229E PCR Not Detected (NotDetected); Coronavirus CoV-2 (COVID19)PCR Not Detected (NotDetected); Coronavirus HKU1 PCR Not Detected (NotDetected); Coronavirus NL63 PCR Not Detected (NotDetected); Coronavirus OC43PCR Not Detected (NotDetected); Human Metapneumovirus PCR Not Detected (NotDetected); Parainfluenza Virus 1 PCR Not Detected (NotDetected); Parainfluenza Virus 2 PCR Not Detected (NotDetected); Parainfluenza Virus 3 PCR Not Detected (NotDetected); Parainfluenza Virus 4 PCR Not Detected (NotDetected); Respiratory Syncytial VirusPCR Not Detected (NotDetected); Rhinovirus/Enterovirus PCR DETECTED (NotDetected)
[2025-04-21] MEDS: CEFEPIME 2000MG 2,000 MG/20 ML SYR IV ONE (13:55)
[2025-04-21] MEDS: NOREPINEPHRINE/D5W 4 MG/250 ML PLCT IV SCH (15:05)
[2025-04-21] MEDS ORDERED: CARBOHYDRATES FOR HYPOGLYCEMIA PO PRN (15:07)
[2025-04-21] MEDS ORDERED: DEXTROSE 50% 50 ML SYRINGE IV PRN (15:07)
[2025-04-21] MEDS ORDERED: GLUCOSE 10 TAB/TUBE PO PRN (15:07)
[2025-04-21] MEDS ORDERED: GLUCAGON FOR INJ 1 MG VIAL SQ PRN (15:07)
[2025-04-21] MEDS ORDERED: GLUCOSE 40% GEL 15 GM TUBE PO PRN (15:07)
[2025-04-21] MEDS ORDERED: PHARMACY GLYCEMIC MGMT CONSULT PRN (15:07)
--- NOTE | 2025-04-21 15:53 | Cardiology Consultation ---
Date of Consultation April 21, 2025 Assessment & Plan (1) Septic shock: (2) Hypotension: (3) Acute respiratory failure with hypoxia and hypercapnia: (4) Acute diastolic congestive heart failure due to valvular disease: (5) Rheumatic valvular disease: (6) Atrial fibrillation with RVR: Plan Patient admitted to [facility] with acute respiratory failure with hypoxia and hypercapnia and sepsis with tachycardia/hypotension. Multifactorial with probable acute viral respiratory illness, pneumonia, and acute HFpEF due to severe valvular heart disease. Long history of rheumatic heart disease with known severe MS, MR, Moderate , moderate AI, Severe TR. She has previously declined valvular intervention or evaluation. Since admission - Started on broad spectrum antibiotics on admission. Started on norepi due to hypotension. BP improving. Blood cultures pending Urine cultures pending. She received Furosemide 20 mg IV in the ER. Recommend additional dose IV lasix this afternoon. Monitor I+O's Creatinine 2.1. Stable from prior admission. Creatinine improved last admission with diuretic therapy. Chronic afib - elevated rates on admission likely due to sepsis -start metoprolol tartrate IV 5 mg - first dose now, then every 6 hours -when able to resume oral medications, resume eliquis -DVT proph recommended for now Severe valvular heart disease contributing to her HFpEF -echo pending -IV lasix -conservative med management recommended Patient is DNR/DNI. This is her 2nd recent admission for acute respiratory failure with multiple complex comorbidities. Would consider palliative care consult to discuss goals of care. Further recommendations pending evaluation and discussion with Dr. Hernandez I spent a total of 60 minutes on the date of service in preparation, delivery, and documentation of the care provided to this patient, excluding any time spent in the performance of separately billed services. Cherelle Swanson PA-C Department of Cardiology, [facility] This chart was completed in part utilizing Speech Voice Recognition Software. Gr ammatical errors, random word insertions, pronoun errors, and incomplete sentences are an occasional consequence of this system due to software limitations, ambient noise, and hardware issues. Any formal questions or concerns about the content, text, or information contained within the body of this dictation should be directly addressed to the provider for clarification. Supervising Physician Co-Signing Physician Notes I have personally performed a history and physical examination on the patient. I have reviewed the advance practitioner's documentation, and I agree with, and take responsibility for the plan of care. 85-year-old female presenting with acute hypoxic and hypercapnic respiratory failure secondary to pneumonia, rhino/enterovirus, sepsis, acute on chronic heart failure in the setting of severe mixed rheumatic valvular heart disease. Echocardiogram confirming severe mitral stenosis, moderate to severe mitral regurgitation, moderate aortic valve stenosis with mild aortic regurgitation. LV and RV function remain preserved. Evidence of severe pulmonary hypertension. Recommend addition of IV metoprolol to improve rate control. 5 mg metoprolol x 1 now then every 6 hours. Pressor support to maintain MAP > 60mmHg. Consider utilization of IV digoxin if needed. Patient appears volume overloaded. 40 mg IV Lasix x 1 now. Monitor fluid balance, GFR, daily weight. Poor prognosis. Paolo Hernandez DO, [facility] I spent a total of 40 minutes on the date of service in preparation, delivery, a nd documentation of the care provided to this patient, excluding any time spent in the performance of separately billed services. History of Present Illness Reason for Consultation: Acute respiratory failure with hypoxia and hypercapnia; Severe valvular heart disease; Acute HF Requesting Physician: Libertad Manzo Attending Physician: Dr. Hernandez History of Present Illness Patient is a complex 85 year old female admitted to [facility] with worsening respiratory status/hypoxia from [facility]. Patient recently admitted to [facility] with acute HFpEF due to severe valvular heart disease. During admission she was diuresed with IV lasix and use of metolazone with improvement in her symptoms. Creatinine initially 2.1, improved to 1.3 on discharge. She was discharged on 60 mg BID of lasix and metolazone 2.5 mg once per week. She was discharged to [facility] for rehab. While there, she was found to be hypotensive at times. Weight was down 8 lbs per reports and furosemide was reduced to 40 mg BID along with chronic metolazone 2.5 mg once per week. Several days later patient had significant nausea and vomiting. There was possible aspiration event. She then developed worsening cough, congestion. Outpatient chest xray with possible LLL pneumonia and started on antibiotics. Over the last 2 days patients symptoms worsened with cough/SOB/cough/wheeze and hypoxia. ER was recommended last night but patient refused. This morning she was agreeable after further discussion with her son. On arrival to ER, chest xray with pulm vascular congestion, possible b/l opacities. Due to hypoxia and hypercapnia, she was trialed on Bipap but became acutely agitated and mask was removed. she tested + for enterovirus/rhinovirus. Possible pneumonia. Hypotension and tachycardic suggestive of acute sepsis. Due to hypotension, she was started on pressors. Antibiotics started. Blood cultures ordered and pending Urine cultures ordered and pending Chronic afib noted with elevated rates. Metoprolol held on admission due to hypotension. At time of consult, patient resting in bed. Echo being done. Son at bedside. She reports feeling "fine" at rest. Significant audible wheezing and rales noted. Ongoing LE edema noted. Tachypneic. No chest pain reported. She has complex history including: Diastolic congestive heart failure, HFpEF secondary to valvular heart disease Severe valvular heart disease, rheumatic Permanent atrial fibrillation Hypertension Dyslipidemia Type 2 diabetes mellitus Stage III chronic kidney disease Obesity Chronic hypokalemia Chronic hyponatremia Dysphagia Paralyzed vocal cord Hypothyroidism Degenerative disc disease Kidney stones Allergies Allergy/AdvReac Type Severity Reaction Status Date / Time empagliflozin Allergy Intermediate Pain in Verified 03/29/25 14:15 [From Jardiance] Vaginal/Rectal area latex Allergy Intermediate . Verified 03/29/25 14:15 metformin AdvReac Intermediate Diarrhea Verified 04/04/25 07:44 Home Medications Medication Instructions Recorded Confirmed Type acetaminophen 325 mg capsule 650 mg PO QID PRN Pain (Scale 03/11/25 04/21/25 History Score 4-6) allopurinol 100 mg tablet 200 mg PO DAILY 03/11/25 04/21/25 History (Zyloprim) apixaban 2.5 mg tablet (Eliquis) 2.5 mg PO BID 03/11/25 04/21/25 History calcium 600 mg (as 1 tab PO DAILY 03/11/25 04/21/25 History carbonate)-vitamin D3 10 mcg (400 unit) tablet coenzyme Q10 400 mg capsule 400 mg PO DAILY 03/11/25 04/21/25 History cyanocobalamin (vitamin B-12) 1,000 mcg PO DAILY 03/11/25 04/21/25 History 1,000 mcg capsule glucosam 750 mg-chondroi 100 3 tab PO DAILY 03/11/25 04/21/25 History mg-hyalur 1.65 mg-CF borate 108 mg tablet (Interactive Fate) levothyroxine 175 mcg tablet 175 mcg PO DAILY 03/11/25 04/21/25 History (Synthroid) linagliptin 5 mg tablet (Tradjenta) 5 mg PO DAILY 03/11/25 04/21/25 History loperamide 2 mg capsule 2 mg PO BID PRN Diarrhea 03/11/25 04/21/25 History (Anti-Diarrheal (loperamide)) magnesium 200 mg tablet 200 mg PO WK 03/11/25 04/21/25 History potassium chloride 20 mEq 40 meq PO DAILY 03/11/25 04/21/25 History tablet,extended release(part/cryst) furosemide 20 mg tablet 60 mg (3 x 20 mg) PO BID17 30 days 04/10/25 04/21/25 Rx #90 tabs metoprolol succinate 25 mg 25 mg PO BID 30 days #60 tabs 04/10/25 04/21/25 Rx tablet,extended release 24 hr midodrine 2.5 mg tablet 5 mg (2 x 2.5 mg) PO 04/10/25 04/21/25 Rx TID@0800,1200,1700 30 days #5 tabs Patient History Medical History (Updated 04/21/25 @ 16:11 by Cherelle Swanson PA-C) Kidney stone 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 Cellulitis of left lower extremity Atherosclerosis of aorta Hilar lymphadenopathy DDD (degenerative disc disease), cervical Pulmonary hypertension Mild tricuspid regurgitation Moderate aortic regurgitation 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 Irritable bowel syndrome with diarrhea Hyperuricemia Rheumatic mitral stenosis Orthostatic hypotension Morbid obesity due to excess calories Positive CARRIE (antinuclear antibody) Ischemic bowel disease Hypothyroidism (acquired) Nocturnal enuresis Insomnia Hoarse voice quality Left atrial enlargement Mitral valve stenosis, moderate Surgical History (Updated 04/21/25 @ 12:31 by ATYLOR Stanley) Hx of tonsillectomy History of hysterectomy History of total left knee replacement History of total right knee replacement H/O lithotripsy History of resection of small bowel History of total abdominal hysterectomy H/O exploratory laparotomy Social History Smoking Status: Never smoker Hx Alcohol Use: No Hx Substance Use: No Preferred Language: [place] Communication Ability: Effective Visual Impairment: Limited Hearing Ability: Normal Ammunition Specialist Required: No Beliefs That Will Affect Care: None marital status: / Current Living Situation: Alone How many Children do You have: 2 Feels Safe at Home: Yes Diet: diabetic Diet Comment: Meals on wheels caffeine: No Assistive Devices: Cane, Lift Chair and Walker Review of Systems Review of Systems: All systems reviewed & are unremarkable except as noted in HPI & below Physical Exam Constitutional: + ill appearing, + obese and + lethargic Neck: + thick neck Respiratory: + respiratory distress, + labored breath ing, + uses accessory muscles and + tachypneic Auscultation: + crackles, + rales and + wheezes Cardiovascular: Rate/Rhythm: + tachycardic and + irregularly irregular Heart Sounds: + murmur (distant heart sounds - difficult to auscultate) Vessels: + JVD Extremities: + edema (2+) Gastrointestinal (Abdomen): normal bowel sounds, soft, nontender, no hepatosplenomegaly Musculoskeletal: no cyanosis or clubbing, extremities motor strength 5/5 Neurologic: PERRL, EOMI, accommodation nl, no face palsy, no dysarthria Psychiatric: A+Ox3, euthymic affect Results & Data Vital Signs (Past 12 Hours) Vital Signs Temp Pulse Resp BP Pulse Ox O2 Del Method O2 Flow Rate 04/21/25 14:31 103 H 16 85/50 L 97 Nasal Cannula 4 04/21/25 14:15 92 H 22 91/56 L 96 04/21/25 14:01 86/61 L 04/21/25 14:00 96 H 18 86/61 L 95 04/21/25 13:30 90 19 97/55 L 98 04/21/25 13:20 100/69 04/21/25 13:00 92 H 21 90/61 L 89 L 04/21/25 12:45 90 23 93/59 L 98 04/21/25 12:33 101 H 26 H 100 04/21/25 12:15 105 H 22 82/64 L 95 Nasal Cannula 04/21/25 12:00 98 H 24 95/63 L 95 04/21/25 11:50 98/63 L 04/21/25 11:42 97 H 25 H 101/63 97 Nasal Cannula 04/21/25 11:33 109 H 20 106/64 98 04/21/25 11:21 101 H 21 95/58 L 96 04/21/25 11:15 90 24 99/71 L 97 04/21/25 11:08 73/50 L 04/21/25 11:03 108 H 20 103/54 L 99 04/21/25 10:36 90 17 98 Nasal Cannula 4.5 04/21/25 10:27 102 H 28 H 98 Nasal Cannula 4.5 04/21/25 10:00 113 H 19 97 Nasal Cannula 4.5 04/21/25 09:56 112 H 04/21/25 09:47 37 C 126 H 28 H 103/66 93 Nasal Cannula 3 04/21/25 09:42 82 L Room Air FiO2 04/21/25 14:31 04/21/25 14:15 04/21/25 14:01 04/21/25 14:00 04/21/25 13:30 04/21/25 13:20 04/21/25 13:00 04/21/25 12:45 04/21/25 12:33 40 04/21/25 12:15 04/21/25 12:00 04/21/25 11:50 04/21/25 11:42 04/21/25 11:33 04/21/25 11:21 04/21/25 11:15 04/21/25 11:08 04/21/25 11:03 04/21/25 10:36 04/21/25 10:27 04/21/25 10:00 04/21/25 09:56 04/21/25 09:47 04/21/25 09:42 Laboratory Results Cardiac Enzymes 04/21/25 04/21/25 Range/Units 09:56 12:06 AST 10 L (13-39) U/L Troponin I High Sens 30.9 H 31.7 H (0-14) pg/ml B-Natriuretic Peptide 598 H (0-100) pg/ml Coagulation 04/21/25 Range/Units 09:56 B-Natriuretic Peptide 598 H (0-100) pg/ml CBC 04/21/25 Range/Units 09:56 WBC 6.85 (4.8-10.8) K/ul RBC 3.49 L (4.20-5.40) M/uL Hgb 9.7 L (12.0-16.0) g/dl Hct 33.1 L (37.0-47.0) % Plt Count 223 (130-400) K/uL Neut # (Auto) 5.66 (1.40-6.50) K/uL Lymph # (Auto) 0.54 L (1.20-3.40) K/uL [place] # (Auto) 0.48 (0.11-0.59) K/uL Eos # (Auto) 0.08 (0.00-0.50) K/uL Baso # (Auto) 0.04 (0.00-0.20) K/uL Comprehensive Metabolic Panel 04/21/25 Range/Units 09:56 Sodium 139 (136-145) mmol/L Potassium 4.0 (3.5-5.1) mmol/L Chloride 97 L (98-107) mmol/L Carbon Dioxide 36 H (21-32) mmol/L BUN 56 H (6-23) mg/dl Creatinine 2.11 H (0.6-1.2) mg/dl Glucose 134 H (70-99(Fasting)) mg/dl Calcium 8.9 (8.6-10.3) mg/dl Direct Bilirubin 0.1 (0-0.2) mg/dl AST 10 L (13-39) U/L ALT 7 (7-52) U/L Alkaline Phosphatase 46 (34-104) U/L Total Protein 6.6 (6.0-8.3) gm/dl Albumin 3.3 L (3.4-5.0) gm/dl Intake and Output 04/21/25 04/21/25 04/21/25 06:59 14:59 22:59 Intake Total 50 / 150 100 / 150 Output Total 125 / 125 Balance - Intake: IV 50 / 150 100 / 150 Doxycycline Hyclate 100 mg In 100 / 100 Dextrose 5% Mini-B 100 ml @ 50 mls/hr IV NOW STA Rx#:[id number] cefTRIAXone SODIUM 2,000 mg In 50 / 50 50 ml @ 100 mls/hr IV NOW STA Rx#:[id number] Output: Urine Amount (Catheter) 125 / 125 Dey/Indwelling 125 / 125 Other: Weight 112.7 kg 108 kg Weight [facility] Patient Weight 04/22/25 06:59 Weight 108 kg Diagnostic Findings Telemetry reviewed: Atrial fibrillation with RVR, PVC's/couplets EKG reviewed Atrial fibrillation with RVR Repeat echo pending Chest X-Ray 04/21/25 10:02 XR chest 1V portable CLINICAL HISTORY: Sepsis COMPARISON STUDY: 04/09/2025 FINDINGS: There is stable cardiomegaly with increased pulmonary vascular congestion. Increased diffuse pulmonary interstitial prominence. Stable elevation of the right hemidiaphragm. No lobar consolidation, pleural effusion, or pneumothorax seen. IMPRESSION: 1. Increased CHF. 2. Increased diffuse pulmonary interstitial opacities could represent pneumonia or pulmonary edema. ACT 112: Negative or not required by law. Electronically signed by: Tyrel Lomeli M.D. 04/21/2025 10:12 AM Prior outpatient data reviewed: Echo report reviewed from February 2025: February 09, 2025 TTE Interpretation Summary (as per Dr. James): The left ventricular cavity size is normal. The LV wall thickness is moderately increased (concentric). The left ventricular wall motion is normal. The qualitative LV ejection fraction is 55-59% (normal). The left atrium is severely enlarged (>48 ml/m^2,). The aortic valve is moderately calcified. Moderate aortic valve stenosis is present. Moderate aortic valve regurgitation is present. There is severe mitral annular calcification. The mitral valve leaflets thickness is severely increased. Severe mitral stenosis is present. Severe mitral regurgi tation is present. Severe tricuspid regurgitation is present. Moderate pulmonary hypertension is present. The estimated pulmonary artery systolic pressure is 45- 50mm Hg. Medications Administered Current Inpatient Medications Norepinephrine Bitartrate (Levophed/D5w) 4 mg in 250 mls @ 21.131 mls/hr IV .[id number] [facility]; Protocol Stop: 05/21/25 11:14 Last Titration: 04/21/25 16:02 Dose: 0.04 mcg/kg/min, 16.9 mls/hr Cefepime HCl (Maxipime 2000mg) 1,000 mg in 10 mls @ 5 mls/min IV Q12H [facility]; Protocol Stop: 04/27/25 01:44 PG Care Time/CCT Total # of Minutes Spent Total Time Spent with Patient: Total time spent is greater than 50% in coordination of care (as documented) at patient's floor/unit and/or counseling patient: 60 minutes Coding Level of Care Code 36360 INT INP/OBS CARE 75MIN Diagnoses Septic shock A41.9; R65.21 Hypotension I95.9 Acute respiratory failure with hypoxia and hypercapnia J96.01; J96.02 Acute diastolic congestive heart failure due to valvular disease I50.31; I38 Rheumatic valvular disease I09.1 Atrial fibrillation with RVR I48.91
[2025-04-21 15:54] LABS: Appearance Urine Cloudy (Clear); Bacteria Urine Automated None Seen (None Seen); Epithelial Cell Urine Auto 0-2 /hpf (0-2); Glucose Urine UA Negative (Negative); RBC Urine Automated >20 /hpf (0-2); WBC Urine Automated >50 /hpf (0-5)
[2025-04-21] MEDS ORDERED: METOPROLOL TARTRATE 1 MG/ML VIAL IV PRN (16:05)
--- NOTE | 2025-04-21 16:40 | Critical Care Consultation ---
Date of Consultation April 21, 2025 Assessment & Plan (1) Acute diastolic congestive heart failure due to valvular disease: Reason Critically Ill: 85-year-old female with CHF and volume overload with acute hypoxic respiratory failure PLAN: Neuro: Air hunger - 2 mg morphine Resp: Acute hypoxic respiratory failure - Suspect secondary to volume overload - Maximum therapy with high flow nasal cannula - Did not tolerate CPAP BiPAP, does not want intubation CV: Congestive heart failure - Aggressive diuresis - Peripherally administered Levophed - Weight recorded in ED was 112 kg, weight in the ICU was 108 kg, patient has apparent dry weight of approximately 94 kg per prior records Rate controlled atrial fibrillation - Mildly elevated troponins Fluids/Renal: Acute kidney injury on chronic kidney disease - Baseline creatinine appears to be approximately 1.2 1.3 - Acetazolamide 250 mg IV x 1 Bumex x 2 mg IV now ID: On cefepime and Doxy - Procalcitonin largely unremarkable I doubt this represents sepsis - Continue 48 hours of broad-spectrum antibiotics at this time GI/Nutrition: N.p.o. Heme: Systemic anticoagulation with low-dose Eliquis Anemia at baseline: Appears stable DVT prophylaxis: Low-dose Eliquis Endocrine: ICU hyperglycemia protocol Vascular access: Peripheral IVs Code Status: DNR/DNI Disposition: Discussed with patient's son at bedside. We have essentially reached maximum therapy. Patient admittedly tired of medical interventions. Strongly considering conversion to comfort measures. (2) Acute kidney injury superimposed on CKD: (3) Acute respiratory failure with hypoxia and hypercapnia: (4) Aortic stenosis: (5) Mitral stenosis: (6) Hypotension: Supervising Physician Co-Signing Physician Notes I have personally spent 70 minutes of critical care time in the direct management of this patient. This is a life/limb threatening event. This includes time spent evaluating patient, direct bedside care, chart review, placing orders, interpretation of diagnostic studies, discussion with consultants, patient, and/or family members regarding treatment decisions, as well as other required patient management activities. This time is exclusive of all separately billable procedures, and teaching time and separate from and in addition to any other critical care service time. History of Present Illness Reason for Consultation: Shortness of breath with hypotension requiring vasoactive medication administration Attending Physician: Rashid Jiang MD History of Present Illness Patient is an 85-year-old female who presented to [facility] emergency department with a chief complaint of shortness of breath. She has a significant cardiac history for acute diastolic heart failure along with chronic kidney disease, rheumatic valvular heart disease aortic stenosis mitral stenosis, A-fib diabetes type 2 hypertension. Patient has an advanced directive indicating she does not want intubated nor resuscitated in event of cardiac arrest. During my evaluation she also expressed that she was rather tired of medical treatments and was questioning whether she wanted to continue with aggressive care. We discussed that she does not want advanced access in the terms of central lines nor shocks. She is willing to undergo current medical management which includes IV vasoactive medications not through central venous access and high flow nasal cannula not to include CPAP or advanced airway techniques. Primary team has started her on diuretics and peripheral administered norepinephrine. An echocardiogram has been obtained. I also started cefepime and doxycycline for possible urinary source of infection: She has no daren kocytosis nor lactate and a negative Pro-Karthikeyan on initial labs. Per records she was administered doxycycline and ceftriaxone, ordered 20 mg of Lasix at 1105 and norepinephrine at 1115. Nursing records indicate the Levophed was started at 3 PM, and Dey was inserted and upon arrival to the ICU Allergies Allergy/AdvReac Type Severity Reaction Status Date / Time empagliflozin Allergy Intermediate Pain in Verified 03/29/25 14:15 [From Jardiance] Vaginal/Rectal area latex Allergy Intermediate . Verified 03/29/25 14:15 metformin AdvReac Intermediate Diarrhea Verified 04/04/25 07:44 Home Medications Medication Instructions Recorded Confirmed Type acetaminophen 325 mg capsule 650 mg PO QID PRN Pain (Scale 03/11/25 04/21/25 History Score 4-6) allopurinol 100 mg tablet 200 mg PO DAILY 03/11/25 04/21/25 History (Zyloprim) apixaban 2.5 mg tablet (Eliquis) 2.5 mg PO BID 03/11/25 04/21/25 History calcium 600 mg (as 1 tab PO DAILY 03/11/25 04/21/25 History carbonate)-vitamin D3 10 mcg (400 unit) tablet coenzyme Q10 400 mg capsule 400 mg PO DAILY 03/11/25 04/21/25 History cyanocobalamin (vitamin B-12) 1,000 mcg PO DAILY 03/11/25 04/21/25 History 1,000 mcg capsule glucosam 750 mg-chondroi 100 3 tab PO DAILY 03/11/25 04/21/25 History mg-hyalur 1.65 mg-CF borate 108 mg tablet ([employer]) levothyroxine 175 mcg tablet 175 mcg PO DAILY 03/11/25 04/21/25 History (Synthroid) linagliptin 5 mg tablet (Tradjenta) 5 mg PO DAILY 03/11/25 04/21/25 History loperamide 2 mg capsule 2 mg PO BID PRN Diarrhea 03/11/25 04/21/25 History (Anti-Diarrheal (loperamide)) magnesium 200 mg tablet 200 mg PO WK 03/11/25 04/21/25 History potassium chloride 20 mEq 40 meq PO DAILY 03/11/25 04/21/25 History tablet,extended release(part/cryst) furosemide 20 mg tablet 60 mg (3 x 20 mg) PO BID17 30 days 04/10/25 04/21/25 Rx #90 tabs metoprolol succinate 25 mg 25 mg PO BID 30 days #60 tabs 04/10/25 04/21/25 Rx tablet,extended release 24 hr midodrine 2.5 mg tablet 5 mg (2 x 2.5 mg) PO 04/10/25 04/21/25 Rx TID@0800,1200,1700 30 days #5 tabs Patient History Medical History (Updated 04/21/25 @ 16:11 by Cherelle Swanson PA-C) Kidney stone 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 Cellulitis of left lower extremity Atherosclerosis of aorta Hilar lymphadenopathy DDD (degenerative disc disease), cervical Pulmonary hypertension Mild tricuspid regurgitation Moderate aortic regurgitation 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 Irritable bowel syndrome with diarrhea Hyperuricemia Rheumatic mitral stenosis Orthostatic hypotension Morbid obesity due to excess calories Positive CARRIE (antinuclear antibody) Ischemic bowel disease Hypothyroidism (acquired) Nocturnal enuresis Insomnia Hoarse voice quality Left atrial enlargement Mitral valve stenosis, moderate Surgical History (Updated 04/21/25 @ 12:31 by TAYLOR Stanley) Hx of tonsillectomy History of hysterectomy History of total left knee replacement History of total right knee replacement H/O lithotripsy History of resection of small bowel History of total abdominal hysterectomy H/O exploratory laparotomy Social History (Reviewed 04/21/25 @ 12:32 by GIDEON Stanley Smoking Status: Never smoker Hx Alcohol Use: No Hx Substance Use: No Preferred Language: Occitan Communication Ability: Effective Visual Impairment: Limited Hearing Ability: Normal Contact Lens Blocker And Cutter Required: No Beliefs That Will Affect Care: None marital status: / Current Living Situation: Alone How many Children do You have: 2 Feels Safe at Home: Yes Diet: diabetic Diet Comment: Meals on wheels caffeine: No Assistive Devices: Cane, Lift Chair and Walker Physical Exam Physical Exam: General: Alert. nontoxic. Skin: Warm, dry, Head: Atraumatic Ears, nose, mouth and throat: airway patent Cardiovascular: Normal peripheral perfusion, irregularly irregular, atrial fibrillation on the monitor Respiratory: no respiratory distress Gastrointestinal: Non distended Musculoskeletal: No deformity, 3+ pitting edema Results & Data Results & Data Vital Signs (Past 12 Hours) Vital Signs Temp Pulse Resp BP Pulse Ox O2 Del Method O2 Flow Rate 04/21/25 14:31 103 H 16 85/50 L 97 Nasal Cannula 4 04/21/25 14:15 92 H 22 91/56 L 96 04/21/25 14:01 86/61 L 04/21/25 14:00 96 H 18 86/61 L 95 04/21/25 13:30 90 19 97/55 L 98 04/21/25 13:20 100/69 04/21/25 13:00 92 H 21 90/61 L 89 L 04/21/25 12:45 90 23 93/59 L 98 04/21/25 12:33 101 H 26 H 100 04/21/25 12:15 105 H 22 82/64 L 95 Nasal Cannula 4 04/21/25 12:00 98 H 24 95/63 L 95 04/21/25 11:50 98/63 L 04/21/25 11:42 97 H 25 H 101/63 97 Nasal Cannula 4 04/21/25 11:33 109 H 20 106/64 98 04/21/25 11:21 101 H 21 95/58 L 96 04/21/25 11:15 90 24 99/71 L 97 04/21/25 11:08 73/50 L 04/21/25 11:03 108 H 20 103/54 L 99 04/21/25 10:36 90 17 98 Nasal Cannula 4.5 04/21/25 10:27 102 H 28 H 98 Nasal Cannula 4.5 04/21/25 10:00 113 H 19 97 Nasal Cannula 4.5 04/21/25 09:56 112 H 04/21/25 09:47 37 C 126 H 28 H 103/66 93 Nasal Cannula 3 04/21/25 09:42 82 L Room Air FiO2 04/21/25 14:31 04/21/25 14:15 04/21/25 14:01 04/21/25 14:00 04/21/25 13:30 04/21/25 13:20 04/21/25 13:00 04/21/25 12:45 04/21/25 12:33 40 04/21/25 12:15 04/21/25 12:00 04/21/25 11:50 04/21/25 11:42 04/21/25 11:33 04/21/25 11:21 04/21/25 11:15 04/21/25 11:08 04/21/25 11:03 04/21/25 10:36 04/21/25 10:27 04/21/25 10:00 04/21/25 09:56 04/21/25 09:47 04/21/25 09:42 Coding Level of Care Code 21604 CRITICAL CARE 1ST 30-74M Diagnoses Acute diastolic congestive heart failure due to valvular disease I50.31; I38 Acute kidney injury superimposed on CKD N17.9; N18.9 Acute respiratory failure with hypoxia and hypercapnia J96.01; J96.02 Aortic stenosis I35.0 Mitral stenosis I05.0 Hypotension I95.9
[2025-04-21] MEDS ORDERED: MoRPHine SULFATE 2 MG/ML CARP IV PRN (17:12)
[2025-04-21] MEDS ORDERED: STAT IV Infusion **Titration per Protocol STA (17:13)
[2025-04-21] MEDS: METOPROLOL TARTRATE 1 MG/ML VIAL IV PRN (17:31)
[2025-04-21] MEDS: STAT IV Infusion **Titration per Protocol STA (17:43)
[2025-04-21] MEDS: INSULIN ASPART PER UNIT CHARGE SC SCH (17:44)
[2025-04-21] MEDS: MoRPHine SULFATE 2 MG/ML CARP IV STA (18:15)
[2025-04-21] MEDS: MIDODRINE HCL 2.5 MG TAB PO SCH (18:21)
[2025-04-21] MEDS: BUMETANIDE 2 MG in SYRINGE 0 ML IV ONE (19:06)
[2025-04-21] MEDS: acetaZOLAMIDE 250 MG in SYRINGE 0 ML IV STA (19:26)
[2025-04-21] MEDS ORDERED: ATROPINE SULFATE 1% OP SOLN 5 ML BTL SL PRN (19:38)
[2025-04-21] MEDS ORDERED: ONDANSETRON INJ 2 MG/ML 2 ML VIAL IV PRN (19:38)
[2025-04-21] MEDS ORDERED: GLYCOPYRROLATE 0.2 MG/ML VIAL IV PRN (19:38)
[2025-04-21] MEDS ORDERED: MoRPHine SULFATE 2 MG/ML CARP IV SCH (19:45)
--- NOTE | 2025-04-21 19:57 | Communication Note ---
Date of Service: April 21, 2025 85 YOF admitted today with septic shock complicated by likely cardiogenic shock and afib with RVR- she is with volume overload and hypoxic respiratory failure. Patient was able to have goals of care discussion with Physicians and family earlier. Did not want intubated or central line or aggressive measures, and family was updated at that time that she is on maximal noninvasive therapies and at that time they elected to see how she would progress over the next few hours to days and if no improvement, would transition to comfort care. - Yessy remains tachycardic in the 130s with and hypoxic on NC at 80s- she is visibly dyspneic and fatigued. Moist cough and moist voice and can only speak in words before getting fatigued. She states that she is very tired and wants to be comfortable - Family was called back in to be with Yessy - her son and his presented to bedside they are well versed in her case and goals of care- they would like her to be transitioned to comfort care with the discontinuation of her vasoactive medications, anbitiotics, and oxygen. - Alexander will go out and call his other brother to see if he would like to be present to spend time with their mother. We will initiate comfort care measures when family is ready. - Primary service has been updated. We will provide -Morphine IV push 3mg q30 min for air hunger, dyspnea, gasping or pain - Ativan 0.5-1mg for anxiety or agitation- if seizures occur will proved Ativan 5-8mg - Atropine and Robinul for secretion management - Will discontinue antibiotics - Will discontinue oxygen and other respiratory support - Family declined spiritual visit and were very appreciative of services and care. Alexander states that his mom would just want to be comfortable and he seen her last night and "said his goodbyes" at that time and just wants her to be comfortable so they can spend time together. Dante VAZQUEZ (ACNP-)
[2025-04-21] MEDS: MoRPHine SULFATE 2 MG/ML CARP IV PRN (20:52)
[2025-04-21 20:57] VITALS: PULSE 166
[2025-04-21] MEDS ORDERED: METOPROLOL SUCC 25MG EXT REL TAB PO SCH (21:00)
[2025-04-21] MEDS ORDERED: APIXABAN 2.5 MG TAB PO SCH (21:00)
[2025-04-21] MEDS ORDERED: DOXYCYCLINE HYCLATE 100 MG in DEXTROSE 5% MINI-B 100 ML IV SCH (21:00)
[2025-04-21 21:03] VITALS: BP 76/54; RESP 21
[2025-04-21 21:05] VITALS: O2SAT 76
--- NOTE | 2025-04-21 22:02 | Death Pronouncement Note ---
Date of Service April 21, 2025 Pronouncement Note Admission Date Admission Date: April 21, 2025 Date and Time of Date of : 04/21/25 Time of : 21:37 PCOD Preliminary cause of : Heart failure Contributing Factors (1) Acute respiratory failure with hypoxia and hypercapnia: (2) Acute diastolic congestive heart failure due to valvular disease: (3) Acute kidney injury superimposed on CKD: (4) Atrial fibrillation: (5) DM type 2 (diabetes mellitus, type 2): Hospital Course Hospital Course: Patient admitted 04/21/25 from rehab facility through the ED for mixed shock likely distributive and cardiogenic with afib and RVR further complicated with hypoxic respiratory failure and valvular heart disease. She was admitted received broad spectrum antibiotics, cultures were drawn for concern of septic shock from possible pulmonary source, she was diuresed with lasix as well as placed on inotropic and vasopressor agents. Patient declined NIPVV as well as further aggressive measures, Patient has an advanced directive indicating she does not want intubated nor resuscitated in event of cardiac arrest. She initially was willing to undergo current medical management which includes IV vasoactive medications not through central venous access and high flow nasal cannula not to include CPAP or advanced airway techniques.. She continued to progress with dyspnea, hypoxia, tachycardia, and hypotension. Patient and family elected to stop life prolonging medications and support and proceed to comfort/palliative care. Patient was transitioned to comfort measures and comfortably with family present at her side at 2136. Summary Additional details: PRONOUNCEMENT NOTE - Date: April 21, 2025 Time: 2136 Patient transitioned to comfort measures, pulse and respiratory rate ceased, pronounced at 2136 with asystole. Assessment: I presented to the patients room for evaluation. Upon assessment, the patient was found to be in a terminal state. Pupils were fixed and dilated without response. lu. No spontaneous breaths noted, no movement of air heard over thorax or trachea. Heart sounds were absent and no palpable central pulse noted . No response to painful stimuli or response to name. Time of : 2136 as pronounced by myself. Family (both son's and their spouses) present at bedside. Appropriate response to grief appreciated. Condolences provided. Questions were addressed and emotional support was provided. Patients primary service was contacted and made aware of patient demise. Pronouncement section of the Certificate was filled out and signed by myself. Cause of : Primary - Heart failure Secondary - Hypoxic respiratory failure Contributing Causes of - Kidney disease, Afib, valvular heart disease, DMII Please feel free to contact me with any questions regarding the above-mentioned course. Additional Data Attending physician: Rashid Jiang MD
--- NOTE | 2025-04-21 22:07 | Communication Note ---
Date of Service: April 21, 2025 Patient pronounced by ICU staff. certificate completed. Dr. Jiang to accomplish discharge summary.
[2025-04-22] MEDS ORDERED: CEFEPIME 1000MG 1,000 MG/10 ML SYR IV SCH (01:45)
[2025-04-22] MEDS ORDERED: LEVOTHYROXINE SODIUM 175 MCG TABLET PO SCH (06:30)
[2025-04-22] MEDS ORDERED: CYANOCOBALAMIN (B-12) 500 MCG TABLET PO SCH (09:00)
[2025-04-22] MEDS ORDERED: POTASSIUM CHLORIDE CRTAB 20 MEQ TABCR PO SCH (09:00)
[2025-04-22] MEDS ORDERED: CALCIUM 600MG + VIT D 400 IU TAB PO SCH (09:00)
--- NOTE | 2025-04-22 09:47 | Discharge Summary ---
Discharge Summary Date of Service April 22, 2025 Principal Dx & Hospital Course #1 = Principal Diagnosis (1) Acute respiratory failure with hypoxia and hypercapnia: (2) Acute diastolic congestive heart failure due to valvular disease: (3) Hypotension: (4) Acute kidney injury superimposed on CKD: (5) Atrial fibrillation: (6) DM type 2 (diabetes mellitus, type 2): (7) Hypothyroidism: Plan per admitting PA notes and [employer] team notes: 85 year old female from [facility] with PMH significant for type 2 diabetes, hypothyroidism, vocal cord paresis, history of ischemic bowel disease, chronic diastolic CHF, CKD III, pulmonary hypertension, chronic atrial fibrillation, orthostatic hypotension, valvular heart disease, IBS, and morbid obesity who presents to ED on 04/21/2025 with SOB. Recently admitted from 03/29-04/10/2025 with acute on chronic HFpEF secondary to valvular heart disease and discharged to [facility] for rehab. During admission, Cardiology and Nephrology were consulted. Cardiology recommended midodrine 5mg tid for hypotension, continue eliquis 2.5mg bid and increased metoprolol succinate to 25mg bid for chronic a fib, furosemide 60mg bid, continue K 40meq daily, discontinue spironolactone and LANG at discharge. Nephrology recommended stop metolazone, 1.5L FR, heart healthy diet, weight and BP logs at discharge. Patient was also prescribed 5 day course of azithromycin at discharge. Based on above recommendations from previous admission, ramipril and metolazone were discontinued during med rec this admission. Acute respiratory failure with hypoxia and hypercapnia Possible PNA Patient presenting with SOB and fluid overload CXR revealed increased CHF and increased diffuse pulmonary interstitial opacities could represent pneumonia or pulmonary edema Biofire positive rhino/enterovirus Hypoxic to 82% on arrival On 4.5L NC in ED to maintain sats >90% ABG revealed pH 7.32, PCO2 67, HCO3 34.5 Bipap attempted but patient got agitated and would not tolerate mask Appreciate geographic information systems director recs for sedation to tolerate bipap patient admitted to the ICU per DANIEL Meyer: "Patient admitted 04/21/25 from rehab facility through the ED for mixed shock likely distributive and cardiogenic with afib and RVR further complicated with hypoxic respiratory failure and valvular heart disease. She was admitted received broad spectrum antibiotics, cultures were drawn for concern of septic shock from possible pulmonary source, she was diuresed with lasix as well as placed on inotropic and vasopressor agents. Patient declined NIPVV as well as further aggressive measures, Patient has an advanced directive indicating she does not want intubated nor resuscitated in event of cardiac arrest. She initially was willing to undergo current medical management which includes IV vasoactive medications not through central venous access and high flow nasal cannula not to include CPAP or advanced airway techniques.. She continued to progress with dyspnea, hypoxia, tachycardia, and hypotension. Patient and family elected to stop life prolonging medications and support and proceed to comfort/palliative care. Patient was transitioned to comfort measures and comfortably with family present at her side at 2137. " Acute on chronic diastolic CHF exacerbation Valvular heart disease Patient presenting with SOB and fluid overload CXR revealed increased CHF and increased diffuse pulmonary interstitial opacities could represent pneumonia or pulmonary edema BNP 598 Received 20mg IV lasix in ED Echo in February 2025 revealed LVEF 55-59%, left atrium severely enlarged, moderate , moderate AR, severe MS, severe MR, moderate pulmonary hypertension Echo ordered Hypotension Possible septic shock Patient meets criteria with tachycardia and tachypnea present on admission in setting of possible PNA Hypotensive with BP as low as 73/50 prior to lasix administration No leukocytosis, negative lactate, negative procal Blood and urine cultures MRSA Cefepime renally dosed and doxycycline CARROL on CKD stage IIIb Baseline creat 1.4-1.5 Creat 2.1 on admission Needs IV diuresis for acute CHF Consult Nephrology: appreciate recs Chronic Atrial Fibrillation low dose Eliquis and metoprolol succinate (increased to 25mg bid last admission) DM II A1C 7.4 in December 2024 Notes For Next Care Provider Medication Changes From Visit patient Admission HPI Per Admitting Provider 85 year old female from [facility] with PMH significant for type 2 diabetes, hypothyroidism, vocal cord paresis, history of ischemic bowel disease, chronic diastolic CHF, CKD III, pulmonary hypertension, chronic atrial fibrillation, orthostatic hypotension, valvular heart disease, IBS, and morbid obesity who presents to ED on 04/21/2025 with SOB. Previously admitted from 03/29- 04/10/2025 with acute on chronic HFpEF and discharged to [facility] for rehab. At [facility], patient developed cough and chest congestion and had a CXR concerning for LLL pneumonia. She was started on Augmentin and duonebs. Yesterday, she developed hypoxia to the mid 80s and dyspnea prompting evaluation in the ED today. Patient reports that she has a productive cough with yellow phlegm that is difficult for her to expectorate. She reports SOB. Denies fevers, chills, chest pain, abdominal pain, N/V/D. Discharge Exam patient Updated Medication List Medication Instructions Recorded Confirmed Type acetaminophen 325 mg capsule 650 mg PO QID PRN Pain (Scale 03/11/25 04/21/25 History Score 4-6) allopurinol 100 mg tablet 200 mg PO DAILY 03/11/25 04/21/25 History (Zyloprim) apixaban 2.5 mg tablet (Eliquis) 2.5 mg PO BID 03/11/25 04/21/25 History calcium 600 mg (as 1 tab PO DAILY 03/11/25 04/21/25 History carbonate)-vitamin D3 10 mcg (400 unit) tablet coenzyme Q10 400 mg capsule 400 mg PO DAILY 03/11/25 04/21/25 History cyanocobalamin (vitamin B-12) 1,000 mcg PO DAILY 03/11/25 04/21/25 History 1,000 mcg capsule glucosam 750 mg-chondroi 100 3 tab PO DAILY 03/11/25 04/21/25 History mg-hyalur 1.65 mg-CF borate 108 mg tablet ([facility] [employer]) levothyroxine 175 mcg tablet 175 mcg PO DAILY 03/11/25 04/21/25 History (Synthroid) linagliptin 5 mg tablet (Tradjenta) 5 mg PO DAILY 03/11/25 04/21/25 History loperamide 2 mg capsule 2 mg PO BID PRN Diarrhea 03/11/25 04/21/25 History (Anti-Diarrheal (loperamide)) magnesium 200 mg tablet 200 mg PO WK 03/11/25 04/21/25 History potassium chloride 20 mEq 40 meq PO DAILY 03/11/25 04/21/25 History tablet,extended release(part/cryst) furosemide 20 mg tablet 60 mg (3 x 20 mg) PO BID17 30 days 04/10/25 04/21/25 Rx #90 tabs metoprolol succinate 25 mg 25 mg PO BID 30 days #60 tabs 04/10/25 04/21/25 Rx tablet,extended release 24 hr midodrine 2.5 mg tablet 5 mg (2 x 2.5 mg) PO 04/10/25 04/21/25 Rx TID@0800,1200,1700 30 days #5 tabs Hospital Stay Data Consultations 04/21/25 13:29 ED Decision to Admit Stat 04/21/25 15:07 Consult Cardiology Routine Consult [employer] Routine Consult Nephrology Routine Total Time Total Time Spent Total Time Spent (In Minutes): <30 minutes
== END 2025-04-21 23:00 | disposition expired | DRG 871 ==
LOC: ED 09:36 → 1E 11:49
DX: Z79.01 Long term (current) use of anticoagulants; I05.0 Rheumatic mitral stenosis; A41.9 Sepsis, unspecified organism; Z79.899 Other long term (current) drug therapy; E66.01 Morbid (severe) obesity due to excess calories; D64.9 Anemia, unspecified; R65.21 Severe sepsis with septic shock; Z91.040 Latex allergy status; I50.33 Acute on chronic diastolic (congestive) heart failure; N17.9 Acute kidney failure, unspecified; J96.01 Acute respiratory failure with hypoxia; Z66 Do not resuscitate; Z79.890 Hormone replacement therapy; E11.22 Type 2 diabetes mellitus with diabetic chronic kidney disease; N18.32 Chronic kidney disease, stage 3b; I35.0 Nonrheumatic aortic (valve) stenosis; E03.9 Hypothyroidism, unspecified; Z68.38 Body mass index [BMI] 38.0-38.9, adult; Z79.84 Long term (current) use of oral hypoglycemic drugs; I13.0 Hypertensive heart and chronic kidney disease with heart failure and stage 1 through stage 4 chronic kidney disease, or unspecified chronic kidney disease; J96.02 Acute respiratory failure with hypercapnia; I48.20 Chronic atrial fibrillation, unspecified; Z88.8 Allergy status to other drugs, medicaments and biological substances; J18.9 Pneumonia, unspecified organism; I38 Endocarditis, valve unspecified; K58.9 Irritable bowel syndrome, unspecified; M10.9 Gout, unspecified; Z90.710 Acquired absence of both cervix and uterus; I27.20 Pulmonary hypertension, unspecified